=== PATIENT | male | born 1980 | race Caucasian/White ===

== ENCOUNTER 2022-01-26 22:39 | Inpatient (IN) | payer OTHER, SELFPAY ==
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
[2022-01-26] MEDS: Acetaminophen 325 MG TABLET 650 MG PO (23:16)
[2022-01-26 23:20] VITALS: BP 137/90; PULSE 88; RESP 20; TEMP 36; O2SAT 100
[2022-01-27] MEDS: Ibuprofen 600 MG TABLET PO ×2 (01:48→13:46)
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
[2022-01-27 06:00] VITALS: BP 141/85; PULSE 88; RESP 16; TEMP 36.7; O2SAT 100
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
--- NOTE | 2022-01-27 14:53 | HO.PSYCHPN ---
Subjective Subjective Date of Service: 01/27/22 Reason For Visit: schizophrenia Subjective Notes: Conditional Voluntary Diagnostics Vital Signs (24Hr): Vital Signs - 24 hr 01/26/22 23:20 01/27/22 06:00 Temperature 96.8 F 98.1 F Pulse Rate 88 88 Respiratory Rate 20 16 Blood Pressure 137/90 H 141/85 H Pulse Oximetry 100 100 Medications Medications Current Medications Acetaminophen (Acetaminophen 325 Mg Tablet) 650 mg PO Q6H PRN PRN Reason: Headache/Pain Mild Scale (1-3) Last Admin: 01/26/22 23:16 Dose: 650 mg Documented by: Al Hydroxide/Mg Hydroxide (Magnesium Hydrox/Alum Hydrox 30 Ml Oral.Susp) 30 ml PO Q6H PRN PRN Reason: Heartburn/Nausea Hydroxyzine HCl (Hydroxyzine Hcl 25 Mg Tablet) 25 mg PO Q6H PRN PRN Reason: Anxiety Ibuprofen (Ibuprofen 600 Mg Tablet) 600 mg PO Q6H PRN PRN Reason: Pain, Mild (Pain Scale 1-3) Last Admin: 01/27/22 13:46 Dose: 600 mg Documented by: Magnesium Hydroxide (Milk Of Magnesia 30 Ml Oral.Susp) 30 ml PO DAILY PRN PRN Reason: Constipation Olanzapine (Olanzapine 5 Mg Tablet) 5 mg PO TID PRN PRN Reason: agitation Trazodone HCl (Trazodone Hcl 50 Mg Tablet) 50 mg PO BEDTIME PRN PRN Reason: Insomnia Allergies Allergies Allergy/AdvReac Type Severity Reaction Status Date / Time No Known Allergies Allergy Verified 01/26/22 23:05 Assessment & Plan Assessment & Plan (1) Depression: Status: Acute Code(s): F32.A - Depression, unspecified Plan 41 year old man admitted by psychiatric team. Mental health management as per admitting team No significant medical problems noted no labs drawn Consultation completed I spent minutes with the patient and/or on the patient floor today, greater than?50% of which was spent counseling/coordinating care.
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
--- NOTE | 2022-01-27 18:03 | PC.NURSE ---
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 3 weeks ago he was unable to obtain clozaril from his pharmacy and psychiatrist ( Dr Hdez)was unavailable. He decompensated over the past few weeks off the medication. He has never had agranulocytosis. Parents advocate for restarting clozaril. Dr Dela Cruz informed. Original Note: Antwon did not sign release of information for his parents. they called today to offer collateral and I took it. Per Dad: Antwon had been diagnosed with schizophrenia as a teen. He has been stable for the large majority of his life on Clozaril - minimum effective dose 125mg - 75mg not enough.
[2022-01-27 20:27] VITALS: BP 136/93; PULSE 102; RESP 20; TEMP 36.6; O2SAT 100
--- NOTE | 2022-01-28 12:32 | HO.PSYCHPN ---
Subjective Subjective Date of Service: 01/28/22 Reason For Visit: schizophrenia Subjective Notes: 3 Day Healthcare Proxy: No Medical Problems Affecting Mental Status: No Interim History: Still paranoid and internally preoccupied. Hiding behind partitions at times. Refuses medications. Sleep poor. Reports he might consider clozapine (does well on 125mg, 75mg not enough as per family). Denies depression or SI. Appetite ok. Medication Compliance: No Attending Groups: No Review of Systems Acute medical concerns: No Review of Systems Review of Systems Yes Unobtainable due to mental status Mental Status Exam Mental Status Exam Narrative: Regular clothing. Slightly better self care today. Intense affect.? Guarded.? Some difficulty with personal space, but does okay with redirection.? Denies SI or HI.? Is paranoid and guarded internally preoccupied.? Does appear to have some grandiosity at times.? Insight and judgment poor Diagnostics Vital Signs (24Hr): Vital Signs - 24 hr 01/27/22 20:27 Temperature 97.8 F Pulse Rate 102 H Respiratory Rate 20 Blood Pressure 136/93 H Pulse Oximetry 100 Medications Medications Current Medications Acetaminophen (Acetaminophen 325 Mg Tablet) 650 mg PO Q6H PRN PRN Reason: Headache/Pain Mild Scale (1-3) Last Admin: 01/26/22 23:16 Dose: 650 mg Documented by: Al Hydroxide/Mg Hydroxide (Magnesium Hydrox/Alum Hydrox 30 Ml Oral.Susp) 30 ml PO Q6H PRN PRN Reason: Heartburn/Nausea Hydroxyzine HCl (Hydroxyzine Hcl 25 Mg Tablet) 25 mg PO Q6H PRN PRN Reason: Anxiety Ibuprofen (Ibuprofen 600 Mg Tablet) 600 mg PO Q6H PRN PRN Reason: Pain, Mild (Pain Scale 1-3) Last Admin: 01/27/22 13:46 Dose: 600 mg Documented by: Magnesium Hydroxide (Milk Of Magnesia 30 Ml Oral.Susp) 30 ml PO DAILY PRN PRN Reason: Constipation Olanzapine (Olanzapine 5 Mg Tablet) 5 mg PO TID PRN PRN Reason: agitation Trazodone HCl (Trazodone Hcl 50 Mg Tablet) 50 mg PO BEDTIME PRN PRN Reason: Insomnia Allergies Allergies Allergy/AdvReac Type Severity Reaction Status Date / Time No Known Allergies Allergy Verified 01/26/22 23:05 Assessment & Plan Assessment & Plan (1) Schizophrenia: Status: Acute Code(s): F20.9 - Schizophrenia, unspecified Assessment and Plan: Presents with psychosis and hallucinations and disorganized thought form in the context of being off Clozaril for 3-4 weeks. Refuses restarting Clozaril. Will work with family as patient permits and also trying to engage with community services as patient permits also. Will continue to try and encourage clozapine medication. Regarding request for x-rays Of nose, patient has declined these when offered and there is no clear indication for same. 01/28/22- clozapine 50mg ordered. As per family does well on 125mg (75mg too low) I spent minutes with the patient and/or on the patient floor today, greater than?50% of which was spent counseling/coordinating care. Reason for contiued inpatient stay Substantial Risk for: inability to function
[2022-01-28] MEDS: Acetaminophen 325 MG TABLET 650 MG PO (15:03)
[2022-01-28 15:14] LABS: Neutrophils Absolute Auto 7.7 x10*3/uL (2.0-8.3); White Blood Count 11.6 X10*3/uL (4.8-10.8)
[2022-01-28] MEDS: cloZAPine 25 MG TABLET 50 MG PO (21:21)
[2022-01-29 10:27] VITALS: BP 132/87; PULSE 134; RESP 17; TEMP 36.7; O2SAT 100
[2022-01-29] MEDS: LORazepam 1 MG TABLET 2 MG PO ×2 (12:09→12:39)
--- NOTE | 2022-01-29 12:36 | P.PNPSI_ITS ---
Subjective Subjective Date of Service: 01/29/22 Reason For Visit: schizophrenia Interim History: Pt significantly hypervigilant, fearful thinks people on the unit trying to kill him, pacing, yelling at peers at staff as he tries to defend himself. He is also talking to someone who is not there. He reports there are many pedofiles on the unit and he does not know who he can trust. He is very fearful of this typewriter assembler, asking if I am a pedophile. He agrees to try ativan prn, but does not want olanzapine PRN. He took dose of clozaril last night. Medication Compliance: Yes Side effects from medications: No Review of Systems Review of Systems Yes Unobtainable due to mental status Mental Status Exam Mental Status Exam Narrative: Appearance: casually groomed, fair hygiene, pacing, very agitated, fearful and hypervigiland Behavior:very guarded and mistrustful of others psychomotor:significant agitation secondary to hypervigilance/fearfulness s/s to persecutory/paranoid delusions Speech:mumbling at times, pressured speech at times, loud Thought process:disorganized Thought content:accusatory thinks people are following him and many pedophile Mood: get me out of here Affect: fearful, hypervigilant, guarded SI:none HI: defending himself from whoever is after him VH/AH:+AH talking to someone who is not there, Delusions:paranoid/persecutory delusions. Insight/judgment:impaired x 2. Memory/cog: alert, impaired secondary to psychiatric symptoms. Diagnostics Vital Signs (24Hr): Vital Signs - 24 hr 01/29/22 10:27 Temperature 98.1 F Pulse Rate 134 H Respiratory Rate 17 Blood Pressure 132/87 Pulse Oximetry 100 Labs Results: 01/28/22 15:08 Labs: Laboratory Results - last 48 hr 01/28/22 15:08 WBC 11.6 H Absolute Neuts (auto) 7.7 Imaging Radiology Impressions: ITS Impressions Head CT 01/28/22 14:51 IMPRESSION: No acute intracranial pathology. Medications Medications Current Medications Acetaminophen (Acetaminophen 325 Mg Tablet) 650 mg PO Q6H PRN PRN Reason: Headache/Pain Mild Scale (1-3) Last Admin: 01/29/22 12:53 Dose: 650 mg Documented by: Al Hydroxide/Mg Hydroxide (Magnesium Hydrox/Alum Hydrox 30 Ml Oral.Susp) 30 ml PO Q6H PRN PRN Reason: Heartburn/Nausea Clozapine (Clozapine 25 Mg Tablet) 75 mg PO BEDTIME GOLD Last Admin: 01/29/22 20:30 Dose: 75 mg Documented by: Hydroxyzine HCl (Hydroxyzine Hcl 25 Mg Tablet) 25 mg PO Q6H PRN PRN Reason: Anxiety Ibuprofen (Ibuprofen 600 Mg Tablet) 600 mg PO Q6H PRN PRN Reason: Pain, Mild (Pain Scale 1-3) Last Admin: 01/27/22 13:46 Dose: 600 mg Documented by: Lorazepam (Lorazepam 1 Mg Tablet) 2 mg PO Q4H PRN PRN Reason: Anxiety Last Admin: 01/30/22 07:57 Dose: 2 mg Documented by: Magnesium Hydroxide (Milk Of Magnesia 30 Ml Oral.Susp) 30 ml PO DAILY PRN PRN Reason: Constipation Olanzapine (Olanzapine 5 Mg Tablet) 5 mg PO TID PRN PRN Reason: agitation Last Admin: 01/30/22 07:57 Dose: 5 mg Documented by: Trazodone HCl (Trazodone Hcl 50 Mg Tablet) 50 mg PO BEDTIME PRN PRN Reason: Insomnia Allergies Allergies Allergy/AdvReac Type Severity Reaction Status Date / Time No Known Allergies Allergy Verified 01/26/22 23:05 Assessment & Plan Assessment & Plan (1) Schizophrenia: Status: Acute Code(s): F20.9 - Schizophrenia, unspecified Assessment and Plan: Presents with psychosis and hallucinations and disorganized thought form in the context of being off Clozaril for 3-4 weeks. Refuses restarting Clozaril. Will work with family as patient permits and also trying to engage with community services as patient permits also. Will continue to try and encourage clozapine medication. Regarding request for x-rays Of nose, patient has declined these when offered and there is no clear indication for same. 01/28/22- clozapine 50mg ordered. As per family does well on 125mg (75mg too low) 01/29 increase clozapine to 75mg po qhs. I spent minutes with the patient and/or on the patient floor today, gr eater than?50% of which was spent counseling/coordinating care. Reason for contiued inpatient stay Substantial Risk for: harm to others and inability to function
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
[2022-01-29] MEDS: Acetaminophen 325 MG TABLET 650 MG PO (12:53)
[2022-01-29] MEDS: cloZAPine 25 MG TABLET 75 MG PO (20:30)
[2022-01-30] MEDS: OLANZapine 5 MG TABLET PO ×2 (07:57→21:06)
[2022-01-30] MEDS: LORazepam 1 MG TABLET 2 MG PO ×3 (07:57→21:07)
--- NOTE | 2022-01-30 09:17 | P.PNPSI_ITS ---
Subjective Subjective Date of Service: 01/30/22 Reason For Visit: schizophrenia Subjective Notes: 3 Day Interim History: Pt continues to present as paranoid, hypervigilant, talking to someone who is not there. Pt eating several packages of sugar unclear reason as pt became very agitated when asked about this. Pt very disorganized, intrusive with peers accusing them of being pedophiles. He told this investigative writer that I was lying and also a pedophile. speech is also disorganized. Medication Compliance: Yes Side effects from medications: No Review of Systems Review of Systems Yes Unobtainable due to mental status Mental Status Exam Mental Status Exam Narrative: Appearance: casually groomed, fair hygiene, pacing, very agitated, fearful and hypervigiland Behavior:very guarded and mistrustful of others psychomotor:significant agitation secondary to hypervigilance/fearfulness s/s to persecutory/paranoid delusions Speech:mumbling at times, pressured speech at times, loud Thought process:disorganized Thought content:accusatory thinks people are following him and many pedophile Mood: get me out of here Affect: fearful, hypervigilant, guarded SI:none HI: defending himself from whoever is after him VH/AH:+AH talking to someone who is not there, Delusions:paranoid/persecutory delusions. Insight/judgment:impaired x 2. Memory/cog: alert, impaired secondary to psychiatric symptoms. Diagnostics Vital Signs (24Hr): Vital Signs - 24 hr 01/31/22 20:05 Respiratory Rate 18 Labs Results: 01/28/22 15:08 Imaging Radiology Impressions: ITS Impressions Head CT 01/28/22 14:51 IMPRESSION: No acute intracranial pathology. Medications Medications Current Medications Acetaminophen (Acetaminophen 325 Mg Tablet) 650 mg PO Q6H PRN PRN Reason: Headache/Pain Mild Scale (1-3) Last Admin: 01/31/22 15:54 Dose: 650 mg Documented by: Al Hydroxide/Mg Hydroxide (Magnesium Hydrox/Alum Hydrox 30 Ml Oral.Susp) 30 ml PO Q6H PRN PRN Reason: Heartburn/Nausea Clozapine (Clozapine 100 Mg Tablet) 100 mg PO BEDTIME GOLD Last Admin: 01/31/22 19:59 Dose: 100 mg Documented by: Hydroxyzine HCl (Hydroxyzine Hcl 50 Mg Tablet) 50 mg PO Q6H PRN PRN Reason: Anxiety Last Admin: 02/01/22 03:00 Dose: 50 mg Documented by: Ibuprofen (Ibuprofen 600 Mg Tablet) 600 mg PO Q6H PRN PRN Reason: Pain, Mild (Pain Scale 1-3) Last Admin: 01/30/22 16:51 Dose: 600 mg Documented by: Lactic Acid (Ammonium Lactate 12 % Lotion 226 Gm Bottle) 1 appl TOPICAL BID GOLD; Protocol Last Admin: 01/31/22 22:07 Dose: Not Given Documented by: Lorazepam (Lorazepam 1 Mg Tablet) 2 mg PO Q4H PRN PRN Reason: Anxiety Last Admin: 02/01/22 03:00 Dose: 2 mg Documented by: Magnesium Hydroxide (Milk Of Magnesia 30 Ml Oral.Susp) 30 ml PO DAILY PRN PRN Reason: Constipation Olanzapine (Olanzapine 5 Mg Tablet) 5 mg PO Q4H PRN PRN Reason: agitation Last Admin: 02/01/22 03:00 Dose: 5 mg Documented by: Trazodone HCl (Trazodone Hcl 50 Mg Tablet) 50 mg PO BEDTIME PRN PRN Reason: Insomnia Last Admin: 02/01/22 03:00 Dose: 50 mg Documented by: Allergies Allergies Allergy/AdvReac Type Severity Reaction Status Date / Time No Known Allergies Allergy Verified 01/26/22 23:05 Assessment & Plan Assessment & Plan (1) Schizophrenia: Status: Acute Code(s): F20.9 - Schizophrenia, unspecified Assessment and Plan: Presents with psychosis and hallucinations and disorganized thought form in the context of being off Clozaril for 3-4 weeks. Refuses restarting Clozaril. Will work with family as patient permits and also trying to engage with community services as patient permits also. Will continue to try and encourage clozapine medication. Regarding request for x-rays Of nose, patient has declined these when offered and there is no clear indication for same. 01/28/22- clozapine 50mg ordered. As per family does well on 125mg (75mg too low) 01/29 increase clozapine to 75mg po qhs. 01/30 increase clozaril to 100mg po qhs. I spent minutes with the patient and/or on the patient floor today, greater than?50% of which was spent counseling/coordinating care. Reason for contiued inpatient stay Substantial Risk for: inability to function
[2022-01-30] MEDS: LORazepam 1 MG TABLET PO (11:07)
[2022-01-30] MEDS: Ibuprofen 600 MG TABLET PO (16:51)
--- NOTE | 2022-01-30 17:15 | PC.NURSE ---
Approx 1715 patient in snack room taking multiple sugar packets. Limits set on quantity, patient with angry outburst, threw milk at staff, you can't take food away from me . I want to get the fuck out of here, can I call 911, I want to call 911 . Can I call 911 . Explained to patient police do not have privilege or authority to discharge patient. Patient unaccepting of response calling jacquie dawn . Patient posturing, however retreated to room after firm limits set on behaviors.
[2022-01-30 21:00] VITALS: BP 109/70; PULSE 84; RESP 18; TEMP 36.8; O2SAT 99
[2022-01-30] MEDS: traZODone HCL 50 MG TABLET PO (21:06)
[2022-01-30] MEDS: cloZAPine 100 MG TABLET PO (21:07)
[2022-01-31 08:21] VITALS: BP 131/84; PULSE 128; RESP 18; TEMP 36.7; O2SAT 99
--- NOTE | 2022-01-31 09:27 | P.PNPSI_ITS ---
Subjective Subjective Date of Service: 01/31/22 Reason For Visit: schizophrenia Subjective Notes: 3 Day Interim History: Pt continues to present as intrusive to peers, accusatory paranoid towards staff and peer. Pt accused this medical technical writer as liar and continues to report that this medical technical writer is a pedophile. He asks for results of head CT- which is negative and this medical technical writer offered to show report but pt insists that this medical technical writer is lying. Pt coming close to peers trying to touch them as he accused them of pedophiles- needs to be redirected, manager product support called as pt becoming more agitated and threatening towards staff and peers. Medication Compliance: Yes Side effects from medications: No Attending Groups: No Review of Systems Review of Systems Yes Unobtainable due to mental status Mental Status Exam Mental Status Exam Narrative: Appearance: casually groomed, fair hygiene, pacing, very agitated, fearful and hypervigiland Behavior:very guarded and mistrustful of others psychomotor:significant agitation secondary to hypervigilance/fearfulness s/s to persecutory/paranoid delusions Speech:mumbling at times, pressured speech at times, loud Thought process:disorganized Thought content:accusatory thinks people are following him and many pedophile Mood: get me out of here Affect: fearful, hypervigilant, guarded SI:none HI: defending himself from whoever is after him VH/AH:+AH talking to someone who is not there, Delusions:paranoid/persecutory delusions. Insight/judgment:impaired x 2. Memory/cog: alert, impaired secondary to psychiatric symptoms. Diagnostics Vital Signs (24Hr): Vital Signs - 24 hr 01/31/22 20:05 02/01/22 09:00 Temperature 97.2 F Pulse Rate 115 H Respiratory Rate 18 18 Blood Pressure 136/90 H Pulse Oximetry 99 Labs Results: 01/28/22 15:08 Imaging Radiology Impressions: ITS Impressions Head CT 01/28/22 14:51 IMPRESSION: No acute intracranial pathology. Medications Medications Current Medications Acetaminophen (Acetaminophen 325 Mg Tablet) 650 mg PO Q6H PRN PRN Reason: Headache/Pain Mild Scale (1-3) Last Admin: 01/31/22 15:54 Dose: 650 mg Documented by: Al Hydroxide/Mg Hydroxide (Magnesium Hydrox/Alum Hydrox 30 Ml Oral.Susp) 30 ml PO Q6H PRN PRN Reason: Heartburn/Nausea Clozapine (Clozapine 100 Mg Tablet) 100 mg PO BEDTIME GOLD Last Admin: 01/31/22 19:59 Dose: 100 mg Documented by: Hydroxyzine HCl (Hydroxyzine Hcl 50 Mg Tablet) 50 mg PO Q6H PRN PRN Reason: Anxiety Last Admin: 02/01/22 03:00 Dose: 50 mg Documented by: Ibuprofen (Ibuprofen 600 Mg Tablet) 600 mg PO Q6H PRN PRN Reason: Pain, Mild (Pain Scale 1-3) Last Admin: 01/30/22 16:51 Dose: 600 mg Documented by: Lactic Acid (Ammonium Lactate 12 % Lotion 226 Gm Bottle) 1 appl TOPICAL BID GOLD; Protocol Last Admin: 01/31/22 22:07 Dose: Not Given Documented by: Lorazepam (Lorazepam 1 Mg Tablet) 2 mg PO Q4H PRN PRN Reason: Anxiety Last Admin: 02/01/22 03:00 Dose: 2 mg Documented by: Magnesium Hydroxide (Milk Of Magnesia 30 Ml Oral.Susp) 30 ml PO DAILY PRN PRN Reason: Constipation Olanzapine (Olanzapine 5 Mg Tablet) 5 mg PO Q4H PRN PRN Reason: agitation Last Admin: 02/01/22 03:00 Dose: 5 mg Documented by: Trazodone HCl (Trazodone Hcl 50 Mg Tablet) 50 mg PO BEDTIME PRN PRN Reason: Insomnia Last Admin: 02/01/22 03:00 Dose: 50 mg Documented by: Allergies Allergies Allergy/AdvReac Type Severity Reaction Status Date / Time No Known Allergies Allergy Verified 01/26/22 23:05 Assessment & Plan Assessment & Plan (1) Schizophrenia: Status: Acute Code(s): F20.9 - Schizophrenia, unspecified Assessment and Plan: Presents with psychosis and hallucinations and disorganized thought form in the context of being off Clozaril for 3-4 weeks. Refuses restarting Clozaril. Will work with family as patient permits and also trying to engage with community services as patient permits also. Will continue to try and encourage clozapine medication. Regarding request for x-rays Of nose, patient has declined these when offered and there is no clear indication for same. 01/28/22- clozapine 50mg ordered. As per family does well on 125mg (75mg too low) 5/2 increase clozapine to 75mg po qhs. 01/30 increase clozaril to 100mg po qhs. 5/4 increase clozaril to 125mg po qhs. I spent minutes with the patient and/or on the patient floor today, greater than?50% of which was spent counseling/coordinating care. Reason for contiued inpatient stay Substantial Risk for: inability to function
[2022-01-31] MEDS: Acetaminophen 325 MG TABLET 650 MG PO (15:54)
[2022-01-31] MEDS: cloZAPine 100 MG TABLET PO (19:59)
[2022-01-31] MEDS: OLANZapine 5 MG TABLET PO (19:59)
[2022-01-31] MEDS: LORazepam 1 MG TABLET 2 MG PO (20:00)
[2022-01-31] MEDS: hydrOXYzine HCL 50 MG TABLET PO (20:03)
[2022-01-31] MEDS: traZODone HCL 50 MG TABLET PO (20:03)
[2022-01-31 20:05] VITALS: RESP 18
[2022-02-01] MEDS: OLANZapine 5 MG TABLET PO ×2 (03:00→20:46)
[2022-02-01] MEDS: hydrOXYzine HCL 50 MG TABLET PO ×2 (03:00→20:46)
[2022-02-01] MEDS: traZODone HCL 50 MG TABLET PO ×2 (03:00→20:46)
[2022-02-01] MEDS: LORazepam 1 MG TABLET 2 MG PO ×4 (03:00→20:46)
--- NOTE | 2022-02-01 06:11 | PC.NURSE ---
Pt presented very anxious, paranoid, responding to internal stimuli. Frequently talking about and calling people pedophiles and saying that he did not feel safe here around them, stated that people here were trying to beat him up. Pt was triggering peers who thought that he was referring to them as being pedophiles . When staff member attempted to redirect pt from [facility] area pt started swinging his arms and attempted to grab at staff member's badge; pt was redirected to his room. Security was called to the unit to help ensure patient and staff safety. Pt accepted PO medications, which included scheduled clozaril 100 mg, and prn's zyprexa 5 mg, ativan 2 mg, trazodone 50 mg and hydroxyzine 50 mg, administered at 1999. Medications had some observed effect, as pt remained in his room for a bit, and when visible he appeared less anxious and paranoid. Pt was asleep by 2300. Pt woke around 0200 and began going in and out of his room, frequently asking for juice. Each time pt returned to his room he would slam the door very hard. Pt again presented very paranoid, stating today was the worst day of my life and that he didn't need to be here. Pt received prn zyprexa 5 mg, ativan 2 mg, trazodone 50 mg and hydroyxine 50 mg at 0300, and appeared to be asleep by 0330.
[2022-02-01 08:58] LABS: MANUAL DIFF FLAG NO
[2022-02-01 09:00] VITALS: BP 136/90; PULSE 115; RESP 18; TEMP 36.2; O2SAT 99
--- NOTE | 2022-02-01 09:55 | HO.PSYCHPN ---
Subjective Subjective Date of Service: 02/01/22 Reason For Visit: schizophrenia Subjective Notes: Section 7 and 3 Day Interim History: Pt continues to present as intrusive to peers, accusatory paranoid towards staff and peer. Pt appears very fearful, hypervigilant. Pt accused this display card writer as liar and continues to report that this display card writer is a pedophile. He asks for results of head CT- which is negative and this display card writer offered to show report but pt insists that this display card writer is lying. Pt coming close to peers trying to touch them as he accused them of pedophiles- needs to be redirected, it support technician called as pt becoming more agitated and threatening towards staff and peers. Review of Systems Review of Systems Yes Unobtainable due to mental status Mental Status Exam Mental Status Exam Narrative: Appearance: casually groomed, fair hygiene, pacing, very agitated, fearful and hypervigiland Behavior:very guarded and mistrustful of others psychomotor:significant agitation secondary to hypervigilance/fearfulness s/s to persecutory/paranoid delusions Speech:mumbling at times, pressured speech at times, loud Thought process:disorganized Thought content:accusatory thinks people are following him and many pedophile Mood: get me out of here Affect: fearful, hypervigilant, guarded SI:none HI: defending himself from whoever is after him VH/AH:+AH talking to someone who is not there, Delusions:paranoid/persecutory delusions. Insight/judgment:impaired x 2. Memory/cog: alert, impaired secondary to psychiatric symptoms. Diagnostics Vital Signs (24Hr): Vital Signs - 24 hr 01/31/22 20:05 02/01/22 09:00 Temperature 97.2 F Pulse Rate 115 H Respiratory Rate 18 18 Blood Pressure 136/90 H Pulse Oximetry 99 Labs Results: 02/01/22 08:39 Imaging Radiology Impressions: ITS Impressions Head CT 01/28/22 14:51 IMPRESSION: No acute intracranial pathology. Medications Medications Current Medications Acetaminophen (Acetaminophen 325 Mg Tablet) 650 mg PO Q6H PRN PRN Reason: Headache/Pain Mild Scale (1-3) Last Admin: 01/31/22 15:54 Dose: 650 mg Documented by: Al Hydroxide/Mg Hydroxide (Magnesium Hydrox/Alum Hydrox 30 Ml Oral.Susp) 30 ml PO Q6H PRN PRN Reason: Heartburn/Nausea Clozapine (Clozapine 25 Mg Tablet) 125 mg PO BEDTIME GOLD Hydroxyzine HCl (Hydroxyzine Hcl 50 Mg Tablet) 50 mg PO Q6H PRN PRN Reason: Anxiety Last Admin: 02/01/22 03:00 Dose: 50 mg Documented by: Ibuprofen (Ibuprofen 600 Mg Tablet) 600 mg PO Q6H PRN PRN Reason: Pain, Mild (Pain Scale 1-3) Last Admin: 01/30/22 16:51 Dose: 600 mg Documented by: Lactic Acid (Ammonium Lactate 12 % Lotion 226 Gm Bottle) 1 appl TOPICAL BID GOLD; Protocol Last Admin: 01/31/22 22:07 Dose: Not Given Documented by: Lorazepam (Lorazepam 1 Mg Tablet) 2 mg PO Q4H PRN PRN Reason: Anxiety Last Admin: 02/01/22 03:00 Dose: 2 mg Documented by: Magnesium Hydroxide (Milk Of Magnesia 30 Ml Oral.Susp) 30 ml PO DAILY PRN PRN Reason: Constipation Olanzapine (Olanzapine 5 Mg Tablet) 5 mg PO Q4H PRN PRN Reason: agitation Last Admin: 02/01/22 03:00 Dose: 5 mg Documented by: Trazodone HCl (Trazodone Hcl 50 Mg Tablet) 50 mg PO BEDTIME PRN PRN Reason: Insomnia Last Admin: 02/01/22 03:00 Dose: 50 mg Documented by: Allergies Allergies Allergy/AdvReac Type Severity Reaction Status Date / Time No Known Allergies Allergy Verified 01/26/22 23:05 Assessment & Plan Assessment & Plan (1) Schizophrenia: Status: Acute Code(s): F20.9 - Schizophrenia, unspecified Assessment and Plan: Presents with psychosis and hallucinations and disorganized thought form in the context of being off Clozaril for 3-4 weeks. Refuses restarting Clozaril. Will work with family as patient permits and also trying to engage with community services as patient permits also. Will continue to try and encourage clozapine medication. Regarding request for x-rays Of nose, patient has declined these when offered and there is no clear indication for same. 01/28/22- clozapine 50mg ordered. As per family does well on 125mg (75mg too low) 01/29 increase clozapine to 75mg po qhs. 01/30 increase clozaril to 100mg po qhs. 01/31 increase clozaril to 125mg po qhs. I spent minutes with the patient and/or on the patient floor today, greater than?50% of which was spent counseling/coordinating care. Reason for contiued inpatient stay Substantial Risk for: inability to function
[2022-02-01 10:02] LABS: Basophils Percent Auto 0.5 % (0-2); Eosinophils Absolute Auto 0.3 X10*3/uL (0.0-0.4); Eosinophils Percent Auto 4.3 % (0-4); Hematocrit 44.7 % (42.0-52.0); Imm Gran Abs Auto 0.09 X10*3/uL (0.00-0.03); Imm Gran Pct Auto 1.4 % (0.0-0.4); Lymphocytes Absolute Auto 1.4 X10*3/uL (1.2-4.9); Lymphocytes Percent Auto 22.9 % (20-40); Mean Corpuscular HGB Conc 33.6 g/dl (31.0-36.0); Mean Corpuscular Hemoglobin 29.5 pg (27.0-33.0); Mean Corpuscular Volume 87.8 fL (80.0-98.0); Mean Platelet Volume 9.8 fL (9.4-12.4); Monocytes Absolute Auto 0.7 X10*3/uL (0.1-1.2); Monocytes Percent Auto 11.2 % (2-11); Neutrophils Absolute Auto 3.7 x10*3/uL (2.0-8.3); Neutrophils Percent Auto 59.7 % (45-73); Platelet Count 213 X10*3/uL (160-400); Red Blood Count 5.09 X10*6/uL (4.60-5.80); Red Cell Distribution Width 13.2 % (11.0-16.0); White Blood Count 6.2 X10*3/uL (4.8-10.8)
--- NOTE | 2022-02-01 10:02 | PC.NURSE ---
Patient agitated at times, swearing, pacing on unit-reports 'people are trying to start fights with me' - offered ativan/zyprexa- declined.
[2022-02-01] MEDS: Magnesium Hydrox/Alum Hydrox 30 ML ORAL.SUSP PO (17:04)
[2022-02-01] MEDS: Acetaminophen 325 MG TABLET 650 MG PO (17:08)
[2022-02-01 20:39] VITALS: BP 119/77; PULSE 115; RESP 18; TEMP 36.4; O2SAT 96
[2022-02-01] MEDS: cloZAPine 25 MG TABLET PO (20:47)
[2022-02-01] MEDS: cloZAPine 100 MG TABLET PO (20:47)
[2022-02-02] MEDS: OLANZapine 5 MG TABLET PO (08:19)
[2022-02-02] MEDS: LORazepam 1 MG TABLET 2 MG PO ×3 (08:19→16:58)
--- NOTE | 2022-02-02 08:21 | PC.NURSE ---
Patient pacing, running, slammed a door, appears very anxious, agitated. Offered PRN medications which patient accepted.
[2022-02-02 09:37] VITALS: RESP 22
[2022-02-02] MEDS: Ibuprofen 600 MG TABLET PO (16:58)
--- NOTE | 2022-02-02 18:05 | HO.PSYCHPN ---
Subjective Subjective Date of Service: 02/02/22 Reason For Visit: schizophrenia Interim History: Patient seen and discussed with team. Patient evaluated today and upon interview he reports he feels pretty good. Says his sleep is good. He is evasive, standing by door, appears paranoid and not eager to continue interview. Denies having questions or concerns. Says he feels safe. Asks for cream for cracked feet, which is already ordered as a PRN.?? In the milieu, patient is pacing, agitated and paranoid in behavior. Medication Compliance: Yes Side effects from medications: No Attending Groups: No Review of Systems Acute medical concerns: No Medical Review of Systems: unchanged Mental Status Exam Mental Status Exam Narrative: Appearance: casually groomed, fair hygiene, pacing, very agitated, fearful and hypervigiland Behavior:very guarded and mistrustful of others psychomotor:significant agitation secondary to hypervigilance/fearfulness s/s to persecutory/paranoid delusions Speech:mumbling at times, pressured speech at times, loud Thought process:disorganized Thought content:accusatory thinks people are following him and many pedophile Mood: good Affect: fearful, hypervigilant, guarded SI:none HI: defending himself from whoever is after him VH/AH:+AH talking to someone who is not there, Delusions:paranoid/persecutory delusions. Insight/judgment:impaired x 2. Memory/cog: alert, impaired secondary to psychiatric symptoms. Diagnostics Vital Signs (24Hr): Vital Signs - 24 hr 02/01/22 20:39 02/02/22 09:37 Temperature 97.6 F Pulse Rate 115 H Respiratory Rate 18 22 H Blood Pressure 119/77 Pulse Oximetry 96 Labs Results: 02/01/22 08:39 Labs: Laboratory Results - last 48 hr 02/01/22 08:39 WBC 6.2 RBC 5.09 Hgb 15.0 Hct 44.7 MCV 87.8 MCH 29.5 MCHC 33.6 RDW 13.2 Plt Count 213 MPV 9.8 Immature Gran % (Auto) 1.4 H Neut % (Auto) 59.7 Lymph % (Auto) 22.9 [place] % (Auto) 11.2 H Eos % (Auto) 4.3 H Baso % (Auto) 0.5 Lymph # (Auto) 1.4 [place] # (Auto) 0.7 Eos # (Auto) 0.3 Baso # (Auto) 0.0 Abs Immat Gran (auto) 0.09 H Absolute Neuts (auto) 3.7 Absolute Nucleated RBC 0.000 Nucleated RBC % (auto) 0.0 Imaging Radiology Impressions: ITS Impressions Head CT 01/28/22 14:51 IMPRESSION: No acute intracranial pathology. Medications Medications Current Medications Acetaminophen (Acetaminophen 325 Mg Tablet) 650 mg PO Q6H PRN PRN Reason: Headache/Pain Mild Scale (1-3) Last Admin: 02/01/22 17:08 Dose: 650 mg Documented by: Al Hydroxide/Mg Hydroxide (Magnesium Hydrox/Alum Hydrox 30 Ml Oral.Susp) 30 ml PO Q6H PRN PRN Reason: Heartburn/Nausea Last Admin: 02/01/22 17:04 Dose: 30 ml Documented by: Clozapine (Clozapine 25 Mg Tablet) 25 mg PO BEDTIME GOLD Last Admin: 02/01/22 20:47 Dose: 25 mg Documented by: Clozapine (Clozapine 100 Mg Tablet) 100 mg PO BEDTIME GOLD Last Admin: 02/01/22 20:47 Dose: 100 mg Documented by: Hydroxyzine HCl (Hydroxyzine Hcl 50 Mg Tablet) 50 mg PO Q6H PRN PRN Reason: Anxiety Last Admin: 02/01/22 20:46 Dose: 50 mg Documented by: Ibuprofen (Ibuprofen 600 Mg Tablet) 600 mg PO Q6H PRN PRN Reason: Pain, Mild (Pain Scale 1-3) Last Admin: 02/02/22 16:58 Dose: 600 mg Documented by: Lactic Acid (Ammonium Lactate 12 % Lotion 226 Gm Bottle) 1 appl TOPICAL BID GOLD; Protocol Last Admin: 02/02/22 09:45 Dose: Not Given Documented by: Lorazepam (Lorazepam 1 Mg Tablet) 2 mg PO Q4H PRN PRN Reason: Anxiety Last Admin: 02/02/22 16:58 Dose: 2 mg Documented by: Magnesium Hydroxide (Milk Of Magnesia 30 Ml Oral.Susp) 30 ml PO DAILY PRN PRN Reason: Constipation Olanzapine (Olanzapine 5 Mg Tablet) 5 mg PO Q4H PRN PRN Reason: agitation Last Admin: 02/02/22 08:19 Dose: 5 mg Documented by: Trazodone HCl (Trazodone Hcl 50 Mg Tablet) 50 mg PO BEDTIME PRN PRN Reason: Insomnia Last Admin: 02/01/22 20:46 Dose: 50 mg Documented by: Allergies Allergies Allergy/AdvReac Type Severity Reaction Status Date / Time No Known Allergies Allergy Verified 01/26/22 23:05 Assessment & Plan Assessment & Plan (1) Schizophrenia: Status: Acute Code(s): F20.9 - Schizophrenia, unspecified Assessment and Plan: Presents with psychosis and hallucinations and disorganized thought form in the context of being off Clozaril for 3-4 weeks. Refuses restarting Clozaril. Will work with family as patient permits and also trying to engage with community services as patient permits also. Will continue to try and encourage clozapine medication. Regarding request for x-rays Of nose, patient has declined these when offered and there is no clear indication for same. 01/28/22- clozapine 50mg ordered. As per family does well on 125mg (75mg too low) 01/29 increase clozapine to 75mg po qhs. 01/30 increase clozaril to 100mg po qhs. 01/31 increase clozaril to 125mg po qhs. 02/02 continue plan of care, pt paranoid I spent minutes with the patient and/or on the patient floor today, greater than?50% of which was spent counseling/coordinating care. Patient educated on: therapeutic strategies Reason for contiued inpatient stay Substantial Risk for: inability to function, rapid decompensation and med/psych decompensation
[2022-02-02] MEDS: cloZAPine 25 MG TABLET PO (20:42)
[2022-02-02] MEDS: cloZAPine 100 MG TABLET PO (20:42)
[2022-02-02] MEDS: Ammonium Lactate 12 % Lotion 226 GM BOTTLE 1 APPL TOPICAL (21:17)
[2022-02-03] MEDS: Acetaminophen 325 MG TABLET 650 MG PO ×2 (08:24→16:05)
[2022-02-03] MEDS: LORazepam 1 MG TABLET 2 MG PO ×2 (08:24→17:44)
[2022-02-03] MEDS: Ammonium Lactate 12 % Lotion 226 GM BOTTLE 1 APPL TOPICAL (08:25)
[2022-02-03] MEDS: hydrOXYzine HCL 50 MG TABLET PO (11:09)
[2022-02-03] MEDS: Ibuprofen 600 MG TABLET PO (11:09)
[2022-02-03 18:00] VITALS: BP 133/86; PULSE 107; RESP 14; TEMP 36.7
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
[2022-02-03] MEDS: cloZAPine 25 MG TABLET PO (20:23)
[2022-02-03] MEDS: cloZAPine 100 MG TABLET PO (20:23)
[2022-02-04] MEDS: LORazepam 1 MG TABLET 2 MG PO ×3 (08:55→21:13)
[2022-02-04] MEDS: Acetaminophen 325 MG TABLET 650 MG PO (08:55)
[2022-02-04] MEDS: Ibuprofen 600 MG TABLET PO (10:53)
[2022-02-04 11:01] VITALS: BP 117/80; PULSE 112; RESP 18; TEMP 36.8; O2SAT 99
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
[2022-02-04 21:10] VITALS: BP 126/81; PULSE 110; RESP 18; TEMP 36.8; O2SAT 98
[2022-02-04] MEDS: cloZAPine 25 MG TABLET PO (21:13)
[2022-02-04] MEDS: cloZAPine 100 MG TABLET PO (21:14)
[2022-02-04] MEDS: Ammonium Lactate 12 % Lotion 226 GM BOTTLE 1 APPL TOPICAL (21:15)
[2022-02-05] MEDS: Ibuprofen 600 MG TABLET PO ×2 (09:23→18:07)
[2022-02-05] MEDS: LORazepam 1 MG TABLET 2 MG PO ×2 (09:23→13:07)
[2022-02-05 09:30] VITALS: BP 134/92; PULSE 112; RESP 20; TEMP 36.6; O2SAT 100
--- NOTE | 2022-02-05 11:07 | P.PNPSI_ITS ---
Subjective Subjective Date of Service: 02/05/22 Reason For Visit: schizophrenia Subjective Notes: Conditional Voluntary Interim History: Pt calmer. Pt reports he does not want to go to court, asking what needs to happen to avoid court. Pt agreed to retract 3 day notice. He reports feeling calmer. He continues with paranoia, but to much lesser extend. Pt denies SI/HI. He is seen at times talking with someone who is not there. He is taking clozaril as prescribed. Pt much less intrusive. No behavioral concerns. Medication Compliance: Yes Side effects from medications: No Review of Systems Review of Systems Yes Unobtainable due to mental status Mental Status Exam Mental Status Exam Narrative: Appearance: casually groomed, fair hygiene, pacing Behavior:very guarded and mistrustful of others psychomotor:significant agitation secondary to hypervigilance/fearfulness s/s to persecutory/paranoid delusions Speech:mumbling at times, pressured speech at times Thought process:more organized and coherent Thought content: less accusatory and less paranoid about people outside the hospital Mood: better Affect: less fearful, less hypervigilant SI:none HI:none VH/AH:denies today but seen talking to someone who is not there. Delusions: less paranoid/persecutory delusions. Insight/judgment:improving x 2 Memory/cog: alert, impaired secondary to psychiatric symptoms. Diagnostics Vital Signs (24Hr): Vital Signs - 24 hr 02/04/22 21:10 02/05/22 09:30 Temperature 98.3 F 97.8 F Pulse Rate 110 H 112 H Respiratory Rate 18 20 Blood Pressure 126/81 134/92 H Pulse Oximetry 98 100 Labs Results: 02/01/22 08:39 Imaging Radiology Impressions: ITS Impressions Head CT 01/28/22 14:51 IMPRESSION: No acute intracranial pathology. Medications Medications Current Medications Acetaminophen (Acetaminophen 325 Mg Tablet) 650 mg PO Q6H PRN PRN Reason: Headache/Pain Mild Scale (1-3) Last Admin: 02/04/22 08:55 Dose: 650 mg Documented by: Al Hydroxide/Mg Hydroxide (Magnesium Hydrox/Alum Hydrox 30 Ml Oral.Susp) 30 ml PO Q6H PRN PRN Reason: Heartburn/Nausea Last Admin: 02/01/22 17:04 Dose: 30 ml Documented by: Clozapine (Clozapine 25 Mg Tablet) 150 mg PO BEDTIME GOLD Hydroxyzine HCl (Hydroxyzine Hcl 50 Mg Tablet) 50 mg PO Q6H PRN PRN Reason: Anxiety Last Admin: 02/03/22 11:09 Dose: 50 mg Documented by: Ibuprofen (Ibuprofen 600 Mg Tablet) 600 mg PO Q6H PRN PRN Reason: Pain, Mild (Pain Scale 1-3) Last Admin: 02/05/22 09:23 Dose: 600 mg Documented by: Lactic Acid (Ammonium Lactate 12 % Lotion 226 Gm Bottle) 1 appl TOPICAL BID GOLD; Protocol Last Admin: 02/05/22 12:59 Dose: Not Given Documented by: Lorazepam (Lorazepam 1 Mg Tablet) 2 mg PO Q4H PRN PRN Reason: Anxiety Last Admin: 02/05/22 13:07 Dose: 2 mg Documented by: Magnesium Hydroxide (Milk Of Magnesia 30 Ml Oral.Susp) 30 ml PO DAILY PRN PRN Reason: Constipation Olanzapine (Olanzapine 5 Mg Tablet) 5 mg PO Q4H PRN PRN Reason: agitation Last Admin: 02/02/22 08:19 Dose: 5 mg Documented by: Trazodone HCl (Trazodone Hcl 50 Mg Tablet) 50 mg PO BEDTIME PRN PRN Reason: Insomnia Last Admin: 02/01/22 20:46 Dose: 50 mg Documented by: Allergies Allergies Allergy/AdvReac Type Severity Reaction Status Date / Time No Known Allergies Allergy Verified 01/26/22 23:05 Assessment & Plan Assessment & Plan (1) Schizophrenia: Status: Acute Code(s): F20.9 - Schizophrenia, unspecified Assessment and Plan: Presents with psychosis and hallucinations and disorganized thought form in the context of being off Clozaril for 3-4 weeks. Refuses restarting Clozaril. Will work with family as patient permits and also trying to engage with community services as patient permits also. Will continue to try and encourage clozapine medication. Regarding request for x-rays Of nose, patient has declin ed these when offered and there is no clear indication for same. 01/28/22- clozapine 50mg ordered. As per family does well on 125mg (75mg too low) 01/29 increase clozapine to 75mg po qhs. 01/30 increase clozaril to 100mg po qhs. 01/31 increase clozaril to 125mg po qhs. 02/05 increase clozaril to 150mg po qhs, plan to increase clozaril tomorrow to 175mg po qhs. I spent minutes with the patient and/or on the patient floor today, greater than?50% of which was spent counseling/coordinating care. Reason for contiued inpatient stay Substantial Risk for: inability to function
[2022-02-05] MEDS: LORazepam 1 MG TABLET PO (18:07)
[2022-02-05] MEDS: Acetaminophen 325 MG TABLET 650 MG PO (19:52)
[2022-02-05 20:44] VITALS: BP 118/66; PULSE 116; RESP 18; TEMP 36.6; O2SAT 99
[2022-02-05] MEDS: Ammonium Lactate 12 % Lotion 226 GM BOTTLE 1 APPL TOPICAL (20:47)
[2022-02-05] MEDS: cloZAPine 25 MG TABLET 50 MG PO (20:53)
[2022-02-05] MEDS: hydrOXYzine HCL 50 MG TABLET PO (20:53)
[2022-02-05] MEDS: cloZAPine 100 MG TABLET PO (20:53)
[2022-02-06] MEDS: Ibuprofen 600 MG TABLET PO ×2 (07:58→17:51)
[2022-02-06] MEDS: LORazepam 1 MG TABLET PO ×2 (07:59→14:14)
[2022-02-06 08:14] VITALS: BP 113/79; PULSE 109; RESP 20; TEMP 36.2; O2SAT 98
--- NOTE | 2022-02-06 08:45 | HO.PSYCHPN ---
Subjective Subjective Date of Service: 02/06/22 Reason For Visit: schizophrenia Subjective Notes: Conditional Voluntary Interim History: Pt more organized. He reports he slept well. He reports feels calmer, less paranoid delusions. He is not accusing staff or peers of being pedophiles. He reports clozaril is helping and is more accepting of psychiatric treatment. He reports he lives alone, but his sister visits him often. He reports doing well on clozaril in the past and hoping he will be continue to do so on the medication. Per nursing, pt still pacing at times, internally preoccupied but to lesser extend. Medication Compliance: Yes Side effects from medications: No Attending Groups: No Review of Systems Review of Systems Yes Unobtainable due to mental status Mental Status Exam Mental Status Exam Narrative: Appearance: casually groomed, fair hygiene, pacing Behavior:very guarded and mistrustful of others psychomotor:significant agitation secondary to hypervigilance/fearfulness s/s to persecutory/paranoid delusions Speech:mumbling at times, pressured speech at times Thought process:more organized and coherent Thought content: less accusatory and less paranoid about people outside the hospital Mood: better Affect: less fearful, less hypervigilant SI:none HI:none VH/AH:denies today but seen talking to someone who is not there. Delusions: less paranoid/persecutory delusions. Insight/judgment:improving x 2 Memory/cog: alert, impaired secondary to psychiatric symptoms. Diagnostics Vital Signs (24Hr): Vital Signs - 24 hr 02/05/22 20:44 02/06/22 08:14 Temperature 97.8 F 97.1 F Pulse Rate 116 H 109 H Respiratory Rate 18 20 Blood Pressure 118/66 113/79 Pulse Oximetry 99 98 Labs Results: 02/01/22 08:39 Imaging Radiology Impressions: ITS Impressions Head CT 01/28/22 14:51 IMPRESSION: No acute intracranial pathology. Medications Medications Current Medications Acetaminophen (Acetaminophen 325 Mg Tablet) 650 mg PO Q6H PRN PRN Reason: Headache/Pain Mild Scale (1-3) Last Admin: 02/05/22 19:52 Dose: 650 mg Documented by: Al Hydroxide/Mg Hydroxide (Magnesium Hydrox/Alum Hydrox 30 Ml Oral.Susp) 30 ml PO Q6H PRN PRN Reason: Heartburn/Nausea Last Admin: 02/01/22 17:04 Dose: 30 ml Documented by: Clozapine (Clozapine 100 Mg Tablet) 100 mg PO BEDTIME GOLD Last Admin: 02/05/22 20:53 Dose: 100 mg Documented by: Hydroxyzine HCl (Hydroxyzine Hcl 50 Mg Tablet) 50 mg PO Q6H PRN PRN Reason: Anxiety Last Admin: 02/05/22 20:53 Dose: 50 mg Documented by: Ibuprofen (Ibuprofen 600 Mg Tablet) 600 mg PO Q6H PRN PRN Reason: Pain, Mild (Pain Scale 1-3) Last Admin: 02/06/22 07:58 Dose: 600 mg Documented by: Lactic Acid (Ammonium Lactate 12 % Lotion 226 Gm Bottle) 1 appl TOPICAL BID GOLD; Protocol Last Admin: 02/05/22 20:47 Dose: 1 appl Documented by: Lorazepam (Lorazepam 1 Mg Tablet) 1 mg PO Q6H PRN PRN Reason: Anxiety Last Admin: 02/06/22 07:59 Dose: 1 mg Documented by: Magnesium Hydroxide (Milk Of Magnesia 30 Ml Oral.Susp) 30 ml PO DAILY PRN PRN Reason: Constipation Olanzapine (Olanzapine 5 Mg Tablet) 5 mg PO Q4H PRN PRN Reason: agitation Last Admin: 02/02/22 08:19 Dose: 5 mg Documented by: Trazodone HCl (Trazodone Hcl 50 Mg Tablet) 50 mg PO BEDTIME PRN PRN Reason: Insomnia Last Admin: 02/01/22 20:46 Dose: 50 mg Documented by: Allergies Allergies Allergy/AdvReac Type Severity Reaction Status Date / Time No Known Allergies Allergy Verified 01/26/22 23:05 Assessment & Plan Assessment & Plan (1) Schizophrenia: Status: Acute Code(s): F20.9 - Schizophrenia, unspecified Assessment and Plan: Presents with psychosis and hallucinations and disorganized thought form in the context of being off Clozaril for 3-4 weeks. 01/28/22- clozapine 50mg ordered. As per family does well on 125mg (75mg too low) 01/29 increase clozapine to 75mg po qhs. 01/30 increase clozaril to 100mg po qhs. 01/31 increase clozaril to 125mg po qhs. 02/05 increase clozaril to 150mg po qhs, plan to increase clozaril tomorrow to 175mg po qhs. 02/06 increase clozaril to 175mg po qhs. I spent minutes with the patient and/or on the patient floor today, greater than?50% of which was spent counseling/coordinating care. Reason for contiued inpatient stay Substantial Risk for: inability to function
[2022-02-06] MEDS: hydrOXYzine HCL 50 MG TABLET PO (11:02)
[2022-02-06] MEDS: Ammonium Lactate 12 % Lotion 226 GM BOTTLE 1 APPL TOPICAL (15:12)
[2022-02-06] MEDS: cloZAPine 25 MG TABLET 75 MG PO (20:06)
[2022-02-06] MEDS: cloZAPine 100 MG TABLET PO (20:06)
[2022-02-06 20:08] VITALS: BP 107/77; PULSE 101; RESP 18; TEMP 36.7; O2SAT 99
[2022-02-07 08:51] VITALS: BP 123/77; PULSE 107; RESP 20; TEMP 36.2; O2SAT 100
[2022-02-07] MEDS: LORazepam 1 MG TABLET PO (10:36)
[2022-02-07] MEDS: Ammonium Lactate 12 % Lotion 226 GM BOTTLE 1 APPL TOPICAL ×2 (10:36→21:40)
[2022-02-07] MEDS: Ibuprofen 600 MG TABLET PO ×2 (12:23→19:02)
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
[2022-02-07] MEDS: Acetaminophen 325 MG TABLET 650 MG PO (15:12)
[2022-02-07] MEDS: cloZAPine 25 MG TABLET 75 MG PO (21:41)
[2022-02-07] MEDS: cloZAPine 100 MG TABLET PO (21:41)
[2022-02-07 21:43] VITALS: BP 120/89; PULSE 104; TEMP 36.4; O2SAT 98
[2022-02-08 07:00] VITALS: BMI 25.9
[2022-02-08 08:00] VITALS: BP 126/79; PULSE 108; RESP 16; TEMP 36.6; O2SAT 96
[2022-02-08 08:55] LABS: Neut%MD 57.7 %; Neutrophils Absolute Auto 4.5 x10*3/uL (2.0-8.3); WBCANC 7.9 X10*3/uL
[2022-02-08] MEDS: Ibuprofen 600 MG TABLET PO ×2 (10:12→16:41)
[2022-02-08] MEDS: Ammonium Lactate 12 % Lotion 226 GM BOTTLE 1 APPL TOPICAL ×2 (10:13→21:35)
[2022-02-08 10:48] VITALS: BMI 25.9
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
[2022-02-08 18:00] VITALS: BP 131/84; PULSE 106; RESP 18; TEMP 36.8; O2SAT 99
[2022-02-08] MEDS: cloZAPine 25 MG TABLET 75 MG PO (21:35)
[2022-02-08] MEDS: cloZAPine 100 MG TABLET PO (21:35)
[2022-02-09] MEDS: Ammonium Lactate 12 % Lotion 226 GM BOTTLE 1 APPL TOPICAL (10:18)
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
[2022-02-09 20:30] VITALS: BP 117/78; PULSE 117; RESP 20; TEMP 36.7; O2SAT 97
[2022-02-09] MEDS: cloZAPine 100 MG TABLET PO (22:07)
[2022-02-09] MEDS: cloZAPine 25 MG TABLET 75 MG PO (22:07)
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
[2022-02-10 16:20] VITALS: BP 126/77; PULSE 104; RESP 20; TEMP 36.6; O2SAT 98
[2022-02-10] MEDS: LORazepam 2 MG/ML VIAL IM (16:20)
[2022-02-10] MEDS: Haloperidol Lactate 5 MG/ML VIAL 10 MG IM (16:20)
[2022-02-10] MEDS: Acetaminophen 325 MG TABLET 650 MG PO (16:30)
[2022-02-10 16:46] VITALS: RESP 18
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
[2022-02-10 16:50] VITALS: RESP 18
[2022-02-10 17:09] VITALS: RESP 18
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
[2022-02-10 17:24] VITALS: RESP 18
--- NOTE | 2022-02-10 17:27 | PM.EVENT ---
Event Note Date of Service: 02/10/22 Event Note: Patient seen following chemical restraint, he was fully awake alert, heart exam regular rate, s1s2, lungs CTA, Neuro intact no focal defiicit.. He sounds Psychotic asking if i can release from the hospital
[2022-02-10] MEDS: cloZAPine 25 MG TABLET 75 MG PO (23:16)
[2022-02-10] MEDS: cloZAPine 100 MG TABLET PO (23:17)
[2022-02-10 23:29] VITALS: BP 134/80; PULSE 88; RESP 18; TEMP 36.8; O2SAT 98
[2022-02-11 09:57] VITALS: BP 128/74; PULSE 104; RESP 20; TEMP 36.4; O2SAT 98
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
[2022-02-11] MEDS: LORazepam 1 MG TABLET PO ×2 (14:06→20:28)
[2022-02-11] MEDS: Ibuprofen 600 MG TABLET PO ×2 (15:32→21:22)
[2022-02-11 20:00] VITALS: BP 129/80; PULSE 109; RESP 18; TEMP 36.6; O2SAT 97
[2022-02-11] MEDS: Acetaminophen 325 MG TABLET 650 MG PO (20:28)
[2022-02-11] MEDS: cloZAPine 25 MG TABLET 75 MG PO (21:54)
[2022-02-11] MEDS: cloZAPine 100 MG TABLET PO (21:55)
[2022-02-12 06:00] VITALS: BP 143/83; PULSE 109; RESP 18; TEMP 36.6; O2SAT 97
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
[2022-02-12] MEDS: Ammonium Lactate 12 % Lotion 226 GM BOTTLE 1 APPL TOPICAL (10:15)
[2022-02-12] MEDS: Ibuprofen 600 MG TABLET PO ×2 (10:47→16:50)
[2022-02-12] MEDS: Acetaminophen 325 MG TABLET 650 MG PO ×2 (12:50→21:34)
[2022-02-12] MEDS: cloZAPine 100 MG TABLET PO (22:05)
[2022-02-12] MEDS: cloZAPine 25 MG TABLET 75 MG PO (22:05)
[2022-02-13] MEDS: Ibuprofen 600 MG TABLET PO ×3 (08:45→20:27)
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
[2022-02-13] MEDS: Acetaminophen 325 MG TABLET 650 MG PO ×2 (11:48→18:00)
[2022-02-13] MEDS: LORazepam 1 MG TABLET PO ×2 (14:07→20:43)
[2022-02-13 22:10] VITALS: BP 120/72; PULSE 104; RESP 19; TEMP 36.6; O2SAT 97
[2022-02-13] MEDS: cloZAPine 25 MG TABLET 75 MG PO (22:14)
[2022-02-14] MEDS: Acetaminophen 325 MG TABLET 650 MG PO ×2 (05:40→11:53)
[2022-02-14] MEDS: Ibuprofen 600 MG TABLET PO ×2 (06:08→15:55)
[2022-02-14 08:00] VITALS: BP 130/90; PULSE 98; RESP 18; TEMP 36.3; O2SAT 97
[2022-02-14] MEDS: LORazepam 1 MG TABLET PO ×3 (08:06→21:08)
--- NOTE | 2022-02-14 10:42 | PC.NURSE ---
Patient Adderall XR confirmed at [facility] with Shannan. Adderall XR 30mg #20 dispensed 01/31/22.
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
[2022-02-14 21:04] VITALS: BP 131/87; PULSE 102; RESP 18; TEMP 36.6; O2SAT 98
[2022-02-14] MEDS: cloZAPine 100 MG TABLET PO (21:08)
[2022-02-14] MEDS: cloZAPine 25 MG TABLET 75 MG PO (21:08)
[2022-02-15 08:51] LABS: Neut%MD 61.6 %; Neutrophils Absolute Auto 5.2 x10*3/uL (2.0-8.3); WBCANC 8.5 X10*3/uL
[2022-02-15 10:32] VITALS: RESP 17
[2022-02-15] MEDS: Ibuprofen 600 MG TABLET PO ×2 (10:45→16:23)
[2022-02-15] MEDS: Acetaminophen 325 MG TABLET 650 MG PO ×2 (11:38→18:26)
[2022-02-15 11:50] VITALS: BMI 26.4
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
[2022-02-15] MEDS: LORazepam 1 MG TABLET PO (20:16)
[2022-02-15 20:17] VITALS: BP 143/102; PULSE 93; RESP 17; TEMP 36.2; O2SAT 99
[2022-02-15] MEDS: cloZAPine 25 MG TABLET 75 MG PO (20:49)
[2022-02-15] MEDS: cloZAPine 100 MG TABLET PO (20:50)
[2022-02-16 10:09] VITALS: RESP 20
[2022-02-16] MEDS: Ibuprofen 600 MG TABLET PO ×2 (11:17→21:21)
[2022-02-16] MEDS: Acetaminophen 325 MG TABLET 650 MG PO ×2 (11:17→21:21)
--- NOTE | 2022-02-16 14:30 | HO.PSYCHPN ---
Subjective Subjective Date of Service: 02/16/22 Reason For Visit: schizophrenia Interim History: similar presentation to yesterday. wandering, polite and pleasant, hyperverbal. states he is taking clozaril and will continue to do so, planning to call his glaucoma specialist today. no complaints or requests otherwise. per staff, irritable and anxious. +RIS. denies anxiety or depression, however. less labile eves. delusional, did call one staff member a pedophile last evening. med and meal compliant. got PRN ativan. slept through the night. Mental Status Exam Mental Status Exam Narrative: Appearance: casually groomed, fair hygiene, pacing Behavior: less guarded and mistrustful of others today psychomotor: PMA Speech:mumbling and rapid Thought process: a bit more organized Thought content: less accusatory and less paranoid about others Mood: not assessed Affect: less fearful, less hypervigilant SI:none expressed HI:none expressed VH/AH:none expressed Delusions: less paranoid/persecutory delusions. Insight/judgment:improving x 2 Memory/cog: alert, impaired secondary to psychiatric symptoms. Diagnostics Vital Signs (24Hr): Vital Signs - 24 hr 02/15/22 20:17 02/16/22 10:09 Temperature 97.2 F Pulse Rate 93 Respiratory Rate 17 20 Blood Pressure 143/102 H Pulse Oximetry 99 BMI result Body Mass Index 26.4 Labs Results: 02/01/22 08:39 Labs: Laboratory Results - last 48 hr 02/15/22 08:28 Absolute Neuts (auto) 5.2 Imaging Radiology Impressions: ITS Impressions Head CT 01/28/22 14:51 IMPRESSION: No acute intracranial pathology. Medications Medications Current Medications Acetaminophen (Acetaminophen 325 Mg Tablet) 650 mg PO Q6H PRN PRN Reason: Headache/Pain Mild Scale (1-3) Last Admin: 02/16/22 11:17 Dose: 650 mg Documented by: Al Hydroxide/Mg Hydroxide (Magnesium Hydrox/Alum Hydrox 30 Ml Oral.Susp) 30 ml PO Q6H PRN PRN Reason: Heartburn/Nausea Last Admin: 02/01/22 17:04 Dose: 30 ml Documented by: Clonidine HCl (Clonidine Hcl 0.1 Mg Tablet) 0.1 mg PO BID PRN; Protocol PRN Reason: hyperarousal, anxiety Clozapine (Clozapine 100 Mg Tablet) 100 mg PO BEDTIME GOLD Last Admin: 02/15/22 20:50 Dose: 100 mg Documented by: Clozapine (Clozapine 25 Mg Tablet) 75 mg PO BEDTIME GOLD Last Admin: 02/15/22 20:49 Dose: 75 mg Documented by: Hydroxyzine HCl (Hydroxyzine Hcl 50 Mg Tablet) 50 mg PO Q6H PRN PRN Reason: Anxiety Last Admin: 02/06/22 11:02 Dose: 50 mg Documented by: Ibuprofen (Ibuprofen 600 Mg Tablet) 600 mg PO Q6H PRN PRN Reason: Pain, Mild (Pain Scale 1-3) Last Admin: 02/16/22 11:17 Dose: 600 mg Documented by: Lactic Acid (Ammonium Lactate 12 % Lotion 226 Gm Bottle) 1 appl TOPICAL BID GOLD; Protocol Last Admin: 02/16/22 10:10 Dose: Not Given Documented by: Magnesium Hydroxide (Milk Of Magnesia 30 Ml Oral.Susp) 30 ml PO DAILY PRN PRN Reason: Constipation Olanzapine (Olanzapine 5 Mg Tablet) 5 mg PO Q4H PRN PRN Reason: agitation Last Admin: 02/02/22 08:19 Dose: 5 mg Documented by: Trazodone HCl (Trazodone Hcl 50 Mg Tablet) 50 mg PO BEDTIME PRN PRN Reason: Insomnia Last Admin: 02/01/22 20:46 Dose: 50 mg Documented by: Allergies Allergies Allergy/AdvReac Type Severity Reaction Status Date / Time No Known Allergies Allergy Verified 01/26/22 23:05 Assessment & Plan Assessment & Plan (1) Schizophrenia: Status: Acute Code(s): F20.9 - Schizophrenia, unspecified Plan ? Presents with psychosis and hallucinations and disorganized thought form in the context of being off Clozaril for 3-4 weeks. 01/28/22- clozapine 50mg ordered. As per family does well on 125mg (75mg too low) 01/29 increase clozapine to 75mg po qhs. 01/30 increase clozaril to 100mg po qhs. 01/31 increase clozaril to 125mg po qhs. 02/05 increase clozaril to 150mg po qhs, plan to increase clozaril tomorrow to 175mg po qhs. 02/06 increase clozaril to 175mg po qhs. 02/07 continue current dose. 02/08 continue current dose. 5/15 continue current mgmt 02/12 continue current medications. 02/13 continue current medications. 02/14 only took 75mg po clozaril at bedtime. increasingly more paranoia and agitated today. 02/15: took all clozaril last night. stably unstable. 02/16: as for 02/15. I spent ___20___ minutes with the patient and/or on the patient floor today, greater than?50% of which was spent counseling/coordinating care. Reason for contiued inpatient stay Substantial Risk for: inability to function and rapid decompensation
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
[2022-02-16] MEDS: LORazepam 1 MG TABLET PO (18:17)
[2022-02-16] MEDS: cloZAPine 25 MG TABLET 75 MG PO (21:50)
[2022-02-16] MEDS: cloZAPine 100 MG TABLET PO (21:50)
[2022-02-17 10:08] VITALS: RESP 18
[2022-02-17] MEDS: Ibuprofen 600 MG TABLET PO ×2 (10:23→17:00)
[2022-02-17] MEDS: Acetaminophen 325 MG TABLET 650 MG PO ×2 (10:23→17:00)
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
[2022-02-17] MEDS: cloZAPine 25 MG TABLET 75 MG PO (22:04)
[2022-02-17] MEDS: cloZAPine 100 MG TABLET PO (22:06)
[2022-02-18] MEDS: Acetaminophen 325 MG TABLET 650 MG PO ×2 (10:06→16:12)
[2022-02-18] MEDS: Ibuprofen 600 MG TABLET PO ×2 (10:08→16:13)
--- NOTE | 2022-02-18 14:53 | HO.PSYCHPN ---
Subjective Subjective Date of Service: 02/18/22 Reason For Visit: schizophrenia Interim History: Remained reluctant to engage with process description writer. Reported he would only talk to staff when his light fixture servicer was present my light fixture servicer will be here Saturday Medication Compliance: Intermittent Side effects from medications: No Attending Groups: No Review of Systems Acute medical concerns: No Review of Systems Review of Systems Yes Unobtainable due to mental status Mental Status Exam Mental Status Exam Narrative: Casually dressed. Pacing around the unit. Suspicious. Self-care okay. Speech slightly pressured when engaged. Otherwise paranoid and guarded. No evidence of SI or HI. Insight and judgment poor Diagnostics Vital Signs (24Hr): BMI result Body Mass Index 26.4 Labs Results: 02/01/22 08:39 Imaging Radiology Impressions: ITS Impressions Head CT 01/28/22 14:51 IMPRESSION: No acute intracranial pathology. Medications Medications Current Medications Acetaminophen (Acetaminophen 325 Mg Tablet) 650 mg PO Q6H PRN PRN Reason: Headache/Pain Mild Scale (1-3) Last Admin: 02/18/22 10:06 Dose: 650 mg Documented by: Al Hydroxide/Mg Hydroxide (Magnesium Hydrox/Alum Hydrox 30 Ml Oral.Susp) 30 ml PO Q6H PRN PRN Reason: Heartburn/Nausea Last Admin: 02/01/22 17:04 Dose: 30 ml Documented by: Clonidine HCl (Clonidine Hcl 0.1 Mg Tablet) 0.1 mg PO BID PRN; Protocol PRN Reason: hyperarousal, anxiety Clozapine (Clozapine 100 Mg Tablet) 100 mg PO BEDTIME GOLD Last Admin: 02/17/22 22:06 Dose: 100 mg Documented by: Clozapine (Clozapine 25 Mg Tablet) 75 mg PO BEDTIME GOLD Last Admin: 02/17/22 22:04 Dose: 75 mg Documented by: Hydroxyzine HCl (Hydroxyzine Hcl 50 Mg Tablet) 50 mg PO Q6H PRN PRN Reason: Anxiety Last Admin: 02/06/22 11:02 Dose: 50 mg Documented by: Ibuprofen (Ibuprofen 600 Mg Tablet) 600 mg PO Q6H PRN PRN Reason: Pain, Mild (Pain Scale 1-3) Last Admin: 02/18/22 10:08 Dose: 600 mg Documented by: Lactic Acid (Ammonium Lactate 12 % Lotion 226 Gm Bottle) 1 appl TOPICAL BID GOLD; Protocol Last Admin: 02/18/22 10:08 Dose: Not Given Documented by: Lorazepam (Lorazepam 1 Mg Tablet) 1 mg PO Q6H PRN PRN Reason: anxiety Last Admin: 02/16/22 18:17 Dose: 1 mg Documented by: Magnesium Hydroxide (Milk Of Magnesia 30 Ml Oral.Susp) 30 ml PO DAILY PRN PRN Reason: Constipation Olanzapine (Olanzapine 5 Mg Tablet) 5 mg PO Q4H PRN PRN Reason: agitation Last Admin: 02/02/22 08:19 Dose: 5 mg Documented by: Trazodone HCl (Trazodone Hcl 50 Mg Tablet) 50 mg PO BEDTIME PRN PRN Reason: Insomnia Last Admin: 02/01/22 20:46 Dose: 50 mg Documented by: Allergies Allergies Allergy/AdvReac Type Severity Reaction Status Date / Time No Known Allergies Allergy Verified 01/26/22 23:05 Assessment & Plan Assessment & Plan (1) Schizophrenia: Status: Acute Code(s): F20.9 - Schizophrenia, unspecified Plan ? Presents with psychosis and hallucinations and disorganized thought form in the context of being off Clozaril for 3-4 weeks. 01/28/22- clozapine 50mg ordered. As per family does well on 125mg (75mg too low) 01/29 increase clozapine to 75mg po qhs. 01/30 increase clozaril to 100mg po qhs. 01/31 increase clozaril to 125mg po qhs. 02/05 increase clozaril to 150mg po qhs, plan to increase clozaril tomorrow to 175mg po qhs. 02/06 increase clozaril to 175mg po qhs. 02/07 continue current dose. 02/08 continue current dose. 02/11 continue current mgmt 02/12 continue current medications. 02/13 continue current medications. 02/14 only took 75mg po clozaril at bedtime. increasingly more paranoia and agitated today. 02/15: took all clozaril last night. stably unstable. 02/16: as for 02/15. 02/18: no changes- took 75 clozapine I spent minutes with the patient and/or on the patient floor today, greater than?50% of which was spent counseling/coordinating care. Reason for contiued inpatient stay Substantial Risk for: inability to function
[2022-02-18] MEDS: LORazepam 1 MG TABLET PO (18:18)
[2022-02-18] MEDS: cloZAPine 25 MG TABLET 75 MG PO (22:02)
[2022-02-18] MEDS: cloZAPine 100 MG TABLET PO (22:03)
[2022-02-19] MEDS: Acetaminophen 325 MG TABLET 650 MG PO ×3 (09:27→21:35)
[2022-02-19] MEDS: Ibuprofen 600 MG TABLET PO ×3 (09:27→21:35)
[2022-02-19 10:12] VITALS: BP 134/91; PULSE 115; RESP 17; TEMP 36.6; O2SAT 98
[2022-02-19] MEDS: LORazepam 1 MG TABLET PO ×2 (11:23→17:58)
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
[2022-02-19] MEDS: Ammonium Lactate 12 % Lotion 226 GM BOTTLE 1 APPL TOPICAL (21:35)
[2022-02-19] MEDS: cloZAPine 100 MG TABLET PO (22:03)
[2022-02-19] MEDS: cloZAPine 25 MG TABLET 75 MG PO (22:03)
[2022-02-20] MEDS: Ibuprofen 600 MG TABLET PO ×3 (10:18→22:09)
[2022-02-20] MEDS: Acetaminophen 325 MG TABLET 650 MG PO ×2 (10:18→16:40)
[2022-02-20 10:21] VITALS: RESP 18
[2022-02-20] MEDS: LORazepam 1 MG TABLET PO ×2 (12:49→22:11)
--- NOTE | 2022-02-20 14:46 | P.PNPSI_ITS ---
Subjective Subjective Date of Service: 02/20/22 Reason For Visit: schizophrenia Interim History: pt presents as he has the past week. today, however, he waives off MD and states he does not wish to talk. per staff, 3-day up tomorrow. pacing, talking about seeing his wireless construction manager. denies SI/HI/AVH. +RIS. paranoid, checking doors. Mental Status Exam Mental Status Exam Narrative: Appearance: casually groomed, fair hygiene Behavior: pacing psychomotor: PMA Speech:mumbling and rapid Thought process: unclear Thought content: unclear Mood: unknown Affect: constricted, hyper-intense SI:none expressed HI:none expressed VH/AH:none expressed Delusions: unknown Diagnostics Vital Signs (24Hr): Vital Signs - 24 hr 02/20/22 10:21 Respiratory Rate 18 BMI result Body Mass Index 26.4 Labs Results: 02/01/22 08:39 Imaging Radiology Impressions: ITS Impressions Head CT 01/28/22 14:51 IMPRESSION: No acute intracranial pathology. Medications Medications Current Medications Acetaminophen (Acetaminophen 325 Mg Tablet) 650 mg PO Q6H PRN PRN Reason: Headache/Pain Mild Scale (1-3) Last Admin: 02/20/22 10:18 Dose: 650 mg Documented by: Al Hydroxide/Mg Hydroxide (Magnesium Hydrox/Alum Hydrox 30 Ml Oral.Susp) 30 ml PO Q6H PRN PRN Reason: Heartburn/Nausea Last Admin: 02/01/22 17:04 Dose: 30 ml Documented by: Clonidine HCl (Clonidine Hcl 0.1 Mg Tablet) 0.1 mg PO BID PRN; Protocol PRN Reason: hyperarousal, anxiety Clozapine (Clozapine 100 Mg Tablet) 100 mg PO BEDTIME GOLD Last Admin: 02/19/22 22:03 Dose: 100 mg Documented by: Clozapine (Clozapine 25 Mg Tablet) 75 mg PO BEDTIME GOLD Last Admin: 02/19/22 22:03 Dose: 75 mg Documented by: Hydroxyzine HCl (Hydroxyzine Hcl 50 Mg Tablet) 50 mg PO Q6H PRN PRN Reason: Anxiety Last Admin: 02/06/22 11:02 Dose: 50 mg Documented by: Ibuprofen (Ibuprofen 600 Mg Tablet) 600 mg PO Q6H PRN PRN Reason: Pain, Mild (Pain Scale 1-3) Last Admin: 02/20/22 10:18 Dose: 600 mg Documented by: Lactic Acid (Ammonium Lactate 12 % Lotion 226 Gm Bottle) 1 appl TOPICAL BID GOLD; Protocol Last Admin: 02/20/22 10:21 Dose: Not Given Documented by: Lorazepam (Lorazepam 1 Mg Tablet) 1 mg PO Q6H PRN PRN Reason: anxiety Last Admin: 02/20/22 12:49 Dose: 1 mg Documented by: Magnesium Hydroxide (Milk Of Magnesia 30 Ml Oral.Susp) 30 ml PO DAILY PRN PRN Reason: Constipation Olanzapine (Olanzapine 5 Mg Tablet) 5 mg PO Q4H PRN PRN Reason: agitation Last Admin: 02/02/22 08:19 Dose: 5 mg Documented by: Trazodone HCl (Trazodone Hcl 50 Mg Tablet) 50 mg PO BEDTIME PRN PRN Reason: Insomnia Last Admin: 02/01/22 20:46 Dose: 50 mg Documented by: Allergies Allergies Allergy/AdvReac Type Severity Reaction Status Date / Time No Known Allergies Allergy Verified 01/26/22 23:05 Assessment & Plan Assessment & Plan (1) Schizophrenia: Status: Acute Code(s): F20.9 - Schizophrenia, unspecified Plan Presents with psychosis and hallucinations and disorganized thought form in the context of being off Clozaril for 3-4 weeks. 01/28/22- clozapine 50mg ordered. As per family does well on 125mg (75mg too low) 01/29 increase clozapine to 75mg po qhs. 01/30 increase clozaril to 100mg po qhs. 01/31 increase clozaril to 125mg po qhs. 02/05 increase clozaril to 150mg po qhs, plan to increase clozaril tomorrow to 175mg po qhs. 02/06 increase clozaril to 175mg po qhs. 02/07 continue current dose. 02/08 continue current dose. 02/11 continue current mgmt 02/12 continue current medications. 02/13 continue current medications. 02/14 only took 75mg po clozaril at bedtime. increasingly more paranoia and agitated today. 02/15: took all clozaril last night.? stably unstable. 02/16: as for 02/15. 02/18: no changes- took 175 clozapine 02/19: taking clozapine 75 mg at HS. 02/20: med-compliant. stable presentation. I spent ___15___ minutes with the patient and/or on the patient floor today, greater than?50% of which was spent counseling/coordinating care. Reason for contiued inpatient stay Substantial Risk for: inability to function and rapid decompensation
[2022-02-20] MEDS: cloZAPine 25 MG TABLET 75 MG PO (22:09)
[2022-02-20] MEDS: cloZAPine 100 MG TABLET PO (22:09)
[2022-02-20] MEDS: Ammonium Lactate 12 % Lotion 226 GM BOTTLE 1 APPL TOPICAL (22:12)
[2022-02-21] MEDS: Acetaminophen 325 MG TABLET 650 MG PO ×2 (08:22→17:19)
[2022-02-21] MEDS: Ibuprofen 600 MG TABLET PO ×2 (08:22→17:19)
[2022-02-21 08:49] VITALS: RESP 17
--- NOTE | 2022-02-21 14:22 | P.PNPSI_ITS ---
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 MD replies in the negative, pt quickly escalates and slams door twice into the wall, then quickly exits the room. 3-day today and commitment papers filed. per staff, denying all Sx. difficulty meeting with staff for 1:1. slamming doors. self- dialoguing. med-compliant. slept 10:45 through the morning. extremely agitated at SW screaming at her and then slammed door extremely hard. Mental Status Exam Mental Status Exam Narrative: Appearance: casually groomed, fair hygiene Behavior: pacing, ultimately slamming doors angrily psychomotor: PMA Speech:mumbling and rapid Thought process: largely linear Thought content: focused on discharge Mood: irritable/angry Affect: constricted, hyper-intense SI:none expressed HI:none expressed VH/AH:none expressed Delusions: unknown Diagnostics Vital Signs (24Hr): Vital Signs - 24 hr 02/21/22 08:49 Respiratory Rate 17 BMI result Body Mass Index 26.4 Labs Results: 02/01/22 08:39 Imaging Radiology Impressions: ITS Impressions Head CT 01/28/22 14:51 IMPRESSION: No acute intracranial pathology. Medications Medications Current Medications Acetaminophen (Acetaminophen 325 Mg Tablet) 650 mg PO Q6H PRN PRN Reason: Headache/Pain Mild Scale (1-3) Last Admin: 02/21/22 08:22 Dose: 650 mg Documented by: Al Hydroxide/Mg Hydroxide (Magnesium Hydrox/Alum Hydrox 30 Ml Oral.Susp) 30 ml PO Q6H PRN PRN Reason: Heartburn/Nausea Last Admin: 02/01/22 17:04 Dose: 30 ml Documented by: Clonidine HCl (Clonidine Hcl 0.1 Mg Tablet) 0.1 mg PO BID PRN; Protocol PRN Reason: hyperarousal, anxiety Clozapine (Clozapine 100 Mg Tablet) 100 mg PO BEDTIME GOLD Last Admin: 02/20/22 22:09 Dose: 100 mg Documented by: Clozapine (Clozapine 25 Mg Tablet) 75 mg PO BEDTIME GOLD Last Admin: 02/20/22 22:09 Dose: 75 mg Documented by: Hydroxyzine HCl (Hydroxyzine Hcl 50 Mg Tablet) 50 mg PO Q6H PRN PRN Reason: Anxiety Last Admin: 02/06/22 11:02 Dose: 50 mg Documented by: Ibuprofen (Ibuprofen 600 Mg Tablet) 600 mg PO Q6H PRN PRN Reason: Pain, Mild (Pain Scale 1-3) Last Admin: 02/21/22 08:22 Dose: 600 mg Documented by: Lactic Acid (Ammonium Lactate 12 % Lotion 226 Gm Bottle) 1 appl TOPICAL BID SC H; Protocol Last Admin: 02/21/22 08:24 Dose: Not Given Documented by: Lorazepam (Lorazepam 1 Mg Tablet) 1 mg PO Q6H PRN PRN Reason: anxiety Last Admin: 02/20/22 22:11 Dose: 1 mg Documented by: Magnesium Hydroxide (Milk Of Magnesia 30 Ml Oral.Susp) 30 ml PO DAILY PRN PRN Reason: Constipation Olanzapine (Olanzapine 5 Mg Tablet) 5 mg PO Q4H PRN PRN Reason: agitation Last Admin: 02/02/22 08:19 Dose: 5 mg Documented by: Trazodone HCl (Trazodone Hcl 50 Mg Tablet) 50 mg PO BEDTIME PRN PRN Reason: Insomnia Last Admin: 02/01/22 20:46 Dose: 50 mg Documented by: Allergies Allergies Allergy/AdvReac Type Severity Reaction Status Date / Time No Known Allergies Allergy Verified 01/26/22 23:05 Assessment & Plan Assessment & Plan (1) Schizophrenia: Status: Acute Code(s): F20.9 - Schizophrenia, unspecified Plan Presents with psychosis and hallucinations and disorganized thought form in the context of being off Clozaril for 3-4 weeks. 01/28/22- clozapine 50mg ordered. As per family does well on 125mg (75mg too low) 01/29 increase clozapine to 75mg po qhs. 01/30 increase clozaril to 100mg po qhs. 01/31 increase clozaril to 125mg po qhs. 02/05 increase clozaril to 150mg po qhs, plan to increase clozaril tomorrow to 175mg po qhs. 02/06 increase clozaril to 175mg po qhs. 02/07 continue current dose. 02/08 continue current dose. 02/11 continue current mgmt 02/12 continue current medications. 02/13 continue current medications. 02/14 only took 75mg po clozaril at bedtime. increasingly more paranoia and agitated today. 02/15: took all clozaril last night.? stably unstable. 02/16: as for 02/15. 02/18: no changes- took 175 clozapine 02/19: taking clozapine 75 mg at HS. 02/20: med-compliant. stable presentation. 02/21: agitation on being informed that commitment papers have been filed. I spent ___35___ minutes with the patient and/or on the patient floor today, greater than?50% of which was spent counseling/coordinating care. Reason for contiued inpatient stay Substantial Risk for: harm to self, inability to function and rapid decompensation
[2022-02-21] MEDS: LORazepam 1 MG TABLET PO ×2 (17:19→21:09)
[2022-02-21] MEDS: cloZAPine 100 MG TABLET PO (21:06)
[2022-02-21] MEDS: cloZAPine 25 MG TABLET 75 MG PO (21:06)
[2022-02-21 21:11] VITALS: RESP 14
[2022-02-22 09:06] VITALS: BP 144/95; PULSE 100; RESP 17; TEMP 36.6; O2SAT 100
[2022-02-22 10:02] LABS: Neut%MD 73.2 %; Neutrophils Absolute Auto 8.3 x10*3/uL (2.0-8.3); WBCANC 11.4 X10*3/uL
[2022-02-22] MEDS: Ibuprofen 600 MG TABLET PO ×2 (10:49→18:04)
[2022-02-22 10:51] VITALS: BMI 26.2
[2022-02-22] MEDS: LORazepam 1 MG TABLET PO ×2 (11:29→20:38)
[2022-02-22] MEDS: Acetaminophen 325 MG TABLET 650 MG PO (13:42)
--- NOTE | 2022-02-22 14:03 | HO.PSYCHPN ---
Subjective Subjective Date of Service: 02/22/22 Reason For Visit: schizophrenia Interim History: pt remains as per usual. requesting to be discharged today, once MD replies in the negative he states he will talk to his military lawyer and waives MD off. he states his military lawyer will just have him released. he is educated re the hearing on saturday and that a diving judge will be making that decision then. no other requests or complaints. per staff, upset for a period yesterday after being informed commitment paperwork had been filed again. settled after. pacing, disorganized. med-compliant, slept well. Mental Status Exam Mental Status Exam Narrative: Appearance: casually groomed, fair hygiene Behavior: pacing psychomotor: PMA Speech:mumbling and rapid Thought process: linear in brief exchanges, spontaneously tangential Thought content: focused on discharge Mood: irritable Affect: constricted, hyper-intense SI:none expressed HI:none expressed VH/AH:none expressed Delusions: unknown Diagnostics Vital Signs (24Hr): Vital Signs - 24 hr 02/21/22 21:11 02/22/22 09:06 Temperature 97.8 F Pulse Rate 100 Respiratory Rate 14 17 Blood Pressure 144/95 H Pulse Oximetry 100 BMI result Body Mass Index 26.2 Labs Results: 02/01/22 08:39 Labs: Laboratory Results - last 48 hr 02/22/22 09:47 Absolute Neuts (auto) 8.3 Imaging Radiology Impressions: ITS Impressions Head CT 01/28/22 14:51 IMPRESSION: No acute intracranial pathology. Medications Medications Current Medications Acetaminophen (Acetaminophen 325 Mg Tablet) 650 mg PO Q6H PRN PRN Reason: Headache/Pain Mild Scale (1-3) Last Admin: 02/22/22 13:42 Dose: 650 mg Documented by: Al Hydroxide/Mg Hydroxide (Magnesium Hydrox/Alum Hydrox 30 Ml Oral.Susp) 30 ml PO Q6H PRN PRN Reason: Heartburn/Nausea Last Admin: 02/01/22 17:04 Dose: 30 ml Documented by: Clonidine HCl (Clonidine Hcl 0.1 Mg Tablet) 0.1 mg PO BID PRN; Protocol PRN Reason: hyperarousal, anxiety Clozapine (Clozapine 100 Mg Tablet) 100 mg PO BEDTIME GOLD Last Admin: 02/21/22 21:06 Dose: 100 mg Documented by: Clozapine (Clozapine 25 Mg Tablet) 75 mg PO BEDTIME GOLD Last Admin: 02/21/22 21:06 Dose: 75 mg Documented by: Hydroxyzine HCl (Hydroxyzine Hcl 50 Mg Tablet) 50 mg PO Q6H PRN PRN Reason: Anxiety Last Admin: 02/06/22 11:02 Dose: 50 mg Documented by: Ibuprofen (Ibuprofen 600 Mg Tablet) 600 mg PO Q6H PRN PRN Reason: Pain, Mild (Pain Scale 1-3) Last Admin: 02/22/22 10:49 Dose: 600 mg Documented by: Lactic Acid (Ammonium Lactate 12 % Lotion 226 Gm Bottle) 1 appl TOPICAL BID GOLD; Protocol Last Admin: 02/22/22 08:51 Dose: Not Given Documented by: Lorazepam (Lorazepam 1 Mg Tablet) 1 mg PO Q6H PRN PRN Reason: anxiety Last Admin: 02/22/22 11:29 Dose: 1 mg Documented by: Magnesium Hydroxide (Milk Of Magnesia 30 Ml Oral.Susp) 30 ml PO DAILY PRN PRN Reason: Constipation Olanzapine (Olanzapine 5 Mg Tablet) 5 mg PO Q4H PRN PRN Reason: agitation Last Admin: 02/02/22 08:19 Dose: 5 mg Documented by: Trazodone HCl (Trazodone Hcl 50 Mg Tablet) 50 mg PO BEDTIME PRN PRN Reason: Insomnia Last Admin: 02/01/22 20:46 Dose: 50 mg Documented by: Allergies Allergies Allergy/AdvReac Type Severity Reaction Status Date / Time No Known Allergies Allergy Verified 01/26/22 23:05 Assessment & Plan Assessment & Plan (1) Schizophrenia: Status: Acute Code(s): F20.9 - Schizophrenia, unspecified Plan Presents with psychosis and hallucinations and disorganized thought form in the context of being off Clozaril for 3-4 weeks. 01/28/22- clozapine 50mg ordered. As per family does well on 125mg (75mg too low) 01/29 increase clozapine to 75mg po qhs. 01/30 increase clozaril to 100mg po qhs. 01/31 increase clozaril to 125mg po qhs. 02/05 increase clozaril to 150mg po qhs, plan to increase clozaril tomorrow to 175mg po qhs. 02/06 increase clozaril to 175mg po qhs. 02/07 continue current dose. 02/08 continue current dose. 02/11 continue current mgmt 02/12 continue current medications. 02/13 continue current medications. 02/14 only took 75mg po clozaril at bedtime. increasingly more paranoia and agitated today. 02/15: took all clozaril last night.? stably unstable. 02/16: as for 02/15. 02/18: no changes- took 175 clozapine 02/19: taking clozapine 75 mg at HS. 02/20: med-compliant. stable presentation. 02/21: agitation on being informed that commitment papers have been filed. 02/22: no change in presentation. continue current mgmt. I spent ___20___ minutes with the patient and/or on the patient floor today, greater than?50% of which was spent counseling/coordinating care. Patient educated on: other (legal) Reason for contiued inpatient stay Substantial Risk for: harm to self, inability to function and rapid decompensation
[2022-02-22 20:39] VITALS: RESP 14
[2022-02-22] MEDS: cloZAPine 25 MG TABLET 75 MG PO (21:51)
[2022-02-22] MEDS: cloZAPine 100 MG TABLET PO (21:52)
[2022-02-23] MEDS: Ibuprofen 600 MG TABLET PO ×2 (09:11→16:10)
[2022-02-23] MEDS: LORazepam 1 MG TABLET PO ×2 (09:11→18:30)
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
[2022-02-23] MEDS: Acetaminophen 325 MG TABLET 650 MG PO (16:09)
[2022-02-23] MEDS: cloZAPine 100 MG TABLET 200 MG PO (21:54)
[2022-02-24] MEDS: Ibuprofen 600 MG TABLET PO ×2 (09:38→19:53)
[2022-02-24] MEDS: Acetaminophen 325 MG TABLET 650 MG PO ×2 (09:38→19:53)
[2022-02-24 09:40] VITALS: BP 151/97; PULSE 105; RESP 20; TEMP 36.4; O2SAT 100
[2022-02-24] MEDS: LORazepam 1 MG TABLET PO ×2 (11:33→21:23)
--- NOTE | 2022-02-24 15:29 | PC.NURSE ---
Md aware of patient's elevated BP. Patient notified that his blood pressures have been elevated, educated re: clonidine and offered medication, which patient declined.
[2022-02-24 15:30] VITALS: BP 146/88; PULSE 107; RESP 20; O2SAT 98
[2022-02-24] MEDS: cloNIDine HCL 0.1 MG TABLET PO (15:36)
--- NOTE | 2022-02-24 15:39 | PC.NURSE ---
Patient agreed to have vitals repeated, and to take clonidine.
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
[2022-02-24] MEDS: cloZAPine 100 MG TABLET 200 MG PO (22:06)
[2022-02-25] MEDS: Acetaminophen 325 MG TABLET 650 MG PO ×2 (08:00→16:27)
[2022-02-25] MEDS: Ibuprofen 600 MG TABLET PO ×2 (08:01→16:30)
[2022-02-25] MEDS: cloNIDine HCL 0.1 MG TABLET PO (08:01)
[2022-02-25 08:03] VITALS: BP 131/84; PULSE 89; RESP 18; TEMP 36.2; O2SAT 98
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
[2022-02-25] MEDS: LORazepam 1 MG TABLET PO (17:58)
[2022-02-25] MEDS: cloZAPine 100 MG TABLET 200 MG PO (21:58)
[2022-02-26] MEDS: LORazepam 1 MG TABLET PO (11:29)
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
[2022-02-26] MEDS: Acetaminophen 325 MG TABLET 650 MG PO (16:19)
[2022-02-26] MEDS: Ibuprofen 600 MG TABLET PO (16:20)
[2022-02-26 20:39] VITALS: BP 141/96; PULSE 105; RESP 15; TEMP 36.4; O2SAT 98
[2022-02-26] MEDS: cloZAPine 100 MG TABLET 200 MG PO (21:44)
[2022-02-27 08:28] VITALS: BP 142/89; PULSE 111; RESP 16; TEMP 37; O2SAT 97
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
--- NOTE | 2022-02-27 11:29 | PC.NURSE ---
Patient is alert and oriented. Patient reports that he is ready for discharge. Patient is in agreement with discharge teaching and plan. Patient denies anxiety/depression, SI/HI, AH/VH. Patient denies acute physical complaints at this time.
[2022-03-04 00:01] LABS: Clozapine (Clozaril) 289 mcg/L; Norclozapine 136 mcg/L (25-400)
== END 2022-02-27 12:55 | disposition home or self-care (01) | DRG 750 ==
PROVIDERS: Psychiatry & Neurology Psychiatry; Registered Nurse; Admitting Provider Psychiatry & Neurology Psychiatry; Visit Provider Social Worker
DX: F20.9 Schizophrenia, unspecified (principal); Z91.14 Patient's other noncompliance with medication regimen; Z79.899 Other long term (current) drug therapy
CPT/HCPCS: 36415; 70450; 80159; 85025; 85048; J2060

== ENCOUNTER 2022-03-13 20:49 | Inpatient (IN) | payer OTHER, SELFPAY ==
[2022-03-13 21:15] VITALS: BP 142/78; PULSE 68; TEMP 36.5; O2SAT 94
--- NOTE | 2022-03-14 03:52 | PC.ADMIT ---
patient arrived to [facility] from [facility] in restraints and sedated due to receiving versed 5mg in the emergency room. when RN from [facility] questioned as to behaviors that would require use of versed RN reported that it is a medication that is frequently used in the [facility] ER and that it was used to assure safe transfer to [facility]. patient was aroused when lifted from stretcher to bed. was given brief orientation as to where he was and that he was in a room different than when previously hospitalized. patient arrived 03/13/22 at 2100. patient did not sign into the hospital and 12b was signed by psych provider. unable to obtain current weight. unable to assess when last dose of medications were taken. unable to complete nursing assessment. nurse to nurse was completed prior to acceptance. collateral information obtained from crisis. initial VS were obtained.
[2022-03-14 04:10] VITALS: RESP 15
[2022-03-14 05:15] VITALS: RESP 12
--- NOTE | 2022-03-14 06:33 | PM.IMHP ---
History of Present Illness Date of Service: 03/14/22 Chief Complaint: Schizophrenia Antwon is a 42-year-old male with past medical history of for schizophrenia noncompliant with medications who is being admitted to [facility] for psychosis and schizophrenia. I was asked to see the patient for admission H&P. Patient is pieces back and forth in the hallway, not directable, will not follow commands or comply with my request to see him in the physical exam room. Patient keeps repeating that he needs to see a quill cleaning machine operator and he does not care. He denies having any acute complaints at this time, reports no chest pain, no belly pain, otherwise unable to get much history from him, and unable to complete review of system. His vitals were reviewed, they are within normal except for slightly elevated blood pressure. Review of Systems Review of Systems: Yes Unobtainable due to mental condition REPLACED BY [facility] Medical History (Updated 03/14/22 @ 06:39 by Charli Preciado MD) History of schizophrenia Pertinent family history: Unable to obtain Surgical History H/O hernia repair Social History Household Members: Unknown / Unable to assess Housing: Unknown / Unable to assess Unable to assess alcohol history related to: Unable to respond Patient Tobacco Use Status: Never used Tobacco Use of substances other than those prescribed or required for medical reasons: Unable to respond Any prior treatment program specific to substance use: No (HX noted) Spiritual Healthcare Practices: unable to assess Jainism Healthcare Practices: unable to assess Cultural Healthcare Practices: unable to assess Advance Directives: No Do you have thoughts of harming others: None Do you have a plan to hurt others: No Plan Recently lost weight without trying: Unsure How much weight loss: Unsure Eating poorly because of decreased appetite: No Nutrition screen score: 4 Nutrition Risks: No Nutritional Risk Poor oral hygiene: Yes (possible) Sexual orientation: Cis-gender Meds Allergies Allergy/AdvReac Type Severity Reaction Status Date / Time No Known Allergies Allergy Verified 01/26/22 23:05 Active Medications: Current Medications Acetaminophen (Acetaminophen 325 Mg Tablet) 650 mg PO Q6H PRN PRN Reason: Headache/Pain Mild Scale (1-3) Al Hydroxide/Mg Hydroxide (Magnesium Hydrox/Alum Hydrox 30 Ml Oral.Susp) 30 ml PO Q6H PRN PRN Reason: Heartburn/Nausea Hydroxyzine HCl (Hydroxyzine Hcl 25 Mg Tablet) 25 mg PO Q6H PRN PRN Reason: Anxiety Magnesium Hydroxide (Milk Of Magnesia 30 Ml Oral.Susp) 30 ml PO DAILY PRN PRN Reason: Constipation Olanzapine (Olanzapine 5 Mg Tablet) 5 mg PO Q4H PRN PRN Reason: agitation, psychosis Trazodone HCl (Trazodone Hcl 50 Mg Tablet) 50 mg PO BEDTIME PRN PRN Reason: Insomnia Home Medications Medication Instructions Recorded Confirmed Last Taken Type No Known Home Meds 02/06/22 02/06/22 Unknown History Physical Exam Vital Signs and Narrative: Vital Signs: Last Vital Signs Temp 97.7 F 03/13/22 21:15 Pulse 68 03/13/22 21:15 Resp 15 03/14/22 04:10 BP 142/78 H 03/13/22 21:15 Pulse Ox 94 03/13/22 21:15 O2 Del Method 03/13/22 21:15 Const: Other: Unable to perform physical exam as patient is pacing back and forth in the hallway, is not following command Assessment and Plan (1) Schizophrenia: Status: Acute (2) Psychosis: Status: Acute Plan 42-year-old male who is admitted to [facility] for psychosis and schizophrenia we are asked to see the patient for admission H&P # psychosis/schizophrenia - management per [facility] - patient currently has no acute medical issues, if any arise please do not hesitate to contact medical team
--- NOTE | 2022-03-14 06:41 | P.CNHOSGPS_ITS ---
History of Present Illness Data of Consult Service Date: 03/14/22 Primary Care Provider: Unknown Physician SHIV Antwon is a 42-year-old male with past medical history of for schizophrenia noncompliant with medications who is being admitted to [facility] for psychosis and schizophrenia. I was asked to see the patient for admission H&P. Patient is pieces back and forth in the hallway, not directable, will not follow commands or comply with my request to see him in the physical exam room. Patient keeps repeating that he needs to see a superior court judge and he does not care. He denies having any acute complaints at this time, reports no chest pain, no belly pain, otherwise unable to get much history from him, and unable to complete review of system. His vitals were reviewed, they are within normal except for slightly elevated blood pressure. Review of Systems Review of Systems: Yes Unobtainable due to mental condition [facility] Medical History (Updated 03/14/22 @ 06:39 by Charli Preciado MD) History of schizophrenia Pertinent family history: Unable to obtain from pt Surgical History H/O hernia repair Social History Household Members: Unknown / Unable to assess Housing: Unknown / Unable to assess Unable to assess alcohol history related to: Unable to respond Patient Tobacco Use Status: Never used Tobacco Use of substances other than those prescribed or required for medical reasons: Unable to respond Any prior treatment program specific to substance use: No (HX noted) Spiritual Healthcare Practices: unable to assess Anglican Healthcare Practices: unable to assess Cultural Healthcare Practices: unable to assess Advance Directives: No Do you have thoughts of harming others: None Do you have a plan to hurt others: No Plan Recently lost weight without trying: Unsure How much weight loss: Unsure Eating poorly because of decreased appetite: No Nutrition screen score: 4 Nutrition Risks: No Nutritional Risk Poor oral hygiene: Yes (possible) Sexual orientation: Cis-gender Meds Allergies Allergy/AdvReac Type Severity Reaction Status Date / Time No Known Allergies Allergy Verified 01/26/22 23:05 Active Medications: Current Medications Acetaminophen (Acetaminophen 325 Mg Tablet) 650 mg PO Q6H PRN PRN Reason: Headache/Pain Mild Scale (1-3) Al Hydroxide/Mg Hydroxide (Magnesium Hydrox/Alum Hydrox 30 Ml Oral.Susp) 30 ml PO Q6H PRN PRN Reason: Heartburn/Nausea Hydroxyzine HCl (Hydroxyzine Hcl 25 Mg Tablet) 25 mg PO Q6H PRN PRN Reason: Anxiety Magnesium Hydroxide (Milk Of Magnesia 30 Ml Oral.Susp) 30 ml PO DAILY PRN PRN Reason: Constipation Olanzapine (Olanzapine 5 Mg Tablet) 5 mg PO Q4H PRN PRN Reason: agitation, psychosis Trazodone HCl (Trazodone Hcl 50 Mg Tablet) 50 mg PO BEDTIME PRN PRN Reason: Insomnia Home Medications Medication Instructions Recorded Confirmed Last Taken Type No Known Home Meds 02/06/22 02/06/22 Unknown History Assessment and Plan (1) Psychosis: Status: Acute (2) Schizophrenia: Status: Acute Plan 42-year-old male who is admitted to [facility] for psychosis and schizophrenia we are asked to see the patient for admission H&P # psychosis/schizophrenia - management per [facility] - patient currently has no acute medical issues, if any arise please do not hesitate to contact medical team Physical Exam Vital Signs: Last Vital Signs Temp 97.7 F 03/13/22 21:15 Pulse 68 03/13/22 21:15 Resp 12 03/14/22 05:15 BP 142/78 H 03/13/22 21:15 Pulse Ox 94 03/13/22 21:15 O2 Del Method 03/13/22 21:15 Const Other: Multiple physical exam as patient is pacing back and forth in the hallway, unable to direct him to physical room or to sit down for me to do exam Neuro Cranial nerves: Yes Ability to bilaterally rotate head present and Yes Other cranial nerve findings present (Unable to do Cranial nerve exam as pt not directable and not following exam)
--- NOTE | 2022-03-14 06:43 | PC.NURSE ---
update-pt OOB at 0630. reported no falls since discharge. refused hospitalist assessment.
[2022-03-14] MEDS: hydrOXYzine HCL 25 MG TABLET PO (08:27)
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
[2022-03-14] MEDS: LORazepam 1 MG TABLET PO ×4 (12:38→23:48)
[2022-03-14 22:45] VITALS: RESP 16
[2022-03-15] MEDS: LORazepam 1 MG TABLET PO ×7 (00:03→21:54)
[2022-03-15] MEDS: hydrOXYzine HCL 25 MG TABLET PO ×3 (00:42→23:52)
[2022-03-15] MEDS: traZODone HCL 50 MG TABLET PO ×3 (01:47→23:52)
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
[2022-03-15 21:21] VITALS: RESP 18
[2022-03-16 06:00] VITALS: RESP 16
[2022-03-16] MEDS: LORazepam 1 MG TABLET PO ×5 (06:43→20:07)
[2022-03-16] MEDS: hydrOXYzine HCL 25 MG TABLET PO (08:57)
[2022-03-16] MEDS: LORazepam 1 MG TABLET 2 MG PO (12:54)
[2022-03-16] MEDS: HaloperidoL 5 MG TABLET 10 MG PO (12:55)
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
[2022-03-16 20:12] VITALS: PULSE 78; RESP 18; TEMP 36.6; O2SAT 95
[2022-03-17] MEDS: hydrOXYzine HCL 25 MG TABLET PO ×2 (00:13→20:04)
--- NOTE | 2022-03-17 01:07 | PC.NURSE ---
Antwon has a open blister on his right ankle about the size of a half dollar silver piece. Patient also has a blister on his left 3rd toe. Soaked in warm water than used Povidone to clean. On both a bandaid was then applied.
[2022-03-17] MEDS: traZODone HCL 50 MG TABLET PO ×3 (02:28→23:12)
[2022-03-17] MEDS: LORazepam 1 MG TABLET PO ×5 (04:33→20:04)
[2022-03-17] MEDS: Acetaminophen 325 MG TABLET 650 MG PO (04:33)
[2022-03-17 08:44] VITALS: RESP 18
--- NOTE | 2022-03-17 17:08 | HO.PSYCHPN ---
Subjective Subjective Date of Service: 03/17/22 Reason For Visit: Psych Interim History: declining medications. Still intrusive with other patients calling them pedophile as. Has received Haldol and Ativan with minimal effect. With screen writer today declined to engage stating that he would be seeing his sports activities foul judge on and was nothing to say. Was heard talking about playgrounds while pacing the hallways. Medication Compliance: No Side effects from medications: No Attending Groups: No Review of Systems Acute medical concerns: No Review of Systems Review of Systems Yes Unobtainable due to mental status Mental Status Exam Mental Status Exam Narrative: Pacing the hallway. Internally preoccupied. Intrusive. No evidence of SI or HI. Insight and judgment poor Diagnostics Vital Signs (24Hr): Vital Signs - 24 hr 03/16/22 20:12 03/17/22 08:44 Temperature 97.8 F Pulse Rate 78 Respiratory Rate 18 18 Pulse Oximetry 95 Oxygen Delivery Method Room Air Medications Medications Current Medications Acetaminophen (Acetaminophen 325 Mg Tablet) 650 mg PO Q6H PRN PRN Reason: Headache/Pain Mild Scale (1-3) Last Admin: 03/17/22 04:33 Dose: 650 mg Al Hydroxide/Mg Hydroxide (Magnesium Hydrox/Alum Hydrox 30 Ml Oral.Susp) 30 ml PO Q6H PRN PRN Reason: Heartburn/Nausea Clozapine (Clozapine 25 Mg Tablet) 25 mg PO BEDTIME [facility] Last Admin: 03/16/22 20:11 Dose: Not Given Hydroxyzine HCl (Hydroxyzine Hcl 25 Mg Tablet) 25 mg PO Q6H PRN PRN Reason: Anxiety Last Admin: 03/17/22 00:13 Dose: 25 mg Lorazepam (Lorazepam 1 Mg Tablet) 1 mg PO TID GOLD Last Admin: 03/17/22 14:53 Dose: 1 mg Lorazepam (Lorazepam 1 Mg Tablet) 1 mg PO Q6H PRN PRN Reason: severe anxiety Last Admin: 03/17/22 11:16 Dose: 1 mg Magnesium Hydroxide (Milk Of Magnesia 30 Ml Oral.Susp) 30 ml PO DAILY PRN PRN Reason: Constipation Trazodone HCl (Trazodone Hcl 50 Mg Tablet) 50 mg PO BEDTIME PRN PRN Reason: Insomnia Last Admin: 03/17/22 02:28 Dose: 50 mg Allergies Allergies Allergy/AdvReac Type Severity Reaction Status Date / Time No Known Allergies Allergy Verified 01/26/22 23:05 Assessment & Plan Assessment & Plan (1) Schizophrenia: Status: Acute Code(s): F20.9 - Schizophrenia, unspecified Plan Mr. Hill is a 42 year-old male with hx of schizophrenia, recently discharged from [facility] on 02/27/22 more stable than when he was first admitted but still symptomatic, however, no evidence at the time of imminent risk of harm to self or others to petition for involuntary commitment. Pt apparently was not able to obtain clozaril from the pharmacy. He gradually decompensated to point of being found wondering on the streets, without shoes, blister on bilat feets, disorganized, combative, swing at police and staff at ED. Pt presents with persecutory delusions thinking he is brought here for crimes he has not commited such as being pedophile, pt reports thinking people are following him. PLAN 1. Admit to [facility] on section 12, 15 minutes checks 2. restart clozaril 25mg po qhs. titrate daily by 25mg. 3. weekly ANC labs, Haldol 5mg po q6h prn agitation with ativan 1mg po q4h, prn anxiety. 4. Obtain collateral information 5. Aftercare planning. 03/15 pt continues to present as paranoid, disorganized, refuses clozaril. will petition court for involuntary tx as pt gravely disable. 03/16: touching peer and calling him pedophile. got haldol 10 and ativan 2 PO, did not sleep. total of 6 mg ativan today by mid-afternoon. 03/17/2022: Largely refusing medications however does accept PRNs at times. Did receive Haldol and Ativan yesterday. Questionable benefit. Will's have Ativan 2 mg as needed up to 4 times per day along with olanzapine 10 mg as needed up to 4 times per day. I spent minutes with the patient and/or on the patient floor today, greater than?50% of which was spent counseling/coordinating care. Reason for contiued inpatient stay Substantial Risk for: inability to function
[2022-03-17] MEDS: LORazepam 1 MG TABLET 2 MG PO (17:14)
[2022-03-17 20:19] VITALS: BP 127/86; PULSE 102; RESP 16; TEMP 36.6; O2SAT 100
--- NOTE | 2022-03-17 23:18 | PC.NURSE ---
Attempted to give Antwon some Zyprexa PO prn. Patient placed in his mouth and then asked what it was and this nurse told him it was an anti-psychotic, patient spit out pill and requested another medication. Trazodone given PO prn.
--- NOTE | 2022-03-18 08:00 | PC.NURSE ---
it was noted that last evening patient c/o ''i'm thirsty'' multiple times and requesting pitchers of water.
[2022-03-18] MEDS: LORazepam 1 MG TABLET PO ×3 (09:36→20:32)
--- NOTE | 2022-03-18 11:13 | HO.PSYCHPN ---
Subjective Subjective Date of Service: 03/18/22 Reason For Visit: Psych Interim History: Patient seen and discussed with team. Per RN, he refused clozaril last night, refused AM vitals, adherent with ativan, continues to present with bizarre bx, guarded, paranoid. Patient evaluated today and upon interview he reports can you please leave, im not in a good mood. In the milieu, patient is pacing at times, isolative to his room, responding to internal stimuli, suspicious in behavior. Medication Compliance: Yes Side effects from medications: No Attending Groups: No Review of Systems Acute medical concerns: No Medical Review of Systems: unchanged Mental Status Exam Mental Status Exam Narrative: A but not oriented to situation. Poor eye contact, inattentive. No Tics or Tremors. No abnormal involuntary movements. Agitated, guarded, difficult to engage. Non-pressured speech, but intense. No prolonged speech latency or dysarthria. Mood is [did not state], affect is irritable. No imminent safety concerns. Appears to have paranoid delusional thought content, responding to internal stimuli. Thoughts are disorganized. No known cognitive or memory impairment. Insight/ Judgment limited. Diagnostics Vital Signs (24Hr): Vital Signs - 24 hr 03/17/22 20:19 Temperature 97.8 F Pulse Rate 102 H Respiratory Rate 16 Blood Pressure 127/86 Pulse Oximetry 100 Oxygen Delivery Method Room Air Medications Medications Current Medications Acetaminophen (Acetaminophen 325 Mg Tablet) 650 mg PO Q6H PRN PRN Reason: Headache/Pain Mild Scale (1-3) Last Admin: 03/17/22 04:33 Dose: 650 mg Al Hydroxide/Mg Hydroxide (Magnesium Hydrox/Alum Hydrox 30 Ml Oral.Susp) 30 ml PO Q6H PRN PRN Reason: Heartburn/Nausea Clozapine (Clozapine 25 Mg Tablet) 25 mg PO BEDTIME GOLD Last Admin: 03/17/22 20:06 Dose: Not Given Hydroxyzine HCl (Hydroxyzine Hcl 25 Mg Tablet) 25 mg PO Q6H PRN PRN Reason: Anxiety Last Admin: 03/17/22 20:04 Dose: 25 mg Lorazepam (Lorazepam 1 Mg Tablet) 1 mg PO TID GOLD Last Admin: 03/18/22 09:36 Dose: 1 mg Lorazepam (Lorazepam 1 Mg Tablet) 2 mg PO Q6H PRN PRN Reason: severe anxiety Last Admin: 03/17/22 17:14 Dose: 2 mg Magnesium Hydroxide (Milk Of Magnesia 30 Ml Oral.Susp) 30 ml PO DAILY PRN PRN Reason: Constipation Olanzapine (Olanzapine Odt 10 Mg Tab.Rapdis) 10 mg TRANSLINGU QID PRN PRN Reason: Psychosis Trazodone HCl (Trazodone Hcl 50 Mg Tablet) 50 mg PO BEDTIME PRN PRN Reason: Insomnia Last Admin: 03/17/22 23:12 Dose: 50 mg Allergies Allergies Allergy/AdvReac Type Severity Reaction Status Date / Time No Known Allergies Allergy Verified 01/26/22 23:05 Assessment & Plan Assessment & Plan (1) Schizophrenia: Status: Acute Code(s): F20.9 - Schizophrenia, unspecified Plan Mr. Hill is a 42 year-old male with hx of schizophrenia, recently discharged from on 02/27/22 more stable than when he was first admitted but still symptomatic, however, no evidence at the time of imminent risk of harm to self or others to petition for involuntary commitment. Pt apparently was not able to obtain clozaril from the pharmacy. He gradually decompensated to point of being found wondering on the streets, without shoes, blister on bilat feets, disorganized, combative, swing at police and staff at ED. Pt presents with persecutory delusions thinking he is brought here for crimes he has not commited such as being pedophile, pt reports thinking people are following him. PLAN 1. Admit to on section 12, 15 minutes checks 2. restart clozaril 25mg po qhs. titrate daily by 25mg. 3. weekly ANC labs, Haldol 5mg po q6h prn agitation with ativan 1mg po q4h, prn anxiety. 4. Obtain collateral information 5. Aftercare planning. 03/15 pt continues to present as paranoid, disorganized, refuses clozaril. will petition court for involuntary tx as pt gravely disable. 03/16: touching peer and calling him pedophile. got haldol 10 and ativan 2 PO, did not sleep. total of 6 mg ativan today by mid-afternoon. 03/17/2022: Largely refusing medications however does accept PRNs at times. Did receive Haldol and Ativan yesterday. Questionable benefit. Will's have Ativan 2 mg as needed up to 4 times per day along with olanzapine 10 mg as needed up to 4 times per day. 03/18/2022: No medication changes. Refused clozaril yesterday. I spent minutes with the patient and/or on the patient floor today, greater than?50% of which was spent counseling/coordinating care. Patient educated on: medication risk/benefits Reason for contiued inpatient stay Substantial Risk for: inability to function, rapid decompensation and med/psych decompensation
[2022-03-18] MEDS: LORazepam 1 MG TABLET 2 MG PO (17:48)
[2022-03-18 21:01] VITALS: RESP 18
[2022-03-18] MEDS: hydrOXYzine HCL 25 MG TABLET PO (21:52)
[2022-03-19] MEDS: LORazepam 1 MG TABLET 2 MG PO ×3 (01:08→18:47)
[2022-03-19] MEDS: LORazepam 1 MG TABLET PO ×3 (08:50→21:35)
[2022-03-19 08:52] VITALS: RESP 17
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
--- NOTE | 2022-03-19 15:24 | P.PNPSI_ITS ---
Subjective Subjective Date of Service: 03/19/22 Reason For Visit: Psych Subjective Notes: Section 7 Interim History: Patient seen and discussed with team. Pt continues to decline clozaril. Pt pacing, talking to himself, very suspicious of this clinical writer and staff on the unit. Pt going to peers, poking on them and accusing them of being pedophiles. Medication Compliance: Yes Side effects from medications: No Review of Systems Review of Systems Yes Unobtainable due to mental condition and Unobtainable due to mental status Mental Status Exam Mental Status Exam Narrative: A but not oriented to situation. Poor eye contact, inattentive. No Tics or Tremors. No abnormal involuntary movements. Agitated, guarded, difficult to engage. Non-pressured speech, but intense. No prolonged speech latency or dysarthria. Mood is [did not state], affect is irritable. No imminent safety concerns. Appears to have paranoid delusional thought content, responding to internal stimuli. Thoughts are disorganized. No known cognitive or memory impairment. Insight/ Judgment limited. Diagnostics Vital Signs (24Hr): Vital Signs - 24 hr 03/18/22 21:01 03/19/22 08:52 Respiratory Rate 18 17 Medications Medications Current Medications Acetaminophen (Acetaminophen 325 Mg Tablet) 650 mg PO Q6H PRN PRN Reason: Headache/Pain Mild Scale (1-3) Last Admin: 03/17/22 04:33 Dose: 650 mg Al Hydroxide/Mg Hydroxide (Magnesium Hydrox/Alum Hydrox 30 Ml Oral.Susp) 30 ml PO Q6H PRN PRN Reason: Heartburn/Nausea Clozapine (Clozapine 25 Mg Tablet) 25 mg PO BEDTIME [facility] Last Admin: 03/18/22 20:33 Dose: Not Given Hydroxyzine HCl (Hydroxyzine Hcl 25 Mg Tablet) 25 mg PO Q6H PRN PRN Reason: Anxiety Last Admin: 03/18/22 21:52 Dose: 25 mg Lorazepam (Lorazepam 1 Mg Tablet) 1 mg PO TID GOLD Last Admin: 03/19/22 14:46 Dose: 1 mg Lorazepam (Lorazepam 1 Mg Tablet) 2 mg PO Q6H PRN PRN Reason: severe anxiety Last Admin: 03/19/22 06:10 Dose: 2 mg Magnesium Hydroxide (Milk Of Magnesia 30 Ml Oral.Susp) 30 ml PO DAILY PRN PRN Reason: Constipation Olanzapine (Olanzapine Odt 10 Mg Tab.Rapdis) 10 mg TRANSLINGU QID PRN PRN Reason: Psychosis Trazodone HCl (Trazodone Hcl 50 Mg Tablet) 50 mg PO BEDTIME PRN PRN Reason: Insomnia Last Admin: 03/17/22 23:12 Dose: 50 mg Allergies Allergies Allergy/AdvReac Type Severity Reaction Status Date / Time No Known Allergies Allergy Verified 01/26/22 23:05 Assessment & Plan Assessment & Plan (1) Schizophrenia: Status: Acute Code(s): F20.9 - Schizophrenia, unspecified Plan Mr. Hill is a 42 year-old male with hx of schizophrenia, recently discharged from on 02/27/22 more stable than when he was first admitted but still symptomatic, however, no evidence at the time of imminent risk of harm to self or others to petition for involuntary commitment. Pt apparently was not able to obtain clozaril from the pharmacy. He gradually decompensated to point of being found wondering on the streets, without shoes, blister on bilat feets, disorganized, combative, swing at police and staff at ED. Pt presents with persecutory delusions thinking he is brought here for crimes he has not commited such as being pedophile, pt reports thinking people are following him. PLAN 1. Admit to on section 12, 15 minutes checks 2. restart clozaril 25mg po qhs. titrate daily by 25mg. 3. weekly ANC labs, Haldol 5mg po q6h prn agitation with ativan 1mg po q4h, prn anxiety. 4. Obtain collateral information 5. Aftercare planning. 03/15 pt continues to present as paranoid, disorganized, refuses clozaril. will petition court for involuntary tx as pt gravely disable. 03/16: touching peer and calling him pedophile. got haldol 10 and ativan 2 PO, did not sleep. total of 6 mg ativan today by mid-afternoon. 03/17/2022: Largely refusing medications however does accept PRNs at times. Did receive Haldol and Ativan yesterday. Questionable benefit. Will's have Ativan 2 mg as needed up to 4 times per day along with olanzapine 10 mg as needed up to 4 times per day. 03/18/2022: No medication changes. Refused clozaril yesterday. 03/19/2022: continue current plan. pending court hearing. I spent 25_ minutes with the patient and/or on the patient floor today, greater than?50% of which was spent counseling/coordinating care. Reason for contiued inpatient stay Substantial Risk for: inability to function
[2022-03-19 18:46] VITALS: RESP 17
[2022-03-19] MEDS: hydrOXYzine HCL 25 MG TABLET PO (21:35)
--- NOTE | 2022-03-20 10:40 | HO.PSYCHPN ---
Subjective Subjective Date of Service: 03/20/22 Reason For Visit: Psych Subjective Notes: Section 7 Interim History: Patient seen and discussed with team. Pt pacing in the taylor. He walks away as this board writer asks if he would agree to meet with this board writer. He later went to RN increasingly more agitated coming very close to her and telling her nazi cry fucker, I am going to kill you. Pt difficult to redirect, agitated, requiring chemical restraint with Olanzapine 10mg IM. Per nursing, pt up most night, intermittently agitated, accusatory to peers. Medication Compliance: No Side effects from medications: No Attending Groups: No Review of Systems Review of Systems Yes Unobtainable due to mental condition and Unobtainable due to mental status Mental Status Exam Mental Status Exam Narrative: A but not oriented to situation. Poor eye contact, inattentive. No Tics or Tremors. No abnormal involuntary movements. Agitated, guarded, difficult to engage. Non-pressured speech, but intense. No prolonged speech latency or dysarthria. Mood is [did not state], affect is irritable. No imminent safety concerns. Appears to have paranoid delusional thought content, responding to internal stimuli. Thoughts are disorganized. No known cognitive or memory impairment. Insight/ Judgment limited. Diagnostics Vital Signs (24Hr): Vital Signs - 24 hr 03/19/22 18:46 Respiratory Rate 17 Medications Medications Current Medications Acetaminophen (Acetaminophen 325 Mg Tablet) 650 mg PO Q6H PRN PRN Reason: Headache/Pain Mild Scale (1-3) Last Admin: 03/17/22 04:33 Dose: 650 mg Al Hydroxide/Mg Hydroxide (Magnesium Hydrox/Alum Hydrox 30 Ml Oral.Susp) 30 ml PO Q6H PRN PRN Reason: Heartburn/Nausea Clozapine (Clozapine 25 Mg Tablet) 25 mg PO BEDTIME GOLD Last Admin: 03/19/22 21:34 Dose: Not Given Hydroxyzine HCl (Hydroxyzine Hcl 25 Mg Tablet) 25 mg PO Q6H PRN PRN Reason: Anxiety Last Admin: 03/19/22 21:35 Dose: 25 mg Lorazepam (Lorazepam 1 Mg Tablet) 1 mg PO TID GOLD Last Admin: 03/20/22 09:02 Dose: Not Given Lorazepam (Lorazepam 1 Mg Tablet) 2 mg PO Q6H PRN PRN Reason: severe anxiety Last Admin: 03/19/22 18:47 Dose: 1 mg Magnesium Hydroxide (Milk Of Magnesia 30 Ml Oral.Susp) 30 ml PO DAILY PRN PRN Reason: Constipation Olanzapine (Olanzapine Odt 10 Mg Tab.Rapdis) 10 mg TRANSLINGU QID PRN PRN Reason: Psychosis Trazodone HCl (Trazodone Hcl 50 Mg Tablet) 50 mg PO BEDTIME PRN PRN Reason: Insomnia Last Admin: 03/17/22 23:12 Dose: 50 mg Allergies Allergies Allergy/AdvReac Type Severity Reaction Status Date / Time No Known Allergies Allergy Verified 01/26/22 23:05 Assessment & Plan Assessment & Plan (1) Schizophrenia: Status: Acute Code(s): F20.9 - Schizophrenia, unspecified Plan Mr. Hill is a 42 year-old male with hx of schizophrenia, recently discharged from on 02/27/22 more stable than when he was first admitted but still symptomatic, however, no evidence at the time of imminent risk of harm to self or others to petition for involuntary commitment. Pt apparently was not able to obtain clozaril from the pharmacy. He gradually decompensated to point of being found wondering on the streets, without shoes, blister on bilat feets, disorganized, combative, swing at police and staff at ED. Pt presents with persecutory delusions thinking he is brought here for crimes he has not commited such as being pedophile, pt reports thinking people are following him. PLAN 1. Admit to on section 12, 15 minutes checks 2. restart clozaril 25mg po qhs. titrate daily by 25mg. 3. weekly ANC labs, Haldol 5mg po q6h prn agitation with ativan 1mg po q4h, prn anxiety. 4. Obtain collateral information 5. Aftercare planning. 03/15 pt continues to present as paranoid, disorganized, refuses clozaril. will petition court for involuntary tx as pt gravely disable. 03/16: touching peer and calling him pedophile. got haldol 10 and ativan 2 PO, did not sleep. total of 6 mg ativan today by mid-afternoon. 03/17/2022: Largely refusing medications however does accept PRNs at times. Did receive Haldol and Ativan yesterday. Questionable benefit. Will's have Ativan 2 mg as needed up to 4 times per day along with olanzapine 10 mg as needed up to 4 times per day. 03/18/2022: No medication changes. Refused clozaril yesterday. 03/19/2022: continue current plan. pending court hearing. 03/20 continue current tx. refuse clozaril again I spent minutes with the patient and/or on the patient floor today, greater than?50% of which was spent counseling/coordinating care. Reason for contiued inpatient stay Substantial Risk for: harm to others and inability to function
[2022-03-20] MEDS: OLANZapine 10 MG VIAL IM (10:45)
--- NOTE | 2022-03-20 11:36 | PC.NURSE ---
Patient became agitated when the dressage judge was in the room cleaning. TW was standing outside the room when patient approached ?You nazi cry fucker with the cross necklace? while poking his finger within inches of TW face. TW proceeded to walk away back to the nurses station, where the patient continued to follow TW to the nurses station. Patient yelling down the hallway ?Document that, lets document that you nazi cry fucker?. Patient approached TW at the nurses station and said ?I will kill you?. Nurse practitioner Saima Bui was notified and ordered IM olanzapine 10 mg.
[2022-03-20] MEDS: LORazepam 1 MG TABLET PO (15:56)
--- NOTE | 2022-03-20 16:02 | PC.NURSE ---
This RN attempted to discuss Restraint from earlier in day with patient and go over safety tool update and patient debriefing and comment form to which patient declined and told this RN .
[2022-03-20] MEDS: LORazepam 1 MG TABLET 2 MG PO (23:17)
[2022-03-20] MEDS: traZODone HCL 50 MG TABLET PO (23:17)
--- NOTE | 2022-03-21 05:52 | PC.NURSE ---
patient has become agitated in the context of feeling that his sister is suicidal. unable to ground or reality test. difficult to console.
[2022-03-21] MEDS: LORazepam 1 MG TABLET 2 MG PO (10:40)
[2022-03-21] MEDS: hydrOXYzine HCL 25 MG TABLET PO (11:31)
--- NOTE | 2022-03-21 12:10 | P.PNPSI_ITS ---
Subjective Subjective Date of Service: 03/21/22 Reason For Visit: Psych Subjective Notes: Section 7 Interim History: Patient seen and discussed with team. Pt did not sleep through the night, mostly pacing, self dialoguing. Pt went to peer, intrusive again accusing peer of being a pedophile. Pt became more and more agited, threatening to kill peer. He was also yelling at staff to leave him along. Called for support for pt to de escalate agitated behavior, pt finally agreed to return to his room. Today, he continued to decline talking to this loan underwriter, stating Leave me along, get out! Medication Compliance: No Side effects from medications: No Attending Groups: No Review of Systems Acute medical concerns: No Review of Systems Review of Systems Yes Unobtainable due to mental condition and Unobtainable due to mental status Mental Status Exam Mental Status Exam Narrative: Alert but not oriented to situation thinks he is here for being wrongly accused as pedophile. Poor eye contact, inattentive. No Tics or Tremors. No abnormal involuntary movements. Agitated, guarded, difficult to engage. Non-pressured speech, but intense. No prolonged speech latency or dysarthria. Mood is [did not state], affect is irritable. No imminent safety concerns. Appears to have paranoid delusional thought content, responding to internal stimuli. Thoughts are disorganized. No known cognitive or memory impairment. Insight/ Judgment limited. Medications Medications Current Medications Acetaminophen (Acetaminophen 325 Mg Tablet) 650 mg PO Q6H PRN PRN Reason: Headache/Pain Mild Scale (1-3) Last Admin: 03/17/22 04:33 Dose: 650 mg Al Hydroxide/Mg Hydroxide (Magnesium Hydrox/Alum Hydrox 30 Ml Oral.Susp) 30 ml PO Q6H PRN PRN Reason: Heartburn/Nausea Clozapine (Clozapine 25 Mg Tablet) 25 mg PO BEDTIME GOLD Last Admin: 03/20/22 21:13 Dose: Not Given Hydroxyzine HCl (Hydroxyzine Hcl 25 Mg Tablet) 25 mg PO Q6H PRN PRN Reason: Anxiety Last Admin: 03/21/22 11:31 Dose: 25 mg Lorazepam (Lorazepam 1 Mg Tablet) 1 mg PO TID GOLD Last Admin: 03/21/22 14:55 Dose: Not Given Lorazepam (Lorazepam 1 Mg Tablet) 2 mg PO Q6H PRN PRN Reason: severe anxiety Last Admin: 03/21/22 10:40 Dose: 2 mg Magnesium Hydroxide (Milk Of Magnesia 30 Ml Oral.Susp) 30 ml PO DAILY PRN PRN Reason: Constipation Olanzapine (Olanzapine Odt 10 Mg Tab.Rapdis) 10 mg TRANSLINGU QID PRN PRN Reason: Psychosis Trazodone HCl (Trazodone Hcl 50 Mg Tablet) 50 mg PO BEDTIME PRN PRN Reason: Insomnia Last Admin: 03/20/22 23:17 Dose: 50 mg Allergies Allergies Allergy/AdvReac Type Severity Reaction Status Date / Time No Known Allergies Allergy Verified 01/26/22 23:05 Assessment & Plan Assessment & Plan (1) Schizophrenia: Status: Acute Code(s): F20.9 - Schizophrenia, unspecified Plan Mr. Hill is a 42 year-old male with hx of schizophrenia, recently discharged from on 02/27/22 more stable than when he was first admitted but still symptomatic, however, no evidence at the time of imminent risk of harm to self or others to petition for involuntary commitment. Pt apparently was not able to obtain clozaril from the pharmacy. He gradually decompensated to point of being found wondering on the streets, without shoes, blister on bilat feets, disorganized, combative, swing at police and staff at ED. Pt presents with persecutory delusions thinking he is brought here for crimes he has not commited such as being pedophile, pt reports thinking people are following him. PLAN 1. Admit to on section 12, 15 minutes checks 2. restart clozaril 25mg po qhs. titrate daily by 25mg. 3. weekly ANC labs, Haldol 5mg po q6h prn agitation with ativan 1mg po q4h, prn anxiety. 4. Obtain collateral information 5. Aftercare planning. 03/15 pt continues to present as paranoid, disorganized, refuses clozaril. will petition court for involuntary tx as pt gravely disable. 03/16: touching peer and calling him pedophile. got haldol 10 and ativan 2 PO, did not sleep. total of 6 mg ativan today by mid-afternoon. 03/17/2022: Largely refusing medications however does accept PRNs at times. Did receive Haldol and Ativan yesterday. Questionable benefit. Will's have Ativan 2 mg as needed up to 4 times per day along with olanzapine 10 mg as needed up to 4 times per day. 03/18/2022: No medication changes. Refused clozaril yesterday. 03/19/2022: continue current plan. pending court hearing. 03/20 continue current tx. refuse clozaril again 03/21 continue to decline medication, disorganized agitated, threatening peers and staff at times to kill them. I spent __25____ minutes with the patient and/or on the patient floor today, greater than?50% of which was spent counseling/coordinating care. Reason for contiued inpatient stay Substantial Risk for: harm to others and inability to function
--- NOTE | 2022-03-22 01:30 | PC.NURSE ---
Antwon awake at 0130, disorganized in his thought process responding to internal stimuli. Walking hallways, confused as to where he is.
[2022-03-22] MEDS: LORazepam 1 MG TABLET PO ×2 (08:48→21:24)
--- NOTE | 2022-03-22 16:58 | P.PNPSI_ITS ---
Subjective Subjective Date of Service: 03/22/22 Reason For Visit: Psych Subjective Notes: Section 8 Interim History: Pt seen in morning prior to court hearing- pt reports he thinks he is going to court because he was arrested as someone wrongly accusing him of being a pedophile. Pt reports police was looking for him because someone is making allegations that he is a pedophile. Court hearing completed today- pt's petition for involuntary treatment was granted. During court pt fired his traffic law attorney. Medication Compliance: No Side effects from medications: No Attending Groups: No Review of Systems Review of Systems Yes Unobtainable due to mental condition and Unobtainable due to mental status Mental Status Exam Mental Status Exam Narrative: Alert but not oriented to situation thinks he is here for being wrongly accused as pedophile. Poor eye contact, inattentive. No Tics or Tremors. No abnormal involuntary movements. Agitated, guarded, difficult to engage. Non-pressured speech, but intense. No prolonged speech latency or dysarthria. Mood is [did not state], affect is irritable. No imminent safety concerns. Appears to have paranoid delusional thought content, responding to internal stimuli. Thoughts are disorganized. No known cognitive or memory impairment. Insight/ Judgment limited. Diagnostics Vital Signs (24Hr): Vital Signs - 24 hr 03/23/22 09:04 Respiratory Rate 17 Medications Medications Current Medications Acetaminophen (Acetaminophen 325 Mg Tablet) 650 mg PO Q6H PRN PRN Reason: Headache/Pain Mild Scale (1-3) Last Admin: 03/17/22 04:33 Dose: 650 mg Al Hydroxide/Mg Hydroxide (Magnesium Hydrox/Alum Hydrox 30 Ml Oral.Susp) 30 ml PO Q6H PRN PRN Reason: Heartburn/Nausea Clozapine (Clozapine 25 Mg Tablet) 25 mg PO BEDTIME GOLD Last Admin: 03/22/22 21:24 Dose: 25 mg Hydroxyzine HCl (Hydroxyzine Hcl 25 Mg Tablet) 25 mg PO Q6H PRN PRN Reason: Anxiety Last Admin: 03/21/22 11:31 Dose: 25 mg Lorazepam (Lorazepam 1 Mg Tablet) 1 mg PO BID GOLD Last Admin: 03/23/22 09:05 Dose: Not Given Lorazepam (Lorazepam 1 Mg Tablet) 1 mg PO Q6H PRN PRN Reason: severe anxiety Magnesium Hydroxide (Milk Of Magnesia 30 Ml Oral.Susp) 30 ml PO DAILY PRN PRN Reason: Constipation Olanzapine (Olanzapine 10 Mg Vial) 10 mg IM BEDTIME PRN PRN Reason: if refuses clozaril per court Olanzapine (Olanzapine Odt 10 Mg Tab.Rapdis) 10 mg TRANSLINGU TID PRN PRN Reason: Psychosis Trazodone HCl (Trazodone Hcl 50 Mg Tablet) 50 mg PO BEDTIME PRN PRN Reason: Insomnia Last Admin: 03/20/22 23:17 Dose: 50 mg Allergies Allergies Allergy/AdvReac Type Severity Reaction Status Date / Time No Known Allergies Allergy Verified 01/26/22 23:05 Assessment & Plan Assessment & Plan (1) Schizophrenia: Status: Acute Code(s): F20.9 - Schizophrenia, unspecified Plan Mr. Hill is a 42 year-old male with hx of schizophrenia, recently discharged from on 02/27/22 more stable than when he was first admitted but still symptomatic, however, no evidence at the time of imminent risk of harm to self or others to petition for involuntary commitment. Pt apparently was not able to obtain clozaril from the pharmacy. He gradually decompensated to point of being found wondering on the streets, without shoes, blister on bilat feets, disorganized, combative, swing at police and staff at ED. Pt presents with persecutory delusions thinking he is brought here for crimes he has not commited such as being pedophile, pt reports thinking people are following him. PLAN 1. Admit to on section 12, 15 minutes checks 2. restart clozaril 25mg po qhs. titrate daily by 25mg. 3. weekly ANC labs, Haldol 5mg po q6h prn agitation with ativan 1mg po q4h, prn anxiety. 4. Obtain collateral information 5. Aftercare planning. 03/15 pt continues to present as paranoid, disorganized, refuses clozaril. will petition court for involuntary tx as pt gravely disable. 03/16: touching peer and calling him pedophile. got haldol 10 and ativan 2 PO, did not sleep. total of 6 mg ativan today by mid-afternoon. 03/17/2022: Largely refusing medications however does accept PRNs at times. Did receive Haldol and Ativan yesterday. Questionable benefit. Will's have Ativan 2 mg as needed up to 4 times per day along with olanzapine 10 mg as needed up to 4 times per day. 03/18/2022: No medication changes. Refused clozaril yesterday. 03/19/2022: continue current plan. pending court hearing. 03/20 continue current tx. refuse clozaril again 03/21 continue to decline medication, disorganized agitated, threatening peers and staff at times to kill them. 03/22 court hearing- pt committed- now SECTION 8. Can't decline clozaril oral, otherwise will be given Olanzapine IM. I spent ___25___ minutes with the patient and/or on the patient floor today, greater than?50% of which was spent counseling/coordinating care. Reason for contiued inpatient stay Substantial Risk for: harm to others and inability to function
[2022-03-22] MEDS: cloZAPine 25 MG TABLET PO (21:24)
--- NOTE | 2022-03-22 22:51 | PC.NURSE ---
Clozapine administered as ordered by Saima Bui APRN. Aware last lab work 03/13/22. Authorized administration. No resistance following reminder he needed to take it per court order. Mouth check completed.
[2022-03-23 09:04] VITALS: RESP 17
--- NOTE | 2022-03-23 11:17 | HO.PSYCHPN ---
Subjective Subjective Date of Service: 03/23/22 Reason For Visit: Psych Subjective Notes: Section 8 Interim History: Pt pacing in taylor. He declines to talk with this health technical writer. Pt does report he does no like the cleaning staff coming to his room because it is suspicious. Pt slept through the night. Per nursing, pt agreed to take clozaril last night when reminded that is court order. He declined taking ativan. Medication Compliance: Yes Side effects from medications: No Attending Groups: No Review of Systems Review of Systems Yes Unobtainable due to mental condition and Unobtainable due to mental status Mental Status Exam Mental Status Exam Narrative: Alert but not oriented to situation thinks he is here for being wrongly accused as pedophile. Poor eye contact, inattentive. No Tics or Tremors. No abnormal involuntary movements. Agitated, guarded, difficult to engage. Non-pressured speech, but intense. No prolonged speech latency or dysarthria. Mood is [did not state], affect is irritable. No imminent safety concerns. Appears to have paranoid delusional thought content, responding to internal stimuli. Thoughts are disorganized. No known cognitive or memory impairment. Insight/ Judgment limited. Diagnostics Vital Signs (24Hr): Vital Signs - 24 hr 03/23/22 09:04 Respiratory Rate 17 Medications Medications Current Medications Acetaminophen (Acetaminophen 325 Mg Tablet) 650 mg PO Q6H PRN PRN Reason: Headache/Pain Mild Scale (1-3) Last Admin: 03/17/22 04:33 Dose: 650 mg Al Hydroxide/Mg Hydroxide (Magnesium Hydrox/Alum Hydrox 30 Ml Oral.Susp) 30 ml PO Q6H PRN PRN Reason: Heartburn/Nausea Clozapine (Clozapine 25 Mg Tablet) 25 mg PO BEDTIME GOLD Last Admin: 03/22/22 21:24 Dose: 25 mg Hydroxyzine HCl (Hydroxyzine Hcl 25 Mg Tablet) 25 mg PO Q6H PRN PRN Reason: Anxiety Last Admin: 03/21/22 11:31 Dose: 25 mg Lorazepam (Lorazepam 1 Mg Tablet) 1 mg PO BID GOLD Last Admin: 03/23/22 09:05 Dose: Not Given Lorazepam (Lorazepam 1 Mg Tablet) 1 mg PO Q6H PRN PRN Reason: severe anxiety Magnesium Hydroxide (Milk Of Magnesia 30 Ml Oral.Susp) 30 ml PO DAILY PRN PRN Reason: Constipation Olanzapine (Olanzapine 10 Mg Vial) 10 mg IM BEDTIME PRN PRN Reason: if refuses clozaril per court Olanzapine (Olanzapine Odt 10 Mg Tab.Rapdis) 10 mg TRANSLINGU TID PRN PRN Reason: Psychosis Trazodone HCl (Trazodone Hcl 50 Mg Tablet) 50 mg PO BEDTIME PRN PRN Reason: Insomnia Last Admin: 03/20/22 23:17 Dose: 50 mg Allergies Allergies Allergy/AdvReac Type Severity Reaction Status Date / Time No Known Allergies Allergy Verified 01/26/22 23:05 Assessment & Plan Assessment & Plan (1) Schizophrenia: Status: Acute Code(s): F20.9 - Schizophrenia, unspecified Plan Mr. Hill is a 42 year-old male with hx of schizophrenia, recently discharged from on 02/27/22 more stable than when he was first admitted but still symptomatic, however, no evidence at the time of imminent risk of harm to self or others to petition for involuntary commitment. Pt apparently was not able to obtain clozaril from the pharmacy. He gradually decompensated to point of being found wondering on the streets, without shoes, blister on bilat feets, disorganized, combative, swing at police and staff at ED. Pt presents with persecutory delusions thinking he is brought here for crimes he has not commited such as being pedophile, pt reports thinking people are following him. PLAN 1. Admit to on section 12, 15 minutes checks 2. restart clozaril 25mg po qhs. titrate daily by 25mg. 3. weekly ANC labs, Haldol 5mg po q6h prn agitation with ativan 1mg po q4h, prn anxiety. 4. Obtain collateral information 5. Aftercare planning. 03/15 pt continues to present as paranoid, disorganized, refuses clozaril. will petition court for involuntary tx as pt gravely disable. 03/16: touching peer and calling him pedophile. got haldol 10 and ativan 2 PO, did not sleep. total of 6 mg ativan today by mid-afternoon. 03/17/2022: Largely refusing medications however does accept PRNs at times. Did receive Haldol and Ativan yesterday. Questionable benefit. Will's have Ativan 2 mg as needed up to 4 times per day along with olanzapine 10 mg as needed up to 4 times per day. 03/18/2022: No medication changes. Refused clozaril yesterday. 03/19/2022: continue current plan. pending court hearing. 03/20 continue current tx. refuse clozaril again 03/21 continue to decline medication, disorganized agitated, threatening peers and staff at times to kill them. 03/22 court hearing- pt committed- now SECTION 8. Can't decline clozaril oral, otherwise will be given Olanzapine IM. 03/23 increase clozaril 50mg po qhs. Olanzapine back IM per court. I spent __25____ minutes with the patient and/or on the patient floor today, greater than?50% of which was spent counseling/coordinating care. Reason for contiued inpatient stay Substantial Risk for: harm to others and inability to function
[2022-03-23] MEDS: cloZAPine 25 MG TABLET 50 MG PO (21:37)
[2022-03-24 08:41] LABS: Neut%MD 76.3 %; Neutrophils Absolute Auto 8.3 x10*3/uL (2.0-8.3); WBCANC 10.8 X10*3/uL
[2022-03-24 09:15] VITALS: RESP 18
--- NOTE | 2022-03-24 11:16 | HO.PSYCHPN ---
Subjective Subjective Date of Service: 03/24/22 Reason For Visit: Psychosis Subjective Notes: Tineo Order and Section 8 Interim History: Pt declining meds except clozaRIL. Pt pacing fast in taylor.Very angry; paranoid; intrusive in TW personal space; stating he wont talk to me and that everyone here are psychopaths. threatening others; Aggressive towards other patients; received zyrexa 10 mg and ativan 2 mg IM due to severe aggression towards staff and patients Medication Compliance: Yes Side effects from medications: No Attending Groups: No Review of Systems Acute medical concerns: No Medical Review of Systems: unchanged Review of Systems Review of Systems Yes Unobtainable due to mental condition and Unobtainable due to mental status Mental Status Exam Mental Status Exam Narrative: Alert but not oriented to situation thinks he is here for being wrongly accused as pedophile. Poor eye contact, inattentive. No Tics or Tremors. No abnormal involuntary movements. Agitated, guarded, difficult to engage. Non-pressured speech, but intense. No prolonged speech latency or dysarthria. Mood is [did not state], affect is irritable. No imminent safety concerns. Appears to have paranoid delusional thought content, responding to internal stimuli. Thoughts are disorganized. No known cognitive or memory impairment. Insight/ Judgment limited. Diagnostics Vital Signs (24Hr): Vital Signs - 24 hr 03/24/22 09:15 Respiratory Rate 18 Labs Labs: Laboratory Results - last 48 hr 03/24/22 08:34 Absolute Neuts (auto) 8.3 Medications Medications Current Medications Acetaminophen (Acetaminophen 325 Mg Tablet) 650 mg PO Q6H PRN PRN Reason: Headache/Pain Mild Scale (1-3) Last Admin: 03/17/22 04:33 Dose: 650 mg Al Hydroxide/Mg Hydroxide (Magnesium Hydrox/Alum Hydrox 30 Ml Oral.Susp) 30 ml PO Q6H PRN PRN Reason: Heartburn/Nausea Clozapine (Clozapine 25 Mg Tablet) 50 mg PO BEDTIME [facility] Last Admin: 03/23/22 21:37 Dose: 50 mg Hydroxyzine HCl (Hydroxyzine Hcl 25 Mg Tablet) 25 mg PO Q6H PRN PRN Reason: Anxiety Last Admin: 03/21/22 11:31 Dose: 25 mg Lorazepam (Lorazepam 1 Mg Tablet) 1 mg PO BID GOLD Last Admin: 03/24/22 09:22 Dose: Not Given Lorazepam (Lorazepam 1 Mg Tablet) 1 mg PO Q6H PRN PRN Reason: severe anxiety Magnesium Hydroxide (Milk Of Magnesia 30 Ml Oral.Susp) 30 ml PO DAILY PRN PRN Reason: Constipation Olanzapine (Olanzapine 10 Mg Vial) 10 mg IM BEDTIME PRN PRN Reason: if refuses clozaril per court Olanzapine (Olanzapine Odt 10 Mg Tab.Rapdis) 10 mg TRANSLINGU TID PRN PRN Reason: Psychosis Trazodone HCl (Trazodone Hcl 50 Mg Tablet) 50 mg PO BEDTIME PRN PRN Reason: Insomnia Last Admin: 03/20/22 23:17 Dose: 50 mg Allergies Allergies Allergy/AdvReac Type Severity Reaction Status Date / Time No Known Allergies Allergy Verified 01/26/22 23:05 Assessment & Plan Assessment & Plan (1) Schizophrenia: Status: Acute Code(s): F20.9 - Schizophrenia, unspecified Plan Mr. Hill is a 42 year-old male with hx of schizophrenia, recently discharged from on 02/27/22 more stable than when he was first admitted but still symptomatic, however, no evidence at the time of imminent risk of harm to self or others to petition for involuntary commitment. Pt apparently was not able to obtain clozaril from the pharmacy. He gradually decompensated to point of being found wondering on the streets, without shoes, blister on bilat feets, disorganized, combative, swing at police and staff at ED. Pt presents with persecutory delusions thinking he is brought here for crimes he has not commited such as being pedophile, pt reports thinking people are following him. PLAN 1. Admit to on section 12, 15 minutes checks 2. restart clozaril 25mg po qhs. titrate daily by 25mg. 3. weekly ANC labs, Haldol 5mg po q6h prn agitation with ativan 1mg po q4h, prn anxiety. 4. Obtain collateral information 5. Aftercare planning. 03/15 pt continues to present as paranoid, disorganized, refuses clozaril. will petition court for involuntary tx as pt gravely disable. 03/16: touching peer and calling him pedophile. got haldol 10 and ativan 2 PO, did not sleep. total of 6 mg ativan today by mid-afternoon. 03/17/2022: Largely refusing medications however does accept PRNs at times. Did receive Haldol and Ativan yesterday. Questionable benefit. Will's have Ativan 2 mg as needed up to 4 times per day along with olanzapine 10 mg as needed up to 4 times per day. 03/18/2022: No medication changes. Refused clozaril yesterday. 03/19/2022: continue current plan. pending court hearing. 03/20 continue current tx. refuse clozaril again 03/21 continue to decline medication, disorganized agitated, threatening peers and staff at times to kill them. 03/22 court hearing- pt committed- now SECTION 8. Can't decline clozaril oral, otherwise will be given Olanzapine IM. 03/23 increase clozaril 50mg po qhs. Olanzapine back IM per court. 03/24 continue treatmetn plan; pt given zyprexa 10 mg IM and ativan 2 mg IM due to severe aggression towards staff and patients in common area; pt accepted IM admin without being held I spent _25 minutes with the patient and/or on the patient floor today, greater than?50% of which was spent counseling/coordinating care. Patient educated on: medication risk/benefits and therapeutic strategies Informed Consent: does not understand Reason for contiued inpatient stay Substantial Risk for: harm to self, harm to others, inability to function and rapid decompensation
[2022-03-24] MEDS: LORazepam 2 MG/ML VIAL IM (11:54)
[2022-03-24] MEDS: OLANZapine 10 MG VIAL IM (11:55)
[2022-03-24 12:00] VITALS: RESP 22
--- NOTE | 2022-03-24 12:12 | PC.NURSE ---
Late entry:1145: Per other patient, patient stated I'm going to f...you up to him. Other patient responded, patient began to escalate, stating 'come on, I'll take you on, I was [place] . This required staff intervention, patient re;luctantly left area but then reurned, continuing to make provocative statements. Security called, provider called, patient medicated as ordered. Patient declining to have vitals done.
[2022-03-24 12:15] VITALS: RESP 16
[2022-03-24 12:29] VITALS: RESP 16
[2022-03-24 12:45] VITALS: RESP 20
[2022-03-24 13:00] VITALS: RESP 18
--- NOTE | 2022-03-24 18:11 | PC.NURSE ---
Patient awake, offered meal, no agitation noted at this time.
[2022-03-24] MEDS: LORazepam 1 MG TABLET PO ×2 (19:12→20:35)
[2022-03-24] MEDS: cloZAPine 25 MG TABLET 50 MG PO (20:35)
[2022-03-25] MEDS: LORazepam 1 MG TABLET PO ×5 (03:57→20:54)
[2022-03-25 08:46] VITALS: RESP 18
--- NOTE | 2022-03-25 12:12 | HO.PSYCHPN ---
Subjective Subjective Date of Service: 03/25/22 Reason For Visit: Psychosis Subjective Notes: Tineo Order and Section 8 Interim History: Pt accepting PO meds including PRN meds; Pt pacing fast in [place].still intermittently very angry; paranoid; intrusive in TW personal space; making threats to kill staff- accepted zydis 10 mg PO to help maintain safety Medication Compliance: Yes Side effects from medications: No Attending Groups: No Review of Systems Review of Systems Yes Unobtainable due to mental condition and Unobtainable due to mental status Mental Status Exam Mental Status Exam Narrative: Alert but not oriented to situation thinks he is here for being wrongly accused as pedophile. Poor eye contact, inattentive. No Tics or Tremors. No abnormal involuntary movements. Agitated, guarded, difficult to engage. Non-pressured speech, but intense. No prolonged speech latency or dysarthria. Mood is [did not state], affect is irritable. No imminent safety concerns. Appears to have paranoid delusional thought content, responding to internal stimuli. Thoughts are disorganized. No known cognitive or memory impairment. Insight/ Judgment limited. Diagnostics Vital Signs (24Hr): Vital Signs - 24 hr 03/24/22 12:15 03/24/22 12:29 03/24/22 12:45 Respiratory Rate 16 16 20 03/24/22 13:00 03/25/22 08:46 Respiratory Rate 18 18 Labs Labs: Laboratory Results - last 48 hr 03/24/22 08:34 Absolute Neuts (auto) 8.3 Medications Medications Current Medications Acetaminophen (Acetaminophen 325 Mg Tablet) 650 mg PO Q6H PRN PRN Reason: Headache/Pain Mild Scale (1-3) Last Admin: 03/17/22 04:33 Dose: 650 mg Al Hydroxide/Mg Hydroxide (Magnesium Hydrox/Alum Hydrox 30 Ml Oral.Susp) 30 ml PO Q6H PRN PRN Reason: Heartburn/Nausea Clozapine (Clozapine 25 Mg Tablet) 50 mg PO BEDTIME [facility] Last Admin: 03/24/22 20:35 Dose: 50 mg Hydroxyzine HCl (Hydroxyzine Hcl 25 Mg Tablet) 25 mg PO Q6H PRN PRN Reason: Anxiety Last Admin: 03/21/22 11:31 Dose: 25 mg Lorazepam (Lorazepam 1 Mg Tablet) 1 mg PO BID [facility] Last Admin: 03/25/22 05:12 Dose: 1 mg Lorazepam (Lorazepam 1 Mg Tablet) 1 mg PO Q6H PRN PRN Reason: severe anxiety Last Admin: 03/25/22 09:59 Dose: 1 mg Magnesium Hydroxide (Milk Of Magnesia 30 Ml Oral.Susp) 30 ml PO DAILY PRN PRN Reason: Constipation Olanzapine (Olanzapine 10 Mg Vial) 10 mg IM BEDTIME PRN PRN Reason: if refuses clozaril per court Olanzapine (Olanzapine Odt 10 Mg Tab.Rapdis) 10 mg TRANSLINGU TID PRN PRN Reason: Psychosis Trazodone HCl (Trazodone Hcl 50 Mg Tablet) 50 mg PO BEDTIME PRN PRN Reason: Insomnia Last Admin: 03/20/22 23:17 Dose: 50 mg Allergies Allergies Allergy/AdvReac Type Severity Reaction Status Date / Time No Known Allergies Allergy Verified 01/26/22 23:05 Assessment & Plan Assessment & Plan (1) Schizophrenia: Status: Acute Code(s): F20.9 - Schizophrenia, unspecified Plan Mr. Hill is a 42 year-old male with hx of schizophrenia, recently discharged from on 02/27/22 more stable than when he was first admitted but still symptomatic, however, no evidence at the time of imminent risk of harm to self or others to petition for involuntary commitment. Pt apparently was not able to obtain clozaril from the pharmacy. He gradually decompensated to point of being found wondering on the streets, without shoes, blister on bilat feets, disorganized, combative, swing at police and staff at ED. Pt presents with persecutory delusions thinking he is brought here for crimes he has not commited such as being pedophile, pt reports thinking people are following him. PLAN 1. Admit to on section 12, 15 minutes checks 2. restart clozaril 25mg po qhs. titrate daily by 25mg. 3. weekly ANC labs, Haldol 5mg po q6h prn agitation with ativan 1mg po q4h, prn anxiety. 4. Obtain collateral information 5. Aftercare planning. 03/15 pt continues to present as paranoid, disorganized, refuses clozaril. will petition court for involuntary tx as pt gravely disable. 03/16: touching peer and calling him pedophile. got haldol 10 and ativan 2 PO, did not sleep. total of 6 mg ativan today by mid-afternoon. 03/17/2022: Largely refusing medications however does accept PRNs at times. Did receive Haldol and Ativan yesterday. Questionable benefit. Will's have Ativan 2 mg as needed up to 4 times per day along with olanzapine 10 mg as needed up to 4 times per day. 03/18/2022: No medication changes. Refused clozaril yesterday. 03/19/2022: continue current plan. pending court hearing. 03/20 continue current tx. refuse clozaril again 03/21 continue to decline medication, disorganized agitated, threatening peers and staff at times to kill them. 03/22 court hearing- pt committed- now SECTION 8. Can't decline clozaril oral, otherwise will be given Olanzapine IM. 03/23 increase clozaril 50mg po qhs. Olanzapine back IM per court. 03/24 continue treatmetn plan; pt given zyprexa 10 mg IM and ativan 2 mg IM due to severe aggression towards staff and patients in common area; pt accepted IM admin without being held 03/25 contiue current treatet plan; given zydis 10 mg PO prn for threat to kill staff and escalating aggression/distress I spent ___15___ minutes with the patient and/or on the patient floor today, greater than?50% of which was spent counseling/coordinating care. Reason for contiued inpatient stay Substantial Risk for: harm to others, inability to function and rapid decompensation
[2022-03-25] MEDS: OLANZapine ODT 10 MG TAB.RAPDIS TRANSLINGU (16:32)
--- NOTE | 2022-03-25 16:34 | PC.NURSE ---
Patient came out of room and became suddenly rageful towards a counselor, stating to her you are my cousin and threatening to kill her. Provider called. Patient continued to be agitated, responding to internal stimuli, pacing, agitated. Patient offered Zyprexa 10 mg PO which he accepted.
[2022-03-25 19:50] VITALS: BP 131/73; PULSE 90; RESP 18; TEMP 36.6; O2SAT 99
[2022-03-25] MEDS: cloZAPine 25 MG TABLET 50 MG PO (20:53)
[2022-03-26] MEDS: LORazepam 1 MG TABLET PO ×3 (08:30→21:09)
--- NOTE | 2022-03-26 17:46 | P.PNPSI_ITS ---
Subjective Subjective Date of Service: 03/26/22 Reason For Visit: Psychosis Subjective Notes: [place] Warning and Section 8 Healthcare Proxy: No Guardianship: No Medical Problems Affecting Mental Status: No Interim History: Patient seen and discussed with team. Patient evaluated today and upon interview he reports he feels pretty good. Says his corrugator helper dropped me prison through the case, but T/W has also heard pt say he fired his corrugator helper. Says I didnt do anything wrong, I didnt commit a crime, doesnt know why he?s here. Says during the court hearing at the end i had no idea what they were saying, doesnt think its fair. Asks T/W for a number for a corrugator helper. On clozapine, Section VIII, has been adherent. Medication Compliance: Yes Side effects from medications: No Attending Groups: No Mental Status Exam Mental Status Exam Narrative: Alert but not oriented to situation thinks he is here for being wrongly accused as pedophile. Poor eye contact, inattentive. No Tics or Tremors. No abnormal involuntary movements. Agitated, guarded, difficult to engage. Non-pressured speech, but intense. No prolonged speech latency or dysarthria. Mood is [did not state], affect is irritable. No imminent safety concerns. Appears to have paranoid delusional thought content, responding to internal stimuli. Thoughts are disorganized. No known cognitive or memory impairment. Insight/ Judgment limited. Diagnostics Vital Signs (24Hr): Vital Signs - 24 hr 03/25/22 19:50 Temperature 97.9 F Pulse Rate 90 Respiratory Rate 18 Blood Pressure 131/73 Pulse Oximetry 99 Oxygen Delivery Method Room Air Medications Medications Current Medications Acetaminophen (Acetaminophen 325 Mg Tablet) 650 mg PO Q6H PRN PRN Reason: Headache/Pain Mild Scale (1-3) Last Admin: 03/17/22 04:33 Dose: 650 mg Al Hydroxide/Mg Hydroxide (Magnesium Hydrox/Alum Hydrox 30 Ml Oral.Susp) 30 ml PO Q6H PRN PRN Reason: Heartburn/Nausea Clozapine (Clozapine 25 Mg Tablet) 50 mg PO BEDTIME GOLD Last Admin: 03/25/22 20:53 Dose: 50 mg Hydroxyzine HCl (Hydroxyzine Hcl 25 Mg Tablet) 25 mg PO Q6H PRN PRN Reason: Anxiety Last Admin: 03/21/22 11:31 Dose: 25 mg Lorazepam (Lorazepam 1 Mg Tablet) 1 mg PO BID GOLD Last Admin: 03/26/22 08:30 Dose: 1 mg Lorazepam (Lorazepam 1 Mg Tablet) 1 mg PO Q6H PRN PRN Reason: severe anxiety Last Admin: 03/26/22 16:30 Dose: 1 mg Magnesium Hydroxide (Milk Of Magnesia 30 Ml Oral.Susp) 30 ml PO DAILY PRN PRN Reason: Constipation Olanzapine (Olanzapine 10 Mg Vial) 10 mg IM BEDTIME PRN PRN Reason: if refuses clozaril per court Olanzapine (Olanzapine Odt 10 Mg Tab.Rapdis) 10 mg TRANSLINGU TID PRN PRN Reason: Psychosis Last Admin: 03/25/22 16:32 Dose: 10 mg Trazodone HCl (Trazodone Hcl 50 Mg Tablet) 50 mg PO BEDTIME PRN PRN Reason: Insomnia Last Admin: 03/20/22 23:17 Dose: 50 mg Allergies Allergies Allergy/AdvReac Type Severity Reaction Status Date / Time No Known Allergies Allergy Verified 01/26/22 23:05 Assessment & Plan Assessment & Plan (1) Schizophrenia: Status: Acute Code(s): F20.9 - Schizophrenia, unspecified Plan Mr. Hill is a 42 year-old male with hx of schizophrenia, recently discharged from on 02/27/22 more stable than when he was first admitted but still symptomatic, however, no evidence at the time of imminent risk of harm to self or others to petition for involuntary commitment. Pt apparently was not able to obtain clozaril from the pharmacy. He gradually decompensated to point of being found wondering on the streets, without shoes, blister on bilat feets, disorganized, combative, swing at police and staff at ED. Pt presents with persecutory delusions thinking he is brought here for crimes he has not commited such as being pedophile, pt reports thinking people are following him. PLAN 1. Admit to M3 on section 12, 15 minutes checks 2. restart clozaril 25mg po qhs. titrate daily by 25mg. 3. weekly ANC labs, Haldol 5mg po q6h prn agitation with ativan 1mg po q4h, prn anxiety. 4. Obtain collateral information 5. Aftercare planning. 03/15 pt continues to present as paranoid, disorganized, refuses clozaril. will petition court for involuntary tx as pt gravely disable. 03/16: touching peer and calling him pedophile. got haldol 10 and ativan 2 PO, did not sleep. total of 6 mg ativan today by mid-afternoon. 03/17/2022: Largely refusing medications however does accept PRNs at times. Did receive Haldol and Ativan yesterday. Questionable benefit. Will's have Ativan 2 mg as needed up to 4 times per day along with olanzapine 10 mg as needed up to 4 times per day. 03/18/2022: No medication changes. Refused clozaril yesterday. 03/19/2022: continue current plan. pending court hearing. 03/20 continue current tx. refuse clozaril again 03/21 continue to decline medication, disorganized agitated, threatening peers and staff at times to kill them. 03/22 court hearing- pt committed- now SECTION 8. Can't decline clozaril oral, otherwise will be given Olanzapine IM. 03/23 increase clozaril 50mg po qhs. Olanzapine back IM per court. 03/24 continue treatmetn plan; pt given zyprexa 10 mg IM and ativan 2 mg IM due to severe aggression towards staff and patients in common area; pt accepted IM admin without being held 03/25 contiue current treatet plan; given zydis 10 mg PO prn for threat to kill staff and escalating aggression/distress 03/26 no med changes, pt continues with poor insight, continue on clozaril trial I spent minutes with the patient and/or on the patient floor today, greater than?50% of which was spent counseling/coordinating care. Patient educated on: medication risk/benefits Reason for contiued inpatient stay Substantial Risk for: inability to function, rapid decompensation and med/psych decompensation
[2022-03-26 18:00] VITALS: PULSE 86; RESP 18; TEMP 36.5; O2SAT 95
[2022-03-26] MEDS: cloZAPine 25 MG TABLET 50 MG PO (21:09)
[2022-03-27] MEDS: LORazepam 1 MG TABLET PO ×4 (07:04→20:22)
--- NOTE | 2022-03-27 10:33 | HO.PSYCHPN ---
Subjective Subjective Date of Service: 03/27/22 Reason For Visit: Psychosis Subjective Notes: Section 8 Interim History: Patient seen and discussed with team. Pt pacing the taylor, and talking to himself. He is whispering to himself and quickly explains to this lyric writer that he talks to himself not because he is hearing voices. However, he appears internally preoccupied. He continues to report that he does not understand why he is here, that his father made no sense during court, although father did not speak during court. He reports he does not have mental illness or any symptoms. He continues to report that he is here for being accused of being a pedophile. Pt was chemically restraint on Saturday because he was agitated and threatening RN. He slept last night. He took clozaril last night. He asks if he can speak with litigation attorney associate again. Medication Compliance: Yes Side effects from medications: No Review of Systems Review of Systems Yes Unobtainable due to mental condition and Unobtainable due to mental status Mental Status Exam Mental Status Exam Narrative: Alert but not oriented to situation thinks he is here for being wrongly accused as pedophile. Poor eye contact, inattentive. No Tics or Tremors. No abnormal involuntary movements. Agitated, guarded, difficult to engage. Non-pressured speech, but intense. No prolonged speech latency or dysarthria. Mood is [did not state], affect is irritable. No imminent safety concerns. Appears to have paranoid delusional thought content, responding to internal stimuli. Thoughts are disorganized. No known cognitive or memory impairment. Insight/ Judgment limited. Diagnostics Vital Signs (24Hr): Vital Signs - 24 hr 03/26/22 18:00 Temperature 97.7 F Pulse Rate 86 Respiratory Rate 18 Pulse Oximetry 95 Medications Medications Current Medications Acetaminophen (Acetaminophen 325 Mg Tablet) 650 mg PO Q6H PRN PRN Reason: Headache/Pain Mild Scale (1-3) Last Admin: 03/17/22 04:33 Dose: 650 mg Al Hydroxide/Mg Hydroxide (Magnesium Hydrox/Alum Hydrox 30 Ml Oral.Susp) 30 ml PO Q6H PRN PRN Reason: Heartburn/Nausea Clozapine (Clozapine 25 Mg Tablet) 75 mg PO BEDTIME [facility] Hydroxyzine HCl (Hydroxyzine Hcl 25 Mg Tablet) 25 mg PO Q6H PRN PRN Reason: Anxiety Last Admin: 03/21/22 11:31 Dose: 25 mg Lorazepam (Lorazepam 1 Mg Tablet) 1 mg PO BID GOLD Last Admin: 03/27/22 09:15 Dose: 1 mg Lorazepam (Lorazepam 1 Mg Tablet) 1 mg PO Q6H PRN PRN Reason: severe anxiety Last Admin: 03/27/22 14:42 Dose: 1 mg Magnesium Hydroxide (Milk Of Magnesia 30 Ml Oral.Susp) 30 ml PO DAILY PRN PRN Reason: Constipation Olanzapine (Olanzapine 10 Mg Vial) 10 mg IM BEDTIME PRN PRN Reason: if refuses clozaril per court Olanzapine (Olanzapine Odt 10 Mg Tab.Rapdis) 10 mg TRANSLINGU TID PRN PRN Reason: Psychosis Last Admin: 03/25/22 16:32 Dose: 10 mg Trazodone HCl (Trazodone Hcl 50 Mg Tablet) 50 mg PO BEDTIME PRN PRN Reason: Insomnia Last Admin: 03/20/22 23:17 Dose: 50 mg Allergies Allergies Allergy/AdvReac Type Severity Reaction Status Date / Time No Known Allergies Allergy Verified 01/26/22 23:05 Assessment & Plan Assessment & Plan (1) Schizophrenia: Status: Acute Code(s): F20.9 - Schizophrenia, unspecified Plan Mr. Hill is a 42 year-old male with hx of schizophrenia, recently discharged from on 02/27/22 more stable than when he was first admitted but still symptomatic, however, no evidence at the time of imminent risk of harm to self or others to petition for involuntary commitment. Pt apparently was not able to obtain clozaril from the pharmacy. He gradually decompensated to point of being found wondering on the streets, without shoes, blister on bilat feets, disorganized, combative, swing at police and staff at ED. Pt presents with persecutory delusions thinking he is brought here for crimes he has not commited such as being pedophile, pt reports thinking people are following him. PLAN 1. Admit to on section 12, 15 minutes checks 2. restart clozaril 25mg po qhs. titrate daily by 25mg. 3. weekly ANC labs, Haldol 5mg po q6h prn agitation with ativan 1mg po q4h, prn anxiety. 4. Obtain collateral information 5. Aftercare planning. 03/15 pt continues to present as paranoid, disorganized, refuses clozaril. will petition court for involuntary tx as pt gravely disable. 03/16: touching peer and calling him pedophile. got haldol 10 and ativan 2 PO, did not sleep. total of 6 mg ativan today by mid-afternoon. 03/17/2022: Largely refusing medications however does accept PRNs at times. Did receive Haldol and Ativan yesterday. Questionable benefit. Will's have Ativan 2 mg as needed up to 4 times per day along with olanzapine 10 mg as needed up to 4 times per day. 03/18/2022: No medication changes. Refused clozaril yesterday. 03/19/2022: continue current plan. pending court hearing. 03/20 continue current tx. refuse clozaril again 03/21 continue to decline medication, disorganized agitated, threatening peers and staff at times to kill them. 03/22 court hearing- pt committed- now SECTION 8. Can't decline clozaril oral, otherwise will be given Olanzapine IM. 03/23 increase clozaril 50mg po qhs. Olanzapine back IM per court. 03/24 continue treatmetn plan; pt given zyprexa 10 mg IM and ativan 2 mg IM due to severe aggression towards staff and patients in common area; pt accepted IM admin without being held 03/25 contiue current treatet plan; given zydis 10 mg PO prn for threat to kill staff and escalating aggression/distress 03/26 no med changes, pt continues with poor insight, continue on clozaril trial 03/27 continue to titrate clozaril daily by 25mg qd, as long as pt consistently taking clozaril I spent minutes with the patient and/or on the patient floor today, greater than?50% of which was spent counseling/coordinating care. Reason for contiued inpatient stay Substantial Risk for: harm to others and inability to function
[2022-03-27] MEDS: cloZAPine 25 MG TABLET 75 MG PO (20:22)
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
[2022-03-28] MEDS: LORazepam 1 MG TABLET PO (15:41)
[2022-03-28] MEDS: OLANZapine ODT 10 MG TAB.RAPDIS TRANSLINGU (15:41)
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
[2022-03-28 21:48] VITALS: RESP 20
[2022-03-28] MEDS: fluPHENAZine HCl 2.5 MG TABLET PO (21:56)
[2022-03-28] MEDS: cloZAPine 100 MG TABLET PO (21:56)
[2022-03-29] MEDS: cloZAPine 25 MG TABLET PO (09:00)
[2022-03-29] MEDS: fluPHENAZine HCl 2.5 MG TABLET PO ×2 (09:00→22:26)
[2022-03-29] MEDS: LORazepam 1 MG TABLET PO ×2 (09:01→20:57)
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
[2022-03-29 21:15] VITALS: BP 123/82; PULSE 100; RESP 20; TEMP 36.7; O2SAT 98
[2022-03-29] MEDS: cloZAPine 100 MG TABLET PO (22:26)
[2022-03-30] MEDS: LORazepam 1 MG TABLET PO ×3 (10:15→21:49)
[2022-03-30] MEDS: cloZAPine 25 MG TABLET PO (10:15)
[2022-03-30] MEDS: fluPHENAZine HCl 2.5 MG TABLET PO (10:15)
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
[2022-03-30] MEDS: fluPHENAZine HCl 5 MG TABLET PO (21:49)
[2022-03-30] MEDS: cloZAPine 100 MG TABLET PO (21:49)
[2022-03-31 08:04] VITALS: BP 155/87; PULSE 115; RESP 17; TEMP 36.5; O2SAT 99
[2022-03-31] MEDS: LORazepam 1 MG TABLET PO ×3 (08:08→21:06)
[2022-03-31] MEDS: cloZAPine 25 MG TABLET 50 MG PO (08:08)
[2022-03-31] MEDS: fluPHENAZine HCl 5 MG TABLET PO ×2 (08:08→21:06)
[2022-03-31 10:26] LABS: Neut%MD 67.1 %; Neutrophils Absolute Auto 5.7 x10*3/uL (2.0-8.3); WBCANC 8.5 X10*3/uL
--- NOTE | 2022-03-31 16:34 | HO.PSYCHPN ---
Subjective Subjective Date of Service: 03/31/22 Reason For Visit: Psychosis Interim History: Met with patient. Discussed with Nursing. Continues to be internally preoccupied, paranoid and delusional. Pacing. Declined to engage with machine sign writer. Noted overall treatment plan including Clozaril titration. Was increased to 50 mg daily and 100 mg at bedtime on 03/29/2022. Total target dose will be 200-250 mg. will increase this evening's dose to 125 mg id total daily dose 175 mg. Medication Compliance: Yes Side effects from medications: No Attending Groups: No Review of Systems Review of Systems Yes Unobtainable due to mental status Mental Status Exam Mental Status Exam Narrative: pacing. Internally preoccupied. Poor self-care. Guarded and paranoid, Insight and judgment poor Diagnostics Vital Signs (24Hr): Vital Signs - 24 hr 03/31/22 08:04 Temperature 97.7 F Pulse Rate 115 H Respiratory Rate 17 Blood Pressure 155/87 H Pulse Oximetry 99 Oxygen Delivery Method Room Air Labs Labs: Laboratory Results - last 48 hr 03/31/22 10:09 Absolute Neuts (auto) 5.7 Medications Medications Current Medications Acetaminophen (Acetaminophen 325 Mg Tablet) 650 mg PO Q6H PRN PRN Reason: Headache/Pain Mild Scale (1-3) Last Admin: 03/17/22 04:33 Dose: 650 mg Al Hydroxide/Mg Hydroxide (Magnesium Hydrox/Alum Hydrox 30 Ml Oral.Susp) 30 ml PO Q6H PRN PRN Reason: Heartburn/Nausea Clozapine (Clozapine 100 Mg Tablet) 100 mg PO BEDTIME [facility] Last Admin: 03/30/22 21:49 Dose: 100 mg Clozapine (Clozapine 25 Mg Tablet) 50 mg PO DAILY [facility] Last Admin: 03/31/22 08:08 Dose: 50 mg Fluphenazine HCl (Fluphenazine Hcl 5 Mg Tablet) 5 mg PO BID [facility] Last Admin: 03/31/22 08:08 Dose: 5 mg Hydroxyzine HCl (Hydroxyzine Hcl 25 Mg Tablet) 25 mg PO Q6H PRN PRN Reason: Anxiety Last Admin: 03/21/22 11:31 Dose: 25 mg Lorazepam (Lorazepam 1 Mg Tablet) 1 mg PO BID [facility] Last Admin: 03/31/22 08:08 Dose: 1 mg Lorazepam (Lorazepam 1 Mg Tablet) 1 mg PO Q6H PRN PRN Reason: severe anxiety Last Admin: 03/30/22 19:22 Dose: 1 mg Magnesium Hydroxide (Milk Of Magnesia 30 Ml Oral.Susp) 30 ml PO DAILY PRN PRN Reason: Constipation Olanzapine (Olanzapine Odt 10 Mg Tab.Rapdis) 10 mg TRANSLINGU TID PRN PRN Reason: Psychosis Last Admin: 03/28/22 15:41 Dose: 10 mg Olanzapine (Olanzapine 10 Mg Vial) 10 mg IM BID PRN PRN Reason: if refuses antipsyc per court Trazodone HCl (Trazodone Hcl 50 Mg Tablet) 50 mg PO BEDTIME PRN PRN Reason: Insomnia Last Admin: 03/20/22 23:17 Dose: 50 mg Allergies Allergies Allergy/AdvReac Type Severity Reaction Status Date / Time No Known Allergies Allergy Verified 01/26/22 23:05 Assessment & Plan Assessment & Plan (1) Schizophrenia: Status: Acute Code(s): F20.9 - Schizophrenia, unspecified Plan Mr. Hill is a 42 year-old male with hx of schizophrenia, recently discharged from on 02/27/22 more stable than when he was first admitted but still symptomatic, however, no evidence at the time of imminent risk of harm to self or others to petition for involuntary commitment. Pt apparently was not able to obtain clozaril from the pharmacy. He gradually decompensated to point of being found wondering on the streets, without shoes, blister on bilat feets, disorganized, combative, swing at police and staff at ED. Pt presents with persecutory delusions thinking he is brought here for crimes he has not commited such as being pedophile, pt reports thinking people are following him. PLAN 1. Admit to on section 12, 15 minutes checks 2. restart clozaril 25mg po qhs. titrate daily by 25mg. 3. weekly ANC labs, Haldol 5mg po q6h prn agitation with ativan 1mg po q4h, prn anxiety. 4. Obtain collateral information 5. Aftercare planning. 03/15 pt continues to present as paranoid, disorganized, refuses clozaril. will petition court for involuntary tx as pt gravely disable. 03/16: touching peer and calling him pedophile. got haldol 10 and ativan 2 PO, did not sleep. total of 6 mg ativan today by mid-afternoon. 03/17/2022: Largely refusing medications however does accept PRNs at times. Did receive Haldol and Ativan yesterday. Questionable benefit. Will's have Ativan 2 mg as needed up to 4 times per day along with olanzapine 10 mg as needed up to 4 times per day. 03/18/2022: No medication changes. Refused clozaril yesterday. 03/19/2022: continue current plan. pending court hearing. 03/20 continue current tx. refuse clozaril again 03/21 continue to decline medication, disorganized agitated, threatening peers and staff at times to kill them. 03/22 court hearing- pt committed- now SECTION 8. Can't decline clozaril oral, otherwise will be given Olanzapine IM. 03/23 increase clozaril 50mg po qhs. Olanzapine back IM per court. 03/24 continue treatment plan; pt given zyprexa 10 mg IM and ativan 2 mg IM due to severe aggression towards staff and patients in common area; pt accepted IM admin without being held 03/25 continue current treatment plan; given zydis 10 mg PO prn for threat to kill staff and escalating aggression/distress 03/26 no med changes, pt continues with poor insight, continue on clozaril trial 03/27 continue to titrate clozaril daily by 25mg qd, as long as pt consistently taking clozaril 03/28 increase clozaril to 75mg po qhs- back up IM with Olanzapine. Will start standing dose of prolixin 5mg po BID with back up IM Olanzapine. 03/29- continue titration of clozaril, continue dose of prolixin. increase clozaril to 50mg po daily and 100mg po qhs. 03/30 increase proloxin 5mg po BID, continue titration of clozaril by 25mg/daily, aiming roughly at this time to reach dose of 200-250mg/daily. 03/31/22: Clozaril titration. Was increased to 50 mg daily and 100 mg at bedtime on 03/29/2022. Total target dose will be 200-250 mg. will increase this evening's dose to 125 mg id total daily dose 175 mg. I spent minutes with the patient and/or on the patient floor today, greater than?50% of which was spent counseling/coordinating care. Reason for contiued inpatient stay Substantial Risk for: inability to function
[2022-03-31] MEDS: cloZAPine 100 MG, cloZAPine 25 MG 125 MG PO (21:06)
[2022-03-31 21:08] VITALS: BP 143/81; PULSE 100; RESP 18; TEMP 36.6; O2SAT 97
[2022-04-01] MEDS: LORazepam 1 MG TABLET PO ×3 (09:59→20:04)
[2022-04-01] MEDS: cloZAPine 25 MG TABLET 50 MG PO (09:59)
[2022-04-01] MEDS: fluPHENAZine HCl 5 MG TABLET PO ×2 (09:59→20:56)
--- NOTE | 2022-04-01 12:00 | P.PNPSI_ITS ---
Subjective Subjective Date of Service: 04/01/22 Reason For Visit: Psychosis Interim History: No significant management issues. Remains internally preoccupied. Is pacing less however today and did not accuse conventional underwriter of being a pedophile today. Stated he was feeling fine and had nothing to discuss. Medication Compliance: Yes Side effects from medications: No Attending Groups: No Review of Systems Acute medical concerns: No Review of Systems Review of Systems Unremarkable Mental Status Exam Mental Status Exam Narrative: in room. Casually dressed fair hygiene fair today. Slightly less internally preoccupied. Less irritable. No evidence of SI or HI. Insight and judgment limited Diagnostics Vital Signs (24Hr): Vital Signs - 24 hr 04/01/22 20:00 04/02/22 06:00 Temperature 97.8 F Pulse Rate 102 H 112 H Respiratory Rate 14 16 Blood Pressure 130/82 139/93 H Pulse Oximetry 100 99 Oxygen Delivery Method Room Air Room Air Medications Medications Current Medications Acetaminophen (Acetaminophen 325 Mg Tablet) 650 mg PO Q6H PRN PRN Reason: Headache/Pain Mild Scale (1-3) Last Admin: 03/17/22 04:33 Dose: 650 mg Al Hydroxide/Mg Hydroxide (Magnesium Hydrox/Alum Hydrox 30 Ml Oral.Susp) 30 ml PO Q6H PRN PRN Reason: Heartburn/Nausea Clozapine (Clozapine 25 Mg Tablet) 50 mg PO DAILY [facility] Last Admin: 04/02/22 09:22 Dose: 50 mg Clozapine 100 mg/ Clozapine 25 (mg) 125 mg PO BEDTIME [facility] Last Admin: 04/01/22 20:56 Dose: 125 mg Fluphenazine HCl (Fluphenazine Hcl 5 Mg Tablet) 5 mg PO BID [facility] Last Admin: 04/02/22 09:24 Dose: 5 mg Hydroxyzine HCl (Hydroxyzine Hcl 25 Mg Tablet) 25 mg PO Q6H PRN PRN Reason: Anxiety Last Admin: 03/21/22 11:31 Dose: 25 mg Lorazepam (Lorazepam 1 Mg Tablet) 1 mg PO BID [facility] Last Admin: 04/02/22 09:23 Dose: 1 mg Lorazepam (Lorazepam 1 Mg Tablet) 1 mg PO Q6H PRN PRN Reason: anxiety, agitation Last Admin: 04/01/22 14:54 Dose: 1 mg Magnesium Hydroxide (Milk Of Magnesia 30 Ml Oral.Susp) 30 ml PO DAILY PRN PRN Reason: Constipation Olanzapine (Olanzapine Odt 10 Mg Tab.Rapdis) 10 mg TRANSLINGU TID PRN PRN Reason: Psychosis Last Admin: 03/28/22 15:41 Dose: 10 mg Olanzapine (Olanzapine 10 Mg Vial) 10 mg IM BID PRN PRN Reason: if refuses antipsyc per court Trazodone HCl (Trazodone Hcl 50 Mg Tablet) 50 mg PO BEDTIME PRN PRN Reason: Insomnia Last Admin: 03/20/22 23:17 Dose: 50 mg Allergies Allergies Allergy/AdvReac Type Severity Reaction Status Date / Time No Known Allergies Allergy Verified 01/26/22 23:05 Assessment & Plan Assessment & Plan (1) Schizophrenia: Status: Acute Code(s): F20.9 - Schizophrenia, unspecified Plan Mr. Hill is a 42 year-old male with hx of schizophrenia, recently discharged from on 02/27/22 more stable than when he was first admitted but still symptomatic, however, no evidence at the time of imminent risk of harm to self or others to petition for involuntary commitment. Pt apparently was not able to obtain clozaril from the pharmacy. He gradually decompensated to point of being found wondering on the streets, without shoes, blister on bilat feets, disorganized, combative, swing at police and staff at ED. Pt presents with persecutory delusions thinking he is brought here for crimes he has not commited such as being pedophile, pt reports thinking people are following him. PLAN 1. Admit to on section 12, 15 minutes checks 2. restart clozaril 25mg po qhs. titrate daily by 25mg. 3. weekly ANC labs, Haldol 5mg po q6h prn agitation with ativan 1mg po q4h, prn anxiety. 4. Obtain collateral information 5. Aftercare planning. 03/15 pt continues to present as paranoid, disorganized, refuses clozaril. will petition court for involuntary tx as pt gravely disable. 03/16: touching peer and calling him pedophile. got haldol 10 and ativan 2 PO, did not sleep. total of 6 mg ativan today by mid-afternoon. 03/17/2022: Largely refusing medications however does accept PRNs at times. Did receive Haldol and Ativan yesterday. Questionable benefit. Will's have Ati van 2 mg as needed up to 4 times per day along with olanzapine 10 mg as needed up to 4 times per day. 03/18/2022: No medication changes. Refused clozaril yesterday. 03/19/2022: continue current plan. pending court hearing. 03/20 continue current tx. refuse clozaril again 03/21 continue to decline medication, disorganized agitated, threatening peers and staff at times to kill them. 03/22 court hearing- pt committed- now SECTION 8. Can't decline clozaril oral, otherwise will be given Olanzapine IM. 03/23 increase clozaril 50mg po qhs. Olanzapine back IM per court. 03/24 continue treatment plan; pt given zyprexa 10 mg IM and ativan 2 mg IM due to severe aggression towards staff and patients in common area; pt accepted IM admin without being held 03/25 continue current treatment plan; given zydis 10 mg PO prn for threat to kill staff and escalating aggression/distress 03/26 no med changes, pt continues with poor insight, continue on clozaril trial 03/27 continue to titrate clozaril daily by 25mg qd, as long as pt consistently taking clozaril 03/28 increase clozaril to 75mg po qhs- back up IM with Olanzapine. Will start standing dose of prolixin 5mg po BID with back up IM Olanzapine. 03/29- continue titration of clozaril, continue dose of prolixin. increase clozaril to 50mg po daily and 100mg po qhs. 03/30 increase proloxin 5mg po BID, continue titration of clozaril by 25mg/daily, aiming roughly at this time to reach dose of 200-250mg/daily. 03/31/22: Clozaril titration. Was increased to 50 mg daily and 100 mg at bedtime on 03/29/2022. Total target dose will be 200-250 mg. will increase this evening's dose to 125 mg id total daily dose 175 mg. 04/01- no changes I spent minutes with the patient and/or on the patient floor today, greater than?50% of which was spent counseling/coordinating care. Reason for contiued inpatient stay Substantial Risk for: inability to function
[2022-04-01 20:00] VITALS: BP 130/82; PULSE 102; RESP 14; TEMP 36.6; O2SAT 100
[2022-04-01] MEDS: cloZAPine 100 MG, cloZAPine 25 MG 125 MG PO (20:56)
[2022-04-02 06:00] VITALS: BP 139/93; PULSE 112; RESP 16; O2SAT 99
[2022-04-02] MEDS: cloZAPine 25 MG TABLET 50 MG PO (09:22)
[2022-04-02] MEDS: LORazepam 1 MG TABLET PO ×2 (09:23→15:05)
[2022-04-02] MEDS: fluPHENAZine HCl 5 MG TABLET PO (09:24)
--- NOTE | 2022-04-02 16:22 | HO.PSYCHPN ---
Subjective Subjective Date of Service: 04/02/22 Reason For Visit: Psychosis Interim History: No significant management issues. Remains internally preoccupied. Stated he was feeling fine and had nothing to discuss. Review of Systems Review of Systems Yes Unobtainable due to mental condition Mental Status Exam Mental Status Exam Narrative: in room. Casually dressed fair hygiene fair today. Slightly less internally preoccupied. Less irritable. No evidence of SI or HI. Insight and judgment limited Diagnostics Vital Signs (24Hr): Vital Signs - 24 hr 04/01/22 20:00 04/02/22 06:00 Temperature 97.8 F Pulse Rate 102 H 112 H Respiratory Rate 14 16 Blood Pressure 130/82 139/93 H Pulse Oximetry 100 99 Oxygen Delivery Method Room Air Room Air Medications Medications Current Medications Acetaminophen (Acetaminophen 325 Mg Tablet) 650 mg PO Q6H PRN PRN Reason: Headache/Pain Mild Scale (1-3) Last Admin: 03/17/22 04:33 Dose: 650 mg Al Hydroxide/Mg Hydroxide (Magnesium Hydrox/Alum Hydrox 30 Ml Oral.Susp) 30 ml PO Q6H PRN PRN Reason: Heartburn/Nausea Clozapine (Clozapine 25 Mg Tablet) 50 mg PO DAILY [facility] Last Admin: 04/02/22 09:22 Dose: 50 mg Clozapine 100 mg/ Clozapine 25 (mg) 125 mg PO BEDTIME [facility] Last Admin: 04/01/22 20:56 Dose: 125 mg Fluphenazine HCl (Fluphenazine Hcl 5 Mg Tablet) 5 mg PO BID [facility] Last Admin: 04/02/22 09:24 Dose: 5 mg Hydroxyzine HCl (Hydroxyzine Hcl 25 Mg Tablet) 25 mg PO Q6H PRN PRN Reason: Anxiety Last Admin: 03/21/22 11:31 Dose: 25 mg Lorazepam (Lorazepam 1 Mg Tablet) 1 mg PO BID [facility] Last Admin: 04/02/22 09:23 Dose: 1 mg Lorazepam (Lorazepam 1 Mg Tablet) 1 mg PO Q6H PRN PRN Reason: anxiety, agitation Last Admin: 04/02/22 15:05 Dose: 1 mg Magnesium Hydroxide (Milk Of Magnesia 30 Ml Oral.Susp) 30 ml PO DAILY PRN PRN Reason: Constipation Olanzapine (Olanzapine Odt 10 Mg Tab.Rapdis) 10 mg TRANSLINGU TID PRN PRN Reason: Psychosis Last Admin: 03/28/22 15:41 Dose: 10 mg Olanzapine (Olanzapine 10 Mg Vial) 10 mg IM BID PRN PRN Reason: if refuses antipsyc per court Trazodone HCl (Trazodone Hcl 50 Mg Tablet) 50 mg PO BEDTIME PRN PRN Reason: Insomnia Last Admin: 03/20/22 23:17 Dose: 50 mg Allergies Allergies Allergy/AdvReac Type Severity Reaction Status Date / Time No Known Allergies Allergy Verified 01/26/22 23:05 Assessment & Plan Assessment & Plan (1) Schizophrenia: Status: Acute Code(s): F20.9 - Schizophrenia, unspecified Plan Mr. Hill is a 42 year-old male with hx of schizophrenia, recently discharged from on 02/27/22 more stable than when he was first admitted but still symptomatic, however, no evidence at the time of imminent risk of harm to self or others to petition for involuntary commitment. Pt apparently was not able to obtain clozaril from the pharmacy. He gradually decompensated to point of being found wondering on the streets, without shoes, blister on bilat feets, disorganized, combative, swing at police and staff at ED. Pt presents with persecutory delusions thinking he is brought here for crimes he has not commited such as being pedophile, pt reports thinking people are following him. PLAN 1. Admit to [facility] on section 12, 15 minutes checks 2. restart clozaril 25mg po qhs. titrate daily by 25mg. 3. weekly ANC labs, Haldol 5mg po q6h prn agitation with ativan 1mg po q4h, prn anxiety. 4. Obtain collateral information 5. Aftercare planning. 03/15 pt continues to present as paranoid, disorganized, refuses clozaril. will petition court for involuntary tx as pt gravely disable. 03/16: touching peer and calling him pedophile. got haldol 10 and ativan 2 PO, did not sleep. total of 6 mg ativan today by mid-afternoon. 03/17/2022: Largely refusing medications however does accept PRNs at times. Did receive Haldol and Ativan yesterday. Questionable benefit. Will's have Ativan 2 mg as needed up to 4 times per day along with olanzapine 10 mg as needed up to 4 times per day. 03/18/2022: No medication changes. Refused clozaril yesterday. 03/19/2022: continue current plan. pending court hearing. 03/20 continue current tx. refuse clozaril again 03/21 continue to decline medication, disorganized agitated, threatening peers and staff at times to kill them. 03/22 court hearing- pt committed- now SECTION 8. Can't decline clozaril oral, otherwise will be given Olanzapine IM. 03/23 increase clozaril 50mg po qhs. Olanzapine back IM per court. 03/24 continue treatment plan; pt given zyprexa 10 mg IM and ativan 2 mg IM due to severe aggression towards staff and patients in common area; pt accepted IM admin without being held 03/25 continue current treatment plan; given zydis 10 mg PO prn for threat to kill staff and escalating aggression/distress 03/26 no med changes, pt continues with poor insight, continue on clozaril trial 03/27 continue to titrate clozaril daily by 25mg qd, as long as pt consistently taking clozaril 03/28 increase clozaril to 75mg po qhs- back up IM with Olanzapine. Will start standing dose of prolixin 5mg po BID with back up IM Olanzapine. 03/29- continue titration of clozaril, continue dose of prolixin. increase clozaril to 50mg po daily and 100mg po qhs. 03/30 increase proloxin 5mg po BID, continue titration of clozaril by 25mg/daily, aiming roughly at this time to reach dose of 200-250mg/daily. 03/31/22: Clozaril titration. Was increased to 50 mg daily and 100 mg at bedtime on 03/29/2022. Total target dose will be 200-250 mg. will increase this evening's dose to 125 mg id total daily dose 175 mg. 04/02- no changes I spent minutes with the patient and/or on the patient floor today, greater than?50% of which was spent counseling/coordinating care. Reason for contiued inpatient stay Substantial Risk for: inability to function
[2022-04-02] MEDS: cloNIDine HCL 0.1 MG TABLET PO (18:04)
[2022-04-03] MEDS: cloZAPine 100 MG, cloZAPine 25 MG 125 MG PO (00:30)
[2022-04-03] MEDS: LORazepam 1 MG TABLET PO ×3 (00:31→21:53)
[2022-04-03] MEDS: fluPHENAZine HCl 5 MG TABLET PO ×3 (00:31→21:53)
[2022-04-03 09:00] VITALS: BP 143/87; PULSE 107; RESP 16; TEMP 36.6; O2SAT 96
[2022-04-03] MEDS: cloZAPine 25 MG TABLET 50 MG PO (09:05)
--- NOTE | 2022-04-03 10:28 | P.PNPSI_ITS ---
Subjective Subjective Date of Service: 04/03/22 Reason For Visit: Psychosis Subjective Notes: Section 8 Interim History: Pt asks if it is realistic to be discharge in one month. Pt states I don't think I need any medications, but I will do what you recommend and if there is something I am not doing let me know, I will work on it Pt reports only change he notices is that he is sleeping better. Per nursing, pt less self dialoguing, more visible, less accusatory to others. Review of Systems Review of Systems Unremarkable Yes Unobtainable due to mental condition and Unobtainable due to mental status Mental Status Exam Mental Status Exam Narrative: Appearance: casually groomed, improved hygiene, in NAD Behaviors: less guarded, less paranoid. did let this technical writer and editor come into his room Speech: clear, normal rate, rhythm/volume, spontaneous Psychomotor: no agitation or retardation, some pacing in taylor TP: more linear TC: does not think he needs meds, but willing to work with this provider to adjust medications Mood: okay Affect: constricted but congruent AH/VH: appears internally preoccupied but to lesser extend Delusions: less paranoid delusions SI: denies HI: none Insight/judgment: insight limited to mental illness, but in agreement with treatment Memory/cog: alert, oriented x 3, not situation, not formally assessed. Diagnostics Vital Signs (24Hr): Vital Signs - 24 hr 04/03/22 09:00 Temperature 97.9 F Pulse Rate 107 H Respiratory Rate 16 Blood Pressure 143/87 H Pulse Oximetry 96 Oxygen Delivery Method Room Air Medications Medications Current Medications Acetaminophen (Acetaminophen 325 Mg Tablet) 650 mg PO Q6H PRN PRN Reason: Headache/Pain Mild Scale (1-3) Last Admin: 03/17/22 04:33 Dose: 650 mg Al Hydroxide/Mg Hydroxide (Magnesium Hydrox/Alum Hydrox 30 Ml Oral.Susp) 30 ml PO Q6H PRN PRN Reason: Heartburn/Nausea Clonidine HCl (Clonidine Hcl 0.1 Mg Tablet) 0.1 mg PO TID PRN; Protocol PRN Reason: Anxiety Last Admin: 04/02/22 18:04 Dose: 0.1 mg Clozapine (Clozapine 25 Mg Tablet) 50 mg PO DAILY GOLD Last Admin: 04/03/22 09:05 Dose: 50 mg Fluphenazine HCl (Fluphenazine Hcl 5 Mg Tablet) 5 mg PO BID GOLD Last Admin: 04/03/22 09:05 Dose: 5 mg Hydroxyzine HCl (Hydroxyzine Hcl 25 Mg Tablet) 25 mg PO Q6H PRN PRN Reason: Anxiety Last Admin: 03/21/22 11:31 Dose: 25 mg Lorazepam (Lorazepam 1 Mg Tablet) 1 mg PO BID [facility] Last Admin: 04/03/22 09:05 Dose: 1 mg Lorazepam (Lorazepam 1 Mg Tablet) 1 mg PO Q6H PRN PRN Reason: anxiety, agitation Last Admin: 04/02/22 15:05 Dose: 1 mg Magnesium Hydroxide (Milk Of Magnesia 30 Ml Oral.Susp) 30 ml PO DAILY PRN PRN Reason: Constipation Olanzapine (Olanzapine Odt 10 Mg Tab.Rapdis) 10 mg TRANSLINGU TID PRN PRN Reason: Psychosis Last Admin: 03/28/22 15:41 Dose: 10 mg Olanzapine (Olanzapine 10 Mg Vial) 10 mg IM BID PRN PRN Reason: if refuses antipsyc per court Trazodone HCl (Trazodone Hcl 50 Mg Tablet) 50 mg PO BEDTIME PRN PRN Reason: Insomnia Last Admin: 03/20/22 23:17 Dose: 50 mg Allergies Allergies Allergy/AdvReac Type Severity Reaction Status Date / Time No Known Allergies Allergy Verified 01/26/22 23:05 Assessment & Plan Assessment & Plan (1) Schizophrenia: Status: Acute Code(s): F20.9 - Schizophrenia, unspecified Plan Mr. Hill is a 42 year-old male with hx of schizophrenia, recently discharged from on 02/27/22 more stable than when he was first admitted but still symptomatic, however, no evidence at the time of imminent risk of harm to self or others to petition for involuntary commitment. Pt apparently was not able to obtain clozaril from the pharmacy. He gradually decompensated to point of being found wondering on the streets, without shoes, blister on bilat feets, disorganized, combative, swing at police and staff at ED. Pt presents with persecutory delusions thinking he is brought here for crimes he has not commited such as being pedophile, pt reports thinking people are following him. PLAN 1. Admit to on section 12, 15 minutes checks 2. restart clozaril 25mg po qhs. titrate daily by 25mg. 3. weekly ANC labs, Haldol 5mg po q6h prn agitation with ativan 1mg po q4h, prn anxiety. 4. Obtain collateral information 5. Aftercare planning. 03/15 pt continues to present as paranoid, disorganized, refuses clozaril. will petition court for involuntary tx as pt gravely disable. 03/16: touching peer and calling him pedophile. got haldol 10 and ativan 2 PO, did not sleep. total of 6 mg ativan today by mid-afternoon. 03/17/2022: Largely refusing medications however does accept PRNs at times. Did receive Haldol and Ativan yesterday. Questionable benefit. Will's have Ativan 2 mg as needed up to 4 times per day along with olanzapine 10 mg as needed up to 4 times per day. 03/18/2022: No medication changes. Refused clozaril yesterday. 03/19/2022: continue current plan. pending court hearing. 03/20 continue current tx. refuse clozaril again 03/21 continue to decline medication, disorganized agitated, threatening peers and staff at times to kill them. 03/22 court hearing- pt committed- now SECTION 8. Can't decline clozaril oral, otherwise will be given Olanzapine IM. 03/23 increase clozaril 50mg po qhs. Olanzapine back IM per court. 03/24 continue treatment plan; pt given zyprexa 10 mg IM and ativan 2 mg IM due to severe aggression towards staff and patients in common area; pt accepted IM admin without being held 03/25 continue current treatment plan; given zydis 10 mg PO prn for threat to kill staff and escalating aggression/distress 03/26 no med changes, pt continues with poor insight, continue on clozaril trial 03/27 continue to titrate clozaril daily by 25mg qd, as long as pt consistently taking clozaril 03/28 increase clozaril to 75mg po qhs- back up IM with Olanzapine. Will start standing dose of prolixin 5mg po BID with back up IM Olanzapine. 03/29- continue titration of clozaril, continue dose of prolixin. increase clozaril to 50mg po daily and 100mg po qhs. 03/30 increase proloxin 5mg po BID, continue titration of clozaril by 25mg/daily, aiming roughly at this time to reach dose of 200-250mg/daily. 03/31/22: Clozaril titration. Was increased to 50 mg daily and 100 mg at bedtime on 03/29/2022. Total target dose will be 200-250 mg. will increase this evening's dose to 125 mg id total daily dose 175 mg. 04/01- no changes 04/03 increase clozaril to 50mg po daily and 150mg po qhs. continue prolixin. I spent minutes with the patient and/or on the patient floor today, greater than?50% of which was spent counseling/coordinating care. Reason for contiued inpatient stay Substantial Risk for: harm to others and inability to function
[2022-04-03] MEDS: cloNIDine HCL 0.1 MG TABLET PO ×3 (11:40→20:46)
[2022-04-03 17:33] VITALS: BP 141/91; PULSE 93; RESP 20; TEMP 36.6; O2SAT 100
[2022-04-03 20:40] VITALS: BP 116/70; PULSE 103; RESP 18; TEMP 36.8; O2SAT 100
[2022-04-03] MEDS: cloZAPine 25 MG TABLET 150 MG PO (21:53)
[2022-04-04] MEDS: fluPHENAZine HCl 5 MG TABLET PO ×2 (09:18→22:00)
[2022-04-04] MEDS: LORazepam 1 MG TABLET PO ×2 (09:18→21:30)
[2022-04-04] MEDS: cloZAPine 25 MG TABLET 50 MG PO (09:18)
[2022-04-04 09:23] VITALS: BP 144/73; PULSE 94; RESP 17; TEMP 36.7; O2SAT 99
[2022-04-04 13:10] VITALS: BP 134/73; PULSE 103
[2022-04-04] MEDS: cloNIDine HCL 0.1 MG TABLET PO ×2 (13:15→19:52)
--- NOTE | 2022-04-04 17:55 | HO.PSYCHPN ---
Subjective Subjective Date of Service: 04/04/22 Reason For Visit: Psychosis Interim History: pt found sleeping in his room, easily rousable. much better able to interact with MD than previously. asks appropriate questions re absence of his usual provider. has no questions or complaints otherwise. glad to have been awakened bcse he feels he has been sleeping too much. per staff, took clonidine. slept eves. isolative. med-compliant. Mental Status Exam Mental Status Exam Narrative: Appearance: casually groomed, improved hygiene, in NAD Behaviors: less guarded, less paranoid. did let this screenplay writer come into his room Speech: clear, normal rate, rhythm/volume, spontaneous Psychomotor: no agitation or retardation, some pacing in taylor TP: more linear Mood: unknown Affect: constricted, normo-intense, non-labile AH/VH: none expressed Delusions: none expressed SI: none expressed HI: none expressed Insight/judgment: insight limited to mental illness, but in agreement with treatment Memory/cog: alert, oriented x 3, not situation, not formally assessed. Diagnostics Vital Signs (24Hr): Vital Signs - 24 hr 04/03/22 20:40 04/04/22 09:23 04/04/22 13:10 Temperature 98.2 F 98.0 F Pulse Rate 103 H 94 103 H Respiratory Rate 18 17 Blood Pressure 116/70 144/73 H 134/73 Pulse Oximetry 100 99 Oxygen Delivery Method Room Air Room Air Medications Medications Current Medications Acetaminophen (Acetaminophen 325 Mg Tablet) 650 mg PO Q6H PRN PRN Reason: Headache/Pain Mild Scale (1-3) Last Admin: 03/17/22 04:33 Dose: 650 mg Al Hydroxide/Mg Hydroxide (Magnesium Hydrox/Alum Hydrox 30 Ml Oral.Susp) 30 ml PO Q6H PRN PRN Reason: Heartburn/Nausea Clonidine HCl (Clonidine Hcl 0.1 Mg Tablet) 0.1 mg PO TID PRN; Protocol PRN Reason: Anxiety Last Admin: 04/04/22 13:15 Dose: 0.1 mg Clozapine (Clozapine 25 Mg Tablet) 50 mg PO DAILY [facility] Last Admin: 04/04/22 09:18 Dose: 50 mg Clozapine (Clozapine 25 Mg Tablet) 150 mg PO BEDTIME GOLD Last Admin: 04/03/22 21:53 Dose: 150 mg Fluphenazine HCl (Fluphenazine Hcl 5 Mg Tablet) 5 mg PO BID GOLD Last Admin: 04/04/22 09:18 Dose: 5 mg Hydroxyzine HCl (Hydroxyzine Hcl 25 Mg Tablet) 25 mg PO Q6H PRN PRN Reason: Anxiety Last Admin: 03/21/22 11:31 Dose: 25 mg Lorazepam (Lorazepam 1 Mg Tablet) 1 mg PO BID [facility] Last Admin: 04/04/22 09:18 Dose: 1 mg Lorazepam (Lorazepam 1 Mg Tablet) 1 mg PO Q6H PRN PRN Reason: anxiety, agitation Last Admin: 04/02/22 15:05 Dose: 1 mg Magnesium Hydroxide (Milk Of Magnesia 30 Ml Oral.Susp) 30 ml PO DAILY PRN PRN Reason: Constipation Olanzapine (Olanzapine Odt 10 Mg Tab.Rapdis) 10 mg TRANSLINGU TID PRN PRN Reason: Psychosis Last Admin: 03/28/22 15:41 Dose: 10 mg Olanzapine (Olanzapine 10 Mg Vial) 10 mg IM BID PRN PRN Reason: if refuses antipsyc per court Trazodone HCl (Trazodone Hcl 50 Mg Tablet) 50 mg PO BEDTIME PRN PRN Reason: Insomnia Last Admin: 03/20/22 23:17 Dose: 50 mg Allergies Allergies Allergy/AdvReac Type Severity Reaction Status Date / Time No Known Allergies Allergy Verified 01/26/22 23:05 Assessment & Plan Assessment & Plan (1) Schizophrenia: Status: Acute Code(s): F20.9 - Schizophrenia, unspecified Plan Mr. Hill is a 42 year-old male with hx of schizophrenia, recently discharged from on 02/27/22 more stable than when he was first admitted but still symptomatic, however, no evidence at the time of imminent risk of harm to self or others to petition for involuntary commitment. Pt apparently was not able to obtain clozaril from the pharmacy. He gradually decompensated to point of being found wondering on the streets, without shoes, blister on bilat feets, disorganized, combative, swing at police and staff at ED. Pt presents with persecutory delusions thinking he is brought here for crimes he has not commited such as being pedophile, pt reports thinking people are following him. PLAN 1. Admit to on section 12, 15 minutes checks 2. restart clozaril 25mg po qhs. titrate daily by 25mg. 3. weekly ANC labs, Haldol 5mg po q6h prn agitation with ativan 1mg po q4h, prn anxiety. 4. Obtain collateral information 5. Aftercare planning. 03/15 pt continues to present as paranoid, disorganized, refuses clozaril. will petition court for involuntary tx as pt gravely disable. 03/16: touching peer and calling him pedophile. got haldol 10 and ativan 2 PO, did not sleep. total of 6 mg ativan today by mid-afternoon. 03/17/2022: Largely refusing medications however does accept PRNs at times. Did receive Haldol and Ativan yesterday. Questionable benefit. Will's have Ativan 2 mg as needed up to 4 times per day along with olanzapine 10 mg as needed up to 4 times per day. 03/18/2022: No medication changes. Refused clozaril yesterday. 03/19/2022: continue current plan. pending court hearing. 03/20 continue current tx. refuse clozaril again 03/21 continue to decline medication, disorganized agitated, threatening peers and staff at times to kill them. 03/22 court hearing- pt committed- now SECTION 8. Can't decline clozaril oral, otherwise will be given Olanzapine IM. 03/23 increase clozaril 50mg po qhs. Olanzapine back IM per court. 03/24 continue treatment plan; pt given zyprexa 10 mg IM and ativan 2 mg IM due to severe aggression towards staff and patients in common area; pt accepted IM admin without being held 03/25 continue current treatment plan; given zydis 10 mg PO prn for threat to kill staff and escalating aggression/distress 03/26 no med changes, pt continues with poor insight, continue on clozaril trial 03/27 continue to titrate clozaril daily by 25mg qd, as long as pt consistently taking clozaril 03/28 increase clozaril to 75mg po qhs- back up IM with Olanzapine. Will start standing dose of prolixin 5mg po BID with back up IM Olanzapine. 03/29- continue titration of clozaril, continue dose of prolixin. increase clozaril to 50mg po daily and 100mg po qhs. 03/30 increase proloxin 5mg po BID, continue titration of clozaril by 25mg/daily, aiming roughly at this time to reach dose of 200-250mg/daily. 03/31/22: Clozaril titration. Was increased to 50 mg daily and 100 mg at bedtime on 03/29/2022. Total target dose will be 200-250 mg. will increase this evening's dose to 125 mg id total daily dose 175 mg. 04/01- no changes 04/03 increase clozaril to 50mg po daily and 150mg po qhs. continue prolixin. 04/04: no change in mgmt I spent ___15___ minutes with the patient and/or on the patient floor today, greater than?50% of which was spent counseling/coordinating care. Reason for contiued inpatient stay Substantial Risk for: inability to function and rapid decompensation
[2022-04-04 20:00] VITALS: BP 142/83; PULSE 97; RESP 18; TEMP 36.4; O2SAT 98
[2022-04-04] MEDS: cloZAPine 25 MG TABLET 150 MG PO (22:00)
[2022-04-05] MEDS: fluPHENAZine HCl 5 MG TABLET PO ×2 (08:45→21:58)
[2022-04-05] MEDS: LORazepam 1 MG TABLET PO ×3 (08:45→21:32)
[2022-04-05] MEDS: cloZAPine 25 MG TABLET 50 MG PO (08:45)
[2022-04-05 08:56] VITALS: BP 123/82; PULSE 105; RESP 16; TEMP 36.6; O2SAT 97
--- NOTE | 2022-04-05 11:34 | P.PNPSI_ITS ---
Subjective Subjective Date of Service: 04/05/22 Reason For Visit: Psychosis Subjective Notes: Section 8 Interim History: Pt reports he is sleeping well. He has been observed less self dialoguing. He continues to ask if discharge in one month is still reasonable. Limited insight into need for treatment. He does report feeling calmer, less anxious. He denies SI/HI. He is much more pleasant with staff and peers, less accusations as to others being pedophiles but still suspicious. Medication Compliance: Yes Side effects from medications: No Review of Systems Review of Systems Unremarkable Yes Unobtainable due to mental condition and Unobtainable due to mental status Mental Status Exam Mental Status Exam Narrative: Appearance: casually groomed, improved hygiene, in NAD Behaviors: less guarded, less paranoid. did let this telegraphic typewriter operator come into his room Speech: clear, normal rate, rhythm/volume, spontaneous Psychomotor: no agitation or retardation, some pacing in taylor TP: more linear Mood: unknown Affect: constricted, normo-intense, non-labile AH/VH: none expressed Delusions: none expressed SI: none expressed HI: none expressed Insight/judgment: insight limited to mental illness, but in agreement with treatment Memory/cog: alert, oriented x 3, not situation, not formally assessed. Diagnostics Vital Signs (24Hr): Vital Signs - 24 hr 04/04/22 20:00 04/05/22 08:56 04/05/22 13:17 Temperature 97.6 F 97.8 F Pulse Rate 97 105 H Respiratory Rate 18 16 Blood Pressure 142/83 H 123/82 136/89 Pulse Oximetry 98 97 Oxygen Delivery Method Room Air Room Air BMI result Body Mass Index 25.0 Medications Medications Current Medications Acetaminophen (Acetaminophen 325 Mg Tablet) 650 mg PO Q6H PRN PRN Reason: Headache/Pain Mild Scale (1-3) Last Admin: 03/17/22 04:33 Dose: 650 mg Al Hydroxide/Mg Hydroxide (Magnesium Hydrox/Alum Hydrox 30 Ml Oral.Susp) 30 ml PO Q6H PRN PRN Reason: Heartburn/Nausea Clonidine HCl (Clonidine Hcl 0.1 Mg Tablet) 0.1 mg PO TID PRN; Protocol PRN Reason: Anxiety Last Admin: 04/05/22 13:18 Dose: 0.1 mg Clozapine (Clozapine 25 Mg Tablet) 50 mg PO DAILY GOLD Last Admin: 04/05/22 08:45 Dose: 50 mg Clozapine (Clozapine 25 Mg Tablet) 150 mg PO BEDTIME GOLD Last Admin: 04/04/22 22:00 Dose: 150 mg Fluphenazine HCl (Fluphenazine Hcl 5 Mg Tablet) 5 mg PO BID GOLD Last Admin: 04/05/22 08:45 Dose: 5 mg Hydroxyzine HCl (Hydroxyzine Hcl 25 Mg Tablet) 25 mg PO Q6H PRN PRN Reason: Anxiety Last Admin: 03/21/22 11:31 Dose: 25 mg Lorazepam (Lorazepam 1 Mg Tablet) 1 mg PO BID GOLD Last Admin: 04/05/22 08:45 Dose: 1 mg Lorazepam (Lorazepam 1 Mg Tablet) 1 mg PO Q6H PRN PRN Reason: anxiety, agitation Last Admin: 04/02/22 15:05 Dose: 1 mg Magnesium Hydroxide (Milk Of Magnesia 30 Ml Oral.Susp) 30 ml PO DAILY PRN PRN Reason: Constipation Olanzapine (Olanzapine Odt 10 Mg Tab.Rapdis) 10 mg TRANSLINGU TID PRN PRN Reason: Psychosis Last Admin: 03/28/22 15:41 Dose: 10 mg Olanzapine (Olanzapine 10 Mg Vial) 10 mg IM BID PRN PRN Reason: if refuses antipsyc per court Trazodone HCl (Trazodone Hcl 50 Mg Tablet) 50 mg PO BEDTIME PRN PRN Reason: Insomnia Last Admin: 03/20/22 23:17 Dose: 50 mg Allergies Allergies Allergy/AdvReac Type Severity Reaction Status Date / Time No Known Allergies Allergy Verified 01/26/22 23:05 Assessment & Plan Assessment & Plan (1) Schizophrenia: Status: Acute Code(s): F20.9 - Schizophrenia, unspecified Plan Mr. Hill is a 42 year-old male with hx of schizophrenia, recently discharged from on 02/27/22 more stable than when he was first admitted but still symptomatic, however, no evidence at the time of imminent risk of harm to self or others to petition for involuntary commitment. Pt apparently was not able to obtain clozaril from the pharmacy. He gradually decompensated to point of being found wondering on the streets, without shoes, blister on bilat feets, disorganized, combative, swing at police and staff at ED. Pt presents with persecutory delusions thinking he is brought here for crimes he has not commited such as being pedophile, pt reports thinking people are following him. PLAN 1. Admit to [facility] on section 12, 15 minutes checks 2. restart clozaril 25mg po qhs. titrate daily by 25mg. 3. weekly ANC labs, Haldol 5mg po q6h prn agitation with ativan 1mg po q4h, prn anxiety. 4. Obtain collateral information 5. Aftercare planning. 03/15 pt continues to present as paranoid, disorganized, refuses clozaril. will petition court for involuntary tx as pt gravely disable. 03/16: touching peer and calling him pedophile. got haldol 10 and ativan 2 PO, did not sleep. total of 6 mg ativan today by mid-afternoon. 03/17/2022: Largely refusing medications however does accept PRNs at times. Did receive Haldol and Ativan yesterday. Questionable benefit. Will's have Ativan 2 mg as needed up to 4 times per day along with olanzapine 10 mg as nee ded up to 4 times per day. 03/18/2022: No medication changes. Refused clozaril yesterday. 03/19/2022: continue current plan. pending court hearing. 03/20 continue current tx. refuse clozaril again 03/21 continue to decline medication, disorganized agitated, threatening peers and staff at times to kill them. 03/22 court hearing- pt committed- now SECTION 8. Can't decline clozaril oral, otherwise will be given Olanzapine IM. 03/23 increase clozaril 50mg po qhs. Olanzapine back IM per court. 03/24 continue treatment plan; pt given zyprexa 10 mg IM and ativan 2 mg IM due to severe aggression towards staff and patients in common area; pt accepted IM admin without being held 03/25 continue current treatment plan; given zydis 10 mg PO prn for threat to kill staff and escalating aggression/distress 03/26 no med changes, pt continues with poor insight, continue on clozaril trial 03/27 continue to titrate clozaril daily by 25mg qd, as long as pt consistently taking clozaril 03/28 increase clozaril to 75mg po qhs- back up IM with Olanzapine. Will start standing dose of prolixin 5mg po BID with back up IM Olanzapine. 03/29- continue titration of clozaril, continue dose of prolixin. increase clozaril to 50mg po daily and 100mg po qhs. 03/30 increase proloxin 5mg po BID, continue titration of clozaril by 25mg/daily, aiming roughly at this time to reach dose of 200-250mg/daily. 03/31/22: Clozaril titration. Was increased to 50 mg daily and 100 mg at bedtime on 03/29/2022. Total target dose will be 200-250 mg. will increase this evening's dose to 125 mg id total daily dose 175 mg. 04/01- no changes 04/03 increase clozaril to 50mg po daily and 150mg po qhs. continue prolixin. 04/04: no change in mgmt 04/05 continue current medication regimen. I spent minutes with the patient and/or on the patient floor today, greater than?50% of which was spent counseling/coordinating care. Reason for contiued inpatient stay Substantial Risk for: harm to others and inability to function
[2022-04-05 13:14] VITALS: BMI 25.0
[2022-04-05 13:17] VITALS: BP 136/89
[2022-04-05] MEDS: cloNIDine HCL 0.1 MG TABLET PO ×2 (13:18→19:08)
[2022-04-05 19:08] VITALS: BP 130/76; PULSE 84; RESP 16; TEMP 36.7; O2SAT 99
[2022-04-05] MEDS: cloZAPine 25 MG TABLET 150 MG PO (21:58)
[2022-04-06 06:00] VITALS: BP 134/87; PULSE 99
[2022-04-06] MEDS: cloZAPine 25 MG TABLET 50 MG PO (10:03)
[2022-04-06] MEDS: fluPHENAZine HCl 5 MG TABLET PO ×2 (10:04→22:29)
[2022-04-06] MEDS: LORazepam 1 MG TABLET PO ×4 (10:04→23:07)
[2022-04-06] MEDS: cloNIDine HCL 0.1 MG TABLET PO ×3 (10:10→20:18)
--- NOTE | 2022-04-06 11:06 | P.PNPSI_ITS ---
Subjective Subjective Date of Service: 04/06/22 Reason For Visit: Psychosis Subjective Notes: Section 8 Interim History: Pt appears calmer. He reports he is sleeping and eating well. he denies constipation, dizziness, palpitation or chest pain. He denies SI/HI. He has usually denied AH/VH even when clear that he was responding to internal stimuli, but has been observed less self dialoguing. He asks about discharge in about one month. He denies any side effects with current medications, but does say that he does not think he will need them when discharged from hospital. Medication Compliance: Yes Side effects from medications: No Review of Systems Review of Systems Unremarkable Yes Unobtainable due to mental condition and Unobtainable due to mental status Mental Status Exam Mental Status Exam Narrative: Appearance: casually groomed, improved hygiene, in NAD Behaviors: less guarded, less paranoid. did let this race and sports book writer come into his room Speech: clear, normal rate, rhythm/volume, spontaneous Psychomotor: no agitation or retardation, some pacing in taylor TP: more linear Mood: unknown Affect: constricted, normo-intense, non-labile AH/VH: none expressed Delusions: none expressed SI: none expressed HI: none expressed Insight/judgment: insight limited to mental illness, but in agreement with treatment Memory/cog: alert, oriented x 3, not situation, not formally assessed. Diagnostics Vital Signs (24Hr): Vital Signs - 24 hr 04/05/22 19:08 04/06/22 06:00 Temperature 98.1 F Pulse Rate 84 99 Respiratory Rate 16 Blood Pressure 130/76 134/87 Pulse Oximetry 99 Oxygen Delivery Method Room Air BMI result Body Mass Index 25.0 Medications Medications Current Medications Acetaminophen (Acetaminophen 325 Mg Tablet) 650 mg PO Q6H PRN PRN Reason: Headache/Pain Mild Scale (1-3) Last Admin: 03/17/22 04:33 Dose: 650 mg Al Hydroxide/Mg Hydroxide (Magnesium Hydrox/Alum Hydrox 30 Ml Oral.Susp) 30 ml PO Q6H PRN PRN Reason: Heartburn/Nausea Clonidine HCl (Clonidine Hcl 0.1 Mg Tablet) 0.1 mg PO TID PRN; Protocol PRN Reason: Anxiety Last Admin: 04/06/22 10:10 Dose: 0.1 mg Clozapine (Clozapine 25 Mg Tablet) 50 mg PO DAILY GOLD Last Admin: 04/06/22 10:03 Dose: 50 mg Clozapine (Clozapine 25 Mg Tablet) 150 mg PO BEDTIME GOLD Last Admin: 04/05/22 21:58 Dose: 150 mg Fluphenazine HCl (Fluphenazine Hcl 5 Mg Tablet) 5 mg PO BID GOLD Last Admin: 04/06/22 10:04 Dose: 5 mg Hydroxyzine HCl (Hydroxyzine Hcl 25 Mg Tablet) 25 mg PO Q6H PRN PRN Reason: Anxiety Last Admin: 03/21/22 11:31 Dose: 25 mg Lorazepam (Lorazepam 1 Mg Tablet) 1 mg PO BID GOLD Last Admin: 04/06/22 10:04 Dose: 1 mg Lorazepam (Lorazepam 1 Mg Tablet) 1 mg PO Q6H PRN PRN Reason: anxiety, agitation Last Admin: 04/06/22 12:46 Dose: 1 mg Magnesium Hydroxide (Milk Of Magnesia 30 Ml Oral.Susp) 30 ml PO DAILY PRN PRN Reason: Constipation Olanzapine (Olanzapine Odt 10 Mg Tab.Rapdis) 10 mg TRANSLINGU TID PRN PRN Reason: Psychosis Last Admin: 03/28/22 15:41 Dose: 10 mg Olanzapine (Olanzapine 10 Mg Vial) 10 mg IM BID PRN PRN Reason: if refuses antipsyc per court Trazodone HCl (Trazodone Hcl 50 Mg Tablet) 50 mg PO BEDTIME PRN PRN Reason: Insomnia Last Admin: 03/20/22 23:17 Dose: 50 mg Allergies Allergies Allergy/AdvReac Type Severity Reaction Status Date / Time No Known Allergies Allergy Verified 01/26/22 23:05 Assessment & Plan Assessment & Plan (1) Schizophrenia: Status: Acute Code(s): F20.9 - Schizophrenia, unspecified Plan Mr. Hill is a 42 year-old male with hx of schizophrenia, recently discharged from on 02/27/22 more stable than when he was first admitted but still symptomatic, however, no evidence at the time of imminent risk of harm to self or others to petition for involuntary commitment. Pt apparently was not able to obtain clozaril from the pharmacy. He gradually decompensated to point of being found wondering on the streets, without shoes, blister on bilat feets, disorganized, combative, swing at police and staff at ED. Pt presents with persecutory delusions thinking he is brought here for crimes he has not commited such as being pedophile, pt reports thinking people are following him. PLAN 1. Admit to M3 on section 12, 15 minutes checks 2. restart clozaril 25mg po qhs. titrate daily by 25mg. 3. weekly ANC labs, Haldol 5mg po q6h prn agitation with ativan 1mg po q4h, prn anxiety. 4. Obtain collateral information 5. Aftercare planning. 03/15 pt continues to present as paranoid, disorganized, refuses clozaril. will petition court for involuntary tx as pt gravely disable. 03/16: touching peer and calling him pedophile. got haldol 10 and ativan 2 PO, did not sleep. total of 6 mg ativan today by mid-afternoon. 03/17/2022: Largely refusing medications however does accept PRNs at times. Did receive Haldol and Ativan yesterday. Questionable benefit. Will's have Ativan 2 mg as needed up to 4 times per day along with olanzapine 10 mg as needed up to 4 times per day. 03/18/2022: No medication changes. Refused clozaril yesterday. 03/19/2022: continue current plan. pending court hearing. 03/20 continue current tx. refuse clozaril again 03/21 continue to decline medication, disorganized agitated, threatening peers and staff at times to kill them. 03/22 court hearing- pt committed- now SECTION 8. Can't decline clozaril oral, otherwise will be given Olanzapine IM. 03/23 increase clozaril 50mg po qhs. Olanzapine back IM per court. 03/24 continue treatment plan; pt given zyprexa 10 mg IM and ativan 2 mg IM due to severe aggression towards staff and patients in common area; pt accepted IM admin without being held 03/25 continue current treatment plan; given zydis 10 mg PO prn for threat to kill staff and escalating aggression/distress 03/26 no med changes, pt continues with poor insight, continue on clozaril trial 03/27 continue to titrate clozaril daily by 25mg qd, as long as pt consistently taking clozaril 03/28 increase clozaril to 75mg po qhs- back up IM with Olanzapine. Will start standing dose of prolixin 5mg po BID with back up IM Olanzapine. 03/29- continue titration of clozaril, continue dose of prolixin. increase clozaril to 50mg po daily and 100mg po qhs. 03/30 increase proloxin 5mg po BID, continue titration of clozaril by 25mg/daily, aiming roughly at this time to reach dose of 200-250mg/daily. 03/31/22: Clozaril titration. Was increased to 50 mg daily and 100 mg at bedtime on 03/29/2022. Total target dose will be 200-250 mg. will increase this evening's dose to 125 mg id total daily dose 175 mg. 04/01- no changes 04/03 increase clozaril to 50mg po daily and 150mg po qhs. continue prolixin. 04/04: no change in mgmt 04/05 continue current medication regimen. 04/06 continue current medications. May give GAO of prolixin given that he may quickly stop meds after discharge. I spent minutes with the patient and/or on the patient floor today, shala ter than?50% of which was spent counseling/coordinating care. Reason for contiued inpatient stay Substantial Risk for: harm to others and inability to function
[2022-04-06 20:10] VITALS: BP 134/89; PULSE 105; RESP 20; TEMP 36.3; O2SAT 100
[2022-04-06] MEDS: cloZAPine 25 MG TABLET 150 MG PO (22:30)
[2022-04-07 07:35] LABS: Neut%MD 59.2 %; Neutrophils Absolute Auto 5.4 x10*3/uL (2.0-8.3); WBCANC 9.1 X10*3/uL
[2022-04-07] MEDS: cloNIDine HCL 0.1 MG TABLET PO ×3 (07:59→18:54)
[2022-04-07] MEDS: fluPHENAZine HCl 5 MG TABLET PO ×2 (07:59→22:06)
[2022-04-07] MEDS: LORazepam 1 MG TABLET PO ×3 (07:59→21:44)
[2022-04-07 08:00] VITALS: BP 158/78; PULSE 99; RESP 18; TEMP 36.3; O2SAT 95
[2022-04-07] MEDS: cloZAPine 25 MG TABLET 50 MG PO (08:00)
[2022-04-07 14:15] VITALS: BP 144/84; PULSE 97; RESP 18; O2SAT 100
--- NOTE | 2022-04-07 16:42 | P.PNPSI_ITS ---
Subjective Subjective Date of Service: 04/07/22 Reason For Visit: Psychosis Interim History: found seated in milieu with earphones on. removes them to speak with MD. asks if mayte will return on saturday. calm, cooperative, linear, logical. doing good, and bored. per staff much improved clinically. Mental Status Exam Mental Status Exam Narrative: Appearance: casually groomed, improved hygiene, in NAD Behaviors: less guarded, less paranoid. Speech: clear, normal rate, rhythm/volume, spontaneous Psychomotor: no agitation or retardation, some pacing in taylor TP: linear, logical Mood: doing good Affect: constricted, normo-intense, non-labile AH/VH: none expressed Delusions: none expressed SI: none expressed HI: none expressed Insight/judgment: insight limited to mental illness, but in agreement with treatment Memory/cog: alert, oriented x 3, not situation, not formally assessed. Diagnostics Vital Signs (24Hr): Vital Signs - 24 hr 04/06/22 20:10 04/07/22 08:00 04/07/22 14:15 Temperature 97.4 F 97.4 F Pulse Rate 105 H 99 97 Respiratory Rate 20 18 18 Blood Pressure 134/89 158/78 H 144/84 H Pulse Oximetry 100 95 100 Oxygen Delivery Method Room Air Room Air Room Air BMI result Body Mass Index 25.0 Labs Labs: Laboratory Results - last 48 hr 04/07/22 07:19 Absolute Neuts (auto) 5.4 Medications Medications Current Medications Acetaminophen (Acetaminophen 325 Mg Tablet) 650 mg PO Q6H PRN PRN Reason: Headache/Pain Mild Scale (1-3) Last Admin: 03/17/22 04:33 Dose: 650 mg Al Hydroxide/Mg Hydroxide (Magnesium Hydrox/Alum Hydrox 30 Ml Oral.Susp) 30 ml PO Q6H PRN PRN Reason: Heartburn/Nausea Clonidine HCl (Clonidine Hcl 0.1 Mg Tablet) 0.1 mg PO TID PRN; Protocol PRN Reason: Anxiety Last Admin: 04/07/22 14:24 Dose: 0.1 mg Clozapine (Clozapine 25 Mg Tablet) 50 mg PO DAILY GOLD Last Admin: 04/07/22 08:00 Dose: 50 mg Clozapine (Clozapine 25 Mg Tablet) 150 mg PO BEDTIME GOLD Last Admin: 04/06/22 22:30 Dose: 150 mg Fluphenazine HCl (Fluphenazine Hcl 5 Mg Tablet) 5 mg PO BID GOLD Last Admin: 04/07/22 07:59 Dose: 5 mg Hydroxyzine HCl (Hydroxyzine Hcl 25 Mg Tablet) 25 mg PO Q6H PRN PRN Reason: Anxiety Last Admin: 03/21/22 11:31 Dose: 25 mg Lorazepam (Lorazepam 1 Mg Tablet) 1 mg PO BID GOLD Last Admin: 04/07/22 07:59 Dose: 1 mg Lorazepam (Lorazepam 1 Mg Tablet) 1 mg PO Q6H PRN PRN Reason: agitation Last Admin: 04/06/22 23:07 Dose: 1 mg Magnesium Hydroxide (Milk Of Magnesia 30 Ml Oral.Susp) 30 ml PO DAILY PRN PRN Reason: Constipation Olanzapine (Olanzapine Odt 10 Mg Tab.Rapdis) 10 mg TRANSLINGU TID PRN PRN Reason: Psychosis Last Admin: 03/28/22 15:41 Dose: 10 mg Olanzapine (Olanzapine 10 Mg Vial) 10 mg IM BID PRN PRN Reason: if refuses antipsyc per court Trazodone HCl (Trazodone Hcl 50 Mg Tablet) 50 mg PO BEDTIME PRN PRN Reason: Insomnia Last Admin: 03/20/22 23:17 Dose: 50 mg Allergies Allergies Allergy/AdvReac Type Severity Reaction Status Date / Time No Known Allergies Allergy Verified 01/26/22 23:05 Assessment & Plan Assessment & Plan (1) Schizophrenia: Status: Acute Code(s): F20.9 - Schizophrenia, unspecified Plan Mr. Hill is a 42 year-old male with hx of schizophrenia, recently discharged from on 02/27/22 more stable than when he was first admitted but still symptomatic, however, no evidence at the time of imminent risk of harm to self or others to petition for involuntary commitment. Pt apparently was not able to obtain clozaril from the pharmacy. He gradually decompensated to point of being found wondering on the streets, without shoes, blister on bilat feets, disorganized, combative, swing at police and staff at ED. Pt presents with persecutory delusions thinking he is brought here for crimes he has not commited such as being pedophile, pt reports thinking people are following him. PLAN 1. Admit to on section 12, 15 minutes checks 2. restart clozaril 25mg po qhs. titrate daily by 25mg. 3. weekly ANC labs, Haldol 5mg po q6h prn agitation with ativan 1mg po q4h, prn anxiety. 4. Obtain collateral information 5. Aftercare planning. 03/15 pt continues to present as paranoid, disorganized, refuses clozaril. will petition court for involuntary tx as pt gravely disable. 03/16: touching peer and calling him pedophile. got haldol 10 and ativan 2 PO, did not sleep. total of 6 mg ativan today by mid-afternoon. 03/17/2022: Largely refusing medications however does accept PRNs at times. Did receive Haldol and Ativan yesterday. Questionable benefit. Will's have Ativan 2 mg as needed up to 4 times per day along with olanzapine 10 mg as needed up to 4 times per day. 03/18/2022: No medication changes. Refused clozaril yesterday. 03/19/2022: continue current plan. pending court hearing. 03/20 continue current tx. refuse clozaril again 03/21 continue to decline medication, disorganized agitated, threatening peers and staff at times to kill them. 03/22 court hearing- pt committed- now SECTION 8. Can't decline clozaril oral, otherwise will be given Olanzapine IM. 03/23 increase clozaril 50mg po qhs. Olanzapine back IM per court. 03/24 continue treatment plan; pt given zyprexa 10 mg IM and ativan 2 mg IM due to severe aggression towards staff and patients in common area; pt accepted IM admin without being held 03/25 continue current treatment plan; given zydis 10 mg PO prn for threat to k ill staff and escalating aggression/distress 03/26 no med changes, pt continues with poor insight, continue on clozaril trial 03/27 continue to titrate clozaril daily by 25mg qd, as long as pt consistently taking clozaril 03/28 increase clozaril to 75mg po qhs- back up IM with Olanzapine. Will start standing dose of prolixin 5mg po BID with back up IM Olanzapine. 03/29- continue titration of clozaril, continue dose of prolixin. increase clozaril to 50mg po daily and 100mg po qhs. 03/30 increase proloxin 5mg po BID, continue titration of clozaril by 25mg/daily, aiming roughly at this time to reach dose of 200-250mg/daily. 03/31/22: Clozaril titration. Was increased to 50 mg daily and 100 mg at bedtime on 03/29/2022. Total target dose will be 200-250 mg. will increase this evening's dose to 125 mg id total daily dose 175 mg. 04/01- no changes 04/03 increase clozaril to 50mg po daily and 150mg po qhs. continue prolixin. 04/04: no change in mgmt 04/05 continue current medication regimen. 04/06 continue current medications. May give GAO of prolixin given that he may quickly stop meds after discharge. 04/07: continue current mgmt. I spent ___15___ minutes with the patient and/or on the patient floor today, greater than?50% of which was spent counseling/coordinating care. Reason for contiued inpatient stay Substantial Risk for: inability to function and rapid decompensation
[2022-04-07 18:57] VITALS: BP 132/83; PULSE 91; RESP 18; O2SAT 100
[2022-04-07] MEDS: cloZAPine 25 MG TABLET 150 MG PO (22:07)
[2022-04-08 08:20] VITALS: BP 131/83; PULSE 100; RESP 20; TEMP 36.4; O2SAT 100
[2022-04-08] MEDS: LORazepam 1 MG TABLET PO ×4 (08:31→21:46)
[2022-04-08] MEDS: cloZAPine 25 MG TABLET 50 MG PO (08:31)
[2022-04-08] MEDS: cloNIDine HCL 0.1 MG TABLET PO ×3 (08:31→17:47)
[2022-04-08] MEDS: fluPHENAZine HCl 5 MG TABLET PO ×2 (08:31→21:46)
[2022-04-08 12:55] VITALS: BP 139/95; PULSE 86; RESP 18; O2SAT 97
--- NOTE | 2022-04-08 13:29 | HO.PSYCHPN ---
Subjective Subjective Date of Service: 04/08/22 Reason For Visit: Psychosis Interim History: pt found walking the halls. stops to speak with , natalie PACK appropriately, responds to questions appropriately. declines any meeting today, states he is doing fine currently. per staff, appears edgier today. c/o OCD issues. said to RN, as far as she could tell, as he walkd by, please be good, please be good. appears more suspicious today than yesterday. slept well. Mental Status Exam Mental Status Exam Narrative: Appearance: casually groomed, improved hygiene, in NAD Behaviors: less guarded, less paranoid. Speech: clear, normal rate, rhythm/volume, spontaneous Psychomotor: no agitation or retardation, some pacing in taylor TP: linear, logical Mood: fine Affect: constricted, normo-intense, non-labile AH/VH: none expressed Delusions: none expressed SI: none expressed HI: none expressed Insight/judgment: insight limited to mental illness, but in agreement with treatment Memory/cog: alert, oriented x 3, not situation, not formally assessed. Diagnostics Vital Signs (24Hr): Vital Signs - 24 hr 04/07/22 14:15 04/07/22 18:57 04/08/22 08:20 Temperature 97.6 F Pulse Rate 97 91 100 Respiratory Rate 18 18 20 Blood Pressure 144/84 H 132/83 131/83 Pulse Oximetry 100 100 100 Oxygen Delivery Method Room Air Room Air Room Air 04/08/22 12:55 Temperature Pulse Rate 86 Respiratory Rate 18 Blood Pressure 139/95 H Pulse Oximetry 97 Oxygen Delivery Method Room Air BMI result Body Mass Index 25.0 Labs Labs: Laboratory Results - last 48 hr 04/07/22 07:19 Absolute Neuts (auto) 5.4 Medications Medications Current Medications Acetaminophen (Acetaminophen 325 Mg Tablet) 650 mg PO Q6H PRN PRN Reason: Headache/Pain Mild Scale (1-3) Last Admin: 03/17/22 04:33 Dose: 650 mg Al Hydroxide/Mg Hydroxide (Magnesium Hydrox/Alum Hydrox 30 Ml Oral.Susp) 30 ml PO Q6H PRN PRN Reason: Heartburn/Nausea Clonidine HCl (Clonidine Hcl 0.1 Mg Tablet) 0.1 mg PO TID PRN; Protocol PRN Reason: Anxiety Last Admin: 04/08/22 13:00 Dose: 0.1 mg Clozapine (Clozapine 25 Mg Tablet) 50 mg PO DAILY [facility] Last Admin: 04/08/22 08:31 Dose: 50 mg Clozapine (Clozapine 25 Mg Tablet) 150 mg PO BEDTIME [facility] Last Admin: 04/07/22 22:07 Dose: 150 mg Fluphenazine HCl (Fluphenazine Hcl 5 Mg Tablet) 5 mg PO BID [facility] Last Admin: 04/08/22 08:31 Dose: 5 mg Hydroxyzine HCl (Hydroxyzine Hcl 25 Mg Tablet) 25 mg PO Q6H PRN PRN Reason: Anxiety Last Admin: 03/21/22 11:31 Dose: 25 mg Lorazepam (Lorazepam 1 Mg Tablet) 1 mg PO BID [facility] Last Admin: 04/08/22 08:31 Dose: 1 mg Lorazepam (Lorazepam 1 Mg Tablet) 1 mg PO Q6H PRN PRN Reason: agitation Last Admin: 04/08/22 11:28 Dose: 1 mg Magnesium Hydroxide (Milk Of Magnesia 30 Ml Oral.Susp) 30 ml PO DAILY PRN PRN Reason: Constipation Olanzapine (Olanzapine Odt 10 Mg Tab.Rapdis) 10 mg TRANSLINGU TID PRN PRN Reason: Psychosis Last Admin: 03/28/22 15:41 Dose: 10 mg Olanzapine (Olanzapine 10 Mg Vial) 10 mg IM BID PRN PRN Reason: if refuses antipsyc per court Trazodone HCl (Trazodone Hcl 50 Mg Tablet) 50 mg PO BEDTIME PRN PRN Reason: Insomnia Last Admin: 03/20/22 23:17 Dose: 50 mg Allergies Allergies Allergy/AdvReac Type Severity Reaction Status Date / Time No Known Allergies Allergy Verified 01/26/22 23:05 Assessment & Plan Assessment & Plan (1) Schizophrenia: Status: Acute Code(s): F20.9 - Schizophrenia, unspecified Plan Mr. Hill is a 42 year-old male with hx of schizophrenia, recently discharged from on 02/27/22 more stable than when he was first admitted but still symptomatic, however, no evidence at the time of imminent risk of harm to self or others to petition for involuntary commitment. Pt apparently was not able to obtain clozaril from the pharmacy. He gradually decompensated to point of being found wondering on the streets, without shoes, blister on bilat feets, disorganized, combative, swing at police and staff at ED. Pt presents with persecutory delusions thinking he is brought here for crimes he has not commited such as being pedophile, pt reports thinking people are following him. PLAN 1. Admit to M3 on section 12, 15 minutes checks 2. restart clozaril 25mg po qhs. titrate daily by 25mg. 3. weekly ANC labs, Haldol 5mg po q6h prn agitation with ativan 1mg po q4h, prn anxiety. 4. Obtain collateral information 5. Aftercare planning. 03/15 pt continues to present as paranoid, disorganized, refuses clozaril. will petition court for involuntary tx as pt gravely disable. 03/16: touching peer and calling him pedophile. got haldol 10 and ativan 2 PO, did not sleep. total of 6 mg ativan today by mid-afternoon. 03/17/2022: Largely refusing medications however does accept PRNs at times. Did receive Haldol and Ativan yesterday. Questionable benefit. Will's have Ativan 2 mg as needed up to 4 times per day along with olanzapine 10 mg as needed up to 4 times per day. 03/18/2022: No medication changes. Refused clozaril yesterday. 03/19/2022: continue current plan. pending court hearing. 03/20 continue current tx. refuse clozaril again 03/21 continue to decline medication, disorganized agitated, threatening peers and staff at times to kill them. 03/22 court hearing- pt committed- now SECTION 8. Can't decline clozaril oral, otherwise will be given Olanzapine IM. 03/23 increase clozaril 50mg po qhs. Olanzapine back IM per court. 03/24 continue treatment plan; pt given zyprexa 10 mg IM and ativan 2 mg IM due to severe aggression towards staff and patients in common area; pt accepted IM admin without being held 03/25 continue current treatment plan; given zydis 10 mg PO prn for threat to kill staff and escalating aggression/distress 03/26 no med changes, pt continues with poor insight, continue on clozaril trial 03/27 continue to titrate clozaril daily by 25mg qd, as long as pt consistently taking clozaril 03/28 increase clozaril to 75mg po qhs- back up IM with Olanzapine. Will start standing dose of prolixin 5mg po BID with back up IM Olanzapine. 03/29- continue titration of clozaril, continue dose of prolixin. increase clozaril to 50mg po daily and 100mg po qhs. 03/30 increase proloxin 5mg po BID, continue titration of clozaril by 25mg/daily, aiming roughly at this time to reach dose of 200-250mg/daily. 03/31/22: Clozaril titration. Was increased to 50 mg daily and 100 mg at bedtime on 03/29/2022. Total target dose will be 200-250 mg. will increase this evening's dose to 125 mg id total daily dose 175 mg. 04/01- no changes 04/03 increase clozaril to 50mg po daily and 150mg po qhs. continue prolixin. 04/04: no change in mgmt 04/05 continue current medication regimen. 04/06 continue current medications. May give GAO of prolixin given that he may quickly stop meds after discharge. 04/07: continue current mgmt. 04/08: stable. continue current mgmt. I spent ___10___ minutes with the patient and/or on the patient floor today, greater than?50% of which was spent counseling/coordinating care. Reason for contiued inpatient stay Substantial Risk for: inability to function and rapid decompensation
[2022-04-08 17:45] VITALS: BP 140/83; PULSE 91; RESP 18; O2SAT 100
[2022-04-08 21:45] VITALS: BP 115/69; PULSE 87; RESP 16; TEMP 36.4; O2SAT 100
[2022-04-08] MEDS: cloZAPine 25 MG TABLET 150 MG PO (21:47)
[2022-04-09 09:40] VITALS: BP 134/82; PULSE 98; RESP 17; TEMP 36.8; O2SAT 100
[2022-04-09] MEDS: cloZAPine 25 MG TABLET 50 MG PO (09:48)
[2022-04-09] MEDS: LORazepam 1 MG TABLET PO ×4 (09:48→21:20)
[2022-04-09] MEDS: fluPHENAZine HCl 5 MG TABLET PO ×2 (09:48→21:50)
[2022-04-09] MEDS: cloNIDine HCL 0.1 MG TABLET PO ×3 (10:13→19:53)
--- NOTE | 2022-04-09 12:23 | HO.PSYCHPN ---
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 He asks if there is chance to be discharged early next week. pt asks if he can go to his parents house, he would be discharged earlier. Not much insight as to need for ongoing psych tx or taking meds. He reports feeling calmer, but no connection between medications and being able to function better. He denies SI/HI. Medication Compliance: Yes Side effects from medications: No Review of Systems Review of Systems Unremarkable Yes Unobtainable due to mental condition and Unobtainable due to mental status Mental Status Exam Mental Status Exam Narrative: Appearance: casually groomed, improved hygiene, in NAD Behaviors: less guarded, less paranoid. Speech: clear, normal rate, rhythm/volume, spontaneous Psychomotor: no agitation or retardation, some pacing in taylor TP: linear, logical Mood: fine Affect: constricted, normo-intense, non-labile AH/VH: none expressed Delusions: none expressed SI: none expressed HI: none expressed Insight/judgment: insight limited to mental illness, but in agreement with treatment Memory/cog: alert, oriented x 3, not situation, not formally assessed. Diagnostics Vital Signs (24Hr): Vital Signs - 24 hr 04/08/22 12:55 04/08/22 17:45 04/08/22 21:45 Temperature 97.6 F Pulse Rate 86 91 87 Respiratory Rate 18 18 16 Blood Pressure 139/95 H 140/83 H 115/69 Pulse Oximetry 97 100 100 Oxygen Delivery Method Room Air Room Air Room Air 04/09/22 09:40 Temperature 98.2 F Pulse Rate 98 Respiratory Rate 17 Blood Pressure 134/82 Pulse Oximetry 100 Oxygen Delivery Method Room Air BMI result Body Mass Index 25.0 Medications Medications Current Medications Acetaminophen (Acetaminophen 325 Mg Tablet) 650 mg PO Q6H PRN PRN Reason: Headache/Pain Mild Scale (1-3) Last Admin: 03/17/22 04:33 Dose: 650 mg Al Hydroxide/Mg Hydroxide (Magnesium Hydrox/Alum Hydrox 30 Ml Oral.Susp) 30 ml PO Q6H PRN PRN Reason: Heartburn/Nausea Clonidine HCl (Clonidine Hcl 0.1 Mg Tablet) 0.1 mg PO TID PRN; Protocol PRN Reason: Anxiety Last Admin: 04/09/22 10:13 Dose: 0.1 mg Clozapine (Clozapine 25 Mg Tablet) 50 mg PO DAILY [facility] Last Admin: 04/09/22 09:48 Dose: 50 mg Clozapine (Clozapine 25 Mg Tablet) 150 mg PO BEDTIME GOLD Last Admin: 04/08/22 21:47 Dose: 150 mg Fluphenazine HCl (Fluphenazine Hcl 5 Mg Tablet) 5 mg PO BID [facility] Last Admin: 04/09/22 09:48 Dose: 5 mg Hydroxyzine HCl (Hydroxyzine Hcl 25 Mg Tablet) 25 mg PO Q6H PRN PRN Reason: Anxiety Last Admin: 03/21/22 11:31 Dose: 25 mg Lorazepam (Lorazepam 1 Mg Tablet) 1 mg PO BID G[facility] Last Admin: 04/09/22 09:48 Dose: 1 mg Lorazepam (Lorazepam 1 Mg Tablet) 1 mg PO Q6H PRN PRN Reason: agitation Last Admin: 04/09/22 11:37 Dose: 1 mg Magnesium Hydroxide (Milk Of Magnesia 30 Ml Oral.Susp) 30 ml PO DAILY PRN PRN Reason: Constipation Olanzapine (Olanzapine Odt 10 Mg Tab.Rapdis) 10 mg TRANSLINGU TID PRN PRN Reason: Psychosis Last Admin: 03/28/22 15:41 Dose: 10 mg Olanzapine (Olanzapine 10 Mg Vial) 10 mg IM BID PRN PRN Reason: if refuses antipsyc per court Trazodone HCl (Trazodone Hcl 50 Mg Tablet) 50 mg PO BEDTIME PRN PRN Reason: Insomnia Last Admin: 03/20/22 23:17 Dose: 50 mg Allergies Allergies Allergy/AdvReac Type Severity Reaction Status Date / Time No Known Allergies Allergy Verified 01/26/22 23:05 Assessment & Plan Assessment & Plan (1) Schizophrenia: Status: Acute Code(s): F20.9 - Schizophrenia, unspecified Plan Mr. Hill is a 42 year-old male with hx of schizophrenia, recently discharged from on 02/27/22 more stable than when he was first admitted but still symptomatic, however, no evidence at the time of imminent risk of harm to self or others to petition for involuntary commitment. Pt apparently was not able to obtain clozaril from the pharmacy. He gradually decompensated to point of being found wondering on the streets, without shoes, blister on bilat feets, disorganized, combative, swing at police and staff at ED. Pt presents with persecutory delusions thinking he is brought here for crimes he has not commited such as being pedophile, pt reports thinking people are following him. PLAN 1. Admit to M3 on section 12, 15 minutes checks 2. restart clozaril 25mg po qhs. titrate daily by 25mg. 3. weekly ANC labs, Haldol 5mg po q6h prn agitation with ativan 1mg po q4h, prn anxiety. 4. Obtain collateral information 5. Aftercare planning. 03/15 pt continues to present as paranoid, disorganized, refuses clozaril. will petition court for involuntary tx as pt gravely disable. 03/16: touching peer and calling him pedophile. got haldol 10 and ativan 2 PO, did not sleep. total of 6 mg ativan today by mid-afternoon. 03/17/2022: Largely refusing medications however does accept PRNs at times. Did receive Haldol and Ativan yesterday. Questionable benefit. Will's have Ativan 2 mg as needed up to 4 times per day along with olanzapine 10 mg as needed up to 4 times per day. 03/18/2022: No medication changes. Refused clozaril yesterday. 03/19/2022: continue current plan. pending court hearing. 03/20 continue current tx. refuse clozaril again 03/21 continue to decline medication, disorganized agitated, threatening peers and staff at times to kill them. 03/22 court hearing- pt committed- now SECTION 8. Can't decline clozaril oral, otherwise will be given Olanzapine IM. 03/23 increase clozaril 50mg po qhs. Olanzapine back IM per court. 03/24 continue treatment plan; pt given zyprexa 10 mg IM and ativan 2 mg IM due to severe aggression towards staff and patients in common area; pt accepted IM admin without being held 03/25 continue current treatment plan; given zydis 10 mg PO prn for threat to kill staff and escalating aggression/distress 03/26 no med changes, pt continues with poor insight, continue on clozaril trial 03/27 continue to titrate clozaril daily by 25mg qd, as long as pt consistently taking clozaril 6/29 increase clozaril to 75mg po qhs- back up IM with Olanzapine. Will start standing dose of prolixin 5mg po BID with back up IM Olanzapine. 03/29- continue titration of clozaril, continue dose of prolixin. increase clozaril to 50mg po daily and 100mg po qhs. 03/30 increase proloxin 5mg po BID, continue titration of clozaril by 25mg/daily, aiming roughly at this time to reach dose of 200-250mg/daily. 03/31/22: Clozaril titration. Was increased to 50 mg daily and 100 mg at bedtime on 03/29/2022. Total target dose will be 200-250 mg. will increase this evening's dose to 125 mg id total daily dose 175 mg. 04/01- no changes 04/03 increase clozaril to 50mg po daily and 150mg po qhs. continue prolixin. 04/04: no change in mgmt 04/05 continue current medication regimen. 04/06 continue current medications. May give GAO of prolixin given that he may quickly stop meds after discharge. 04/07: continue current mgmt. 04/08: stable. continue current mgmt. 04/09 continue current tx. I spent minutes with the patient and/or on the patient floor today, greater than?50% of which was spent counseling/coordinating care. Reason for contiued inpatient stay Substantial Risk for: harm to others and inability to function
[2022-04-09] MEDS: hydrOXYzine HCL 25 MG TABLET PO (13:14)
[2022-04-09 19:58] VITALS: BP 121/78; PULSE 98; RESP 18; TEMP 36.3; O2SAT 97
[2022-04-09] MEDS: cloZAPine 25 MG TABLET 150 MG PO (21:49)
[2022-04-10] MEDS: cloZAPine 25 MG TABLET 50 MG PO (08:21)
[2022-04-10] MEDS: LORazepam 1 MG TABLET PO ×4 (08:21→21:55)
[2022-04-10] MEDS: cloNIDine HCL 0.1 MG TABLET PO ×3 (08:21→20:06)
[2022-04-10] MEDS: fluPHENAZine HCl 5 MG TABLET PO ×2 (08:21→21:55)
[2022-04-10 08:24] VITALS: BP 130/86; PULSE 92; RESP 16; TEMP 36.6; O2SAT 100
--- NOTE | 2022-04-10 11:47 | HO.PSYCHPN ---
Subjective Subjective Date of Service: 04/10/22 Reason For Visit: Psychosis Subjective Notes: Section 8 Interim History: Pt focused on discharge. He continues to report that he was sent to this unit, because he was wrongly accused of being pedophile. He continues to report that he does not need psych tx or meds, but agreeing to take them in order to be discharge soon. He denies SI/HI. he agrees to GAO of prolixin, tentative d/c in 2 weeks. Medication Compliance: Yes Side effects from medications: No Review of Systems Review of Systems Unremarkable Yes Unobtainable due to mental condition and Unobtainable due to mental status Mental Status Exam Mental Status Exam Narrative: Appearance: casually groomed, improved hygiene, in NAD Behaviors: less guarded, less paranoid. Speech: clear, normal rate, rhythm/volume, spontaneous Psychomotor: no agitation or retardation, some pacing in taylor TP: linear, logical Mood: fine Affect: constricted, normo-intense, non-labile AH/VH: none expressed Delusions: none expressed SI: none expressed HI: none expressed Insight/judgment: insight limited to mental illness, but in agreement with treatment Memory/cog: alert, oriented x 3, not situation, not formally assessed. Diagnostics Vital Signs (24Hr): Vital Signs - 24 hr 04/09/22 19:58 04/10/22 08:24 Temperature 97.4 F 97.8 F Pulse Rate 98 92 Respiratory Rate 18 16 Blood Pressure 121/78 130/86 Pulse Oximetry 97 100 Oxygen Delivery Method Room Air BMI result Body Mass Index 25.0 Medications Medications Current Medications Acetaminophen (Acetaminophen 325 Mg Tablet) 650 mg PO Q6H PRN PRN Reason: Headache/Pain Mild Scale (1-3) Last Admin: 03/17/22 04:33 Dose: 650 mg Al Hydroxide/Mg Hydroxide (Magnesium Hydrox/Alum Hydrox 30 Ml Oral.Susp) 30 ml PO Q6H PRN PRN Reason: Heartburn/Nausea Clonidine HCl (Clonidine Hcl 0.1 Mg Tablet) 0.1 mg PO TID PRN; Protocol PRN Reason: Anxiety Last Admin: 04/10/22 14:12 Dose: 0.1 mg Clozapine (Clozapine 25 Mg Tablet) 50 mg PO DAILY [facility] Last Admin: 04/10/22 08:21 Dose: 50 mg Clozapine (Clozapine 25 Mg Tablet) 150 mg PO BEDTIME GOLD Last Admin: 04/09/22 21:49 Dose: 150 mg Fluphenazine Decanoate (Fluphenazine Decanoate 25 Mg/Ml 5 Ml Vial) 25 mg IM Q14D@0900 [facility] Last Admin: 04/10/22 13:23 Dose: 25 mg Fluphenazine HCl (Fluphenazine Hcl 5 Mg Tablet) 5 mg PO BID [facility] Last Admin: 04/10/22 08:21 Dose: 5 mg Hydroxyzine HCl (Hydroxyzine Hcl 25 Mg Tablet) 25 mg PO Q6H PRN PRN Reason: Anxiety Last Admin: 04/10/22 12:43 Dose: 25 mg Lorazepam (Lorazepam 1 Mg Tablet) 1 mg PO BID [facility] Last Admin: 04/10/22 08:21 Dose: 1 mg Lorazepam (Lorazepam 1 Mg Tablet) 1 mg PO Q6H PRN PRN Reason: agitation Last Admin: 04/10/22 12:03 Dose: 1 mg Magnesium Hydroxide (Milk Of Magnesia 30 Ml Oral.Susp) 30 ml PO DAILY PRN PRN Reason: Constipation Olanzapine (Olanzapine Odt 10 Mg Tab.Rapdis) 10 mg TRANSLINGU TID PRN PRN Reason: Psychosis Last Admin: 03/28/22 15:41 Dose: 10 mg Olanzapine (Olanzapine 10 Mg Vial) 10 mg IM BID PRN PRN Reason: if refuses antipsyc per court Trazodone HCl (Trazodone Hcl 50 Mg Tablet) 50 mg PO BEDTIME PRN PRN Reason: Insomnia Last Admin: 03/20/22 23:17 Dose: 50 mg Allergies Allergies Allergy/AdvReac Type Severity Reaction Status Date / Time No Known Allergies Allergy Verified 01/26/22 23:05 Assessment & Plan Assessment & Plan (1) Schizophrenia: Status: Acute Code(s): F20.9 - Schizophrenia, unspecified Plan Mr. Hill is a 42 year-old male with hx of schizophrenia, recently discharged from on 02/27/22 more stable than when he was first admitted but still symptomatic, however, no evidence at the time of imminent risk of harm to self or others to petition for involuntary commitment. Pt apparently was not able to obtain clozaril from the pharmacy. He gradually decompensated to point of being found wondering on the streets, without shoes, blister on bilat feets, disorganized, combative, swing at police and staff at ED. Pt presents with persecutory delusions thinking he is brought here for crimes he has not commited such as being pedophile, pt reports thinking people are following him. PLAN 1. Admit to M3 on section 12, 15 minutes checks 2. restart clozaril 25mg po qhs. titrate daily by 25mg. 3. weekly ANC labs, Haldol 5mg po q6h prn agitation with ativan 1mg po q4h, prn anxiety. 4. Obtain collateral information 5. Aftercare planning. 03/15 pt continues to present as paranoid, disorganized, refuses clozaril. will petition court for involuntary tx as pt gravely disable. 03/16: touching peer and calling him pedophile. got haldol 10 and ativan 2 PO, did not sleep. total of 6 mg ativan today by mid-afternoon. 03/17/2022: Largely refusing medications however does accept PRNs at times. Did receive Haldol and Ativan yesterday. Questionable benefit. Will's have Ativan 2 mg as needed up to 4 times per day along with olanzapine 10 mg as needed up to 4 times per day. 03/18/2022: No medication changes. Refused clozaril yesterday. 03/19/2022: continue current plan. pending court hearing. 03/20 continue current tx. refuse clozaril again 03/21 continue to decline medication, disorganized agitated, threatening peers and staff at times to kill them. 03/22 court hearing- pt committed- now SECTION 8. Can't decline clozaril oral, otherwise will be given Olanzapine IM. 03/23 increase clozaril 50mg po qhs. Olanzapine back IM per court. 03/24 continue treatment plan; pt given zyprexa 10 mg IM and ativan 2 mg IM due to severe aggression towards staff and patients in common area; pt accepted IM admin without being held 03/25 continue current treatment plan; given zydis 10 mg PO prn for threat to kill staff and escalating aggression/distress 03/26 no med changes, pt continues with poor insight, continue on clozaril trial 03/27 continue to titrate clozaril daily by 25mg qd, as long as pt consistently taking clozaril 03/28 increase clozaril to 75mg po qhs- back up IM with Olanzapine. Will start standing dose of prolixin 5mg po BID with back up IM Olanzapine. 03/29- continue titration of clozaril, continue dose of prolixin. increase clozaril to 50mg po daily and 100mg po qhs. 03/30 increase proloxin 5mg po BID, continue titration of clozaril by 25mg/daily, aiming roughly at this time to reach dose of 200-250mg/daily. 03/31/22: Clozaril titration. Was increased to 50 mg daily and 100 mg at bedtime on 03/29/2022. Total target dose will be 200-250 mg. will increase this evening's dose to 125 mg id total daily dose 175 mg. 04/01- no changes 04/03 increase clozaril to 50mg po daily and 150mg po qhs. continue prolixin. 04/04: no change in mgmt 04/05 continue current medication regimen. 04/06 continue current medications. May give GAO of prolixin given that he may quickly stop meds after discharge. 04/07: continue current mgmt. 04/08: stable. continue current mgmt. 04/09 continue current tx. 04/10 start prolixin 25mg IM q2wks, continue oral meds. I spent minutes with the patient and/or on the patient floor today, greater than?50% of which was spent counseling/coordinating care. Reason for contiued inpatient stay Substantial Risk for: inability to function
[2022-04-10] MEDS: hydrOXYzine HCL 25 MG TABLET PO ×2 (12:43→19:02)
[2022-04-10] MEDS: fluPHENAZine decanoate 25 MG/ML 5 ML VIAL IM (13:23)
[2022-04-10 20:07] VITALS: BP 113/73; PULSE 105; TEMP 36.7; O2SAT 100
[2022-04-10] MEDS: cloZAPine 25 MG TABLET 150 MG PO (21:55)
[2022-04-11] MEDS: cloNIDine HCL 0.1 MG TABLET PO ×3 (05:21→18:15)
[2022-04-11 05:23] VITALS: BP 128/80; PULSE 98
[2022-04-11] MEDS: cloZAPine 25 MG TABLET 50 MG PO (08:25)
[2022-04-11] MEDS: LORazepam 1 MG TABLET PO ×4 (08:26→21:56)
[2022-04-11] MEDS: fluPHENAZine HCl 5 MG TABLET PO ×2 (08:26→21:56)
[2022-04-11 08:45] VITALS: BP 128/76; PULSE 105; RESP 16; TEMP 36.8; O2SAT 98
--- NOTE | 2022-04-11 12:36 | HO.PSYCHPN ---
Subjective Subjective Date of Service: 04/11/22 Reason For Visit: Psychosis Subjective Notes: Section 8 Interim History: Pt reports sleeping well. He reports he received GAO yesterday, no side effects. He continues to self dialogued but to lesser extend. He denies SI/HI. He asks about discharge, wants to make sure date is not change if possible. Per nursing, no behavioral concerns. Medication Compliance: Yes Side effects from medications: No Review of Systems Review of Systems Unremarkable Yes Unobtainable due to mental condition and Unobtainable due to mental status Mental Status Exam Mental Status Exam Narrative: Appearance: casually groomed, improved hygiene, in NAD Behaviors: less guarded, less paranoid. Speech: clear, normal rate, rhythm/volume, spontaneous Psychomotor: no agitation or retardation, some pacing in taylor TP: linear, logical Mood: fine Affect: constricted, normo-intense, non-labile AH/VH: none expressed Delusions: none expressed SI: none expressed HI: none expressed Insight/judgment: insight limited to mental illness, but in agreement with treatment Memory/cog: alert, oriented x 3, not situation, not formally assessed. Diagnostics Vital Signs (24Hr): Vital Signs - 24 hr 04/10/22 20:07 04/11/22 05:23 04/11/22 08:45 Temperature 98.1 F 98.2 F Pulse Rate 105 H 98 105 H Respiratory Rate 16 Blood Pressure 113/73 128/80 128/76 Pulse Oximetry 100 98 Oxygen Delivery Method Room Air Room Air BMI result Body Mass Index 25.0 Medications Medications Current Medications Acetaminophen (Acetaminophen 325 Mg Tablet) 650 mg PO Q6H PRN PRN Reason: Headache/Pain Mild Scale (1-3) Last Admin: 03/17/22 04:33 Dose: 650 mg Al Hydroxide/Mg Hydroxide (Magnesium Hydrox/Alum Hydrox 30 Ml Oral.Susp) 30 ml PO Q6H PRN PRN Reason: Heartburn/Nausea Clonidine HCl (Clonidine Hcl 0.1 Mg Tablet) 0.1 mg PO TID PRN; Protocol PRN Reason: Anxiety Last Admin: 04/11/22 18:15 Dose: 0.1 mg Clozapine (Clozapine 25 Mg Tablet) 50 mg PO DAILY [facility] Last Admin: 04/11/22 08:25 Dose: 50 mg Clozapine (Clozapine 25 Mg Tablet) 150 mg PO BEDTIME [facility] Last Admin: 04/10/22 21:55 Dose: 150 mg Fluphenazine Decanoate (Fluphenazine Decanoate 25 Mg/Ml 5 Ml Vial) 25 mg IM Q14D@0900 [facility] Last Admin: 04/10/22 13:23 Dose: 25 mg Fluphenazine HCl (Fluphenazine Hcl 5 Mg Tablet) 5 mg PO BID [facility] Last Admin: 04/11/22 08:26 Dose: 5 mg Hydroxyzine HCl (Hydroxyzine Hcl 25 Mg Tablet) 25 mg PO Q6H PRN PRN Reason: Anxiety Last Admin: 04/10/22 19:02 Dose: 25 mg Lorazepam (Lorazepam 1 Mg Tablet) 1 mg PO BID [facility] Last Admin: 04/11/22 08:26 Dose: 1 mg Lorazepam (Lorazepam 1 Mg Tablet) 1 mg PO Q6H PRN PRN Reason: agitation Last Admin: 04/11/22 14:40 Dose: 1 mg Magnesium Hydroxide (Milk Of Magnesia 30 Ml Oral.Susp) 30 ml PO DAILY PRN PRN Reason: Constipation Olanzapine (Olanzapine Odt 10 Mg Tab.Rapdis) 10 mg TRANSLINGU TID PRN PRN Reason: Psychosis Last Admin: 03/28/22 15:41 Dose: 10 mg Olanzapine (Olanzapine 10 Mg Vial) 10 mg IM BID PRN PRN Reason: if refuses antipsyc per court Trazodone HCl (Trazodone Hcl 50 Mg Tablet) 50 mg PO BEDTIME PRN PRN Reason: Insomnia Last Admin: 03/20/22 23:17 Dose: 50 mg Allergies Allergies Allergy/AdvReac Type Severity Reaction Status Date / Time No Known Allergies Allergy Verified 01/26/22 23:05 Assessment & Plan Assessment & Plan (1) Schizophrenia: Status: Acute Code(s): F20.9 - Schizophrenia, unspecified Plan Mr. Hill is a 42 year-old male with hx of schizophrenia, recently discharged from on 02/27/22 more stable than when he was first admitted but still symptomatic, however, no evidence at the time of imminent risk of harm to self or others to petition for involuntary commitment. Pt apparently was not able to obtain clozaril from the pharmacy. He gradually decompensated to point of being found wondering on the streets, without shoes, blister on bilat feets, disorganized, combative, swing at police and staff at ED. Pt presents with persecutory delusions thinking he is brought here for crimes he has not commited such as being pedophile, pt reports thinking people are following him. PLAN 1. Admit to M3 on section 12, 15 minutes checks 2. restart clozaril 25mg po qhs. titrate daily by 25mg. 3. weekly ANC labs, Haldol 5mg po q6h prn agitation with ativan 1mg po q4h, prn anxiety. 4. Obtain collateral information 5. Aftercare planning. 03/15 pt continues to present as paranoid, disorganized, refuses clozaril. will petition court for involuntary tx as pt gravely disable. 03/16: touching peer and calling him pedophile. got haldol 10 and ativan 2 PO, did not sleep. total of 6 mg ativan today by mid-afternoon. 03/17/2022: Largely refusing medications however does accept PRNs at times. Did receive Haldol and Ativan yesterday. Questionable benefit. Will's have Ativan 2 mg as needed up to 4 times per day along with olanzapine 10 mg as needed up to 4 times per day. 03/18/2022: No medication changes. Refused clozaril yesterday. 03/19/2022: continue current plan. pending court hearing. 03/20 continue current tx. refuse clozaril again 03/21 continue to decline medication, disorganized agitated, threatening peers and staff at times to kill them. 03/22 court hearing- pt committed- now SECTION 8. Can't decline clozaril oral, otherwise will be given Olanzapine IM. 03/23 increase clozaril 50mg po qhs. Olanzapine back IM per court. 03/24 continue treatment plan; pt given zyprexa 10 mg IM and ativan 2 mg IM due to severe aggression towards staff and patients in common area; pt accepted IM admin without being held 03/25 continue current treatment plan; given zydis 10 mg PO prn for threat to kill staff and escalating aggression/distress 03/26 no med changes, pt continues with poor insight, continue on clozaril trial 03/27 continue to titrate clozaril daily by 25mg qd, as long as pt consistently taking clozaril 03/28 increase clozaril to 75mg po qhs- back up IM with Olanzapine. Will start standing dose of prolixin 5mg po BID with back up IM Olanzapine. 03/29- continue titration of clozaril, continue dose of prolixin. increase clozaril to 50mg po daily and 100mg po qhs. 03/30 increase proloxin 5mg po BID, continue titration of clozaril by 25mg/daily, aiming roughly at this time to reach dose of 200-250mg/daily. 03/31/22: Clozaril titration. Was increased to 50 mg daily and 100 mg at bedtime on 03/29/2022. Total target dose will be 200-250 mg. will increase this evening's dose to 125 mg id total daily dose 175 mg. 04/01- no changes 04/03 increase clozaril to 50mg po daily and 150mg po qhs. continue prolixin. 04/04: no change in mgmt 04/05 continue current medication regimen. 04/06 continue current medications. May give GAO of prolixin given that he may quickly stop meds after discharge. 04/07: continue current mgmt. 04/08: stable. continue current mgmt. 04/09 continue current tx. 04/10 start prolixin 25mg IM q2wks, continue oral meds. 04/11 continue current medications. I spent minutes with the patient and/or on the patient floor today, greater than?50% of which was spent counseling/coordinating care. Reason for contiued inpatient stay Substantial Risk for: inability to function
[2022-04-11 21:14] VITALS: BP 119/74; PULSE 92; RESP 14; TEMP 36.6; O2SAT 100
[2022-04-11] MEDS: cloZAPine 25 MG TABLET 150 MG PO (21:56)
[2022-04-12 07:00] VITALS: BMI 35.2
[2022-04-12 09:30] VITALS: BP 133/83; PULSE 79; RESP 20; TEMP 36.3; O2SAT 97
[2022-04-12] MEDS: LORazepam 1 MG TABLET PO ×4 (10:03→22:08)
[2022-04-12] MEDS: fluPHENAZine HCl 5 MG TABLET PO ×2 (10:03→22:09)
[2022-04-12] MEDS: cloZAPine 25 MG TABLET 50 MG PO ×2 (10:03→22:08)
--- NOTE | 2022-04-12 12:36 | P.PNPSI_ITS ---
Subjective Subjective Date of Service: 04/12/22 Reason For Visit: Psychosis Subjective Notes: Section 8 Interim History: Pt much more organized in his speech. He reports he is sleeping and eating well. He reports he is taking prn as it is difficult to be here in the unit. No overt delusional content reported other than he continues to insist that he was wrongly arrested by the police and brought here not for psychiatric reasons. He reports medication helping in that he feel calmer. He talks about his book- novel he wrote and even asks story writer if would like a copy. He worries that if discharged and he will be arrested again and would rather stay with his pa rents for a few weeks. 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 Gina Mcginnis. He asks appropriate questions about power of assistant county attorney and how he wants to sell his condo in [place]. Per nursing, no behavioral concerns. Medication Compliance: Yes Side effects from medications: No Review of Systems Review of Systems Unremarkable Yes Unobtainable due to mental condition and Unobtainable due to mental status Mental Status Exam Mental Status Exam Narrative: Appearance: casually groomed, improved hygiene, in NAD Behaviors: less guarded, less paranoid. Speech: clear, normal rate, rhythm/volume, spontaneous Psychomotor: no agitation or retardation, some pacing in taylor TP: linear, logical Mood: fine Affect: constricted, normo-intense, non-labile AH/VH: none expressed Delusions: none expressed SI: none expressed HI: none expressed Insight/judgment: insight limited to mental illness, but in agreement with treatment Memory/cog: alert, oriented x 3, not situation, not formally assessed. Diagnostics Vital Signs (24Hr): Vital Signs - 24 hr 04/11/22 21:14 04/12/22 09:30 Temperature 98 F 97.3 F Pulse Rate 92 79 Respiratory Rate 14 20 Blood Pressure 119/74 133/83 Pulse Oximetry 100 97 Oxygen Delivery Method Room Air Room Air BMI result Body Mass Index 25.0 Medications Medications Current Medications Acetaminophen (Acetaminophen 325 Mg Tablet) 650 mg PO Q6H PRN PRN Reason: Headache/Pain Mild Scale (1-3) Last Admin: 03/17/22 04:33 Dose: 650 mg Al Hydroxide/Mg Hydroxide (Magnesium Hydrox/Alum Hydrox 30 Ml Oral.Susp) 30 ml PO Q6H PRN PRN Reason: Heartburn/Nausea Clonidine HCl (Clonidine Hcl 0.1 Mg Tablet) 0.1 mg PO TID PRN; Protocol PRN Reason: Anxiety Last Admin: 04/11/22 18:15 Dose: 0.1 mg Clozapine (Clozapine 25 Mg Tablet) 50 mg PO DAILY [facility] Last Admin: 04/12/22 10:03 Dose: 50 mg Clozapine (Clozapine 25 Mg Tablet) 150 mg PO BEDTIME [facility] Last Admin: 04/11/22 21:56 Dose: 150 mg Fluphenazine Decanoate (Fluphenazine Decanoate 25 Mg/Ml 5 Ml Vial) 25 mg IM Q14D@0900 [facility] Last Admin: 04/10/22 13:23 Dose: 25 mg Fluphenazine HCl (Fluphenazine Hcl 5 Mg Tablet) 5 mg PO BID [facility] Last Admin: 04/12/22 10:03 Dose: 5 mg Hydroxyzine HCl (Hydroxyzine Hcl 25 Mg Tablet) 25 mg PO Q6H PRN PRN Reason: Anxiety Last Admin: 04/10/22 19:02 Dose: 25 mg Lorazepam (Lorazepam 1 Mg Tablet) 1 mg PO BID [facility] Last Admin: 04/12/22 10:03 Dose: 1 mg Lorazepam (Lorazepam 1 Mg Tablet) 1 mg PO Q6H PRN PRN Reason: agitation Last Admin: 04/11/22 20:37 Dose: 1 mg Magnesium Hydroxide (Milk Of Magnesia 30 Ml Oral.Susp) 30 ml PO DAILY PRN PRN Reason: Constipation Olanzapine (Olanzapine Odt 10 Mg Tab.Rapdis) 10 mg TRANSLINGU TID PRN PRN Reason: Psychosis Last Admin: 03/28/22 15:41 Dose: 10 mg Olanzapine (Olanzapine 10 Mg Vial) 10 mg IM BID PRN PRN Reason: if refuses antipsyc per court Trazodone HCl (Trazodone Hcl 50 Mg Tablet) 50 mg PO BEDTIME PRN PRN Reason: Insomnia Last Admin: 03/20/22 23:17 Dose: 50 mg Allergies Allergies Allergy/AdvReac Type Severity Reaction Status Date / Time No Known Allergies Allergy Verified 01/26/22 23:05 Assessment & Plan Assessment & Plan (1) Schizophrenia: Status: Acute Code(s): F20.9 - Schizophrenia, unspecified Plan Mr. Hill is a 42 year-old male with hx of schizophrenia, recently discharged from on 02/27/22 more stable than when he was first admitted but still symptomatic, however, no evidence at the time of imminent risk of harm to self or others to petition for involuntary commitment. Pt apparently was not able to obtain clozaril from the pharmacy. He gradually decompensated to point of being found wondering on the streets, without shoes, blister on bilat feets, disorganized, combative, swing at police and staff at ED. Pt presents with persecutory delusions thinking he is brought here for crimes he has not commited such as being pedophile, pt reports thinking people are following him. PLAN 1. Admit to M3 on section 12, 15 minutes checks 2. restart clozaril 25mg po qhs. titrate daily by 25mg. 3. weekly ANC labs, Haldol 5mg po q6h prn agitation with ativan 1mg po q4h, prn anxiety. 4. Obtain collateral information 5. Aftercare planning. 03/15 pt continues to present as paranoid, disorganized, refuses clozaril. will petition court for involuntary tx as pt gravely disable. 03/16: touching peer and calling him pedophile. got haldol 10 and ativan 2 PO, did not sleep. total of 6 mg ativan today by mid-afternoon. 03/17/2022: Largely refusing medications however does accept PRNs at times. Did receive Haldol and Ativan yesterday. Questionable benefit. Will's have Ativan 2 mg as needed up to 4 times per day along with olanzapine 10 mg as needed up to 4 times per day. 03/18/2022: No medication changes. Refused clozaril yesterday. 03/19/2022: continue current plan. pending court hearing. 03/20 continue current tx. refuse clozaril again 03/21 continue to decline medication, disorganized agitated, threatening peers and staff at times to kill them. 03/22 court hearing- pt committed- now SECTION 8. Can't decline clozaril oral, otherwise will be given Olanzapine IM. 03/23 increase clozaril 50mg po qhs. Olanzapine back IM per court. 03/24 continue treatment plan; pt given zyprexa 10 mg IM and ativan 2 mg IM due to severe aggression towards staff and patients in common area; pt accepted IM admin without being held 03/25 continue current treatment plan; given zydis 10 mg PO prn for threat to kill staff and escalating aggression/distress 03/26 no med changes, pt continues with poor insight, continue on clozaril trial 03/27 continue to titrate clozaril daily by 25mg qd, as long as pt consistently taking clozaril 03/28 increase clozaril to 75mg po qhs- back up IM with Olanzapine. Will start standing dose of prolixin 5mg po BID with back up IM Olanzapine. 03/29- continue titration of clozaril, continue dose of prolixin. increase clozaril to 50mg po daily and 100mg po qhs. 03/30 increase proloxin 5mg po BID, continue titration of clozaril by 25mg/daily, aiming roughly at this time to reach dose of 200-250mg/daily. 03/31/22: Clozaril titration. Was increased to 50 mg daily and 100 mg at bedtime on 03/29/2022. Total target dose will be 200-250 mg. will increase this evening's dose to 125 mg id total daily dose 175 mg. 04/01- no changes 04/03 increase clozaril to 50mg po daily and 150mg po qhs. continue prolixin. 04/04: no change in mgmt 04/05 continue current medication regimen. 04/06 continue current medications. May give GAO of prolixin given that he may quickly stop meds after discharge. 04/07: continue current mgmt. 04/08: stable. continue current mgmt. 04/09 continue current tx. 04/10 start prolixin 25mg IM q2wks, continue oral meds. 04/11 continue current medications. 04/12 continue current medications. pending clozaril level. I spent ___25___ minutes with the patient and/or on the patient floor today, greater than?50% of which was spent counseling/coordinating care. Reason for contiued inpatient stay Substantial Risk for: harm to others and inability to function
[2022-04-12] MEDS: cloNIDine HCL 0.1 MG TABLET PO ×2 (12:45→17:34)
[2022-04-12] MEDS: hydrOXYzine HCL 25 MG TABLET PO (16:32)
[2022-04-12 17:25] VITALS: BP 135/87; PULSE 90; RESP 18; O2SAT 100
[2022-04-12 18:00] VITALS: BP 146/86; PULSE 86; RESP 14; TEMP 36.6; O2SAT 100
[2022-04-12] MEDS: cloZAPine 100 MG TABLET PO (22:08)
[2022-04-13] MEDS: fluPHENAZine HCl 5 MG TABLET PO ×2 (08:32→22:30)
[2022-04-13] MEDS: LORazepam 1 MG TABLET PO ×4 (08:32→21:39)
[2022-04-13] MEDS: cloZAPine 25 MG TABLET 50 MG PO (08:32)
[2022-04-13 08:51] LABS: Neut%MD 57.1 %; Neutrophils Absolute Auto 4.3 x10*3/uL (2.0-8.3); WBCANC 7.6 X10*3/uL
[2022-04-13] MEDS: cloNIDine HCL 0.1 MG TABLET PO ×3 (09:02→20:20)
[2022-04-13 09:03] VITALS: BP 133/71; PULSE 108; RESP 17; TEMP 36.3; O2SAT 100
--- NOTE | 2022-04-13 11:12 | P.PNPSI_ITS ---
Subjective Subjective Date of Service: 04/13/22 Reason For Visit: Psychosis Subjective Notes: Section 8 Interim History: Pt continues to report that he was wrongly arrested and brought to hospital without having had an exacerbation of his psychiatric symptoms. He reports he feels more comfortable going to his parents house as he fears police in [place] have something against him and may arrest him again and bring him to the hospital. He denies side effects of medications. He states he hopes to be discharged soon, that it is difficult to be here in hospital for too long. He is more organized and less guarded, less paranoid. Medication Compliance: Yes Side effects from medications: No Review of Systems Review of Systems Unremarkable Yes Unobtainable due to mental condition and Unobtainable due to mental status Mental Status Exam Mental Status Exam Narrative: Appearance: casually groomed, improved hygiene, in NAD Behaviors: less guarded, less paranoid. Speech: clear, normal rate, rhythm/volume, spontaneous Psychomotor: no agitation or retardation, some pacing in taylor TP: linear, logical Mood: fine Affect: constricted, normo-intense, non-labile AH/VH: none expressed Delusions: none expressed SI: none expressed HI: none expressed Insight/judgment: insight limited to mental illness, but in agreement with treatment Memory/cog: alert, oriented x 3, not situation, not formally assessed. Diagnostics Vital Signs (24Hr): Vital Signs - 24 hr 04/12/22 17:25 04/12/22 18:00 04/13/22 09:03 Temperature 97.9 F 97.4 F Pulse Rate 90 86 108 H Respiratory Rate 18 14 17 Blood Pressure 135/87 146/86 H 133/71 Pulse Oximetry 100 100 100 Oxygen Delivery Method Room Air Room Air Room Air BMI result Body Mass Index 35.2 Labs Labs: Laboratory Results - last 48 hr 04/13/22 08:37 Absolute Neuts (auto) 4.3 Medications Medications Current Medications Acetaminophen (Acetaminophen 325 Mg Tablet) 650 mg PO Q6H PRN PRN Reason: Headache/Pain Mild Scale (1-3) Last Admin: 03/17/22 04:33 Dose: 650 mg Al Hydroxide/Mg Hydroxide (Magnesium Hydrox/Alum Hydrox 30 Ml Oral.Susp) 30 ml PO Q6H PRN PRN Reason: Heartburn/Nausea Clonidine HCl (Clonidine Hcl 0.1 Mg Tablet) 0.1 mg PO TID PRN; Protocol PRN Reason: Anxiety Last Admin: 04/13/22 09:02 Dose: 0.1 mg Clozapine (Clozapine 25 Mg Tablet) 50 mg PO DAILY [facility] Last Admin: 04/13/22 08:32 Dose: 50 mg Clozapine (Clozapine 100 Mg Tablet) 100 mg PO BEDTIME [facility] Last Admin: 04/12/22 22:08 Dose: 100 mg Clozapine (Clozapine 25 Mg Tablet) 75 mg PO BEDTIME [facility] Fluphenazine Decanoate (Fluphenazine Decanoate 25 Mg/Ml 5 Ml Vial) 25 mg IM Q14D@0900 [facility] Last Admin: 04/10/22 13:23 Dose: 25 mg Fluphenazine HCl (Fluphenazine Hcl 5 Mg Tablet) 5 mg PO BID [facility] Last Admin: 04/13/22 08:32 Dose: 5 mg Hydroxyzine HCl (Hydroxyzine Hcl 25 Mg Tablet) 25 mg PO Q6H PRN PRN Reason: Anxiety Last Admin: 04/12/22 16:32 Dose: 25 mg Lorazepam (Lorazepam 1 Mg Tablet) 1 mg PO BID [facility] Last Admin: 04/13/22 08:32 Dose: 1 mg Lorazepam (Lorazepam 1 Mg Tablet) 1 mg PO Q6H PRN PRN Reason: agitation Last Admin: 04/13/22 11:42 Dose: 1 mg Magnesium Hydroxide (Milk Of Magnesia 30 Ml Oral.Susp) 30 ml PO DAILY PRN PRN Reason: Constipation Olanzapine (Olanzapine Odt 10 Mg Tab.Rapdis) 10 mg TRANSLINGU TID PRN PRN Reason: Psychosis Last Admin: 03/28/22 15:41 Dose: 10 mg Olanzapine (Olanzapine 10 Mg Vial) 10 mg IM BID PRN PRN Reason: if refuses antipsyc per court Trazodone HCl (Trazodone Hcl 50 Mg Tablet) 50 mg PO BEDTIME PRN PRN Reason: Insomnia Last Admin: 03/20/22 23:17 Dose: 50 mg Allergies Allergies Allergy/AdvReac Type Severity Reaction Status Date / Time No Known Allergies Allergy Verified 01/26/22 23:05 Assessment & Plan Assessment & Plan (1) Schizophrenia: Status: Acute Code(s): F20.9 - Schizophrenia, unspecified Plan Mr. Hill is a 42 year-old male with hx of schizophrenia, recently discharged from on 5/31/22 more stable than when he was first admitted but still symptomatic, however, no evidence at the time of imminent risk of harm to self or others to petition for involuntary commitment. Pt apparently was not able to obtain clozaril from the pharmacy. He gradually decompensated to point of being found wondering on the streets, without shoes, blister on bilat feets, disorganized, combative, swing at police and staff at ED. Pt presents with persecutory delusions thinking he is brought here for crimes he has not commited such as being pedophile, pt reports thinking people are following him. PLAN 1. Admit to M3 on section 12, 15 minutes checks 2. restart clozaril 25mg po qhs. titrate daily by 25mg. 3. weekly ANC labs, Haldol 5mg po q6h prn agitation with ativan 1mg po q4h, prn anxiety. 4. Obtain collateral information 5. Aftercare planning. 03/15 pt continues to present as paranoid, disorganized, refuses clozaril. will petition court for involuntary tx as pt gravely disable. 03/16: touching peer and calling him pedophile. got haldol 10 and ativan 2 PO, did not sleep. total of 6 mg ativan today by mid-afternoon. 03/17/2022: Largely refusing medications however does accept PRNs at times. Did receive Haldol and Ativan yesterday. Questionable benefit. Will's have Ativan 2 mg as needed up to 4 times per day along with olanzapine 10 mg as needed up to 4 times per day. 03/18/2022: No medication changes. Refused clozaril yesterday. 03/19/2022: continue current plan. pending court hearing. 03/20 continue current tx. refuse clozaril again 03/21 continue to decline medication, disorganized agitated, threatening peers and staff at times to kill them. 03/22 court hearing- pt committed- now SECTION 8. Can't decline clozaril oral, otherwise will be given Olanzapine IM. 03/23 increase clozaril 50mg po qhs. Olanzapine back IM per court. 03/24 continue treatment plan; pt given zyprexa 10 mg IM and ativan 2 mg IM due to severe aggression towards staff and patients in common area; pt accepted IM admin without being held 03/25 continue current treatment plan; given zydis 10 mg PO prn for threat to kill staff and escalating aggression/distress 03/26 no med changes, pt continues with poor insight, continue on clozaril trial 03/27 continue to titrate clozaril daily by 25mg qd, as long as pt consistently taking clozaril 03/28 increase clozaril to 75mg po qhs- back up IM with Olanzapine. Will start standing dose of prolixin 5mg po BID with back up IM Olanzapine. 03/29- continue titration of clozaril, continue dose of prolixin. increase clozaril to 50mg po daily and 100mg po qhs. 03/30 increase proloxin 5mg po BID, continue titration of clozaril by 25mg/daily, aiming roughly at this time to reach dose of 200-250mg/daily. 03/31/22: Clozaril titration. Was increased to 50 mg daily and 100 mg at bedtime on 03/29/2022. Total target dose will be 200-250 mg. will increase this evening's dose to 125 mg id total daily dose 175 mg. 04/01- no changes 04/03 increase clozaril to 50mg po daily and 150mg po qhs. continue prolixin. 04/04: no change in mgmt 04/05 continue current medication regimen. 04/06 continue current medications. May give GAO of prolixin given that he may quickly stop meds after discharge. 04/07: continue current mgmt. 04/08: stable. continue current mgmt. 04/09 continue current tx. 04/10 start prolixin 25mg IM q2wks, continue oral meds. 04/11 continue current medications. 04/12 continue current medications. pending clozaril level. 04/13 pending clozaril levels but suspect may be less than 350mg/dl although close- increase clozaril to 50mg po daily and 175mg po qhs. I spent minutes with the patient and/or on the patient floor today, greater than?50% of which was spent counseling/coordinating care. Reason for contiued inpatient stay Substantial Risk for: harm to others and inability to function
[2022-04-13 15:25] VITALS: BP 151/88
[2022-04-13] MEDS: hydrOXYzine HCL 25 MG TABLET PO (16:18)
[2022-04-13 17:36] LABS: Clozapine (Clozaril) 220 mcg/L; Norclozapine 86 mcg/L (25-400)
[2022-04-13 20:29] VITALS: BP 121/80; PULSE 103; RESP 16; TEMP 36.6; O2SAT 99
[2022-04-13] MEDS: cloZAPine 25 MG TABLET 75 MG PO (21:40)
[2022-04-13] MEDS: cloZAPine 100 MG TABLET PO (21:41)
[2022-04-14] MEDS: LORazepam 1 MG TABLET PO ×4 (09:13→20:16)
[2022-04-14] MEDS: cloZAPine 25 MG TABLET 50 MG PO (09:13)
[2022-04-14] MEDS: fluPHENAZine HCl 5 MG TABLET PO ×2 (09:13→21:48)
[2022-04-14] MEDS: cloNIDine HCL 0.1 MG TABLET PO (13:30)
--- NOTE | 2022-04-14 15:28 | HO.PSYCHPN ---
Subjective Subjective Date of Service: 04/14/22 Reason For Visit: Psychosis Subjective Notes: Section 8 Guardianship: Yes (poonam) Medical Problems Affecting Mental Status: No Interim History: Pt reports he is doing ok - he says nursing reports he is vsible on unit and went to art group decrease responding to internal stimuli also reported Medication Compliance: Yes Side effects from medications: No Attending Groups: Intermittent Review of Systems Acute medical concerns: No Medical Review of Systems: unchanged Review of Systems Review of Systems denies any complaints Mental Status Exam Mental Status Exam Narrative: ok jittery walking about- randomly - but agreeable- wants me to do what Delmy and he have discussed which I reiterated was to inc clozapine by 25mg/night Patient Appearance: Well Grooomed Patient Orientation: Person, Place, Time and Situation Level of Consciousness: Awake and Restless Patient Behavior: Appropriate and Wandering Mood Description: Calm Affect Description: Blunted Patient Cognition Impaired: No Ability to Follow Directions: Fair Speech Pattern: Clear Thought Process: Distracted Thought Content: positive for Evasive Judgement: Fair Diagnostics Vital Signs (24Hr): Vital Signs - 24 hr 04/13/22 20:29 Temperature 97.9 F Pulse Rate 103 H Respiratory Rate 16 Blood Pressure 121/80 Pulse Oximetry 99 Oxygen Delivery Method Room Air BMI result Body Mass Index 35.2 this does not seem accurate for current weight maybe prior Labs Labs: Laboratory Results - last 48 hr 04/06/22 04/13/22 08:47 08:37 Absolute Neuts (auto) 4.3 Clozapine 220 Norclozapine 86 EKG EKG: other (ordered) Medications Medications Current Medications Acetaminophen (Acetaminophen 325 Mg Tablet) 650 mg PO Q6H PRN PRN Reason: Headache/Pain Mild Scale (1-3) Last Admin: 03/17/22 04:33 Dose: 650 mg Al Hydroxide/Mg Hydroxide (Magnesium Hydrox/Alum Hydrox 30 Ml Oral.Susp) 30 ml PO Q6H PRN PRN Reason: Heartburn/Nausea Clonidine HCl (Clonidine Hcl 0.1 Mg Tablet) 0.1 mg PO TID PRN; Protocol PRN Reason: Anxiety Last Admin: 04/14/22 13:30 Dose: 0.1 mg Clozapine (Clozapine 25 Mg Tablet) 50 mg PO DAILY [facility] Last Admin: 04/14/22 09:13 Dose: 50 mg Clozapine (Clozapine 100 Mg Tablet) 100 mg PO BEDTIME [facility] Last Admin: 04/13/22 21:41 Dose: 100 mg Clozapine (Clozapine 25 Mg Tablet) 75 mg PO BEDTIME [facility] Last Admin: 04/13/22 21:40 Dose: 75 mg Fluphenazine Decanoate (Fluphenazine Decanoate 25 Mg/Ml 5 Ml Vial) 25 mg IM Q14D@0900 [facility] Last Admin: 04/10/22 13:23 Dose: 25 mg Fluphenazine HCl (Fluphenazine Hcl 5 Mg Tablet) 5 mg PO BID [facility] Last Admin: 04/14/22 09:13 Dose: 5 mg Hydroxyzine HCl (Hydroxyzine Hcl 25 Mg Tablet) 25 mg PO Q6H PRN PRN Reason: Anxiety Last Admin: 04/13/22 16:18 Dose: 25 mg Lorazepam (Lorazepam 1 Mg Tablet) 1 mg PO BID [facility] Last Admin: 04/14/22 09:13 Dose: 1 mg Lorazepam (Lorazepam 1 Mg Tablet) 1 mg PO Q6H PRN PRN Reason: agitation Last Admin: 04/14/22 11:35 Dose: 1 mg Magnesium Hydroxide (Milk Of Magnesia 30 Ml Oral.Susp) 30 ml PO DAILY PRN PRN Reason: Constipation Olanzapine (Olanzapine Odt 10 Mg Tab.Rapdis) 10 mg TRANSLINGU TID PRN PRN Reason: Psychosis Last Admin: 03/28/22 15:41 Dose: 10 mg Olanzapine (Olanzapine 10 Mg Vial) 10 mg IM BID PRN PRN Reason: if refuses antipsyc per court Trazodone HCl (Trazodone Hcl 50 Mg Tablet) 50 mg PO BEDTIME PRN PRN Reason: Insomnia Last Admin: 03/20/22 23:17 Dose: 50 mg Allergies Allergies Allergy/AdvReac Type Severity Reaction Status Date / Time No Known Allergies Allergy Verified 01/26/22 23:05 Assessment & Plan Assessment & Plan (1) Schizophrenia: Status: Acute Code(s): F20.9 - Schizophrenia, unspecified Assessment and Plan: not sure he needs further inc clozapine at this time, seems to be recompensating though continues symptomatic may want to pause at current dosage increased to 50am 200mg qhs- but will hold steady there, or go back a step if s/e. Plan Mr. Hill is a 42 year-old male with hx of schizophrenia, recently discharged from [facility] on 02/27/22 more stable than when he was first admitted but still symptomatic, however, no evidence at the time of imminent risk of harm to self or others to petition for involuntary commitment. Pt apparently was not able to obtain clozaril from the pharmacy. He gradually decompensated to point of being found wondering on the streets, without shoes, blister on bilat feets, disorganized, combative, swing at police and staff at ED. Pt presents with persecutory delusions thinking he is brought here for crimes he has not commited such as being pedophile, pt reports thinking people are following him. PLAN 1. Admit to M3 on section 12, 15 minutes checks 2. restart clozaril 25mg po qhs. titrate daily by 25mg. 3. weekly ANC labs, Haldol 5mg po q6h prn agitation with ativan 1mg po q4h, prn anxiety. 4. Obtain collateral information 5. Aftercare planning. 03/15 pt continues to present as paranoid, disorganized, refuses clozaril. will petition court for involuntary tx as pt gravely disable. 03/16: touching peer and calling him pedophile. got haldol 10 and ativan 2 PO, did not sleep. total of 6 mg ativan today by mid-afternoon. 03/17/2022: Largely refusing medications however does accept PRNs at times. Did receive Haldol and Ativan yesterday. Questionable benefit. Will's have Ativan 2 mg as needed up to 4 times per day along with olanzapine 10 mg as needed up to 4 times per day. 03/18/2022: No medication changes. Refused clozaril yesterday. 03/19/2022: continue current plan. pending court hearing. 03/20 continue current tx. refuse clozaril again 03/21 continue to decline medication, disorganized agitated, threatening peers and staff at times to kill them. 03/22 court hearing- pt committed- now SECTION 8. Can't decline clozaril oral, otherwise will be given Olanzapine IM. 03/23 increase clozaril 50mg po qhs. Olanzapine back IM per court. 03/24 continue treatment plan; pt given zyprexa 10 mg IM and ativan 2 mg IM due to severe aggression towards staff and patients in common area; pt accepted IM admin without being held 03/25 continue current treatment plan; given zydis 10 mg PO prn for threat to kill staff and escalating aggression/distress 03/26 no med changes, pt continues with poor insight, continue on clozaril trial 03/27 continue to titrate clozaril daily by 25mg qd, as long as pt consistently taking clozaril 03/28 increase clozaril to 75mg po qhs- back up IM with Olanzapine. Will start standing dose of prolixin 5mg po BID with back up IM Olanzapine. 03/29- continue titration of clozaril, continue dose of prolixin. increase clozaril to 50mg po daily and 100mg po qhs. 03/30 increase proloxin 5mg po BID, continue titration of clozaril by 25mg/daily, aiming roughly at this time to reach dose of 200-250mg/daily. 03/31/22: Clozaril titration. Was increased to 50 mg daily and 100 mg at bedtime on 03/29/2022. Total target dose will be 200-250 mg. will increase this evening's dose to 125 mg id total daily dose 175 mg. 04/01- no changes 04/03 increase clozaril to 50mg po daily and 150mg po qhs. continue prolixin. 04/04: no change in mgmt 04/05 continue current medication regimen. 04/06 continue current medications. May give GAO of prolixin given that he may quickly stop meds after discharge. 04/07: continue current mgmt. 04/08: stable. continue current mgmt. 04/09 continue current tx. 04/10 start prolixin 25mg IM q2wks, continue oral meds. 04/11 continue current medications. 04/12 continue current medications. pending clozaril level. 04/13 pending clozaril levels but suspect may be less than 350mg/dl although close- increase clozaril to 50mg po daily and 175mg po qhs. I spent minutes with the patient and/or on the patient floor today, greater than?50% of which was spent counseling/coordinating care. Patient educated on: medication risk/benefits Informed Consent: further education needed Reason for contiued inpatient stay Substantial Risk for: inability to function and rapid decompensation
[2022-04-14] MEDS: hydrOXYzine HCL 25 MG TABLET PO (15:40)
[2022-04-14 21:30] VITALS: BP 134/93; PULSE 82; RESP 17; TEMP 36.6; O2SAT 100
[2022-04-14] MEDS: cloZAPine 100 MG TABLET 200 MG PO (21:48)
[2022-04-15] MEDS: cloZAPine 25 MG TABLET 50 MG PO (08:39)
[2022-04-15] MEDS: fluPHENAZine HCl 5 MG TABLET PO ×2 (08:39→21:38)
[2022-04-15] MEDS: LORazepam 1 MG TABLET PO ×3 (08:39→21:38)
[2022-04-15 08:45] VITALS: BP 137/89; PULSE 104; RESP 17; TEMP 36.2; O2SAT 99
--- NOTE | 2022-04-15 09:54 | HO.PSYCHPN ---
Subjective Subjective Date of Service: 04/15/22 Reason For Visit: Psychosis Subjective Notes: Section 8 Healthcare Proxy: No Guardianship: Yes Medical Problems Affecting Mental Status: No Interim History: much better than 3 wks ago Medication Compliance: Yes Side effects from medications: No Attending Groups: Intermittent Review of Systems Acute medical concerns: No Medical Review of Systems: unchanged Mental Status Exam Mental Status Exam Patient Appearance: Appropriate Patient Orientation: Person, Place, Time and Situation Level of Consciousness: Awake Patient Behavior: Hyperactive, Cooperative and Poor Eye Contact Mood Description: Blunted Affect Description: Appropriate Patient Cognition Impaired: No Ability to Follow Directions: Fair Speech Pattern: Impoverished Hallucinations: None (at least he denies) Thought Process: Distracted Thought Content: positive for [place] and positive for Disorganized Abnormal Motor Activity Signs and Symptoms: Hyperactivity Judgement: Fair Diagnostics Vital Signs (24Hr): Vital Signs - 24 hr 04/14/22 21:30 04/15/22 08:45 Temperature 97.8 F 97.2 F Pulse Rate 82 104 H Respiratory Rate 17 17 Blood Pressure 134/93 H 137/89 Pulse Oximetry 100 99 Oxygen Delivery Method Room Air Room Air BMI result Body Mass Index 35.2 Labs Labs: Laboratory Results - last 48 hr 04/06/22 08:47 Clozapine 220 Norclozapine 86 Medications Medications Current Medications Acetaminophen (Acetaminophen 325 Mg Tablet) 650 mg PO Q6H PRN PRN Reason: Headache/Pain Mild Scale (1-3) Last Admin: 03/17/22 04:33 Dose: 650 mg Al Hydroxide/Mg Hydroxide (Magnesium Hydrox/Alum Hydrox 30 Ml Oral.Susp) 30 ml PO Q6H PRN PRN Reason: Heartburn/Nausea Clonidine HCl (Clonidine Hcl 0.1 Mg Tablet) 0.1 mg PO TID PRN; Protocol PRN Reason: Anxiety Last Admin: 04/14/22 13:30 Dose: 0.1 mg Clozapine (Clozapine 25 Mg Tablet) 50 mg PO DAILY [facility] Last Admin: 04/15/22 08:39 Dose: 50 mg Clozapine (Clozapine 100 Mg Tablet) 200 mg PO BEDTIME [facility] Last Admin: 04/14/22 21:48 Dose: 200 mg Fluphenazine Decanoate (Fluphenazine Decanoate 25 Mg/Ml 5 Ml Vial) 25 mg IM Q14D@0900 [facility] Last Admin: 04/10/22 13:23 Dose: 25 mg Fluphenazine HCl (Fluphenazine Hcl 5 Mg Tablet) 5 mg PO BID [facility] Last Admin: 04/15/22 08:39 Dose: 5 mg Hydroxyzine HCl (Hydroxyzine Hcl 25 Mg Tablet) 25 mg PO Q6H PRN PRN Reason: Anxiety Last Admin: 04/14/22 15:40 Dose: 25 mg Lorazepam (Lorazepam 1 Mg Tablet) 1 mg PO BID [facility] Last Admin: 04/15/22 08:39 Dose: 1 mg Lorazepam (Lorazepam 1 Mg Tablet) 1 mg PO Q6H PRN PRN Reason: agitation Last Admin: 04/14/22 18:10 Dose: 1 mg Magnesium Hydroxide (Milk Of Magnesia 30 Ml Oral.Susp) 30 ml PO DAILY PRN PRN Reason: Constipation Olanzapine (Olanzapine Odt 10 Mg Tab.Rapdis) 10 mg TRANSLINGU TID PRN PRN Reason: Psychosis Last Admin: 03/28/22 15:41 Dose: 10 mg Olanzapine (Olanzapine 10 Mg Vial) 10 mg IM BID PRN PRN Reason: if refuses antipsyc per court Allergies Allergies Allergy/AdvReac Type Severity Reaction Status Date / Time No Known Allergies Allergy Verified 01/26/22 23:05 Assessment & Plan Assessment & Plan (1) Schizophrenia: Status: Acute Code(s): F20.9 - Schizophrenia, unspecified Assessment and Plan: not sure he needs further inc clozapine at this time, seems to be recompensating though continues symptomatic may want to pause at current dosage increased to 50am 200mg qhs- but will hold steady there, or go back a step if s/e 04/15 will stay at curernt doses Plan Mr. Hill is a 42 year-old male with hx of schizophrenia, recently discharged from on 02/27/22 more stable than when he was first admitted but still symptomatic, however, no evidence at the time of imminent risk of harm to self or others to petition for involuntary commitment. Pt apparently was not able to obtain clozaril from the pharmacy. He gradually decompensated to point of being found wondering on the streets, without shoes, blister on bilat feets, disorganized, combative, swing at police and staff at ED. Pt presents with persecutory delusions thinking he is brought here for crimes he has not commited such as being pedophile, pt reports thinking people are following him. PLAN 1. Admit to on section 12, 15 minutes checks 2. restart clozaril 25mg po qhs. titrate daily by 25mg. 3. weekly ANC labs, Haldol 5mg po q6h prn agitation with ativan 1mg po q4h, prn anxiety. 4. Obtain collateral information 5. Aftercare planning. 03/15 pt continues to present as paranoid, disorganized, refuses clozaril. will petition court for involuntary tx as pt gravely disable. 03/16: touching peer and calling him pedophile. got haldol 10 and ativan 2 PO, did not sleep. total of 6 mg ativan today by mid-afternoon. 03/17/2022: Largely refusing medications however does accept PRNs at times. Did receive Haldol and Ativan yesterday. Questionable benefit. Will's have Ativan 2 mg as needed up to 4 times per day along with olanzapine 10 mg as needed up to 4 times per day. 03/18/2022: No medication changes. Refused clozaril yesterday. 03/19/2022: continue current plan. pending court hearing. 03/20 continue current tx. refuse clozaril again 03/21 continue to decline medication, disorganized agitated, threatening peers and staff at times to kill them. 03/22 court hearing- pt committed- now SECTION 8. Can't decline clozaril oral, otherwise will be given Olanzapine IM. 03/23 increase clozaril 50mg po qhs. Olanzapine back IM per court. 03/24 continue treatment plan; pt given zyprexa 10 mg IM and ativan 2 mg IM due to severe aggression towards staff and patients in common area; pt accepted IM admin without being held 03/25 continue current treatment plan; given zydis 10 mg PO prn for threat to kill staff and escalating aggression/distress 03/26 no med changes, pt continues with poor insight, continue on clozaril trial 03/27 continue to titrate clozaril daily by 25mg qd, as long as pt consistently taking clozaril 03/28 increase clozaril to 75mg po qhs- back up IM with Olanzapine. Will start standing dose of prolixin 5mg po BID with back up IM Olanzapine. 03/29- continue titration of clozaril, continue dose of prolixin. increase clozaril to 50mg po daily and 100mg po qhs. 03/30 increase proloxin 5mg po BID, continue titration of clozaril by 25mg/daily, aiming roughly at this time to reach dose of 200-250mg/daily. 03/31/22: Clozaril titration. Was increased to 50 mg daily and 100 mg at bedtime on 03/29/2022. Total target dose will be 200-250 mg. will increase this evening's dose to 125 mg id total daily dose 175 mg. 04/01- no changes 04/03 increase clozaril to 50mg po daily and 150mg po qhs. continue prolixin. 04/04: no change in mgmt 04/05 continue current medication regimen. 04/06 continue current medications. May give GAO of prolixin given that he may quickly stop meds after discharge. 04/07: continue current mgmt. 04/08: stable. continue current mgmt. 04/09 continue current tx. 04/10 start prolixin 25mg IM q2wks, continue oral meds. 04/11 continue current medications. 04/12 continue current medications. pending clozaril level. 04/13 pending clozaril levels but suspect may be less than 350mg/dl although close- increase clozaril to 50mg po daily and 175mg po qhs. I spent minutes with the patient and/or on the patient floor today, greater than?50% of which was spent counseling/coordinating care. Patient educated on: medication risk/benefits Informed Consent: understands Reason for contiued inpatient stay Substantial Risk for: rapid decompensation
[2022-04-15] MEDS: cloNIDine HCL 0.1 MG TABLET PO ×2 (10:57→16:37)
[2022-04-15] MEDS: hydrOXYzine HCL 25 MG TABLET PO (19:15)
[2022-04-15 21:25] VITALS: RESP 18
[2022-04-15] MEDS: cloZAPine 100 MG TABLET 200 MG PO (21:39)
[2022-04-16] MEDS: fluPHENAZine HCl 5 MG TABLET PO ×2 (08:54→21:50)
[2022-04-16] MEDS: cloZAPine 25 MG TABLET 50 MG PO (08:54)
[2022-04-16] MEDS: LORazepam 1 MG TABLET PO ×2 (08:54→21:50)
[2022-04-16 09:36] VITALS: BP 134/83; PULSE 100; RESP 20; TEMP 36.4; O2SAT 100
--- NOTE | 2022-04-16 09:53 | ECG_ITS ---
Test Reason : psych meds Blood Pressure : / mmHG Vent. Rate : 089 BPM Atrial Rate : 089 BPM P-R Int : 128 ms QRS Dur : 088 ms QT Int : 342 ms P-R-T Axes : 072 060 018 degrees QTc Int : 416 ms Normal sinus rhythm Normal ECG No previous ECGs available Referred By: Saima Bui Electronically Signed By:Brant Dacosta
--- NOTE | 2022-04-16 10:53 | P.PNPSI_ITS ---
Subjective Subjective Date of Service: 04/16/22 Reason For Visit: Psychosis Subjective Notes: Section 8 Interim History: Pt presents as much more organized, logical conversation about discharge and follow up with psychiatric providers. Pt reports feeling calmer, he has been attending two groups daily. He denies SI/HI. He reports sleeping well. He reports he plans to rely less on PRN medications, which he states he is using as he is bored here on the unit. He reports he wants to go after discharge from hospital briefly to his parents' house. Medication Compliance: Yes Side effects from medications: No Attending Groups: Intermittent Review of Systems Review of Systems denies any complaints Yes Unobtainable due to mental condition and Unobtainable due to mental status Mental Status Exam Mental Status Exam Narrative: Appearance: casually groomed, improved hygiene, in NAD Behaviors: less guarded, less paranoid. Speech: clear, normal rate, rhythm/volume, spontaneous Psychomotor: no agitation or retardation, some pacing in taylor TP: linear, logical Mood: fine Affect: constricted, normo-intense, non-labile AH/VH: denies- some mild self dialoguing that may be his baseline. Delusions:much less paranoid but still thinks he was arrested and brought here because police where he lives has something against him. SI: none expressed HI: none expressed Insight/judgment: insight limited to mental illness, but in agreement with treatment Memory/cog: alert, oriented x 3, not situation, not formally assessed. Diagnostics Vital Signs (24Hr): Vital Signs - 24 hr 04/15/22 21:25 04/16/22 09:36 Temperature 97.6 F Pulse Rate 100 Respiratory Rate 18 20 Blood Pressure 134/83 Pulse Oximetry 100 Oxygen Delivery Method Room Air BMI result Body Mass Index 35.2 Medications Medications Current Medications Acetaminophen (Acetaminophen 325 Mg Tablet) 650 mg PO Q6H PRN PRN Reason: Headache/Pain Mild Scale (1-3) Last Admin: 03/17/22 04:33 Dose: 650 mg Al Hydroxide/Mg Hydroxide (Magnesium Hydrox/Alum Hydrox 30 Ml Oral.Susp) 30 ml PO Q6H PRN PRN Reason: Heartburn/Nausea Clonidine HCl (Clonidine Hcl 0.1 Mg Tablet) 0.1 mg PO TID PRN; Protocol PRN Reason: Anxiety Last Admin: 04/15/22 16:37 Dose: 0.1 mg Clozapine (Clozapine 25 Mg Tablet) 50 mg PO DAILY [facility] Last Admin: 04/16/22 08:54 Dose: 50 mg Clozapine (Clozapine 100 Mg Tablet) 200 mg PO BEDTIME [facility] Last Admin: 04/15/22 21:39 Dose: 200 mg Fluphenazine Decanoate (Fluphenazine Decanoate 25 Mg/Ml 5 Ml Vial) 25 mg IM Q14D@0900 [facility] Last Admin: 04/10/22 13:23 Dose: 25 mg Fluphenazine HCl (Fluphenazine Hcl 5 Mg Tablet) 5 mg PO BID [facility] Last Admin: 04/16/22 08:54 Dose: 5 mg Hydroxyzine HCl (Hydroxyzine Hcl 25 Mg Tablet) 25 mg PO Q6H PRN PRN Reason: Anxiety Last Admin: 04/15/22 19:15 Dose: 25 mg Magnesium Hydroxide (Milk Of Magnesia 30 Ml Oral.Susp) 30 ml PO DAILY PRN PRN Reason: Constipation Olanzapine (Olanzapine Odt 10 Mg Tab.Rapdis) 10 mg TRANSLINGU TID PRN PRN Reason: Psychosis Last Admin: 03/28/22 15:41 Dose: 10 mg Olanzapine (Olanzapine 10 Mg Vial) 10 mg IM BID PRN PRN Reason: if refuses antipsyc per court Allergies Allergies Allergy/AdvReac Type Severity Reaction Status Date / Time No Known Allergies Allergy Verified 01/26/22 23:05 Assessment & Plan Assessment & Plan (1) Schizophrenia: Status: Acute Code(s): F20.9 - Schizophrenia, unspecified Plan Mr. Hill is a 42 year-old male with hx of schizophrenia, recently discharged from on 02/27/22 more stable than when he was first admitted but still symptomatic, however, no evidence at the time of imminent risk of harm to self or others to petition for involuntary commitment. Pt apparently was not able to obtain clozaril from the pharmacy. He gradually decompensated to point of being found wondering on the streets, without shoes, blister on bilat feets, disorganized, combative, swing at police and staff at ED. Pt presents with persecutory delusions thinking he is brought here for crimes he has not commited such as being pedophile, pt reports thinking people are following him. PLAN 1. Admit to on section 12, 15 minutes checks 2. restart clozaril 25mg po qhs. titrate daily by 25mg. 3. weekly ANC labs, Haldol 5mg po q6h prn agitation with ativan 1mg po q4h, prn anxiety. 4. Obtain collateral information 5. Aftercare planning. 03/15 pt continues to present as paranoid, disorganized, refuses clozaril. will petition court for involuntary tx as pt gravely disable. 03/16: touching peer and calling him pedophile. got haldol 10 and ativan 2 PO, did not sleep. total of 6 mg ativan today by mid-afternoon. 03/17/2022: Largely refusing medications however does accept PRNs at times. Did receive Haldol and Ativan yesterday. Questionable benefit. Will's have Ativan 2 mg as needed up to 4 times per day along with olanzapine 10 mg as needed up to 4 times per day. 03/18/2022: No medication changes. Refused clozaril yesterday. 03/19/2022: continue current plan. pending court hearing. 03/20 continue current tx. refuse clozaril again 03/21 continue to decline medication, disorganized agitated, threatening peers and staff at times to kill them. 03/22 court hearing- pt committed- now SECTION 8. Can't decline clozaril oral, otherwise will be given Olanzapine IM. 03/23 increase clozaril 50mg po qhs. Olanzapine back IM per court. 03/24 continue treatment plan; pt given zyprexa 10 mg IM and ativan 2 mg IM due to severe aggression towards staff and patients in common area; pt accepted IM admin without being held 03/25 continue current treatment plan; given zydis 10 mg PO prn for threat to kill staff and escalating aggression/distress 03/26 no med changes, pt continues with poor insight, continue on clozaril trial 03/27 continue to titrate clozaril daily by 25mg qd, as long as pt consistently taking clozaril 03/28 increase clozaril to 75mg po qhs- back up IM with Olanzapine. Will start standing dose of prolixin 5mg po BID with back up IM Olanzapine. 03/29- continue titration of clozaril, continue dose of prolixin. increase clozaril to 50mg po daily and 100mg po qhs. 03/30 increase proloxin 5mg po BID, continue titration of clozaril by 25mg/daily, aiming roughly at this time to reach dose of 200-250mg/daily. 03/31/22: Clozaril titration. Was increased to 50 mg daily and 100 mg at bedtime on 03/29/2022. Total target dose will be 200-250 mg. will increase this evening's dose to 125 mg id total daily dose 175 mg. 04/01- no changes 04/03 increase clozaril to 50mg po daily and 150mg po qhs. continue prolixin. 04/04: no change in mgmt 04/05 continue current medication regimen. 04/06 continue current medications. May give GAO of prolixin given that he may quickly stop meds after discharge. 04/07: continue current mgmt. 04/08: stable. continue current mgmt. 04/09 continue current tx. 04/10 start prolixin 25mg IM q2wks, continue oral meds. 04/11 continue current medications. 04/12 continue current medications. pending clozaril level. 04/13 pending clozaril levels but suspect may be less than 350mg/dl although close- increase clozaril to 50mg po daily and 175mg po qhs. 04/16/2022 continue current medications. next prolixin 25mg IM q 2wks, on 04/24, plan to d/c on that day. I spent minutes with the patient and/or on the patient floor today, grea ter than?50% of which was spent counseling/coordinating care. Reason for contiued inpatient stay Substantial Risk for: harm to others and inability to function
[2022-04-16 21:30] VITALS: RESP 18
[2022-04-16] MEDS: cloZAPine 100 MG TABLET 200 MG PO (21:50)
[2022-04-16 22:24] LABS: Glucose, Whole Blood 145 mg/dL (60-115)
[2022-04-17 08:45] VITALS: BP 145/89; PULSE 109; RESP 18; TEMP 36.7; O2SAT 99
[2022-04-17] MEDS: fluPHENAZine HCl 5 MG TABLET PO ×2 (08:50→21:36)
[2022-04-17] MEDS: cloZAPine 25 MG TABLET 50 MG PO (08:50)
[2022-04-17] MEDS: LORazepam 1 MG TABLET PO ×2 (08:50→21:36)
--- NOTE | 2022-04-17 12:11 | P.PNPSI_ITS ---
Subjective Subjective Date of Service: 04/17/22 Reason For Visit: Psychosis Subjective Notes: Section 8 Interim History: Pt proactively approaches this technical writer and editor stating I want to give you an update on follow ups for discharge. Pt reports he spoke with SW agreed to be referred to [facility] for Op psych care. He reports he is familiar with this agency as he worked with them in the past. He also reports they can administer GAO. He reports sleeping and eating well. He reports taking less PRN. He has been more visible and appropriate with peers. Less accusatory and less paranoia. Pt does show capacity to complete power of bankruptcy attorney as he shows understanding of what this document is, able to show appreciation for risk versus benefit of doing it or not, and express decision. Medication Compliance: Yes Review of Systems Review of Systems denies any complaints Yes Unobtainable due to mental condition and Unobtainable due to mental status Mental Status Exam Mental Status Exam Narrative: Appearance: casually groomed, improved hygiene, in NAD Behaviors: less guarded, less paranoid. Speech: clear, normal rate, rhythm/volume, spontaneous Psychomotor: no agitation or retardation, some pacing in taylor TP: linear, logical Mood: fine Affect: constricted, normo-intense, non-labile AH/VH: denies- some mild self dialoguing that may be his baseline. Delusions:much less paranoid but still thinks he was arrested and brought here because police where he lives has something against him. SI: none expressed HI: none expressed Insight/judgment: insight limited to mental illness, but in agreement with treatment Memory/cog: alert, oriented x 3, not situation, not formally assessed. Patient Appearance: Appropriate Patient Orientation: Person, Place, Time and Situation Level of Consciousness: Awake Patient Behavior: Hyperactive, Cooperative and Poor Eye Contact Mood Description: Blunted Affect Description: Appropriate Patient Cognition Impaired: No Ability to Follow Directions: Fair Speech Pattern: Impoverished Diagnostics Vital Signs (24Hr): Vital Signs - 24 hr 04/16/22 21:30 04/17/22 08:45 Temperature 98.0 F Pulse Rate 109 H Respiratory Rate 18 18 Blood Pressure 145/89 H Pulse Oximetry 99 Oxygen Delivery Method Room Air BMI result Body Mass Index 35.2 Labs Labs: Laboratory Results - last 48 hr 04/16/22 22:20 POC Glucose 145 H Medications Medications Current Medications Acetaminophen (Acetaminophen 325 Mg Tablet) 650 mg PO Q6H PRN PRN Reason: Headache/Pain Mild Scale (1-3) Last Admin: 03/17/22 04:33 Dose: 650 mg Al Hydroxide/Mg Hydroxide (Magnesium Hydrox/Alum Hydrox 30 Ml Oral.Susp) 30 ml PO Q6H PRN PRN Reason: Heartburn/Nausea Clonidine HCl (Clonidine Hcl 0.1 Mg Tablet) 0.1 mg PO TID PRN; Protocol PRN Reason: Anxiety Last Admin: 04/15/22 16:37 Dose: 0.1 mg Clozapine (Clozapine 25 Mg Tablet) 50 mg PO DAILY [facility] Last Admin: 04/17/22 08:50 Dose: 50 mg Clozapine (Clozapine 100 Mg Tablet) 200 mg PO BEDTIME [facility] Last Admin: 04/16/22 21:50 Dose: 200 mg Fluphenazine Decanoate (Fluphenazine Decanoate 25 Mg/Ml 5 Ml Vial) 25 mg IM Q14D@0900 [facility] Last Admin: 04/10/22 13:23 Dose: 25 mg Fluphenazine HCl (Fluphenazine Hcl 5 Mg Tablet) 5 mg PO BID [facility] Last Admin: 04/17/22 08:50 Dose: 5 mg Hydroxyzine HCl (Hydroxyzine Hcl 25 Mg Tablet) 25 mg PO Q6H PRN PRN Reason: Anxiety Last Admin: 04/15/22 19:15 Dose: 25 mg Lorazepam (Lorazepam 1 Mg Tablet) 1 mg PO BID [facility] Last Admin: 04/17/22 08:50 Dose: 1 mg Lorazepam (Lorazepam 1 Mg Tablet) 1 mg PO Q6H PRN PRN Reason: anxiety Magnesium Hydroxide (Milk Of Magnesia 30 Ml Oral.Susp) 30 ml PO DAILY PRN PRN Reason: Constipation Olanzapine (Olanzapine Odt 10 Mg Tab.Rapdis) 10 mg TRANSLINGU TID PRN PRN Reason: Psychosis Last Admin: 03/28/22 15:41 Dose: 10 mg Olanzapine (Olanzapine 10 Mg Vial) 10 mg IM BID PRN PRN Reason: if refuses antipsyc per court Allergies Allergies Allergy/AdvReac Type Severity Reaction Status Date / Time No Known Allergies Allergy Verified 01/26/22 23:05 Assessment & Plan Assessment & Plan (1) Schizophrenia: Status: Acute Code(s): F20.9 - Schizophrenia, unspecified Plan Mr. Hill is a 42 year-old male with hx of schizophrenia, recently discharged from [facility] on 02/27/22 more stable than when he was first admitted but still symptomatic, however, no evidence at the time of imminent risk of harm to self or others to petition for involuntary commitment. Pt apparently was not able to obtain clozaril from the pharmacy. He gradually decompensated to point of being found wondering on the streets, without shoes, blister on bilat feets, disorganized, combative, swing at police and staff at ED. Pt presents with persecutory delusions thinking he is brought here for crimes he has not commited such as being pedophile, pt reports thinking people are following him. PLAN 1. Admit to [facility] on section 12, 15 minutes checks 2. restart clozaril 25mg po qhs. titrate daily by 25mg. 3. weekly ANC labs, Haldol 5mg po q6h prn agitation with ativan 1mg po q4h, prn anxiety. 4. Obtain collateral information 5. Aftercare planning. 03/15 pt continues to present as paranoid, disorganized, refuses clozaril. will petition court for involuntary tx as pt gravely disable. 03/16: touching peer and calling him pedophile. got haldol 10 and ativan 2 PO, did not sleep. total of 6 mg ativan today by mid-afternoon. 03/17/2022: Largely refusing medications however does accept PRNs at times. Did receive Haldol and Ativan yesterday. Questionable benefit. Will's have Ativan 2 mg as needed up to 4 times per day along with olanzapine 10 mg as needed up to 4 times per day. 03/18/2022: No medication changes. Refused clozaril yesterday. 03/19/2022: continue current plan. pending court hearing. 03/20 continue current tx. refuse clozaril again 03/21 continue to decline medication, disorganized agitated, threatening peers and staff at times to kill them. 03/22 court hearing- pt committed- now SECTION 8. Can't decline clozaril oral, otherwise will be given Olanzapine IM. 03/23 increase clozaril 50mg po qhs. Olanzapine back IM per court. 03/24 continue treatment plan; pt given zyprexa 10 mg IM and ativan 2 mg IM due to severe aggression towards staff and patients in common area; pt accepted IM admin without being held 03/25 continue current treatment plan; given zydis 10 mg PO prn for threat to kill staff and escalating aggression/distress 03/26 no med changes, pt continues with poor insight, continue on clozaril trial 03/27 continue to titrate clozaril daily by 25mg qd, as long as pt consistently taking clozaril 03/28 increase clozaril to 75mg po qhs- back up IM with Olanzapine. Will start standing dose of prolixin 5mg po BID with back up IM Olanzapine. 03/29- continue titration of clozaril, continue dose of prolixin. increase clozaril to 50mg po daily and 100mg po qhs. 03/30 increase proloxin 5mg po BID, continue titration of clozaril by 25mg/daily, aiming roughly at this time to reach dose of 200-250mg/daily. 03/31/22: Clozaril titration. Was increased to 50 mg daily and 100 mg at bedtime on 03/29/2022. Total target dose will be 200-250 mg. will increase this evening's dose to 125 mg id total daily dose 175 mg. 04/01- no changes 04/03 increase clozaril to 50mg po daily and 150mg po qhs. continue prolixin. 04/04: no change in mgmt 04/05 continue current medication regimen. 04/06 continue current medications. May give GAO of prolixin given that he may quickly stop meds after discharge. 04/07: continue current mgmt. 04/08: stable. continue current mgmt. 04/09 continue current tx. 04/10 start prolixin 25mg IM q2wks, continue oral meds. 04/11 continue current medications. 04/12 continue current medications. pending clozaril level. 04/13 pending clozaril levels but suspect may be less than 350mg/dl although close- increase clozaril to 50mg po daily and 175mg po qhs. 04/16/2022 continue current medications. next prolixin 25mg IM q 2wks, on 04/24, plan to d/c on that day. 04/17 continue current medications. I spent minutes with the patient and/or on the patient floor today, greater than?50% of which was spent counseling/coordinating care. Reason for contiued inpatient stay Substantial Risk for: rapid decompensation
[2022-04-17] MEDS: cloZAPine 100 MG TABLET 200 MG PO (21:36)
[2022-04-18] MEDS: cloZAPine 25 MG TABLET 50 MG PO (08:52)
[2022-04-18] MEDS: LORazepam 1 MG TABLET PO ×2 (08:53→21:36)
[2022-04-18] MEDS: fluPHENAZine HCl 5 MG TABLET PO ×2 (08:53→21:36)
[2022-04-18 09:00] VITALS: PULSE 112; RESP 16; TEMP 36.8; O2SAT 100
--- NOTE | 2022-04-18 09:09 | P.PNPSI_ITS ---
Subjective Subjective Date of Service: 04/18/22 Reason For Visit: Psychosis Subjective Notes: Section 8 Interim History: Pt increasingly more pleasant and social with others. Much less suspicious and paranoid. He reports he slept well. He is states he is trying to be consistent and attend at least 2 groups daily. He states he enjoys fresh air, helps him feel time passing by quicker. He checks on status of OP referrals for psych and therapy. He denies SI/HI. No side effects noted or reported. Per nursing, pt sleeping and eating well. No behavioral concerns. Medication Compliance: Yes Side effects from medications: No Review of Systems Review of Systems denies any complaints Yes Unobtainable due to mental condition and Unobtainable due to mental status Mental Status Exam Mental Status Exam Narrative: Appearance: casually groomed, improved hygiene, in NAD Behaviors: less guarded, less paranoid. Speech: clear, normal rate, rhythm/volume, spontaneous Psychomotor: no agitation or retardation, some pacing in taylor TP: linear, logical Mood: fine Affect: constricted, normo-intense, non-labile AH/VH: denies- some mild self dialoguing that may be his baseline. Delusions:much less paranoid but still thinks he was arrested and brought here because police where he lives has something against him. SI: none expressed HI: none expressed Insight/judgment: insight limited to mental illness, but in agreement with treatment Memory/cog: alert, oriented x 3, not situation, not formally assessed. Patient Appearance: Appropriate Patient Orientation: Person, Place, Time and Situation Level of Consciousness: Awake Patient Behavior: Hyperactive, Cooperative and Poor Eye Contact Mood Description: Blunted Affect Description: Appropriate Patient Cognition Impaired: No Ability to Follow Directions: Fair Speech Pattern: Impoverished Diagnostics Vital Signs (24Hr): BMI result Body Mass Index 25.6 Labs Labs: Laboratory Results - last 48 hr 04/20/22 08:24 Absolute Neuts (auto) 5.3 Medications Medications Current Medications Acetaminophen (Acetaminophen 325 Mg Tablet) 650 mg PO Q6H PRN PRN Reason: Headache/Pain Mild Scale (1-3) Last Admin: 03/17/22 04:33 Dose: 650 mg Al Hydroxide/Mg Hydroxide (Magnesium Hydrox/Alum Hydrox 30 Ml Oral.Susp) 30 ml PO Q6H PRN PRN Reason: Heartburn/Nausea Clonidine HCl (Clonidine Hcl 0.1 Mg Tablet) 0.1 mg PO TID PRN; Protocol PRN Reason: Anxiety Last Admin: 04/15/22 16:37 Dose: 0.1 mg Clozapine (Clozapine 25 Mg Tablet) 50 mg PO DAILY [facility] Last Admin: 04/20/22 08:48 Dose: 50 mg Clozapine (Clozapine 100 Mg Tablet) 200 mg PO BEDTIME [facility] Last Admin: 04/19/22 21:54 Dose: 200 mg Fluphenazine Decanoate (Fluphenazine Decanoate 25 Mg/Ml 5 Ml Vial) 25 mg IM Q14D@0900 [facility] Last Admin: 04/10/22 13:23 Dose: 25 mg Fluphenazine HCl (Fluphenazine Hcl 5 Mg Tablet) 5 mg PO BID [facility] Last Admin: 04/20/22 08:49 Dose: 5 mg Hydroxyzine HCl (Hydroxyzine Hcl 25 Mg Tablet) 25 mg PO Q6H PRN PRN Reason: Anxiety Last Admin: 04/15/22 19:15 Dose: 25 mg Lorazepam (Lorazepam 1 Mg Tablet) 1 mg PO BID [facility] Last Admin: 04/20/22 08:49 Dose: 1 mg Lorazepam (Lorazepam 1 Mg Tablet) 1 mg PO Q6H PRN PRN Reason: anxiety Magnesium Hydroxide (Milk Of Magnesia 30 Ml Oral.Susp) 30 ml PO DAILY PRN PRN Reason: Constipation Olanzapine (Olanzapine Odt 10 Mg Tab.Rapdis) 10 mg TRANSLINGU TID PRN PRN Reason: Psychosis Last Admin: 03/28/22 15:41 Dose: 10 mg Olanzapine (Olanzapine 10 Mg Vial) 10 mg IM BID PRN PRN Reason: if refuses antipsyc per court Allergies Allergies Allergy/AdvReac Type Severity Reaction Status Date / Time No Known Allergies Allergy Verified 01/26/22 23:05 Assessment & Plan Assessment & Plan (1) Schizophrenia: Status: Acute Code(s): F20.9 - Schizophrenia, unspecified Plan Mr. Hill is a 42 year-old male with hx of schizophrenia, recently discharged from on 02/27/22 more stable than when he was first admitted but still symptomatic, however, no evidence at the time of imminent risk of harm to self or others to petition for involuntary commitment. Pt apparently was not able to obtain clozaril from the pharmacy. He gradually decompensated to point of being found wondering on the streets, without shoes, blister on bilat feets, disorganized, combative, swing at police and staff at ED. Pt presents with persecutory delusions thinking he is brought here for crimes he has not commited such as being pedophile, pt reports thinking people are following him. PLAN 1. Admit to M3 on section 12, 15 minutes checks 2. restart clozaril 25mg po qhs. titrate daily by 25mg. 3. weekly ANC labs, Haldol 5mg po q6h prn agitation with ativan 1mg po q4h, prn anxiety. 4. Obtain collateral information 5. Aftercare planning. 03/15 pt continues to present as paranoid, disorganized, refuses clozaril. will petition court for involuntary tx as pt gravely disable. 03/16: touching peer and calling him pedophile. got haldol 10 and ativan 2 PO, did not sleep. total of 6 mg ativan today by mid-afternoon. 03/17/2022: Largely refusing medications however does accept PRNs at times. Did receive Haldol and Ativan yesterday. Questionable benefit. Will's have Ativan 2 mg as needed up to 4 times per day along with olanzapine 10 mg as needed up to 4 times per day. 03/18/2022: No medication changes. Refused clozaril yesterday. 03/19/2022: continue current plan. pending court hearing. 03/20 continue current tx. refuse clozaril again 03/21 continue to decline medication, disorganized agitated, threatening peers and staff at times to kill them. 03/22 court hearing- pt committed- now SECTION 8. Can't decline clozaril oral, otherwise will be given Olanzapine IM. 03/23 increase clozaril 50mg po qhs. Olanzapine back IM per court. 03/24 continue treatment plan; pt given zyprexa 10 mg IM and ativan 2 mg IM due to severe aggression towards staff and patients in common area; pt accepted IM admin without being held 03/25 continue current treatment plan; given zydis 10 mg PO prn for threat to kill staff and escalating aggression/distress 03/26 no med changes, pt continues with poor insight, continue on clozaril trial 03/27 continue to titrate clozaril daily by 25mg qd, as long as pt consistently taking clozaril 03/28 increase clozaril to 75mg po qhs- back up IM with Olanzapine. Will start standing dose of prolixin 5mg po BID with back up IM Olanzapine. 03/29- continue titration of clozaril, continue dose of prolixin. increase clozaril to 50mg po daily and 100mg po qhs. 03/30 increase proloxin 5mg po BID, continue titration of clozaril by 25mg/daily, aiming roughly at this time to reach dose of 200-250mg/daily. 03/31/22: Clozaril titration. Was increased to 50 mg daily and 100 mg at bedtime on 03/29/2022. Total target dose will be 200-250 mg. will increase this evening's dose to 125 mg id total daily dose 175 mg. 04/01- no changes 04/03 increase clozaril to 50mg po daily and 150mg po qhs. continue prolixin. 04/04: no change in mgmt 04/05 continue current medication regimen. 04/06 continue current medications. May give GAO of prolixin given that he may quickly stop meds after discharge. 04/07: continue current mgmt. 04/08: stable. continue current mgmt. 04/09 continue current tx. 04/10 start prolixin 25mg IM q2wks, continue oral meds. 04/11 continue current medications. 04/12 continue current medications. pending clozaril level. 04/13 pending clozaril levels but suspect may be less than 350mg/dl although close- increase clozaril to 50mg po daily and 175mg po qhs. 04/16/2022 continue current medications. next prolixin 25mg IM q 2wks, on 04/24, plan to d/c on that day. 04/17 continue current medications. 04/18 continue current medications. I spent minutes with the patient and/or on the patient floor today, greater than?50% of which was spent counseling/coordinating care. Reason for contiued inpatient stay Substantial Risk for: inability to function
[2022-04-18 18:00] VITALS: BP 117/80; PULSE 83; RESP 16; TEMP 36.4; O2SAT 96
[2022-04-18] MEDS: cloZAPine 100 MG TABLET 200 MG PO (21:36)
[2022-04-19 07:00] VITALS: BMI 25.6
[2022-04-19 08:00] VITALS: BP 129/80; PULSE 111; TEMP 36.2; O2SAT 100
[2022-04-19] MEDS: cloZAPine 25 MG TABLET 50 MG PO (08:56)
[2022-04-19] MEDS: fluPHENAZine HCl 5 MG TABLET PO ×2 (08:56→21:54)
[2022-04-19] MEDS: LORazepam 1 MG TABLET PO ×2 (08:56→21:54)
--- NOTE | 2022-04-19 09:11 | HO.PSYCHPN ---
Subjective Subjective Date of Service: 04/19/22 Reason For Visit: Psychosis Subjective Notes: Section 8 Interim History: Pt looking to speak with this magnetic tape typewriter operator. He states I have good news, I am setting up appointments with providers with my clinical social worker. He denies SI/HI. He reports sleeping and eating well. Much less self dialoguing when pacing halls or on his own. No side effects with medications, much less suspicious and guarded. Medication Compliance: Yes Side effects from medications: No Attending Groups: Intermittent Review of Systems Review of Systems denies any complaints Yes Unobtainable due to mental condition and Unobtainable due to mental status Mental Status Exam Mental Status Exam Narrative: Appearance: casually groomed, improved hygiene, in NAD Behaviors: less guarded, less paranoid. Speech: clear, normal rate, rhythm/volume, spontaneous Psychomotor: no agitation or retardation, some pacing in taylor TP: linear, logical Mood: fine Affect: constricted, normo-intense, non-labile AH/VH: denies- some mild self dialoguing that may be his baseline. Delusions:much less paranoid but still thinks he was arrested and brought here because police where he lives has something against him. SI: none expressed HI: none expressed Insight/judgment: insight limited to mental illness, but in agreement with treatment Memory/cog: alert, oriented x 3, not situation, not formally assessed. Patient Appearance: Appropriate Patient Orientation: Person, Place, Time and Situation Level of Consciousness: Awake Patient Behavior: Hyperactive, Cooperative and Poor Eye Contact Mood Description: Blunted Affect Description: Appropriate Patient Cognition Impaired: No Ability to Follow Directions: Fair Speech Pattern: Impoverished Diagnostics Vital Signs (24Hr): BMI result Body Mass Index 25.6 Labs Labs: Laboratory Results - last 48 hr 04/20/22 08:24 Absolute Neuts (auto) 5.3 Medications Medications Current Medications Acetaminophen (Acetaminophen 325 Mg Tablet) 650 mg PO Q6H PRN PRN Reason: Headache/Pain Mild Scale (1-3) Last Admin: 03/17/22 04:33 Dose: 650 mg Al Hydroxide/Mg Hydroxide (Magnesium Hydrox/Alum Hydrox 30 Ml Oral.Susp) 30 ml PO Q6H PRN PRN Reason: Heartburn/Nausea Clonidine HCl (Clonidine Hcl 0.1 Mg Tablet) 0.1 mg PO TID PRN; Protocol PRN Reason: Anxiety Last Admin: 04/15/22 16:37 Dose: 0.1 mg Clozapine (Clozapine 25 Mg Tablet) 50 mg PO DAILY [facility] Last Admin: 04/20/22 08:48 Dose: 50 mg Clozapine (Clozapine 100 Mg Tablet) 200 mg PO BEDTIME [facility] Last Admin: 04/19/22 21:54 Dose: 200 mg Fluphenazine Decanoate (Fluphenazine Decanoate 25 Mg/Ml 5 Ml Vial) 25 mg IM Q14D@0900 [facility] Last Admin: 04/10/22 13:23 Dose: 25 mg Fluphenazine HCl (Fluphenazine Hcl 5 Mg Tablet) 5 mg PO BID [facility] Last Admin: 04/20/22 08:49 Dose: 5 mg Hydroxyzine HCl (Hydroxyzine Hcl 25 Mg Tablet) 25 mg PO Q6H PRN PRN Reason: Anxiety Last Admin: 04/15/22 19:15 Dose: 25 mg Lorazepam (Lorazepam 1 Mg Tablet) 1 mg PO BID [facility] Last Admin: 04/20/22 08:49 Dose: 1 mg Lorazepam (Lorazepam 1 Mg Tablet) 1 mg PO Q6H PRN PRN Reason: anxiety Magnesium Hydroxide (Milk Of Magnesia 30 Ml Oral.Susp) 30 ml PO DAILY PRN PRN Reason: Constipation Olanzapine (Olanzapine Odt 10 Mg Tab.Rapdis) 10 mg TRANSLINGU TID PRN PRN Reason: Psychosis Last Admin: 03/28/22 15:41 Dose: 10 mg Olanzapine (Olanzapine 10 Mg Vial) 10 mg IM BID PRN PRN Reason: if refuses antipsyc per court Allergies Allergies Allergy/AdvReac Type Severity Reaction Status Date / Time No Known Allergies Allergy Verified 01/26/22 23:05 Assessment & Plan Assessment & Plan (1) Schizophrenia: Status: Acute Code(s): F20.9 - Schizophrenia, unspecified Plan Mr. Hill is a 42 year-old male with hx of schizophrenia, recently discharged from on 02/27/22 more stable than when he was first admitted but still symptomatic, however, no evidence at the time of imminent risk of harm to self or others to petition for involuntary commitment. Pt apparently was not able to obtain clozaril from the pharmacy. He gradually decompensated to point of being found wondering on the streets, without shoes, blister on bilat feets, disorganized, combative, swing at police and staff at ED. Pt presents with persecutory delusions thinking he is brought here for crimes he has not commited such as being pedophile, pt reports thinking people are following him. PLAN 1. Admit to M3 on section 12, 15 minutes checks 2. restart clozaril 25mg po qhs. titrate daily by 25mg. 3. weekly ANC labs, Haldol 5mg po q6h prn agitation with ativan 1mg po q4h, prn anxiety. 4. Obtain collateral information 5. Aftercare planning. 03/15 pt continues to present as paranoid, disorganized, refuses clozaril. will petition court for involuntary tx as pt gravely disable. 03/16: touching peer and calling him pedophile. got haldol 10 and ativan 2 PO, did not sleep. total of 6 mg ativan today by mid-afternoon. 03/17/2022: Largely refusing medications however does accept PRNs at times. Did receive Haldol and Ativan yesterday. Questionable benefit. Will's have Ativan 2 mg as needed up to 4 times per day along with olanzapine 10 mg as needed up to 4 times per day. 03/18/2022: No medication changes. Refused clozaril yesterday. 03/19/2022: continue current plan. pending court hearing. 03/20 continue current tx. refuse clozaril again 03/21 continue to decline medication, disorganized agitated, threatening peers and staff at times to kill them. 03/22 court hearing- pt committed- now SECTION 8. Can't decline clozaril oral, otherwise will be given Olanzapine IM. 03/23 increase clozaril 50mg po qhs. Olanzapine back IM per court. 03/24 continue treatment plan; pt given zyprexa 10 mg IM and ativan 2 mg IM due to severe aggression towards staff and patients in common area; pt accepted IM admin without being held 03/25 continue current treatment plan; given zydis 10 mg PO prn for threat to kill staff and escalating aggression/distress 03/26 no med changes, pt continues with poor insight, continue on clozaril trial 03/27 continue to titrate clozaril daily by 25mg qd, as long as pt consistently taking clozaril 03/28 increase clozaril to 75mg po qhs- back up IM with Olanzapine. Will start standing dose of prolixin 5mg po BID with back up IM Olanzapine. 03/29- continue titration of clozaril, continue dose of prolixin. increase clozaril to 50mg po daily and 100mg po qhs. 03/30 increase proloxin 5mg po BID, continue titration of clozaril by 25mg/daily, aiming roughly at this time to reach dose of 200-250mg/daily. 03/31/22: Clozaril titration. Was increased to 50 mg daily and 100 mg at bedtime on 03/29/2022. Total target dose will be 200-250 mg. will increase this evening's dose to 125 mg id total daily dose 175 mg. 04/01- no changes 04/03 increase clozaril to 50mg po daily and 150mg po qhs. continue prolixin. 04/04: no change in mgmt 04/05 continue current medication regimen. 04/06 continue current medications. May give GAO of prolixin given that he may quickly stop meds after discharge. 04/07: continue current mgmt. 04/08: stable. continue current mgmt. 04/09 continue current tx. 04/10 start prolixin 25mg IM q2wks, continue oral meds. 04/11 continue current medications. 04/12 continue current medications. pending clozaril level. 04/13 pending clozaril levels but suspect may be less than 350mg/dl although close- increase clozaril to 50mg po daily and 175mg po qhs. 04/16/2022 continue current medications. next prolixin 25mg IM q 2wks, on 04/24, plan to d/c on that day. 04/17 continue current medications. 04/18 continue current medications. 04/19 continue current treatment. I spent minutes with the patient and/or on the patient floor today, greater than?50% of which was spent counseling/coordinating care. Reason for contiued inpatient stay Substantial Risk for: inability to function
[2022-04-19] MEDS: cloZAPine 100 MG TABLET 200 MG PO (21:54)
[2022-04-20] MEDS: cloZAPine 25 MG TABLET 50 MG PO (08:48)
[2022-04-20] MEDS: fluPHENAZine HCl 5 MG TABLET PO ×2 (08:49→21:56)
[2022-04-20] MEDS: LORazepam 1 MG TABLET PO ×2 (08:49→21:56)
[2022-04-20 08:59] LABS: Neut%MD 60.2 %; Neutrophils Absolute Auto 5.3 x10*3/uL (2.0-8.3); WBCANC 8.8 X10*3/uL
[2022-04-20 09:00] VITALS: BP 136/89; PULSE 108; RESP 16; TEMP 36.6; O2SAT 100
--- NOTE | 2022-04-20 10:50 | P.PNPSI_ITS ---
Subjective Subjective Date of Service: 04/20/22 Reason For Visit: Psychosis Subjective Notes: Section 8 Interim History: Pt continues to report that he is doing well. He reports sleeping and eating well. He reports relying less on PRN med. He reports looking forward for discharge on Saturday. Appropriate questions about discharge, aftercare plans. No behavioral concerns. No overt paranoia, some very sporadic self dialoguing. Pt pleasant, much less guarded or suspicious. Medication Compliance: Yes Side effects from medications: No Review of Systems Review of Systems denies any complaints Yes Unobtainable due to mental condition and Unobtainable due to mental status Mental Status Exam Mental Status Exam Narrative: Appearance: casually groomed, improved hygiene, in NAD Behaviors: less guarded, less paranoid. Speech: clear, normal rate, rhythm/volume, spontaneous Psychomotor: no agitation or retardation, some pacing in taylor TP: linear, logical Mood: fine Affect: constricted, normo-intense, non-labile AH/VH: denies- some mild self dialoguing that may be his baseline. Delusions:much less paranoid but still thinks he was arrested and brought here because police where he lives has something against him. SI: none expressed HI: none expressed Insight/judgment: insight limited to mental illness, but in agreement with treatment Memory/cog: alert, oriented x 3, not situation, not formally assessed. Diagnostics Vital Signs (24Hr): Vital Signs - 24 hr 04/22/22 09:00 Temperature 97.1 F Pulse Rate 108 H Respiratory Rate 16 Blood Pressure 131/86 Pulse Oximetry 99 Oxygen Delivery Method Room Air BMI result Body Mass Index 25.6 Medications Medications Current Medications Acetaminophen (Acetaminophen 325 Mg Tablet) 650 mg PO Q6H PRN PRN Reason: Headache/Pain Mild Scale (1-3) Last Admin: 03/17/22 04:33 Dose: 650 mg Al Hydroxide/Mg Hydroxide (Magnesium Hydrox/Alum Hydrox 30 Ml Oral.Susp) 30 ml PO Q6H PRN PRN Reason: Heartburn/Nausea Clonidine HCl (Clonidine Hcl 0.1 Mg Tablet) 0.1 mg PO TID PRN; Protocol PRN Reason: Anxiety Last Admin: 04/15/22 16:37 Dose: 0.1 mg Clozapine (Clozapine 25 Mg Tablet) 50 mg PO DAILY [facility] Last Admin: 04/22/22 09:22 Dose: 50 mg Clozapine (Clozapine 100 Mg Tablet) 200 mg PO BEDTIME [facility] Last Admin: 04/22/22 21:41 Dose: 200 mg Fluphenazine Decanoate (Fluphenazine Decanoate 25 Mg/Ml 5 Ml Vial) 25 mg IM Q14D@0900 [facility] Last Admin: 04/10/22 13:23 Dose: 25 mg Fluphenazine HCl (Fluphenazine Hcl 5 Mg Tablet) 5 mg PO BID [facility] Last Admin: 04/22/22 21:41 Dose: 5 mg Hydroxyzine HCl (Hydroxyzine Hcl 25 Mg Tablet) 25 mg PO Q6H PRN PRN Reason: Anxiety Last Admin: 04/15/22 19:15 Dose: 25 mg Lorazepam (Lorazepam 1 Mg Tablet) 1 mg PO BID [facility] Last Admin: 04/22/22 21:41 Dose: 1 mg Magnesium Hydroxide (Milk Of Magnesia 30 Ml Oral.Susp) 30 ml PO DAILY PRN PRN Reason: Constipation Olanzapine (Olanzapine Odt 10 Mg Tab.Rapdis) 10 mg TRANSLINGU TID PRN PRN Reason: Psychosis Last Admin: 03/28/22 15:41 Dose: 10 mg Olanzapine (Olanzapine 10 Mg Vial) 10 mg IM BID PRN PRN Reason: if refuses antipsyc per court Allergies Allergies Allergy/AdvReac Type Severity Reaction Status Date / Time No Known Allergies Allergy Verified 01/26/22 23:05 Assessment & Plan Assessment & Plan (1) Schizophrenia: Status: Acute Code(s): F20.9 - Schizophrenia, unspecified Plan Mr. Hill is a 42 year-old male with hx of schizophrenia, recently discharged from on 02/27/22 more stable than when he was first admitted but still symptomatic, however, no evidence at the time of imminent risk of harm to self or others to petition for involuntary commitment. Pt apparently was not able to obtain clozaril from the pharmacy. He gradually decompensated to point of being found wondering on the streets, without shoes, blister on bilat feets, disorganized, combative, swing at police and staff at ED. Pt presents with persecutory delusions thinking he is brought here for crimes he has not commited such as being pedophile, pt reports thinking people are following him. PLAN 1. Admit to on section 12, 15 minutes checks 2. restart clozaril 25mg po qhs. titrate daily by 25mg. 3. weekly ANC labs, Haldol 5mg po q6h prn agitation with ativan 1mg po q4h, prn anxiety. 4. Obtain collateral information 5. Aftercare planning. 03/15 pt continues to present as paranoid, disorganized, refuses clozaril. will petition court for involuntary tx as pt gravely disable. 03/16: touching peer and calling him pedophile. got haldol 10 and ativan 2 PO, did not sleep. total of 6 mg ativan today by mid-afternoon. 03/17/2022: Largely refusing medications however does accept PRNs at times. Did receive Haldol and Ativan yesterday. Questionable benefit. Will's have Ativan 2 mg as needed up to 4 times per day along with olanzapine 10 mg as needed up to 4 times per day. 03/18/2022: No medication changes. Refused clozaril yesterday. 03/19/2022: continue current plan. pending court hearing. 03/20 continue current tx. refuse clozaril again 03/21 continue to decline medication, disorganized agitated, threatening peers and staff at times to kill them. 03/22 court hearing- pt committed- now SECTION 8. Can't decline clozaril oral, otherwise will be given Olanzapine IM. 03/23 increase clozaril 50mg po qhs. Olanzapine back IM per court. 03/24 continue treatment plan; pt given zyprexa 10 mg IM and ativan 2 mg IM due to severe aggression towards staff and patients in common area; pt accepted IM admin without being held 03/25 continue current treatment plan; given zydis 10 mg PO prn for threat to kill staff and escalating aggression/distress 03/26 no med changes, pt continues with poor insight, continue on clozaril trial 03/27 continue to titrate clozaril daily by 25mg qd, as long as pt consistently taking clozaril 03/28 increase clozaril to 75mg po qhs- back up IM with Olanzapine. Will start standing dose of prolixin 5mg po BID with back up IM Olanzapine. 03/29- continue titration of clozaril, continue dose of prolixin. increase clozaril to 50mg po daily and 100mg po qhs. 03/30 increase proloxin 5mg po BID, continue titration of clozaril by 25mg/daily, aiming roughly at this time to reach dose of 200-250mg/daily. 03/31/22: Clozaril titration. Was increased to 50 mg daily and 100 mg at bedtime on 03/29/2022. Total target dose will be 200-250 mg. will increase this evening's dose to 125 mg id total daily dose 175 mg. 04/01- no changes 04/03 increase clozaril to 50mg po daily and 150mg po qhs. continue prolixin. 04/04: no change in mgmt 04/05 continue current medication regimen. 04/06 continue current medications. May give GAO of prolixin given that he may quickly stop meds after discharge. 04/07: continue current mgmt. 04/08: stable. continue current mgmt. 04/09 continue current tx. 04/10 start prolixin 25mg IM q2wks, continue oral meds. 04/11 continue current medications. 04/12 continue current medications. pending clozaril level. 04/13 pending clozaril levels but suspect may be less than 350mg/dl although close- increase clozaril to 50mg po daily and 175mg po qhs. 04/16/2022 continue current medications. next prolixin 25mg IM q 2wks, on 04/24, plan to d/c on that day. 04/17 continue current medications. 04/18 continue current medications. 04/19 continue current treatment. 04/20 continue current medications. Next Prolixin o25mg IM on 04/24. I spent minutes with the patient and/or on the patient floor today, greater than?50% of which was spent counseling/coordinating care. Reason for contiued inpatient stay Substantial Risk for: inability to function
[2022-04-20] MEDS: cloZAPine 100 MG TABLET 200 MG PO (21:56)
[2022-04-21] MEDS: LORazepam 1 MG TABLET PO ×2 (08:53→22:05)
[2022-04-21] MEDS: fluPHENAZine HCl 5 MG TABLET PO ×2 (08:53→22:06)
[2022-04-21] MEDS: cloZAPine 25 MG TABLET 50 MG PO (08:53)
[2022-04-21 09:30] VITALS: BP 128/82; PULSE 109; RESP 16; TEMP 36.6; O2SAT 100
--- NOTE | 2022-04-21 10:53 | P.PNPSI_ITS ---
Subjective Subjective Date of Service: 04/21/22 Reason For Visit: Psychosis Subjective Notes: Section 8 Interim History: Per nursing, pt is sleeping and eating well. He is increasingly more visible on the unit, social with select peers. No aggression towards self or others. he reports he is doing well, can't wait for discharge on Saturday. 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 he is on board about continuing GAO prolixin and clozaril, wants to make sure he has all his meds, although he also reports he didn't need to be in hospital. Medication Compliance: Yes Side effects from medications: No Attending Groups: Intermittent Review of Systems Review of Systems denies any complaints Yes Unobtainable due to mental condition and Unobtainable due to mental status Mental Status Exam Mental Status Exam Narrative: Appearance: casually groomed, improved hygiene, in NAD Behaviors: less guarded, less paranoid. Speech: clear, normal rate, rhythm/volume, spontaneous Psychomotor: no agitation or retardation, some pacing in taylor TP: linear, logical Mood: fine Affect: constricted, normo-intense, non-labile AH/VH: denies- some mild self dialoguing that may be his baseline. Delusions:much less paranoid but still thinks he was arrested and brought here because police where he lives has something against him. SI: none expressed HI: none expressed Insight/judgment: insight limited to mental illness, but in agreement with treatment Memory/cog: alert, oriented x 3, not situation, not formally assessed. Diagnostics Vital Signs (24Hr): Vital Signs - 24 hr 04/22/22 09:00 Temperature 97.1 F Pulse Rate 108 H Respiratory Rate 16 Blood Pressure 131/86 Pulse Oximetry 99 Oxygen Delivery Method Room Air BMI result Body Mass Index 25.6 Medications Medications Current Medications Acetaminophen (Acetaminophen 325 Mg Tablet) 650 mg PO Q6H PRN PRN Reason: Headache/Pain Mild Scale (1-3) Last Admin: 03/17/22 04:33 Dose: 650 mg Al Hydroxide/Mg Hydroxide (Magnesium Hydrox/Alum Hydrox 30 Ml Oral.Susp) 30 ml PO Q6H PRN PRN Reason: Heartburn/Nausea Clonidine HCl (Clonidine Hcl 0.1 Mg Tablet) 0.1 mg PO TID PRN; Protocol PRN Reason: Anxiety Last Admin: 04/15/22 16:37 Dose: 0.1 mg Clozapine (Clozapine 25 Mg Tablet) 50 mg PO DAILY [facility] Last Admin: 04/22/22 09:22 Dose: 50 mg Clozapine (Clozapine 100 Mg Tablet) 200 mg PO BEDTIME [facility] Last Admin: 04/22/22 21:41 Dose: 200 mg Fluphenazine Decanoate (Fluphenazine Decanoate 25 Mg/Ml 5 Ml Vial) 25 mg IM Q14D@0900 [facility] Last Admin: 04/10/22 13:23 Dose: 25 mg Fluphenazine HCl (Fluphenazine Hcl 5 Mg Tablet) 5 mg PO BID [facility] Last Admin: 04/22/22 21:41 Dose: 5 mg Hydroxyzine HCl (Hydroxyzine Hcl 25 Mg Tablet) 25 mg PO Q6H PRN PRN Reason: Anxiety Last Admin: 04/15/22 19:15 Dose: 25 mg Lorazepam (Lorazepam 1 Mg Tablet) 1 mg PO BID [facility] Last Admin: 04/22/22 21:41 Dose: 1 mg Magnesium Hydroxide (Milk Of Magnesia 30 Ml Oral.Susp) 30 ml PO DAILY PRN PRN Reason: Constipation Olanzapine (Olanzapine Odt 10 Mg Tab.Rapdis) 10 mg TRANSLINGU TID PRN PRN Reason: Psychosis Last Admin: 03/28/22 15:41 Dose: 10 mg Olanzapine (Olanzapine 10 Mg Vial) 10 mg IM BID PRN PRN Reason: if refuses antipsyc per court Allergies Allergies Allergy/AdvReac Type Severity Reaction Status Date / Time No Known Allergies Allergy Verified 01/26/22 23:05 Assessment & Plan Assessment & Plan (1) Schizophrenia: Status: Acute Code(s): F20.9 - Schizophrenia, unspecified Plan Mr. Hill is a 42 year-old male with hx of schizophrenia, recently discharged from on 02/27/22 more stable than when he was first admitted but still symptomatic, however, no evidence at the time of imminent risk of harm to self or others to petition for involuntary commitment. Pt apparently was not able to obtain clozaril from the pharmacy. He gradually decompensated to point of being found wondering on the streets, without shoes, blister on bilat feets, disorganized, combative, swing at police and staff at ED. Pt presents with persecutory delusions thinking he is brought here for crimes he has not commited such as being pedophile, pt reports thinking people are following him. PLAN 1. Admit to M3 on section 12, 15 minutes checks 2. restart clozaril 25mg po qhs. titrate daily by 25mg. 3. weekly ANC labs, Haldol 5mg po q6h prn agitation with ativan 1mg po q4h, prn anxiety. 4. Obtain collateral information 5. Aftercare planning. 03/15 pt continues to present as paranoid, disorganized, refuses clozaril. will petition court for involuntary tx as pt gravely disable. 03/16: touching peer and calling him pedophile. got haldol 10 and ativan 2 PO, did not sleep. total of 6 mg ativan today by mid-afternoon. 03/17/2022: Largely refusing medications however does accept PRNs at times. Did receive Haldol and Ativan yesterday. Questionable benefit. Will's have Ativan 2 mg as needed up to 4 times per day along with olanzapine 10 mg as needed up to 4 times per day. 03/18/2022: No medication changes. Refused clozaril yesterday. 03/19/2022: continue current plan. pending court hearing. 03/20 continue current tx. refuse clozaril again 03/21 continue to decline medication, disorganized agitated, threatening peers and staff at times to kill them. 03/22 court hearing- pt committed- now SECTION 8. Can't decline clozaril oral, otherwise will be given Olanzapine IM. 03/23 increase clozaril 50mg po qhs. Olanzapine back IM per court. 03/24 continue treatment plan; pt given zyprexa 10 mg IM and ativan 2 mg IM due to severe aggression towards staff and patients in common area; pt accepted IM admin without being held 03/25 continue current treatment plan; given zydis 10 mg PO prn for threat to kill staff and escalating aggression/distress 03/26 no med changes, pt continues with poor insight, continue on clozaril trial 03/27 continue to titrate clozaril daily by 25mg qd, as long as pt consistently taking clozaril 03/28 increase clozaril to 75mg po qhs- back up IM with Olanzapine. Will start standing dose of prolixin 5mg po BID with back up IM Olanzapine. 03/29- continue titration of clozaril, continue dose of prolixin. increase clozaril to 50mg po daily and 100mg po qhs. 03/30 increase proloxin 5mg po BID, continue titration of clozaril by 25mg/daily, aiming roughly at this time to reach dose of 200-250mg/daily. 03/31/22: Clozaril titration. Was increased to 50 mg daily and 100 mg at bedtime on 03/29/2022. Total target dose will be 200-250 mg. will increase this evening's dose to 125 mg id total daily dose 175 mg. 04/01- no changes 04/03 increase clozaril to 50mg po daily and 150mg po qhs. continue prolixin. 04/04: no change in mgmt 04/05 continue current medication regimen. 04/06 continue current medications. May give GAO of prolixin given that he may quickly stop meds after discharge. 04/07: continue current mgmt. 04/08: stable. continue current mgmt. 04/09 continue current tx. 04/10 start prolixin 25mg IM q2wks, continue oral meds. 04/11 continue current medications. 04/12 continue current medications. pending clozaril level. 04/13 pending clozaril levels but suspect may be less than 350mg/dl although close- increase clozaril to 50mg po daily and 175mg po qhs. 04/16/2022 continue current medications. next prolixin 25mg IM q 2wks, on 04/24, plan to d/c on that day. 04/17 continue current medications. 04/18 continue current medications. 04/19 continue current treatment. 04/20 continue current medications. Next Prolixin 25mg IM on 04/24. 04/21 continue current tx I spent minutes with the patient and/or on the patient floor today, greater than?50% of which was spent counseling/coordinating care. Reason for contiued inpatient stay Substantial Risk for: stable for discharge
[2022-04-21] MEDS: cloZAPine 100 MG TABLET 200 MG PO (22:06)
[2022-04-22 09:00] VITALS: BP 131/86; PULSE 108; RESP 16; TEMP 36.2; O2SAT 99
[2022-04-22] MEDS: LORazepam 1 MG TABLET PO ×2 (09:22→21:41)
[2022-04-22] MEDS: cloZAPine 25 MG TABLET 50 MG PO (09:22)
[2022-04-22] MEDS: fluPHENAZine HCl 5 MG TABLET PO ×2 (09:22→21:41)
--- NOTE | 2022-04-22 10:28 | P.PNPSI_ITS ---
Subjective Subjective Date of Service: 04/22/22 Reason For Visit: Psychosis Subjective Notes: Section 8 Interim History: Pt pleasant no approach looking forward to d/c Saturday. Meds sent to pharmacy and father was able to pick them up. He is very appreciative about this. He denies SI/HI. No overt paranoia. Visible on the unit. Medication Compliance: Yes Side effects from medications: No Attending Groups: No Review of Systems Review of Systems denies any complaints Yes Unobtainable due to mental condition and Unobtainable due to mental status Mental Status Exam Mental Status Exam Narrative: Appearance: casually groomed, improved hygiene, in NAD Behaviors: less guarded, less paranoid. Speech: clear, normal rate, rhythm/volume, spontaneous Psychomotor: no agitation or retardation, some pacing in taylor TP: linear, logical Mood: fine Affect: constricted, normo-intense, non-labile AH/VH: denies- some mild self dialoguing that may be his baseline. Delusions:much less paranoid but still thinks he was arrested and brought here because police where he lives has something against him. SI: none expressed HI: none expressed Insight/judgment: insight limited to mental illness, but in agreement with treatment Memory/cog: alert, oriented x 3, not situation, not formally assessed. Diagnostics Vital Signs (24Hr): Vital Signs - 24 hr 04/22/22 09:00 Temperature 97.1 F Pulse Rate 108 H Respiratory Rate 16 Blood Pressure 131/86 Pulse Oximetry 99 Oxygen Delivery Method Room Air BMI result Body Mass Index 25.6 Medications Medications Current Medications Acetaminophen (Acetaminophen 325 Mg Tablet) 650 mg PO Q6H PRN PRN Reason: Headache/Pain Mild Scale (1-3) Last Admin: 03/17/22 04:33 Dose: 650 mg Al Hydroxide/Mg Hydroxide (Magnesium Hydrox/Alum Hydrox 30 Ml Oral.Susp) 30 ml PO Q6H PRN PRN Reason: Heartburn/Nausea Clonidine HCl (Clonidine Hcl 0.1 Mg Tablet) 0.1 mg PO TID PRN; Protocol PRN Reason: Anxiety Last Admin: 04/15/22 16:37 Dose: 0.1 mg Clozapine (Clozapine 25 Mg Tablet) 50 mg PO DAILY [facility] Last Admin: 04/22/22 09:22 Dose: 50 mg Clozapine (Clozapine 100 Mg Tablet) 200 mg PO BEDTIME [facility] Last Admin: 04/22/22 21:41 Dose: 200 mg Fluphenazine Decanoate (Fluphenazine Decanoate 25 Mg/Ml 5 Ml Vial) 25 mg IM Q14D@0900 [facility] Last Admin: 04/10/22 13:23 Dose: 25 mg Fluphenazine HCl (Fluphenazine Hcl 5 Mg Tablet) 5 mg PO BID [facility] Last Admin: 04/22/22 21:41 Dose: 5 mg Hydroxyzine HCl (Hydroxyzine Hcl 25 Mg Tablet) 25 mg PO Q6H PRN PRN Reason: Anxiety Last Admin: 04/15/22 19:15 Dose: 25 mg Lorazepam (Lorazepam 1 Mg Tablet) 1 mg PO BID [facility] Last Admin: 04/22/22 21:41 Dose: 1 mg Magnesium Hydroxide (Milk Of Magnesia 30 Ml Oral.Susp) 30 ml PO DAILY PRN PRN Reason: Constipation Olanzapine (Olanzapine Odt 10 Mg Tab.Rapdis) 10 mg TRANSLINGU TID PRN PRN Reason: Psychosis Last Admin: 03/28/22 15:41 Dose: 10 mg Olanzapine (Olanzapine 10 Mg Vial) 10 mg IM BID PRN PRN Reason: if refuses antipsyc per court Allergies Allergies Allergy/AdvReac Type Severity Reaction Status Date / Time No Known Allergies Allergy Verified 01/26/22 23:05 Assessment & Plan Assessment & Plan (1) Schizophrenia: Status: Acute Code(s): F20.9 - Schizophrenia, unspecified Plan Mr. Hill is a 42 year-old male with hx of schizophrenia, recently discharged from on 02/27/22 more stable than when he was first admitted but still symptomatic, however, no evidence at the time of imminent risk of harm to self or others to petition for involuntary commitment. Pt apparently was not able to obtain clozaril from the pharmacy. He gradually decompensated to point of being found wondering on the streets, without shoes, blister on bilat feets, disorganized, combative, swing at police and staff at ED. Pt presents with persecutory delusions thinking he is brought here for crimes he has not commited such as being pedophile, pt reports thinking people are following him. PLAN 1. Admit to on section 12, 15 minutes checks 2. restart clozaril 25mg po qhs. titrate daily by 25mg. 3. weekly ANC labs, Haldol 5mg po q6h prn agitation with ativan 1mg po q4h, prn anxiety. 4. Obtain collateral information 5. Aftercare planning. 03/15 pt continues to present as paranoid, disorganized, refuses clozaril. will petition court for involuntary tx as pt gravely disable. 03/16: touching peer and calling him pedophile. got haldol 10 and ativan 2 PO, did not sleep. total of 6 mg ativan today by mid-afternoon. 03/17/2022: Largely refusing medications however does accept PRNs at times. Did receive Haldol and Ativan yesterday. Questionable benefit. Will's have Ativan 2 mg as needed up to 4 times per day along with olanzapine 10 mg as needed up to 4 times per day. 03/18/2022: No medication changes. Refused clozaril yesterday. 03/19/2022: continue current plan. pending court hearing. 03/20 continue current tx. refuse clozaril again 03/21 continue to decline medication, disorganized agitated, threatening peers and staff at times to kill them. 03/22 court hearing- pt committed- now SECTION 8. Can't decline clozaril oral, otherwise will be given Olanzapine IM. 03/23 increase clozaril 50mg po qhs. Olanzapine back IM per court. 03/24 continue treatment plan; pt given zyprexa 10 mg IM and ativan 2 mg IM due to severe aggression towards staff and patients in common area; pt accepted IM admin without being held 03/25 continue current treatment plan; given zydis 10 mg PO prn for threat to kill staff and escalating aggression/distress 03/26 no med changes, pt continues with poor insight, continue on clozaril trial 03/27 continue to titrate clozaril daily by 25mg qd, as long as pt consistently taking clozaril 03/28 increase clozaril to 75mg po qhs- back up IM with Olanzapine. Will start standing dose of prolixin 5mg po BID with back up IM Olanzapine. 03/29- continue titration of clozaril, continue dose of prolixin. increase clozaril to 50mg po daily and 100mg po qhs. 03/30 increase proloxin 5mg po BID, continue titration of clozaril by 25mg/daily, aiming roughly at this time to reach dose of 200-250mg/daily. 03/31/22: Clozaril titration. Was increased to 50 mg daily and 100 mg at bedtime on 03/29/2022. Total target dose will be 200-250 mg. will increase this evening's dose to 125 mg id total daily dose 175 mg. 04/01- no changes 04/03 increase clozaril to 50mg po daily and 150mg po qhs. continue prolixin. 04/04: no change in mgmt 04/05 continue current medication regimen. 04/06 continue current medications. May give GAO of prolixin given that he may quickly stop meds after discharge. 04/07: continue current mgmt. 04/08: stable. continue current mgmt. 04/09 continue current tx. 04/10 start prolixin 25mg IM q2wks, continue oral meds. 04/11 continue current medications. 04/12 continue current medications. pending clozaril level. 04/13 pending clozaril levels but suspect may be less than 350mg/dl although close- increase clozaril to 50mg po daily and 175mg po qhs. 04/16/2022 continue current medications. next prolixin 25mg IM q 2wks, on 04/24, plan to d/c on that day. 04/17 continue current medications. 04/18 continue current medications. 04/19 continue current treatment. 04/20 continue current medications. Next Prolixin 25mg IM on 04/24. 04/21 continue current tx 04/22 continue current tx- Next prolin 25 mg IM on 04/24 prior to d/c, meds sent to pharmacy and father already picked them up. I spent minutes with the patient and/or on the patient floor today, greater than?50% of which was spent counseling/coordinating care. Reason for contiued inpatient stay Substantial Risk for: stable for discharge
[2022-04-22] MEDS: cloZAPine 100 MG TABLET 200 MG PO (21:41)
[2022-04-23] MEDS: fluPHENAZine HCl 5 MG TABLET PO ×2 (09:03→22:05)
[2022-04-23] MEDS: cloZAPine 25 MG TABLET 50 MG PO (09:03)
[2022-04-23] MEDS: LORazepam 1 MG TABLET PO ×2 (09:03→22:04)
[2022-04-23 09:52] VITALS: BP 120/84; PULSE 95; TEMP 36.3; O2SAT 95
--- NOTE | 2022-04-23 16:15 | P.PNPSI_ITS ---
Subjective Subjective Date of Service: 04/23/22 Reason For Visit: Psychosis Interim History: calm, cooperative, pleasant. discharging tomorrow. no complaints or requests, no issues of concern. everything's good. per staff, brighter. good interactions with staff and peers. no anx/dep/SI/HI. +RIS. feling ready to go. D/C tomorrow at 11. Mental Status Exam Mental Status Exam Narrative: Appearance: casually groomed, improved hygiene, in NAD Behaviors: less guarded, less paranoid. Speech: clear, normal rate, rhythm/volume, spontaneous Psychomotor: no agitation or retardation, some pacing in taylor TP: linear, logical Mood: euthymic Affect: constricted, normo-intense, non-labile AH/VH: denies- some mild self dialoguing that may be his baseline. Delusions: none expressed SI: none expressed HI: none expressed Insight/judgment: insight limited to mental illness, but in agreement with treatment Memory/cog: alert, oriented x 3, not situation, not formally assessed. Diagnostics Vital Signs (24Hr): Vital Signs - 24 hr 04/23/22 09:52 Temperature 97.3 F Pulse Rate 95 Blood Pressure 120/84 Pulse Oximetry 95 Oxygen Delivery Method Room Air BMI result Body Mass Index 25.6 Medications Medications Current Medications Acetaminophen (Acetaminophen 325 Mg Tablet) 650 mg PO Q6H PRN PRN Reason: Headache/Pain Mild Scale (1-3) Last Admin: 03/17/22 04:33 Dose: 650 mg Al Hydroxide/Mg Hydroxide (Magnesium Hydrox/Alum Hydrox 30 Ml Oral.Susp) 30 ml PO Q6H PRN PRN Reason: Heartburn/Nausea Clonidine HCl (Clonidine Hcl 0.1 Mg Tablet) 0.1 mg PO TID PRN; Protocol PRN Reason: Anxiety Last Admin: 04/15/22 16:37 Dose: 0.1 mg Clozapine (Clozapine 25 Mg Tablet) 50 mg PO DAILY [facility] Last Admin: 04/23/22 09:03 Dose: 50 mg Clozapine (Clozapine 100 Mg Tablet) 200 mg PO BEDTIME [facility] Last Admin: 04/22/22 21:41 Dose: 200 mg Fluphenazine Decanoate (Fluphenazine Decanoate 25 Mg/Ml 5 Ml Vial) 25 mg IM Q14D@0900 [facility] Last Admin: 04/10/22 13:23 Dose: 25 mg Fluphenazine Decanoate (Fluphenazine Decanoate 25 Mg/Ml 5 Ml Vial) 25 mg IM ONCE ONE Stop: 04/24/22 09:01 Fluphenazine HCl (Fluphenazine Hcl 5 Mg Tablet) 5 mg PO BID [facility] Last Admin: 04/23/22 09:03 Dose: 5 mg Hydroxyzine HCl (Hydroxyzine Hcl 25 Mg Tablet) 25 mg PO Q6H PRN PRN Reason: Anxiety Last Admin: 04/15/22 19:15 Dose: 25 mg Lorazepam (Lorazepam 1 Mg Tablet) 1 mg PO BID [facility] Last Admin: 04/23/22 09:03 Dose: 1 mg Magnesium Hydroxide (Milk Of Magnesia 30 Ml Oral.Susp) 30 ml PO DAILY PRN PRN Reason: Constipation Olanzapine (Olanzapine Odt 10 Mg Tab.Rapdis) 10 mg TRANSLINGU TID PRN PRN Reason: Psychosis Last Admin: 03/28/22 15:41 Dose: 10 mg Olanzapine (Olanzapine 10 Mg Vial) 10 mg IM BID PRN PRN Reason: if refuses antipsyc per court Allergies Allergies Allergy/AdvReac Type Severity Reaction Status Date / Time No Known Allergies Allergy Verified 01/26/22 23:05 Assessment & Plan Assessment & Plan (1) Schizophrenia: Status: Acute Code(s): F20.9 - Schizophrenia, unspecified Plan Mr. Hill is a 42 year-old male with hx of schizophrenia, recently discharged from on 02/27/22 more stable than when he was first admitted but still symptomatic, however, no evidence at the time of imminent risk of harm to self or others to petition for involuntary commitment. Pt apparently was not able to obtain clozaril from the pharmacy. He gradually decompensated to point of being found wondering on the streets, without shoes, blister on bilat feets, disorganized, combative, swing at police and staff at ED. Pt presents with persecutory delusions thinking he is brought here for crimes he has not commited such as being pedophile, pt reports thinking people are following him. PLAN 1. Admit to on section 12, 15 minutes checks 2. restart clozaril 25mg po qhs. titrate daily by 25mg. 3. weekly ANC labs, Haldol 5mg po q6h prn agitation with ativan 1mg po q4h, prn anxiety. 4. Obtain collateral information 5. Aftercare planning. 03/15 pt continues to present as paranoid, disorganized, refuses clozaril. will petition court for involuntary tx as pt gravely disable. 03/16: touching peer and calling him pedophile. got haldol 10 and ativan 2 PO, did not sleep. total of 6 mg ativan today by mid-afternoon. 03/17/2022: Largely refusing medications however does accept PRNs at times. Did receive Haldol and Ativan yesterday. Questionable benefit. Will's have Ativan 2 mg as needed up to 4 times per day along with olanzapine 10 mg as needed up to 4 times per day. 03/18/2022: No medication changes. Refused clozaril yesterday. 03/19/2022: continue current plan. pending court hearing. 03/20 continue current tx. refuse clozaril again 03/21 continue to decline medication, disorganized agitated, threatening peers and staff at times to kill them. 03/22 court hearing- pt committed- now SECTION 8. Can't decline clozaril oral, otherwise will be given Olanzapine IM. 03/23 increase clozaril 50mg po qhs. Olanzapine back IM per court. 03/24 continue treatment plan; pt given zyprexa 10 mg IM and ativan 2 mg IM due to severe aggression towards staff and patients in common area; pt accepted IM admin without being held 03/25 continue current treatment plan; given zydis 10 mg PO prn for threat to kill staff and escalating aggression/distress 03/26 no med changes, pt continues with poor insight, continue on clozaril trial 03/27 continue to titrate clozaril daily by 25mg qd, as long as pt consistently taking clozaril 03/28 increase clozaril to 75mg po qhs- back up IM with Olanzapine. Will start standing dose of prolixin 5mg po BID with back up IM Olanzapine. 03/29- continue titration of clozaril, continue dose of prolixin. increase clozaril to 50mg po daily and 100mg po qhs. 03/30 increase proloxin 5mg po BID, continue titration of clozaril by 25mg/daily, aiming roughly at this time to reach dose of 200-250mg/daily. 03/31/22: Clozaril titration. Was increased to 50 mg daily and 100 mg at bedtime on 03/29/2022. Total target dose will be 200-250 mg. will increase this evening's dose to 125 mg id total daily dose 175 mg. 04/01- no changes 04/03 increase clozaril to 50mg po daily and 150mg po qhs. continue prolixin. 04/04: no change in mgmt 04/05 continue current medication regimen. 04/06 continue current medications. May give GAO of prolixin given that he may quickly stop meds after discharge. 04/07: continue current mgmt. 04/08: stable. continue current mgmt. 04/09 continue current tx. 04/10 start prolixin 25mg IM q2wks, continue oral meds. 04/11 continue current medications. 04/12 continue current medications. pending clozaril level. 04/13 pending clozaril levels but suspect may be less than 350mg/dl although ivy se- increase clozaril to 50mg po daily and 175mg po qhs. 04/16/2022 continue current medications. next prolixin 25mg IM q 2wks, on 04/24, plan to d/c on that day. 04/17 continue current medications. 04/18 continue current medications. 04/19 continue current treatment. 04/20 continue current medications. Next Prolixin 25mg IM on 04/24. 04/21 continue current tx 04/22 continue current tx- Next prolin 25 mg IM on 04/24 prior to d/c, meds sent to pharmacy and father already picked them up. 04/23: prolixin DEC ordered for tomorrow morning. discharge afterward to home. I spent ___25___ minutes with the patient and/or on the patient floor today, greater than?50% of which was spent counseling/coordinating care. Reason for contiued inpatient stay Substantial Risk for: inability to function and rapid decompensation
[2022-04-23 20:20] VITALS: BP 129/87; PULSE 105; RESP 16; TEMP 36.4; O2SAT 98
[2022-04-23] MEDS: cloZAPine 100 MG TABLET 200 MG PO (22:04)
--- NOTE | 2022-04-24 08:16 | P.DS_ITS ---
DS: Providers Provider Date of Service: 04/24/22 Date of admission: 03/13/22 20:49 Primary care physician: Unknown Physician Consults: 03/13/22 21:18 Consult to Hospitalist Routine Consulting Provider: Hospitalist Reason For Exam: new admit from [facility] DS: Diagnosis Discharge Diagnosis (1) Schizophrenia: Status: Acute DS: Medications Discharge Medications Home Medications: Previous Rx's Medication Instructions Recorded clozapine 100 mg tablet 200 mg PO BEDTIME #60 tabs 04/22/22 clozapine 50 mg tablet 50 mg PO DAILY #30 tabs 04/22/22 fluphenazine decanoate 25 mg/mL 25 mg IM Q14D@0900 #5 mL 04/22/22 injection solution lorazepam 1 mg tablet (Ativan) 1 mg PO BID PRN anxiety #60 tabs 04/22/22 Mental Status Exam Mental Status Exam Narrative: Appearance: casually groomed, improved hygiene, in NAD Behaviors: less guarded, less paranoid. Speech: clear, normal rate, rhythm/volume, spontaneous Psychomotor: no agitation or retardation, TP: linear, logical Mood: euthymic Affect: constricted, normo-intense, non-labile AH/VH: denies- some mild self dialoguing that may be his baseline. Delusions: none expressed SI: none expressed HI: none expressed Insight/judgment: insight limited to mental illness, but in agreement with treatment Memory/cog: alert, oriented x 3. Grossly intact to conversational testing but not formally assessed. Data Data Completed and Pending Completed studies during hospitalization [Text1]: 04/16/22 04/20/22 04/21/22 22:20 08:24 07:03 Absolute Neuts (auto) 5.3 POC Glucose 145 H Clozapine Pending Norclozapine Pending DS: Summary Hospital Course Hospital Course: Subjective Notes: Arellano Warning and Section 12B Narrative: Mr. Hill is a 42 year-old man with hx of schizophrenia, paranoid type. Pt recently discharged from on 02/27 after treatment for similar presentation. At time of discharge, although pt had shown some improvement, continued to experience persecutory delusions but behavior was not disordanized enough or dangerous enough to petition court for involuntary commitment. Pt apparerntly had difficulty obtaining rx of clozaril on discharge- this has not been verified as REM is update and medication should not have been withhold. Per pt's father, pt gradually presented as much more guarded and paranoid, refusing to talk with them about his psychiatric medications, as he stated he did not need them. Pt apparently has not been sleeping- as landlord reported to family that neighbors complaining that he is up all night, pacing, talking to himself. Father reports his apartment is in deplorable condition, and no signs of food. Pt has not showered, not change clothes and is malodurous. Per [facility] crisis note, pt was found patient wondering on the streets, agitated when he saw police and varnish dipper and swung at police. He was brought to [facility] ED, pt continued to present as combative requiring IM medication with Olanzapine for his and other people's safety. Per ED documentation pt reported I'm being arrested for being a pedophile, this is not mental health, I don't have any mental health problems. On the unit, pt seen pacing, talking to someone who is not there. His attention is very poor. He is anxious, fearful? He asks this casualty underwriter to call security. When asked why he wants to speak with security, pt declines to provide more information stating I just need to talk with them now, call them. Pt declined to answer any further questions related to admission process by walking away and continued to talk to someone who is not there. Past Psychiatric History: Inpatient: M3 d/c 02/27/22; prior admission in more than 10 years. OP: Gina Akins MD [place] Past trials: clozaril- stable on this medication for years Medical Evaluation Reviewed: Yes Labs completed from [facility] on 03/13/2022- reviewed by this casualty underwriter CBC wnl, ANC 8.04; CMP wnl. No EKG or Utox completed. HOSPITAL COURSE On the unit, Mr. Hill was admitted on a Section 12b. He was placed on 15 minutes checks. Pt presented as agitated, paranoid, declining medications. He reported he was in hospital because he was wrongly accused of being a pedophile. His speech was disorganized, unable to have logical, coherent conversation. Pt was pacing, self dialoguing. Pt was guarded and suspicious with staff and peers. He accused peers and staff of being pedophiles. He threatened others to harm them. Therefore, petition for involuntary psychiatric treatment was made and granted. Mr. Hill was started back on clozaril with back IM of Olanzapine per court order. He eventually agreed to take clozaril without need of IM. He was also started on GAO of prolixin mainly as pt continues to report that he did not need any medication and most likely will quickly stop it on discharge and also as clozaril may take more time to stabilize him. His affect gradually presented as much less agitated, less guarded and suspicious. Pt was not dialoguing as much. His speech was more organized and coherent. He denied suicidal or homicidal ideation. He was not accusing others. He was not intrusive. He was more visible and able to participate appropriately in some groups and in conversation with peers and staff. His insight into symptoms and need to continue psychiatric treatment has slightly improved but pt continues to report that he did not need inpatient level of care or medications as he was fine. His sleep and appetite are much improved. Collateral information gathered from parents who report pt appears in much improved condition and denied any safety concerns at time of discharge. Pt agrees to go to his parents house for 2 weeks prior to going back to his own apartment. Medications sent to pharmacy and picked up already. Status at Discharge Cognitive/behavioral status at discharge: Pt with much less paranoia, much less guarded. No SI/HI. Less AH. Speech is organized and coherent. Not intrusive. No signs of aggression towards self or others. Functional status at discharge: independent ambulation Overall status at discharge: patient is progressing back to baseline Time Spent with Patient Time attestation: Total time spent providing and/or coordinating discharge services: Discharge Plan Discharge Patient Disposition: Home Health Service Discharge Diagnosis: schizophrenia Referrals: Therapy & Psychiatry [Other] (Referral submitted. They will call you to provide your appointments, feel free to call the number above if you do not receive a call within a few days) [facility] [Physician] - 1 Week Discharge Medications: New fluphenazine decanoate 25 mg/mL Solution 25 mg IM Q14D@0900 Qty: 5 2RF clozapine 50 mg tablet 50 mg PO DAILY Qty: 30 0RF clozapine 100 mg tablet 200 mg PO BEDTIME Qty: 60 0RF lorazepam [Ativan] 1 mg tablet 1 mg PO BID PRN (Reason: anxiety) Qty: 60 0RF Discontinued trazodone 50 mg Tablet 50 mg PO BEDTIME PRN (Reason: Insomnia) Qty: 30 0RF clozapine 100 mg Tablet 200 mg PO BEDTIME Qty: 30 0RF Discharge Orders: Discharge Order (Routine); Ordered 04/24/22 Ordered By: Saima Bui Diet: Regular diet Activity on Discharge: As tolerated Stand Alone Forms: Patient Portal Discharge page Care Plan Goals: 1. Maintain mood 2. No SI/HI 3. No aggression towards self or others. 4. Less AH, less paranoia Health Concerns: Follow up with PCP Plan of Treatment: 1. Take medications as prescribed 2. Go to nearest ED or call 911 in event of emergency. Assessment: Pt with brighter, less suspicious affect. Brighter, non labile, although slightly constricted at baseline. No SI/HI. Less paranoid, less AH. No signs of aggression towards self or others.
[2022-04-24] MEDS: fluPHENAZine decanoate 25 MG/ML 5 ML VIAL IM (08:41)
[2022-04-24] MEDS: fluPHENAZine HCl 5 MG TABLET PO (08:42)
[2022-04-24] MEDS: cloZAPine 25 MG TABLET 50 MG PO (08:42)
[2022-04-24] MEDS: LORazepam 1 MG TABLET PO (08:42)
[2022-04-24 08:49] VITALS: BP 127/87; PULSE 112; RESP 17; TEMP 36.6; O2SAT 100
[2022-04-25 03:57] LABS: Clozapine (Clozaril) 370 mcg/L; Norclozapine 144 mcg/L (25-400)
== END 2022-04-24 10:57 | disposition home health service (06) | DRG 750 ==
PROVIDERS: Admitting Provider Psychiatry & Neurology Psychiatry; Visit Provider Social Worker
DX: F20.0 Paranoid schizophrenia (principal); Z91.14 Patient's other noncompliance with medication regimen; Z79.899 Other long term (current) drug therapy
CPT/HCPCS: 36415; 80159; 82947; 85048; 93005; J2060; J2680

== ENCOUNTER 2023-08-14 14:58 | Inpatient (IN) | payer OTHER, SELFPAY ==
[2023-08-14 15:21] VITALS: BMI 22.0
[2023-08-14 16:04] LABS: MANUAL DIFF FLAG NO
[2023-08-14 16:06] LABS: Basophils Absolute Auto 0.1 X10*3/uL (0.0-0.2); Basophils Percent Auto 0.8 % (0-2); Eosinophils Absolute Auto 0.3 X10*3/uL (0.0-0.4); Eosinophils Percent Auto 2.9 % (0-4); Hematocrit 45.4 % (42.0-52.0); Hemoglobin 15.5 g/dl (14.0-18.0); Imm Gran Abs Auto 0.05 X10*3/uL (0.00-0.03); Imm Gran Pct Auto 0.5 % (0.0-0.4); Lymphocytes Absolute Auto 1.6 X10*3/uL (1.2-4.9); Lymphocytes Percent Auto 16.5 % (20-40); Mean Corpuscular HGB Conc 34.1 g/dl (31.0-36.0); Mean Corpuscular Hemoglobin 29.8 pg (27.0-33.0); Mean Corpuscular Volume 87.3 fL (80.0-98.0); Mean Platelet Volume 10.5 fL (9.4-12.4); Monocytes Percent Auto 10.6 % (2-11); Neutrophils Absolute Auto 6.5 x10*3/uL (2.0-8.3); Neutrophils Percent Auto 68.7 % (45-73); Platelet Count 257 X10*3/uL (160-400); Red Cell Distribution Width 12.6 % (11.0-16.0); White Blood Count 9.5 X10*3/uL (4.8-10.8)
--- NOTE | 2023-08-14 16:18 | PC.ADMIT ---
Antwon is a 43-year-old male admitted from [place] ED to M3 on a CV for treatment of schizophrenia. Tox screen negative, skin check complete. Pt presented to ED secondary to increased decompensation and paranoia. Per crisis eval, pt's provider suspects that pt has been noncompliant with medications. Pt is on Clozaril 500mg and last received 400mg in [place] ED 08/13/23. During admission assessment, pt was easily distracted and had poor concentration. Pt was frequently pacing the hallway and was unable to participate in admission assessment but remained in behavioral control. Pt's affect is flat and he appears internally preoccupied. Pt is on 15 min safety checks.
[2023-08-14] MEDS: LORazepam 1 MG TABLET 2 MG PO (16:30)
--- NOTE | 2023-08-14 16:54 | PC.NURSE ---
Pt refused flu vaccine at this time
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
--- NOTE | 2023-08-14 20:44 | HO.PM.IMCN ---
History of Present Illness Data of Consult Service Date: 08/14/23 Primary Care Provider: SAMIRA Ibrahim HPI Reason for consult: Admission H&P Pt is a 43-year-old male with a PMH significant for?schizoprhrenia who is admitted to M3 psychiatry unit for increased decompensation and paranoia possibly secondary to medication noncompliance. Medical consult for admission H&P. Pt is unavailable for H&P. Labs reviewed, grossly unremarkable. Review of Systems Review of Systems: Pt unavailable for H&P [facility] Medical History (Updated 08/15/23 @ 02:20 by SAMIRA Bliss) History of schizophrenia Surgical History H/O hernia repair Social History Household Members: None Housing: Apartment Unable to assess alcohol history related to: Unknown Patient Tobacco Use Status: Never used Tobacco Use of substances other than those prescribed or required for medical reasons: No Have you been hit, kicked, punched, or otherwise hurt by someone within the past year? If so, by whom?: No Do you feel safe in your current relationship?: No Current Relationship Is there a partner from a previous relationship who is making you feel unsafe now?: No Advance Directives: No Advance Directives Information Provided: Yes Do you have thoughts of harming others: None Do you have a plan to hurt others: No Plan Recently lost weight without trying: No Nutrition Risks: No Nutritional Risk Poor oral hygiene: No service: No Sexual orientation: Did not discuss. Meds Allergies Allergy/AdvReac Type Severity Reaction Status Date / Time No Known Allergies Allergy Verified 01/26/22 23:05 Active Medications: Current Medications Acetaminophen (Acetaminophen 325 Mg Tablet) 650 mg PO Q6H PRN PRN Reason: Headache/Pain Mild Scale (1-3) Al Hydroxide/Mg Hydroxide (Magnesium Hydrox/Alum Hydrox 30 Ml Oral.Susp) 30 ml PO Q6H PRN PRN Reason: Heartburn/Nausea Benztropine Mesylate (Benztropine Mesylate 1 Mg Tablet) 1 mg PO BID GOLD Clozapine (Clozapine 100 Mg Tablet) 500 mg PO BEDTIME GOLD Haloperidol (Haloperidol 5 Mg Tablet) 5 mg PO Q4H PRN PRN Reason: agitation Hydroxyzine HCl (Hydroxyzine Hcl 25 Mg Tablet) 25 mg PO Q6H PRN PRN Reason: Anxiety Lorazepam (Lorazepam 1 Mg Tablet) 2 mg PO Q4H PRN PRN Reason: agitation Last Admin: 08/14/23 16:30 Dose: 2 mg Magnesium Hydroxide (Milk Of Magnesia 30 Ml Oral.Susp) 30 ml PO DAILY PRN PRN Reason: Constipation Nicotine (Nicotine 21 Mg Patch.Td24) 21 mg TRANSDERMA DAILY PRN PRN Reason: smoking cessation Nicotine Polacrilex (Nicotine Polacrilex 2 Mg Gum) 4 mg BUCCAL Q2H PRN PRN Reason: Nicotine Cravings Trazodone HCl (Trazodone Hcl 50 Mg Tablet) 50 mg PO BEDTIME MRX1 PRN PRN Reason: Insomnia Home Medications Medication Instructions Recorded Confirmed Last Taken Type benztropine 1 mg tablet 1 mg PO BID 08/14/23 08/14/23 Unknown History clozapine 100 mg tablet 500 mg PO BEDTIME 08/14/23 08/14/23 08/13/23 20:56 History 400 mg Physical Exam Vital Signs and Narrative: Vital Signs: BMI result Body Mass Index 22.0 Pt unavailable for H&P Results Labs 08/14/23 16:00 Labs: Laboratory Results - last 24 hr 08/14/23 16:00 MCV 87.3 MCH 29.8 MCHC 34.1 RDW 12.6 Plt Count 257 MPV 10.5 Immature Gran % (Auto) 0.5 H Neut % (Auto) 68.7 Lymph % (Auto) 16.5 L Jackson % (Auto) 10.6 Eos % (Auto) 2.9 Baso % (Auto) 0.8 Lymph # (Auto) 1.6 Jackson # (Auto) 1.0 Eos # (Auto) 0.3 Baso # (Auto) 0.1 Abs Immat Gran (auto) 0.05 H Absolute Neuts (auto) 6.5 Absolute Nucleated RBC 0.000 Nucleated RBC % (auto) 0.0 Assessment and Plan (1) Schizophrenia: Status: Acute (2) Medical clearance for psychiatric admission: Status: Acute Plan Pt is a 43-year-old male with a PMH significant for?schizoprhrenia who is admitted to psychiatry unit for increased decompensation and paranoia possibly secondary to medication noncompliance. Medical consult for admission H&P. Mood disorder Plan as per psychiatry Pt otherwise has no known chronic or acute complaints. Thank you for allowing us to participate in the care of this patient. Signing off at this time. Please let us know if there are any acute complaints or questions.
[2023-08-14] MEDS: cloZAPine 100 MG TABLET 500 MG PO (22:27)
[2023-08-14] MEDS: Benztropine Mesylate 1 MG TABLET PO (22:27)
[2023-08-14 22:28] VITALS: RESP 18
[2023-08-15 07:35] VITALS: BP 128/89; PULSE 106; RESP 18; TEMP 36.6; O2SAT 99
[2023-08-15] MEDS: Benztropine Mesylate 1 MG TABLET PO ×2 (09:14→21:23)
[2023-08-15] MEDS: LORazepam 1 MG TABLET 2 MG PO (15:58)
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
[2023-08-15 21:22] VITALS: RESP 18
[2023-08-15] MEDS: CLOZAPINE 475 MG PO (21:23)
--- NOTE | 2023-08-16 09:07 | HO.PSYCHPN ---
Subjective Subjective Date of Service: 08/16/23 Reason For Visit: psychosis Interim History: Met with patient; discussed with team pt more calm today and says he Feels pretty good today and of note he does seem more calm and is more able to engage in conversation. Asked about discharge and say's how's it looking, and whether or not we were able to get a hold of his outpatient team. Discussed his 3 day notice which he signed and the likelihood of him being discharged at that time. Also care home [facility] boardinghouse keeper communicated that he is welcome back. He denies any SI or HI; denies any AVH. [employer] Clerk asked about his arm movements which he said he thinks it is mostly just anxiety and not a medication side effect. He does not want any medications to address it. Patient said he appreciated music writer having lowered clozapine to 475 mg. Patient has outpatient psychiatric provider Dr. Akins called music writer and gave more history. She has been working with patient for the past 15 years. 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 About 3 years ago he moved to [place] and seemed to have stopped taking his medications. He decompensated, became psychotic and has never since return to his former baseline. While in [place], he had other providers who augmented clozapine with Haldol and for time, Risperdal however patient got significant akathisia/chorea from Haldol. Dr. Akins picked him back up, discontinued Haldol and eventually titrated clozapine to 500 mg though he still has not returned to former baseline. She reports that this past week she suspected he was cheeking his medications due to his behaviors which were increased paranoia, unable to tolerate conversation and running out of the room; clozapine level supported the suspicion... (normally clozapine/norclozapine at >300/400; most recent level showed 160). She wonders about adding Abilify to see if that could improve his baseline and not have the intolerable side effects of Haldol... They are working on a ZupCat. She agrees that he will likely be ready to return to care home next week. Mental Status Exam Mental Status Exam Narrative: Pt is alert and oriented; behavior is cooperative, more calm, less guarded; still making odd body movements but less, (possibly akathisia/chorea remanent from Haldol) patient is not in distress; dressed in casual attire, unkempt; mood is described as pretty good and affect more calm today; eye contact improved inappropriate; Speech is normal rate, volume and prosody and not pressured; no psychomotor agitation/retardation present; thought process goal directed, concrete; Thought content is on discharge, though does not talk much so not sure what other things crosses mind; that said no expressed paranoid delusional thinking; denies any SI/HI. Perhaps internally preoccupied Patients insight and judgment impaired but improved, likely near baseline and adequate. Diagnostics Vital Signs (24Hr): Vital Signs - 24 hr 08/15/23 21:22 Respiratory Rate 18 BMI result Body Mass Index 22.0 Labs 08/14/23 16:00 Labs: Laboratory Results - last 48 hr 08/14/23 16:00 WBC 9.5 RBC 5.20 Hgb 15.5 Hct 45.4 MCV 87.3 MCH 29.8 MCHC 34.1 RDW 12.6 Plt Count 257 MPV 10.5 Immature Gran % (Auto) 0.5 H Neut % (Auto) 68.7 Lymph % (Auto) 16.5 L [place] % (Auto) 10.6 Eos % (Auto) 2.9 Baso % (Auto) 0.8 Lymph # (Auto) 1.6 [place] # (Auto) 1.0 Eos # (Auto) 0.3 Baso # (Auto) 0.1 Abs Immat Gran (auto) 0.05 H Absolute Neuts (auto) 6.5 Absolute Nucleated RBC 0.000 Nucleated RBC % (auto) 0.0 Medications Medications Current Medications Acetaminophen (Acetaminophen 325 Mg Tablet) 650 mg PO Q6H PRN PRN Reason: Headache/Pain Mild Scale (1-3) Al Hydroxide/Mg Hydroxide (Magnesium Hydrox/Alum Hydrox 30 Ml Oral.Susp) 30 ml PO Q6H PRN PRN Reason: Heartburn/Nausea Albuterol Sulfate (Albuterol Sulfate 90 Mcg 8 Gm Inhaler) 2 puff INHALE Q2H PRN PRN Reason: Shortness of Breath Benztropine Mesylate (Benztropine Mesylate 1 Mg Tablet) 1 mg PO BID GOLD Last Admin: 08/15/23 21:23 Dose: 1 mg Clozapine 400 mg/ Clozapine 75 (mg) 475 mg PO BEDTIME GOLD Last Admin: 08/15/23 21:23 Dose: 475 mg Haloperidol (Haloperidol 5 Mg Tablet) 5 mg PO Q4H PRN PRN Reason: agitation Hydroxyzine HCl (Hydroxyzine Hcl 25 Mg Tablet) 25 mg PO Q6H PRN PRN Reason: Anxiety Lorazepam (Lorazepam 1 Mg Tablet) 2 mg PO Q4H PRN PRN Reason: agitation Last Admin: 08/15/23 15:58 Dose: 2 mg Magnesium Hydroxide (Milk Of Magnesia 30 Ml Oral.Susp) 30 ml PO DAILY PRN PRN Reason: Constipation Nicotine (Nicotine 21 Mg Patch.Td24) 21 mg TRANSDERMA DAILY PRN PRN Reason: smoking cessation Nicotine Polacrilex (Nicotine Polacrilex 2 Mg Gum) 4 mg BUCCAL Q2H PRN PRN Reason: Nicotine Cravings Trazodone HCl (Trazodone Hcl 50 Mg Tablet) 50 mg PO BEDTIME MRX1 PRN PRN Reason: Insomnia Allergies Allergies Allergy/AdvReac Type Severity Reaction Status Date / Time No Known Allergies Allergy Verified 01/26/22 23:05 Assessment & Plan Assessment & Plan (1) Schizophrenia: Status: Acute Code(s): F20.9 - Schizophrenia, unspecified Plan HPI: Mr. Hill is a 43-year-old male with history of schizophrenia/schizoaffective disorder on clozapine who presents after outpatient psychiatric provider Dr. Akins reported patient was declining, with disorganized speech and medication non adherence. On admission, patient is cooperative but guarded and with a odd behaviors and a somewhat limited historian as he is not able to tolerate talking much. Patient says he does not know why he was sent to the hospital; he reports that he was indeed taking his clozapine regularly and staff on the unit who know him, say he seems to appear at baseline. Patient said he did get riled up with staff at a meeting and thinks maybe that is the reason; he says he got riled up because he was dizzy on the ride over. Patient says he would like clozapine lowered, that 500 mg is too much because he can not think straight. He says he like to go down to 400 mg daily. Patient says he does not know if he was ever on clozapine doses ranging from 425 to 475 mg... Patient gives music writer verbal permission to call his staff and discussed case with them; he mentions [facility] where he lives. Hospital course: 08/16 pt more calm today and says he Feels pretty good today and of note he does seem more calm and is more able to engage in conversation. Asked about discharge and say's how's it looking, and whether or not we were able to get a hold of his outpatient team. Discussed his 3 day notice which he signed and the likelihood of him being discharged at that time. Also care home [facility] [address] [place], [place] [address]boardinghouse keeper communicated that he is welcome back. He denies any SI or HI; denies any AVH. C[employer] Clerk asked about his arm movements which he said he thinks it is mostly just anxiety and not a medication side effect. He does not want any medications to address it. Patient said he appreciated music writer having lowered clozapine to 475 mg. Collateral: Patient has outpatient psychiatric provider Dr. Akins called music writer and gave more history. She has been working with patient for the past 15 years. 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 About 3 years ago he moved to [place] and seemed to have stopped taking his medications. He decompensated, became psychotic and has never since return to his former baseline. While in [place], he had other providers who augmented clozapine with Haldol and for time, Risperdal however patient got significant akathisia/chorea from Haldol. Dr. Akins picked him back up, discontinued Haldol and eventually titrated clozapine to 500 mg though he still has not returned to former baseline. She reports that this past week she suspected he was cheeking his medications due to his behaviors which were increased paranoia, unable to tolerate conversation and running out of the room; clozapine level supported the suspicion... (normally clozapine/norclozapine at >300/400; most recent level showed 160). She wonders about adding Abilify to see if that could improve his baseline and not have the intolerable side effects of Haldol... They are working on a Z[employer]. She agrees that he will likely be ready to return to care home next week. Plan: 3 day notice Q 15 minute checks -Will continue clozapine but lowered to 475 mg daily to help with patient compliance; patient asking for dose to be lowered to 400 mg which can be considered however need more collateral as patient can become floridly psychotic -May consider asking pt to add Abilify....maybe even lowering Clozapine (per request from Dr. Akins) -Continue benztropine 1 mg b.i.d. -Absolute neutrophil count WNL -Ordered clozapine level on admission (patient did receive 400 mg bedtime dose at ED) -Patient making body movements similar to akathisia/chorea; not sure if this is baseline; will consider propranolol -Will seek to gather collateral Reviewed labs from ED: UA negative; tox screen negative, CBC, lytes, BUN/creatinine calcium, LFTs WNL Patient educated on: diagnosis and medication risk/benefits Informed Consent: understands and further education needed Reason for continued inpatient stay Substantial Risk for: rapid decompensation Time Spent With Patient Time: Total time managing care of this patient today ____ minutes.
[2023-08-16 09:20] VITALS: BP 127/78; PULSE 106; RESP 16; TEMP 36.6; O2SAT 99
[2023-08-16] MEDS: Benztropine Mesylate 1 MG TABLET PO ×2 (09:24→21:27)
[2023-08-16] MEDS: LORazepam 1 MG TABLET 2 MG PO (14:32)
[2023-08-16] MEDS: CLOZAPINE 475 MG PO (21:27)
[2023-08-16 21:31] VITALS: BP 119/71; PULSE 103; RESP 14; TEMP 36.9; O2SAT 98
[2023-08-17] MEDS: Benztropine Mesylate 1 MG TABLET PO (08:29)
[2023-08-17 09:03] VITALS: BP 126/67; PULSE 106; RESP 18; TEMP 37; O2SAT 98
[2023-08-17] MEDS: LORazepam 1 MG TABLET 2 MG PO (13:29)
--- NOTE | 2023-08-17 17:30 | HO.PSYCHPN ---
Subjective Subjective Date of Service: 08/17/23 Reason For Visit: psychosis Interim History: Met with patient; discussed with RN. Antwon reports he is doing well. He denies any complaints. He is adherent to medications. Sleep and appetite are good. Some unit visibility.Denies AVH. Denies SI. Tolerating current medications. He signed a 3 day notice. Review of Systems Review of Systems Pt unavailable for H&P Mental Status Exam Mental Status Exam Narrative: Pt is alert and oriented; behavior is cooperative, more calm, less guarded; still making odd body movements but less, (possibly akathisia/chorea remanent from Haldol) patient is not in distress; dressed in casual attire, unkempt; mood is described as pretty good and affect more calm today; eye contact improved inappropriate; Speech is normal rate, volume and prosody and not pressured; no psychomotor agitation/retardation present; thought process goal directed, concrete; Thought content is on discharge, though does not talk much so not sure what other things crosses mind; that said no expressed paranoid delusional thinking; denies any SI/HI. Perhaps internally preoccupied Patients insight and judgment impaired but improved, likely near baseline and adequate. Diagnostics Vital Signs (24Hr): Vital Signs - 24 hr 08/16/23 21:31 08/17/23 09:03 Temperature 98.4 F 98.6 F Pulse Rate 103 H 106 H Respiratory Rate 14 18 Blood Pressure 119/71 126/67 Pulse Oximetry 98 98 Oxygen Delivery Method Room Air BMI result Body Mass Index 22.0 Labs 08/14/23 16:00 Medications Medications Current Medications Acetaminophen (Acetaminophen 325 Mg Tablet) 650 mg PO Q6H PRN PRN Reason: Headache/Pain Mild Scale (1-3) Al Hydroxide/Mg Hydroxide (Magnesium Hydrox/Alum Hydrox 30 Ml Oral.Susp) 30 ml PO Q6H PRN PRN Reason: Heartburn/Nausea Albuterol Sulfate (Albuterol Sulfate 90 Mcg 8 Gm Inhaler) 2 puff INHALE Q2H PRN PRN Reason: Shortness of Breath Benztropine Mesylate (Benztropine Mesylate 1 Mg Tablet) 1 mg PO BID COUNTS INCLUDE [facility] BEDS AT [facility] Last Admin: 08/17/23 08:29 Dose: 1 mg Clozapine 400 mg/ Clozapine 75 (mg) 475 mg PO BEDTIME GOLD Last Admin: 08/16/23 21:27 Dose: 475 mg Haloperidol (Haloperidol 5 Mg Tablet) 5 mg PO Q4H PRN PRN Reason: agitation Hydroxyzine HCl (Hydroxyzine Hcl 25 Mg Tablet) 25 mg PO Q6H PRN PRN Reason: Anxiety Lorazepam (Lorazepam 1 Mg Tablet) 2 mg PO Q4H PRN PRN Reason: agitation Last Admin: 08/17/23 13:29 Dose: 2 mg Magnesium Hydroxide (Milk Of Magnesia 30 Ml Oral.Susp) 30 ml PO DAILY PRN PRN Reason: Constipation Nicotine (Nicotine 21 Mg Patch.Td24) 21 mg TRANSDERMA DAILY PRN PRN Reason: smoking cessation Nicotine Polacrilex (Nicotine Polacrilex 2 Mg Gum) 4 mg BUCCAL Q2H PRN PRN Reason: Nicotine Cravings Trazodone HCl (Trazodone Hcl 50 Mg Tablet) 50 mg PO BEDTIME MRX1 PRN PRN Reason: Insomnia Allergies Allergies Allergy/AdvReac Type Severity Reaction Status Date / Time No Known Allergies Allergy Verified 01/26/22 23:05 Assessment & Plan Assessment & Plan (1) Schizophrenia: Status: Acute Code(s): F20.9 - Schizophrenia, unspecified Plan HPI: Mr. Hill is a 43-year-old male with history of schizophrenia/schizoaffective disorder on clozapine who presents after outpatient psychiatric provider Dr. Akins reported patient was declining, with disorganized speech and medication non adherence. On admission, patient is cooperative but guarded and with a odd behaviors and a somewhat limited historian as he is not able to tolerate talking much. Patient says he does not know why he was sent to the hospital; he reports that he was indeed taking his clozapine regularly and staff on the unit who know him, say he seems to appear at baseline. Patient said he did get riled up with staff at a meeting and thinks maybe that is the reason; he says he got riled up because he was dizzy on the ride over. Patient says he would like clozapine lowered, that 500 mg is too much because he can not think straight. He says he like to go down to 400 mg daily. Patient says he does not know if he was ever on clozapine doses ranging from 425 to 475 mg... Patient gives commercial lines underwriter verbal permission to call his staff and discussed case with them; he mentions [facility] where he lives. Hospital course: 08/16 pt more calm today and says he Feels pretty good today and of note he does seem more calm and is more able to engage in conversation. Asked about discharge and say's how's it looking, and whether or not we were able to get a hold of his outpatient team. Discussed his 3 day notice which he signed and the likelihood of him being discharged at that time. Also [facility] [employer] v[employer] worker communicated that he is welcome back. He denies any SI or HI; denies any AVH. Sales [employer] Service Change Leader asked about his arm movements which he said he thinks it is mostly just anxiety and not a medication side effect. He does not want any medications to address it. Patient said he appreciated commercial lines underwriter having lowered clozapine to 475 mg. Collateral: Patient has outpatient psychiatric provider Dr. Akins called commercial lines underwriter and gave more history. She has been working with patient for the past 15 years. 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 About 3 years ago he moved to [place] and seemed to have stopped taking his medications. He decompensated, became psychotic and has never since return to his former baseline. While in [place], he had other providers who augmented clozapine with Haldol and for time, Risperdal however patient got significant akathisia/chorea from Haldol. Dr. Akins picked him back up, discontinued Haldol and eventually titrated clozapine to 500 mg though he still has not returned to former baseline. She reports that this past week she suspected he was cheeking his medications due to his behaviors which were increased paranoia, unable to tolerate conversation and running out of the room; clozapine level supported the suspicion... (normally clozapine/norclozapine at >300/400; most recent level showed 160). She wonders about adding Abilify to see if that could improve his baseline and not have the intolerable side effects of Haldol... They are working on a [employer]. She agrees that he will likely be ready to return to [facility] next week. Plan: 3 day notice Q 15 minute checks -Will continue clozapine but lowered to 475 mg daily to help with patient compliance; patient asking for dose to be lowered to 400 mg which can be considered however need more collateral as patient can become floridly psychotic -May consider asking pt to add Abilify....maybe even lowering Clozapine (per request from Dr. Akins) -Continue benztropine 1 mg b.i.d. -Absolute neutrophil count WNL -Ordered clozapine level on admission (patient did receive 400 mg bedtime dose at ED) -Patient making body movements similar to akathisia/chorea; not sure if this is baseline; will consider propranolol -Will seek to gather collateral Reviewed labs from ED: UA negative; tox screen negative, CBC, lytes, BUN/creatinine calcium, LFTs WNL 10/17: Continue current management and treatment plan. Reason for continued inpatient stay Substantial Risk for: inability to function and rapid decompensation Time Spent With Patient Time: Total time managing care of this patient today ____ minutes.
[2023-08-17] MEDS: CLOZAPINE 475 MG PO (21:11)
[2023-08-17 21:14] VITALS: BP 110/60; PULSE 112; RESP 16; TEMP 36.8; O2SAT 97
[2023-08-18 08:23] VITALS: BP 106/72; PULSE 111; RESP 20; TEMP 36.4; O2SAT 95
[2023-08-18] MEDS: Benztropine Mesylate 1 MG TABLET PO ×2 (08:49→21:10)
[2023-08-18] MEDS: LORazepam 1 MG TABLET 2 MG PO (15:40)
--- NOTE | 2023-08-18 16:04 | P.PNPSI_ITS ---
Subjective Subjective Date of Service: 08/18/23 Reason For Visit: psychosis Interim History: Met with patient; discussed with RN. Antwon reports he is doing well. He denies any complaints. He is adherent to medications. Sleep and appetite are good. Some unit visibility.Denies AVH. Denies SI. Tolerating current medications. He signed a 3 day notice. Review of Systems Review of Systems Pt unavailable for H&P Mental Status Exam Mental Status Exam Narrative: Pt is alert and oriented; behavior is cooperative, more calm, less guarded; still making odd body movements but less, (possibly akathisia/chorea remanent from Haldol) patient is not in distress; dressed in casual attire, unkempt; mood is described as pretty good and affect more calm today; eye contact improved inappropriate; Speech is normal rate, volume and prosody and not pressured; no psychomotor agitation/retardation present; thought process goal directed, concrete; Thought content is on discharge, though does not talk much so not sure what other things crosses mind; that said no expressed paranoid delusional thinking; denies any SI/HI. Perhaps internally preoccupied Patients insight and judgment impaired but improved, likely near baseline and adequate. Diagnostics Vital Signs (24Hr): Vital Signs - 24 hr 08/17/23 21:14 08/18/23 08:23 Temperature 98.2 F 97.5 F Pulse Rate 112 H 111 H Respiratory Rate 16 20 Blood Pressure 110/60 106/72 Pulse Oximetry 97 95 Oxygen Delivery Method Room Air Room Air BMI result Body Mass Index 22.0 Labs 08/14/23 16:00 Medications Medications Current Medications Acetaminophen (Acetaminophen 325 Mg Tablet) 650 mg PO Q6H PRN PRN Reason: Headache/Pain Mild Scale (1-3) Al Hydroxide/Mg Hydroxide (Magnesium Hydrox/Alum Hydrox 30 Ml Oral.Susp) 30 ml PO Q6H PRN PRN Reason: Heartburn/Nausea Albuterol Sulfate (Albuterol Sulfate 90 Mcg 8 Gm Inhaler) 2 puff INHALE Q2H PRN PRN Reason: Shortness of Breath Benztropine Mesylate (Benztropine Mesylate 1 Mg Tablet) 1 mg PO BID [facility] Last Admin: 08/18/23 08:49 Dose: 1 mg Clozapine 400 mg/ Clozapine 75 (mg) 475 mg PO BEDTIME [facility] Last Admin: 08/17/23 21:11 Dose: 475 mg Haloperidol (Haloperidol 5 Mg Tablet) 5 mg PO Q4H PRN PRN Reason: agitation Hydroxyzine HCl (Hydroxyzine Hcl 25 Mg Tablet) 25 mg PO Q6H PRN PRN Reason: Anxiety Lorazepam (Lorazepam 1 Mg Tablet) 2 mg PO Q4H PRN PRN Reason: agitation Last Admin: 08/18/23 15:40 Dose: 2 mg Magnesium Hydroxide (Milk Of Magnesia 30 Ml Oral.Susp) 30 ml PO DAILY PRN PRN Reason: Constipation Nicotine (Nicotine 21 Mg Patch.Td24) 21 mg TRANSDERMA DAILY PRN PRN Reason: smoking cessation Nicotine Polacrilex (Nicotine Polacrilex 2 Mg Gum) 4 mg BUCCAL Q2H PRN PRN Reason: Nicotine Cravings Trazodone HCl (Trazodone Hcl 50 Mg Tablet) 50 mg PO BEDTIME MRX1 PRN PRN Reason: Insomnia Allergies Allergies Allergy/AdvReac Type Severity Reaction Status Date / Time No Known Allergies Allergy Verified 01/26/22 23:05 Assessment & Plan Assessment & Plan (1) Schizophrenia: Status: Acute Code(s): F20.9 - Schizophrenia, unspecified Plan HPI: Mr. Hill is a 43-year-old male with history of schizophrenia/schizoaffective disorder on clozapine who presents after outpatient psychiatric provider Dr. Akins reported patient was declining, with disorganized speech and medication non adherence. On admission, patient is cooperative but guarded and with a odd behaviors and a somewhat limited historian as he is not able to tolerate talking much. Patient says he does not know why he was sent to the hospital; he reports that he was indeed taking his clozapine regularly and staff on the unit who know him, say he seems to appear at baseline. Patient said he did get riled up with staff at a meeting and thinks maybe that is the reason; he says he got riled up because he was dizzy on the ride over. Patient says he would like clozapine lowered, that 500 mg is too much because he can not think straight. He says he like to go down to 400 mg daily. Patient says he does not know if he was ever on clozapine doses ranging from 425 to 475 mg... Patient gives justowriter operator verbal permission to call his staff and discussed case with them; he mentions [facility] where he lives. Hospital course: 08/16 pt more calm today and says he Feels pretty good today and of note he does seem more calm and is more able to engage in conversation. Asked about discharge and say's how's it looking, and whether or not we were able to get a hold of his outpatient team. Discussed his 3 day notice which he signed and the likelihood of him being discharged at that time. Also penitentiary Kevin subwarehouse supervisor communicated that he is welcome back. He denies any SI or HI; denies any AVH. Commercial Real Estate Paralegal asked about his arm movements which he said he thinks it is mostly just anxiety and not a medication side effect. He does not want any medications to address it. Patient said he appreciated justowriter operator having lowered clozapine to 475 mg. Collateral: Patient has outpatient psychiatric provider Dr. Akins called justowriter operator and gave more history. She has been working with patient for the past 15 years. 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 About 3 years ago he moved to [place] and seemed to have stopped taking his medications. He decompensated, became psychotic and has never since return to his former baseline. While in [place], he had other providers who augmented clozapine with Haldol and for time, Risperdal however patient got significant akathisia/chorea from Haldol. Dr. Akins picked him back up, discontinued Haldol and eventually titrated clozapine to 500 mg though he still has not returned to former baseline. She reports that this past week she suspected he was cheeking his medications due to his behaviors which were increased paranoia, unable to tolerate conversation and running out of the room; clozapine level supported the suspicion... (normally clozapine/norclozapine at >300/400; most recent level showed 160). She wonders about adding Abilify to see if that could improve his baseline and not have the intolerable side effects of Haldol... They are working on a [employer]. She agrees that he will likely be ready to return to [facility] next week. Plan: 3 day notice Q 15 minute checks -Will continue clozapine but lowered to 475 mg daily to help with patient compliance; patient asking for dose to be lowered to 400 mg which can be considered however need more collateral as patient can become floridly psychotic -May consider asking pt to add Abilify....maybe even lowering Clozapine (per request from Dr. Akins) -Continue benztropine 1 mg b.i.d. -Absolute neutrophil count WNL -Ordered clozapine level on admission (patient did receive 400 mg bedtime dose at ED) -Patient making body movements similar to akathisia/chorea; not sure if this is baseline; will consider propranolol -Will seek to gather collateral Reviewed labs from ED: UA negative; tox screen negative, CBC, lytes, BUN/creatinine calcium, LFTs WNL 10/17: Continue current management and treatment plan. Reason for continued inpatient stay Substantial Risk for: inability to function and rapid decompensation Time Spent With Patient Time: Total time managing care of this patient today ____ minutes.
[2023-08-18 19:58] VITALS: BP 133/80; PULSE 97; RESP 18; TEMP 36.2; O2SAT 100
[2023-08-18] MEDS: CLOZAPINE 475 MG PO (21:10)
[2023-08-19 08:20] VITALS: BP 107/64; PULSE 96; RESP 16; TEMP 36.7; O2SAT 99
[2023-08-19] MEDS: Benztropine Mesylate 1 MG TABLET PO ×2 (08:23→21:09)
[2023-08-19 11:15] LABS: Clozapine (Clozaril) 407 mcg/L; Norclozapine 334 mcg/L (25-400)
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
[2023-08-19] MEDS: LORazepam 1 MG TABLET 2 MG PO (11:47)
[2023-08-19] MEDS: hydrOXYzine HCL 25 MG TABLET PO (17:18)
[2023-08-19 19:50] VITALS: BP 108/69; PULSE 111; RESP 18; TEMP 36.8; O2SAT 97
[2023-08-19] MEDS: CLOZAPINE 475 MG PO (21:09)
[2023-08-20 06:00] VITALS: BP 88/64; PULSE 109; RESP 16; TEMP 36.2; O2SAT 99
[2023-08-20] MEDS: Benztropine Mesylate 1 MG TABLET PO (08:45)
== END 2023-08-20 10:30 | disposition home or self-care (01) | DRG 750 ==
PROVIDERS: Psychiatry & Neurology Psychiatry; Admitting Provider Psychiatry & Neurology Psychiatry; PCP Physician Assistant Medical; Visit Provider Psychiatry & Neurology Psychiatry
DX: F20.0 Paranoid schizophrenia (principal); Z91.51 Personal history of suicidal behavior; Z91.148 Patient's other noncompliance with medication regimen for other reason; Z79.899 Other long term (current) drug therapy
CPT/HCPCS: 36415; 80159; 85025; 92950

== ENCOUNTER → 2023-08-14 14:58 | Outpatient (BNV) | payer MEDICAID, SELFPAY | PROVIDERS: Admitting Provider Psychiatry & Neurology Psychiatry; PCP Physician Assistant Medical; Visit Provider Student in an Organized Health Care Education/Training Program | DX: Z02.2 Encounter for examination for admission to residential institution (principal) | CPT/HCPCS: 99429 ==

== ENCOUNTER → 2023-08-14 14:58 | Outpatient (BNV) | payer OTHER, SELFPAY | PROVIDERS: Admitting Provider Psychiatry & Neurology Psychiatry; PCP Physician Assistant Medical; Visit Provider Psychiatry & Neurology Psychiatry | DX: F20.89 Other schizophrenia (principal) | CPT/HCPCS: 90792; 99231; 99232; 99239 ==